=== PATIENT | male | born 1945 | race Caucasian/White ===

== ENCOUNTER 2017-10-08 16:53 | Emergency (ER) | payer OTHER ==
[~2017-10-08] VITALS: Ht 180.3 cm; Wt 75.3 kg
[~2017-10-08 16:53] MED LIST: ASPI81CH2 PO; ATEN50TA8 PO; COEN10CA2 PO; LEVO125T72 PO; LISI20TA3 PO; MELO15TA4 PO; SYMIN160 INH
[2017-10-08 17:12] VITALS: TEMP 37.6; Ht 180.3 cm; Wt 75.3 kg
[2017-10-08] MEDS ORDERED: MAGNESIUM SULFATE 1GM / D5W 1 GM BAG IV STA (18:48)
[2017-10-08] MEDS ORDERED: SODIUM CHLORIDE 0.9% 500ML 500 ML IV STA (18:48)
[2017-10-08] MEDS ORDERED: METHYLPREDNISOLONE 125 MG VIAL IV STA (18:48)
[2017-10-08] MEDS ORDERED: ACETAMINOPHEN 325 MG TAB PO STA (18:48)
--- NOTE | 2017-10-08 18:54 | EMERGENCY ROOM VISIT NOTE ---
History Report prepared by Christin: Nilesh Bah Under the Supervision of: Dr. David Guillaume M.D. First contact with patient: 18:40 Chief Complaint: FLU LIKE SX Stated Complaint: FLU LIKE SX History of Present Illness The patient is a 72 year old male who presents to the Emergency Room with complaints of worsening difficulty breathing that that the patient has been experiencing for the past two months. The patient states that he has been experiencing cough, congestion, and fevers for the past two months. The cough is producing a clear phlegm. He has been on two different strains of prednisone and antibiotics, but has never gotten full relief of his symptoms. The patient came in today because he was having a harder time breathing. He describes his shortness of breath as his chest being "tight." The patient is currently an everyday smoker and has a history of COPD. He does use inhalers at home that help with his shortness of breath. He is on Eliquis for anticoagulation therapy. The patient continued to have some bouts of diarrhea for the past week. Source of History: patient Onset: Two Months Position: other (Respiratory) Quality: other (SOB, chest tightness) Timing: worsening Associated Symptoms: + fevers, + cough, + diarrhea Review of Systems See HPI for pertinent positives and negatives. A total of ten systems were reviewed and were otherwise negative. Past Medical & Surgical Medical Problems: (1) Atrial fibrillation (2) COPD (chronic obstructive pulmonary disease) (3) Heart disease (4) HTN (hypertension) Surgical Problems: (1) History of appendectomy Family History FH: heart disease FHx: cancer Social History Smoking Status: Current Every Day Smoker Drug Use: none Marital Status: Housing Status: lives with significant other Occupation Status: employed Current/Historical Medications Scheduled Apixaban (Eliquis), 5 MG PO BID Ascorbic Acid (Vitamin C), 250 MG PO DAILY Aspirin (Aspirin Ec), 81 MG PO DAILY Atenolol (Tenormin), 50 MG PO DAILY Azithromycin (Zithromax), 250 MG PO DAILY Budesonide/Formoterol Fumarate (Symbicort 160/4.5 Inhaler ), 2 PUFFS INH BID Ferrous Sulfate (Ferrous Sulfate), 325 MG PO DAILY Folic Acid (Folic Acid), 800 MCG PO DAILY Levothyroxine Sodium (Levothyroxine Sodium), 137 MCG PO DAILY Lisinopril (Prinivil), 10 MG PO DAILY Prednisone (Prednisone), 3 TAB PO DAILY Propranolol Hcl (Propranolol Hcl Er), 120 MG PO DAILY Scheduled PRN Albuterol Hfa (Ventolin Hfa), 2 PUFFS INH Q4H PRN for Wheezing Allergies Coded Allergies: Sulfa Antibiotics (Verified Allergy, Unknown, ., 08/12/15) Physical Exam Vital Signs Date Time Temp Pulse Resp B/P (MAP) Pulse Ox O2 Delivery O2 Flow Rate FiO2 10/08/17 21:01 72 18 132/82 92 Room Air 10/08/17 19:42 92 Room Air 10/08/17 19:38 63 10/08/17 19:38 67 18 123/80 92 Room Air 10/08/17 17:12 37.6 64 18 107/69 93 Room Air Physical Exam GENERAL: Awake, alert, fatigued/uncomfortable-appearing, in no distress HENT: Normocephalic, atraumatic. Mucous membranes are dry. EYES: Normal conjunctiva. Sclera non-icteric. NECK: Supple. No nuchal rigidity. FROM. No JVD. RESPIRATORY: Breath sounds are diminished throughout, with scattered wheezes. CARDIAC: Irregularly irregular rate.. Extremities warm and well perfused. Pulses equal. ABDOMEN: Soft, non-distended. No tenderness to palpation. No rebound or guarding. No masses. RECTAL: Deferred. MUSCULOSKELETAL: Chest examination reveals no tenderness. The back is symmetrical on inspection without obvious abnormality. There is no CVA tenderness to palpation. No joint edema. LOWER EXTREMITIES: Calves are equal size bilaterally and non-tender. No edema. No discoloration. NEURO: Normal sensorium. No sensory or motor deficits noted. SKIN: No rash or jaundice noted. Medical Decision & Procedures ER Provider Diagnostic Interpretation: Radiology results as stated below per my review and radiologist interpretation: CHEST ONE VIEW PORTABLE CLINICAL HISTORY: Chest pain. Flulike symptoms. COMPARISON STUDY: Chest radiograph August 12, 2015. FINDINGS: Lung volumes are normal. There is no consolidation or evidence for pulmonary edema. Cardiomediastinal silhouette is unremarkable. No pneumothorax or pleural effusion is identified. IMPRESSION: No acute cardiopulmonary findings. Electronically signed by: Chapincito Byrd M.D. 10/08/2017 8:10 PM Dictated Date/Time: 10/08/2017 8:09 PM Laboratory Results 10/08/17 19:29 Red Blood Count 4.31, Mean Corpuscular Volume 96.1, Mean Corpuscular Hemoglobin 32.9, Mean Corpuscular Hemoglobin Concent 34.3, Mean Platelet Volume 10.6, Neutrophils (%) (Auto) 83.0, Lymphocytes (%) (Auto) 7.8, Monocytes (%) (Auto) 8.4, Eosinophils (%) (Auto) 0.1, Basophils (%) (Auto) 0.3, Neutrophils # (Auto) 5.72, Lymphocytes # (Auto) 0.54, Monocytes # (Auto) 0.58, Eosinophils # (Auto) 0.01, Basophils # (Auto) 0.02 10/08/17 19:29 Test 10/08/17 19:29 White Blood Count 6.90 K/uL (4.8-10.8) Red Blood Count 4.31 M/uL (4.7-6.1) Hemoglobin 14.2 g/dL (14.0-18.0) Hematocrit 41.4 % (42-52) Mean Corpuscular Volume 96.1 fL (80-100) Mean Corpuscular Hemoglobin 32.9 pg (25-34) Mean Corpuscular Hemoglobin Concent 34.3 g/dl (32-36) Platelet Count 203 K/uL (130-400) Mean Platelet Volume 10.6 fL (7.4-10.4) Neutrophils (%) (Auto) 83.0 % Lymphocytes (%) (Auto) 7.8 % Monocytes (%) (Auto) 8.4 % Eosinophils (%) (Auto) 0.1 % Basophils (%) (Auto) 0.3 % Neutrophils # (Auto) 5.72 K/uL (1.4-6.5) Lymphocytes # (Auto) 0.54 K/uL (1.2-3.4) Monocytes # (Auto) 0.58 K/uL (0.11-0.59) Eosinophils # (Auto) 0.01 K/uL (0-0.5) Basophils # (Auto) 0.02 K/uL (0-0.2) RDW Standard Deviation 49.8 fL (36.4-46.3) RDW Coefficient of Variation 14.1 % (11.5-14.5) Immature Granulocyte % (Auto) 0.4 % Immature Granulocyte # (Auto) 0.03 K/uL (0.00-0.02) Venous Blood pH 7.39 (7.36-7.41) Venous Blood Partial Pressure CO2 44 mmHg (38.0-50.0) Venous Blood Partial Pressure O2 48 mmHg Venous Blood HCO3 26 mmol/L Venous Blood Oxygen Saturation 81.4 % Venous Blood Base Excess 1.0 mEq/L Anion Gap 8.0 mmol/L (3-11) Est Creatinine Clear Calc Drug Dose 77.6 ml/min Estimated GFR () 95.4 Estimated GFR (Non- 82.3 BUN/Creatinine Ratio 18.1 (10-20) Calcium Level 8.5 mg/dl (8.5-10.1) Magnesium Level 1.8 mg/dl (1.8-2.4) Total Bilirubin 1.4 mg/dl (0.2-1) Direct Bilirubin 0.3 mg/dl (0-0.2) Aspartate Amino Transf (AST/SGOT) 19 U/L (15-37) Alanine Aminotransferase (ALT/SGPT) 31 U/L (12-78) Alkaline Phosphatase 47 U/L (45-117) Troponin I 0.019 ng/ml (0-0.045) Pro-B-Type Natriuretic Peptide 4195 pg/ml (0-900) Total Protein 6.8 gm/dl (6.4-8.2) Albumin 3.0 gm/dl (3.4-5.0) Lipase 368 U/L (73-393) Influenza Type A Antigen Neg for Influ A (NEG) Influenza Type B Antigen Neg for Influ B (NEG) Laboratory results reviewed by me Medications Administered Medications (Trade) Dose Ordered Sig/Naeem Route Start Time Stop Time Status Last Admin Dose Admin Sodium Chloride 500 ml @ 999 mls/hr Q31M STAT IV 10/08/17 18:48 10/08/17 19:18 DC 10/08/17 19:44 999 MLS/HR Acetaminophen (Tylenol Tab) 650 mg NOW STAT PO 10/08/17 18:48 10/08/17 18:54 DC 10/08/17 19:50 650 MG Albuterol/ Ipratropium (Duoneb) 12 ml ONE ONCE INH 10/08/17 19:00 10/08/17 19:01 DC 10/08/17 20:00 12 ML Methylprednisolone Sodium Succinate (Solu-Medrol IV) 125 mg NOW STAT IV 10/08/17 18:48 10/08/17 18:54 DC 10/08/17 19:50 125 MG Magnesium Sulfate (Magnesium Sulfate) 2 gm NOW STAT IV 10/08/17 18:48 10/08/17 18:54 DC 10/08/17 19:52 2 GM Azithromycin (Zithromax Tab) 500 mg NOW STAT PO 10/08/17 20:48 10/08/17 20:50 DC 10/08/17 21:28 500 MG ECG Rate (beats per minute): 64 Rhythm: sinus rhythm Findings: nonspecific-ST abn, PAC, no acute ischemic change, other (Normal [place] ) Comparison ECG Date: no prior available Change: Patient's electrocardiogram interpreted by me. ED Course 1845: The patient was evaluated in room A11B. A complete history and physical exam was performed. 1847: Ordered Magnesium Sulfate 2 gm IV, Solu-Medrol 125 mg IV, Tylenol 650 mg PO, Sodium Chloride 500 mL @ 999 mL/hr IV. 1899: Ordered Duoneb 12 mL INH. 2047: Ordered Azithromycin 500 mg PO. 2100: I reevaluated the patient. Discussed results and discharge instructions: He verbalized understanding and agreement. The patient is ready for discharge. Medical Decision I reviewed the patient's past medical history, medications, and the nursing notes as described above. Differential diagnosis: Etiologies such as infections, reactive airway disease, pneumonia, pneumothorax , COPD, CHF, cardiac ischemia, pulmonary embolism, musculoskeletal, gastrointestinal, as well as others were entertained. The patient is a 72-year-old gentleman with a past medical history of A. fib on a Eliquis, COPD, active smoker who presents emergency Department with worsening cough and congestion over the past several days the setting have had a recurrent episodes over the past couple of weeks per hpi. On arrival the patient is uncomfortable in no acute distress, afebrile stable vital signs. 92% on RA in the setting of chronic smoking. On exam the patient has diminished breath sounds throughout with scattered wheezes. Appears clinically dry. EKG with non-specific findings, no acute ischemia. Trop wnl in the setting of several days of constant sx. BNP 4K without prior for comparison. Likely related to patient's Afib. Otherwise, chest x-ray negative fluid overload or pneumonia. VBG unremarkable. WBC within normal limits. Influenza negative. Patient feeling improved after steroids and continuous nebs. Thus plan for prednisone and azithromycin and PCP follow-up. Findings and plan for follow-up reviewed with patient. Patient agreeable and d/c'd per discharge instructions. Medication Reconcilliation Current Medication List: was personally reviewed by me Blood Pressure Screening Patient's blood pressure: Normal blood pressure Impression Primary Impression: COPD with exacerbation Scribe Attestation The scribe's documentation has been prepared under my direction and personally reviewed by me in its entirety. I confirm that the note above accurately reflects all work, treatment, procedures, and medical decision making performed by me. Departure Information Dispostion Home / Self-Care Prescriptions Azithromycin (Zithromax) 250 Mg Tab 250 MG PO DAILY, #4 TAB Prov: David Guillaume M.D. 10/08/17 Prednisone (Prednisone) 20 Mg Tab 3 TAB PO DAILY for 4 Days, #12 TAB FOR 4 DAYS Prov: David Guillaume M.D. 10/08/17 Referrals Sonja Condon DO (PCP) Patient Instructions ED COPD Flare, My [facility] Additional Instructions Please follow up with your primary care physician in the next 1-3 days for re- evaluation. You likely have a COPD exacerbation. Otherwise, your exam, EKG, chest xray, and lab results did not show signs of an emergent condition at this time. Acetaminophen for pain and fevers as needed. Prednisone and Azithromycin as directed. Drink plenty of fluids to ensure hydration. Return to the emergency department for worsening symptoms as described in the accompanying instructions.
[2017-10-08] MEDS ORDERED: ALBUT/IPRATROP 3MG/0.5MG NEB 3 ML VIAL INH ONE (19:00)
[2017-10-08] MEDS ORDERED: FOLI800T PO (19:12)
[2017-10-08] MEDS ORDERED: ASCO250T4 PO (19:12)
[2017-10-08] MEDS ORDERED: ASPI81TA28 PO (19:12)
[2017-10-08] MEDS ORDERED: APIX1TAB3 PO (19:12)
[2017-10-08] MEDS ORDERED: PROP120C PO (19:12)
[2017-10-08] MEDS ORDERED: VNTHFA/IN INH (19:12)
[2017-10-08] MEDS ORDERED: LISI10TA PO (19:12)
[2017-10-08] MEDS ORDERED: LEVO137T3 PO (19:12)
[2017-10-08] MEDS ORDERED: FRRS300 PO (19:12)
[2017-10-08 19:42] VITALS: O2SAT 92
[2017-10-08 19:49] LABS: BASO % 0.3 %; BASO ABS # 0.02 K/uL (0-0.2); EOS % 0.1 %; EOS ABS # 0.01 K/uL (0-0.5); HEMATOCRIT 41.4 % (42-52); HEMOGLOBIN 14.2 g/dL (14.0-18.0); IG# 0.03 K/uL (0.00-0.02); LYMPH % 7.8 %; LYMPH ABS # 0.54 K/uL (1.2-3.4); MEAN CELL VOLUME 96.1 fL (80-100); MEAN CORPUSCULAR HEMOGLOBIN 32.9 pg (25-34); MEAN CORPUSCULAR HGB CONC 34.3 g/dl (32-36); MEAN PLATELET VOLUME 10.6 fL (7.4-10.4); MONO % 8.4 %; MONO ABS # 0.58 K/uL (0.11-0.59); NEUT ABS # 5.72 K/uL (1.4-6.5); PLATELET COUNT 203 K/uL (130-400); RED CELL DISTRIBUTION WIDTH CV 14.1 % (11.5-14.5); RED CELL DISTRIBUTION WIDTH SD 49.8 fL (36.4-46.3)
[2017-10-08 20:06] LABS: CALCIUM 8.5 mg/dl (8.5-10.1); CREATININE 0.93 mg/dl (0.60-1.40); POTASSIUM 3.9 mmol/L (3.5-5.1)
--- NOTE | 2017-10-08 20:11 | DIAGNOSTIC IMAGING REPORT ---
CHEST ONE VIEW PORTABLE CLINICAL HISTORY: Chest pain. Flulike symptoms. COMPARISON STUDY: Chest radiograph August 12, 2015. FINDINGS: Lung volumes are normal. There is no consolidation or evidence for pulmonary edema. Cardiomediastinal silhouette is unremarkable. No pneumothorax or pleural effusion is identified. IMPRESSION: No acute cardiopulmonary findings. Electronically signed by: Chapincito Byrd M.D. 10/08/2017 8:10 PM Dictated Date/Time: 10/08/2017 8:09 PM
[2017-10-08 20:12] LABS: TOTAL PROTEIN 6.8 gm/dl (6.4-8.2)
[2017-10-08 20:17] LABS: INFLUENZA B ANTIGEN Neg for Influ B (NEG)
[2017-10-08] MEDS ORDERED: AZITHROMYCIN 250 MG TAB PO STA (20:48)
[2017-10-08] MEDS ORDERED: AZIT250T PO (20:53)
[2017-10-08] MEDS ORDERED: PRED20TA PO (20:53)
[2017-10-08 21:01] VITALS: BP 132/82; PULSE 72; O2SAT 92
== END 2017-10-08 22:31 | disposition home or self-care (01) ==
LOC: C.EDB 16:54 → C.EDA 22:31
DX: J44.1 Chronic obstructive pulmonary disease with (acute) exacerbation (principal); I10 Essential (primary) hypertension; I48.91 Unspecified atrial fibrillation; F17.200 Nicotine dependence, unspecified, uncomplicated; Z79.01 Long term (current) use of anticoagulants; Z79.82 Long term (current) use of aspirin

== ENCOUNTER 2017-10-11 11:03 | Inpatient (IN) | payer OTHER ==
[~2017-10-11] VITALS: Ht 180.3 cm; Wt 75.7 kg
[~2017-10-11 11:03] MED LIST changes: +APIX1TAB3 PO; +ASCO250T4 PO; -ASPI81CH2 PO; +ASPI81TA28 PO; +AZIT250T PO; -COEN10CA2 PO; +FOLI800T PO; +FRRS300 PO; -LEVO125T72 PO; +LEVO137T3 PO; +LISI10TA PO; -LISI20TA3 PO; -MELO15TA4 PO; +PRED20TA PO; +PROP120C PO; +VNTHFA/IN INH
[2017-10-11] MEDS ORDERED: OSELTAMIVIR PHOSPHATE 75 MG CAP PO STA (11:59)
[2017-10-11] MEDS ORDERED: ALBUT/IPRATROP 3MG/0.5MG NEB 3 ML VIAL INH ONE (12:00)
[2017-10-11 12:21] VITALS: PULSE 50; O2SAT 94
[2017-10-11 12:33] LABS: BASO % 0.1 %; BASO ABS # 0.01 K/uL (0-0.2); HEMATOCRIT 43.2 % (42-52); HEMOGLOBIN 14.6 g/dL (14.0-18.0); IG# 0.04 K/uL (0.00-0.02); LYMPH % 4.2 %; LYMPH ABS # 0.58 K/uL (1.2-3.4); MEAN CELL VOLUME 97.3 fL (80-100); MEAN CORPUSCULAR HEMOGLOBIN 32.9 pg (25-34); MEAN CORPUSCULAR HGB CONC 33.8 g/dl (32-36); MEAN PLATELET VOLUME 10.6 fL (7.4-10.4); MONO % 4.4 %; NEUT ABS # 12.42 K/uL (1.4-6.5); PLATELET COUNT 251 K/uL (130-400); RED CELL DISTRIBUTION WIDTH CV 14.1 % (11.5-14.5); RED CELL DISTRIBUTION WIDTH SD 50.4 fL (36.4-46.3); WHITE BLOOD COUNT 13.65 K/uL (4.8-10.8)
--- NOTE | 2017-10-11 12:38 | EMERGENCY ROOM VISIT NOTE ---
History Report prepared by Christin: Shiela Harrington Under the Supervision of: Dr. David Guillaume M.D. First contact with patient: 11:40 Chief Complaint: RESPIRATORY PROBLEMS Stated Complaint: TROUBLE BREATHING Nursing Triage Summary: pt reports was here a few days ago for cough with SOB states "I've been using my albuterol INH and Symbicort, I also have a nebulizer. They have been helping for a short time but afterwards I feel worse." pt reports HX of Afib, does not currently feel in cough with production of sputum pt appears to be using accessory chest muscles History of Present Illness The patient is a 72 year old male who presents to the Emergency Room with complaints of persistent respiratory problems that began a few days ago. The patient was recently seen in the Emergency Department for a severe cough with shortness of breath, noting he is on his fourth day of steroids. During his last visit, the patient tested negative for the flu. The patient states that since his last visit, he has been experiencing severe shortness of breath, which worsens when he lays down. He notes that he his inhaler and nebulizing treatment only resolve his symptoms short term. He denies any f/c, abdominal pain, chest pain, palpitations or dysuria. The patient reports that he has currently stopped smoking since his last ED visit. He notes that he is still taking Eliquis. Source of History: patient Onset: few days ago Position: other (global) Symptom Intensity: severe Quality: other (respiratory problems) Modifying Factors (Relieving): other (inhaler and nebulizer treatment ( short term)) Associated Symptoms: + SOB, No chest pain (and no palpitations), No abdominal pain, No urinary symptoms (dysuria) Review of Systems See HPI for pertinent positives and negatives. A total of ten systems were reviewed and were otherwise negative. Past Medical & Surgical Medical Problems: (1) Atrial fibrillation (2) COPD (chronic obstructive pulmonary disease) (3) Heart disease (4) HTN (hypertension) Surgical Problems: (1) History of appendectomy Family History FH: heart disease FHx: cancer Social History Smoking Status: Former Smoker Drug Use: none Marital Status: Housing Status: lives with significant other Occupation Status: employed Current/Historical Medications Scheduled Apixaban (Eliquis), 5 MG PO BID Ascorbic Acid (Vitamin C), 250 MG PO DAILY Aspirin (Aspirin Ec), 81 MG PO DAILY Atenolol (Tenormin), 50 MG PO DAILY Budesonide/Formoterol Fumarate (Symbicort 160/4.5 Inhaler ), 2 PUFFS INH BID Ferrous Sulfate (Ferrous Sulfate), 325 MG PO DAILY Folic Acid (Folic Acid), 800 MCG PO DAILY Levothyroxine Sodium (Levothyroxine Sodium), 137 MCG PO DAILY Lisinopril (Prinivil), 10 MG PO DAILY Prednisone (Prednisone), 3 TAB PO DAILY Propranolol Hcl (Propranolol Hcl Er), 120 MG PO DAILY Scheduled PRN Albuterol Hfa (Ventolin Hfa), 2 PUFFS INH Q4H PRN for Wheezing Allergies Coded Allergies: Sulfa Antibiotics (Verified Allergy, Unknown, ., 10/11/17) Physical Exam Vital Signs Date Time Temp Pulse Resp B/P (MAP) Pulse Ox O2 Delivery O2 Flow Rate FiO2 10/11/17 13:48 51 16 167/94 93 Room Air 10/11/17 12:34 92 10/11/17 12:30 50 16 142/86 91 Nebulizer 10/11/17 12:21 50 14 94 Room Air 10/11/17 11:22 56 10/11/17 11:07 36.7 57 20 160/89 94 Room Air Physical Exam GENERAL: Awake, alert, fatigued, dyspneic, in no distress. HENT: Dry mucous membranes. Normocephalic, atraumatic. Oropharynx unremarkable. EYES: Normal conjunctiva. Sclera non-icteric. NECK: Supple. No nuchal rigidity. FROM. No JVD. RESPIRATORY: Diminished breath sounds with scattered wheezes. CARDIAC: Irregular irregular heartbeat. Extremities warm and well perfused. Pulses equal. ABDOMEN: Soft, non-distended. No tenderness to palpation. No rebound or guarding. No masses. RECTAL: Deferred. MUSCULOSKELETAL: Chest examination reveals no tenderness. The back is symmetrical on inspection without obvious abnormality. There is no CVA tenderness to palpation. No joint edema. LOWER EXTREMITIES: Calves are equal size bilaterally and non-tender. No edema. No discoloration. NEURO: Normal sensorium. No sensory or motor deficits noted. SKIN: No rash or jaundice noted. Medical Decision & Procedures ER Provider Diagnostic Interpretation: Radiology results as stated below per my review and radiologist interpretation: CHEST ONE VIEW PORTABLE CLINICAL HISTORY: 72 years-old Male presenting with CHEST PAIN. TECHNIQUE: Portable upright AP view of the chest was obtained. COMPARISON: 10/08/2017. FINDINGS: Atherosclerosis of the aortic arch. Cardiac silhouette normal in size. Lungs and pleural spaces clear. Degenerative changes of the right glenohumeral joint. Upper abdomen normal. IMPRESSION: 1. No acute cardiopulmonary disease. Electronically signed by: Johnnie Moreno M.D. 10/11/2017 1:10 PM Dictated Date/Time: 10/11/2017 1:09 PM Laboratory Results 10/11/17 12:15 Red Blood Count 4.44, Mean Corpuscular Volume 97.3, Mean Corpuscular Hemoglobin 32.9, Mean Corpuscular Hemoglobin Concent 33.8, Mean Platelet Volume 10.6, Neutrophils (%) (Auto) 91.0, Lymphocytes (%) (Auto) 4.2, Monocytes (%) (Auto) 4.4, Eosinophils (%) (Auto) 0.0, Basophils (%) (Auto) 0.1, Neutrophils # (Auto) 12.42, Lymphocytes # (Auto) 0.58, Monocytes # (Auto) 0.60, Eosinophils # (Auto) 0.00, Basophils # (Auto) 0.01 10/11/17 12:15 Test 10/11/17 12:15 10/11/17 12:17 White Blood Count 13.65 K/uL (4.8-10.8) Red Blood Count 4.44 M/uL (4.7-6.1) Hemoglobin 14.6 g/dL (14.0-18.0) Hematocrit 43.2 % (42-52) Mean Corpuscular Volume 97.3 fL (80-100) Mean Corpuscular Hemoglobin 32.9 pg (25-34) Mean Corpuscular Hemoglobin Concent 33.8 g/dl (32-36) Platelet Count 251 K/uL (130-400) Mean Platelet Volume 10.6 fL (7.4-10.4) Neutrophils (%) (Auto) 91.0 % Lymphocytes (%) (Auto) 4.2 % Monocytes (%) (Auto) 4.4 % Eosinophils (%) (Auto) 0.0 % Basophils (%) (Auto) 0.1 % Neutrophils # (Auto) 12.42 K/uL (1.4-6.5) Lymphocytes # (Auto) 0.58 K/uL (1.2-3.4) Monocytes # (Auto) 0.60 K/uL (0.11-0.59) Eosinophils # (Auto) 0.00 K/uL (0-0.5) Basophils # (Auto) 0.01 K/uL (0-0.2) RDW Standard Deviation 50.4 fL (36.4-46.3) RDW Coefficient of Variation 14.1 % (11.5-14.5) Immature Granulocyte % (Auto) 0.3 % Immature Granulocyte # (Auto) 0.04 K/uL (0.00-0.02) Anion Gap 6.0 mmol/L (3-11) Est Creatinine Clear Calc Drug Dose 81.0 ml/min Estimated GFR () 99.7 Estimated GFR (Non- 86.0 BUN/Creatinine Ratio 24.5 (10-20) Calcium Level 8.7 mg/dl (8.5-10.1) Total Bilirubin 0.7 mg/dl (0.2-1) Direct Bilirubin 0.2 mg/dl (0-0.2) Aspartate Amino Transf (AST/SGOT) 41 U/L (15-37) Alanine Aminotransferase (ALT/SGPT) 59 U/L (12-78) Alkaline Phosphatase 50 U/L (45-117) Troponin I < 0.015 ng/ml (0-0.045) Pro-B-Type Natriuretic Peptide 1786 pg/ml (0-900) Total Protein 7.2 gm/dl (6.4-8.2) Albumin 3.1 gm/dl (3.4-5.0) Lipase 283 U/L (73-393) Influenza Type A (RT-PCR) POS for Influ A (NEG) Influenza Type B (RT-PCR) Neg for Influ B (NEG) Venous Blood pH 7.42 (7.36-7.41) Venous Blood Partial Pressure CO2 47 mmHg (38.0-50.0) Venous Blood Partial Pressure O2 46 mmHg Venous Blood HCO3 30 mmol/L Venous Blood Oxygen Saturation 81.1 % Venous Blood Base Excess 4.8 mEq/L Laboratory results reviewed by me Medications Administered Medications (Trade) Dose Ordered Sig/Naeem Route Start Time Stop Time Status Last Admin Dose Admin Oseltamivir Phosphate (Tamiflu Cap) 75 mg NOW STAT PO 2/4/18 11:59 10/11/17 12:06 DC 10/11/17 11:59 75 MG Albuterol/ Ipratropium (Duoneb) 12 ml ONE ONCE INH 10/11/17 12:00 10/11/17 12:07 DC 10/11/17 12:20 12 ML ECG Indication: SOB/dyspnea Rate (beats per minute): 57 Rhythm: sinus bradycardia Findings: no acute ischemic change, other (normal axis) Change: no significant change (10/08/2017) ED Course 1151: The patient was evaluated in room C6. A complete history and physical exam was performed. 1159: Ordered Tamiflu Cap 75mg PO. 1200: Ordered Duoneb 12ml INH. 1320: I reevaluated the patient. I discussed today's findings and the treatment plan with him; he verbalized agreement. 1350: I discussed the patient with Sky Adamson - He will evaluate the patient for further treatment. Medical Decision I reviewed the patient's past medical history, medications, and the nursing notes as described above. Differential diagnosis: Etiologies such as infections, influenza, reactive airway disease, pneumonia, pneumothorax, COPD, CHF, cardiac ischemia, pulmonary embolism, musculoskeletal, gastrointestinal, as well as others were entertained. The patient is a 72 y/o gentleman with a pmhx of COPD, active smoker, afib on Eliquis presents to the emergency department with persistent/worsening cough/ congestion since being seen in the ED 3 days ago for similar symptoms treated for COPD flare/bronchitis with prednisone/azithro per HPI. On last visit Influenza screen was negative. On arrival the patient is uncomfortable and mildly dyspneic but in NAD, AFVSS. Patient took his prednisone and Azithro this morning. Given continuous neb and Tamiflu based on persistence of patient's sx and current prevalence in the community. Subsequent PCR +for influenza A. WBC 13 up from prior however on prednisone. BNP 1700 improved from prior. CXR negative for PNA. Given worsening sx in the setting of influenza in this 72 y/o with comorbidities will admit. Patient agreeable with admission. Case d/w Sky Adamson hospitalist, who will admit the patient for further management. Medication Reconcilliation Current Medication List: was personally reviewed by me Blood Pressure Screening Patient's blood pressure: Elevated blood pressure Blood pressure disposition: Elevated BP felt to be situational Consults Time Called: 1350 Consulting Physician: Sky Adamson Returned Call: 1350 I discussed the patient with Sky Adamson - He will evaluate the patient for further treatment. Impression Primary Impression: Influenza Scribe Attestation The scribe's documentation has been prepared under my direction and personally reviewed by me in its entirety. I confirm that the note above accurately reflects all work, treatment, procedures, and medical decision making performed by me. Departure Information Dispostion Being Evaluated By Hospitalist Referrals Sonja Condon DO (PCP) Forms HOME CARE DOCUMENTATION FORM, IMPORTANT VISIT INFORMATION, WORK / SCHOOL INSTRUCTIONS Patient Instructions My [facility] [address]
[2017-10-11 12:52] LABS: ALBUMIN 3.1 gm/dl (3.4-5.0); ALT/SGPT 59 U/L (12-78); AST/SGOT 41 U/L (15-37); BLOOD UREA NITROGEN 22 mg/dl (7-18); CALCIUM 8.7 mg/dl (8.5-10.1); CARBON DIOXIDE 30 mmol/L (21-32); CREATININE 0.89 mg/dl (0.60-1.40); GLUCOSE 96 mg/dl (70-99); LIPASE 283 U/L (73-393); POTASSIUM 4.3 mmol/L (3.5-5.1); SODIUM 138 mmol/L (136-145)
[2017-10-11 12:57] LABS: ALKALINE PHOSPHATASE 50 U/L (45-117); TOTAL PROTEIN 7.2 gm/dl (6.4-8.2)
--- NOTE | 2017-10-11 13:12 | DIAGNOSTIC IMAGING REPORT ---
CHEST ONE VIEW PORTABLE CLINICAL HISTORY: 72 years-old Male presenting with CHEST PAIN. TECHNIQUE: Portable upright AP view of the chest was obtained. COMPARISON: 10/08/2017. FINDINGS: Atherosclerosis of the aortic arch. Cardiac silhouette normal in size. Lungs and pleural spaces clear. Degenerative changes of the right glenohumeral joint. Upper abdomen normal. IMPRESSION: 1. No acute cardiopulmonary disease. Electronically signed by: Johnnie Moreno M.D. 10/11/2017 1:10 PM Dictated Date/Time: 10/11/2017 1:09 PM
[2017-10-11 13:30] LABS: INFLUENZA A PCR POS for Influ A (NEG); INFLUENZA B PCR Neg for Influ B (NEG)
[2017-10-11] MEDS ORDERED: ALBUTEROL HFA 8 GM INHALER INH PRN (15:15)
[2017-10-11] MEDS ORDERED: LISINOPRIL 5 MG TAB PO ONE (15:15)
[2017-10-11] MEDS ORDERED: ACETAMINOPHEN 325 MG TAB PO PRN (15:15)
[2017-10-11] MEDS: SODIUM CHLORIDE 0.9% 1000ML 1,000 ML IV SCH (16:00)
[2017-10-11 16:05] VITALS: BP 153/88; PULSE 51; TEMP 36.7; O2SAT 92; Ht 180.3 cm; Wt 75.7 kg
[2017-10-11] MEDS: ALBUT/IPRATROP 3MG/0.5MG NEB 3 ML VIAL INH SCH ×2 (16:55→19:26)
--- NOTE | 2017-10-11 17:22 | History and Physical ---
History & Physical Date & Time of Service: Oct 11, 2017 at 17:01 Chief Complaint: Influenza Primary Care Physician: Sonja Condon DO History of Present Illness Source: patient, clinic records This is a 72 year old male with a PMH of COPD, intermittent tobacco use, non- obstructive CAD, paroxysmal atrial fibrillation on long-term anticoagulation, hypothyroidism, essential tremor - presents with worsening shortness of breath. States he had some shortness of breath on Thursday, 10/09 and came to the ER. Had the rapid flu which was negative, was wheezing, received neb treatments and IV steroids and felt better so he was discharged with prednisone and azithromycin. He returned today because the shortness of breath/cough/fever persisted. Upon presentation, influenza A PCR was done and was positive. CXR was done with no acute cardiopulmonary disease. Patient was doing well after some breathing treatments. Denies palpitations or chest pain. Past Medical/Surgical History Medical Problems: (1) Atrial fibrillation Status: Chronic (2) COPD (chronic obstructive pulmonary disease) Status: Chronic (3) Heart disease Status: Chronic (4) HTN (hypertension) Status: Chronic Surgical Problems: (1) History of appendectomy Status: Resolved Family History FH: heart disease FHx: cancer Social History Smoking Status: Light Tobacco Smoker Drug Use: none Marital Status: Occupational Status: employed Multi-Drug Resistant Organisms History of MDRO: No Allergies Coded Allergies: Sulfa Antibiotics (Verified Allergy, Unknown, ., 10/11/17) Home Medications Scheduled Apixaban (Eliquis), 5 MG PO BID Ascorbic Acid (Vitamin C), 250 MG PO DAILY Aspirin (Aspirin Ec), 81 MG PO DAILY Atenolol (Tenormin), 50 MG PO DAILY Budesonide/Formoterol Fumarate (Symbicort 160/4.5 Inhaler ), 2 PUFFS INH BID Ferrous Sulfate (Ferrous Sulfate), 325 MG PO DAILY Folic Acid (Folic Acid), 800 MCG PO DAILY Levothyroxine Sodium (Levothyroxine Sodium), 137 MCG PO DAILY Lisinopril (Prinivil), 10 MG PO DAILY Prednisone (Prednisone), 3 TAB PO DAILY Propranolol Hcl (Propranolol Hcl Er), 120 MG PO DAILY Scheduled PRN Albuterol Hfa (Ventolin Hfa), 2 PUFFS INH Q4H PRN for Wheezing Review of Systems Constitutional: + fever, + chills, No sweats, No weight loss, No weakness, No fatigue Eyes: No worsening of vision ENT: No hearing loss Respiratory: + cough, + sputum, + wheezing, + shortness of breath, No dyspnea on exertion, No dyspnea at rest, No hemoptysis Cardiovascular: No chest pain, No edema, No palpitations Abdomen: No pain, No nausea, No vomiting, No diarrhea, No GI bleeding Musculoskeletal: + joint pain (chronic R shoulder pain), No muscle pain Genitourinary - Male: No hematuria, No dysuria, No urinary frequency, No urinary urgency Neurologic: No weakness, No balance problems Psychiatric: No depression symptoms, No anxiety, No insomnia Endocrine: No fatigue Hematologic / Lymphatic: No abnormal bleeding/bruising Integumentary: No rash Allergic / Immunologic: No environmental allergies, No seasonal allergies Physical Exam Vital Signs Date Time Temp Pulse Resp B/P (MAP) Pulse Ox O2 Delivery O2 Flow Rate FiO2 10/11/17 16:05 36.7 51 20 153/88 92 Room Air 10/11/17 16:00 Room Air 10/11/17 15:42 47 16 123/83 88 Room Air 10/11/17 15:23 45 10/11/17 13:48 51 16 167/94 93 Room Air 10/11/17 12:34 92 10/11/17 12:30 50 16 142/86 91 Nebulizer 10/11/17 12:21 50 14 94 Room Air 10/11/17 11:22 56 10/11/17 11:07 36.7 57 20 160/89 94 Room Air General Appearance: WD/WN, no apparent distress Head: normocephalic, atraumatic Eyes: normal inspection ENT: hearing grossly normal Neck: supple Respiratory/Chest: no respiratory distress, no accessory muscle use, + wheezing (end expiratory wheezing throughout) Cardiovascular: regular rate, rhythm, no edema, no murmur Abdomen/GI: normal bowel sounds, non tender, soft Back: no CVA tenderness, no muscle spasm Extremities/Musculoskelatal: normal inspection, no calf tenderness, normal capillary refill, no pedal edema, normal range of motion 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, no motor/sensory deficits, alert, normal mood/affect, oriented x 3 Skin: normal color Lymphatic: no adenopathy Diagnostics Laboratory Results Results Past 24 Hours Test 10/11/17 12:15 10/11/17 12:17 Range/Units White Blood Count 13.65 4.8-10.8 K/uL Red Blood Count 4.44 4.7-6.1 M/uL Hemoglobin 14.6 14.0-18.0 g/dL Hematocrit 43.2 42-52 % Mean Corpuscular Volume 97.3 80-100 fL Mean Corpuscular Hemoglobin 32.9 25-34 pg Mean Corpuscular Hemoglobin Concent 33.8 32-36 g/dl Platelet Count 251 130-400 K/uL Mean Platelet Volume 10.6 7.4-10.4 fL Neutrophils (%) (Auto) 91.0 % Lymphocytes (%) (Auto) 4.2 % Monocytes (%) (Auto) 4.4 % Eosinophils (%) (Auto) 0.0 % Basophils (%) (Auto) 0.1 % Neutrophils # (Auto) 12.42 1.4-6.5 K/uL Lymphocytes # (Auto) 0.58 1.2-3.4 K/uL Monocytes # (Auto) 0.60 0.11-0.59 K/uL Eosinophils # (Auto) 0.00 0-0.5 K/uL Basophils # (Auto) 0.01 0-0.2 K/uL RDW Standard Deviation 50.4 36.4-46.3 fL RDW Coefficient of Variation 14.1 11.5-14.5 % Immature Granulocyte % (Auto) 0.3 % Immature Granulocyte # (Auto) 0.04 0.00-0.02 K/uL Sodium Level 138 136-145 mmol/L Potassium Level 4.3 3.5-5.1 mmol/L Chloride Level 102 98-107 mmol/L Carbon Dioxide Level 30 21-32 mmol/L Anion Gap 6.0 3-11 mmol/L Blood Urea Nitrogen 22 7-18 mg/dl Creatinine 0.89 0.60-1.40 mg/dl Est Creatinine Clear Calc Drug Dose 81.0 ml/min Estimated GFR () 99.7 Estimated GFR (Non- 86.0 BUN/Creatinine Ratio 24.5 10-20 Random Glucose 96 70-99 mg/dl Calcium Level 8.7 8.5-10.1 mg/dl Total Bilirubin 0.7 0.2-1 mg/dl Direct Bilirubin 0.2 0-0.2 mg/dl Aspartate Amino Transf (AST/SGOT) 41 15-37 U/L Alanine Aminotransferase (ALT/SGPT) 59 12-78 U/L Alkaline Phosphatase 50 45-117 U/L Troponin I < 0.015 0-0.045 ng/ml Pro-B-Type Natriuretic Peptide 1786 0-900 pg/ml Total Protein 7.2 6.4-8.2 gm/dl Albumin 3.1 3.4-5.0 gm/dl Lipase 283 73-393 U/L Influenza Type A (RT-PCR) POS for Influ A NEG Influenza Type B (RT-PCR) Neg for Influ B NEG Venous Blood pH 7.42 7.36-7.41 Venous Blood Partial Pressure CO2 47 38.0-50.0 mmHg Venous Blood Partial Pressure O2 46 mmHg Venous Blood HCO3 30 mmol/L Venous Blood Oxygen Saturation 81.1 % Venous Blood Base Excess 4.8 mEq/L Diagnostic Radiology CHEST ONE VIEW PORTABLE CLINICAL HISTORY: 72 years-old Male presenting with CHEST PAIN. TECHNIQUE: Portable upright AP view of the chest was obtained. COMPARISON: 10/08/2017. FINDINGS: Atherosclerosis of the aortic arch. Cardiac silhouette normal in size. Lungs and pleural spaces clear. Degenerative changes of the right glenohumeral joint. Upper abdomen normal. IMPRESSION: 1. No acute cardiopulmonary disease EKG Sinus bradycardia with Premature supraventricular complexes Impression Assessment and Plan This is a 72 year old male with a PMH of COPD, intermittent tobacco use, non- obstructive CAD, paroxysmal atrial fibrillation on long-term anticoagulation, hypothyroidism, essential tremor - presents with worsening shortness of breath. Influenza A patient has been feeling ill the past few days presented on 10/09, rapid flu was negative came back to the ED and found to have +Influenza A PCR testing will add Tamiflu because of his clinical picture for the five day course will give IVFs and Tylenol PRN for fevers Acute COPD Exacerbation patient has end expiratory wheezing diffusely will continue prednisone, increase the dose to 40mg daily continue Azithro, which was prescribed on Thursday, post-ED visit will add duonebs for wheezing/SOB Tobacco Use Disorder added Nicotine patch counseled on tobacco cessation; patient is receptive to the idea as he tried quitting multiple times Paroxysmal A. Fib patient takes Eliquis for anticoagulation, takes Atenolol for rate control Hypothyroidism continue Synthroid Essential Tremor patient takes Propranolol (to note, he takes two b-blockers at baseline) DVT ppx Eliquis FULL CODE Advanced Directives Existing Living Will: No Existing Power of Media Supervisor: Yes VTE Prophylaxis VTE Risk Assessment Done? Y/N: Yes Risk Level: Moderate Given or contraindicated: Other Anticoagulation
[2017-10-11 19:28] VITALS: PULSE 53; O2SAT 92
[2017-10-11] MEDS: BUDESONIDE/FORMOTEROL FUMARATE 160/4.5 60 PUFFS/INHALER INH SCH (19:54)
[2017-10-11] MEDS: OSELTAMIVIR PHOSPHATE 75 MG CAP PO SCH (19:55)
[2017-10-11] MEDS: APIXABAN 2.5 MG TAB PO SCH (19:55)
[2017-10-11 20:00] VITALS: O2SAT 92
[2017-10-11 22:58] VITALS: BP 170/101; PULSE 74; TEMP 39.4; O2SAT 90
[2017-10-12] VITALS (12 sets, daily range): BP systolic 112–131; BP diastolic 79–83; PULSE 55–66; TEMP 36.9–38.1; O2SAT 92–94
[2017-10-12] MEDS: SODIUM CHLORIDE 0.9% 1000ML 1,000 ML IV SCH (01:55)
[2017-10-12] MEDS: LEVOTHYROXINE 137 MCG TAB PO SCH (05:37)
[2017-10-12 06:45] LABS: HEMOGLOBIN 13.7 g/dL (14.0-18.0); MEAN CELL VOLUME 95.8 fL (80-100); MEAN CORPUSCULAR HGB CONC 33.4 g/dl (32-36); MEAN PLATELET VOLUME 10.7 fL (7.4-10.4); PLATELET COUNT 237 K/uL (130-400); RED CELL DISTRIBUTION WIDTH SD 49.1 fL (36.4-46.3); WHITE BLOOD COUNT 11.88 K/uL (4.8-10.8)
[2017-10-12] MEDS: ALBUT/IPRATROP 3MG/0.5MG NEB 3 ML VIAL INH SCH ×4 (06:59→19:53)
[2017-10-12] MEDS: APIXABAN 2.5 MG TAB PO SCH ×2 (07:55→20:17)
[2017-10-12] MEDS: ASCORBIC ACID 500 MG TAB PO SCH (07:55)
[2017-10-12] MEDS: BUDESONIDE/FORMOTEROL FUMARATE 160/4.5 60 PUFFS/INHALER INH SCH ×2 (07:55→20:16)
[2017-10-12] MEDS: AZITHROMYCIN 250 MG TAB PO SCH (07:56)
[2017-10-12] MEDS: PROPRANOLOL HCL 60 MG LA CAP PO SCH (07:56)
[2017-10-12] MEDS: OSELTAMIVIR PHOSPHATE 75 MG CAP PO SCH ×2 (07:57→20:17)
[2017-10-12] MEDS: FoLIC ACID TAB 400 MCG TAB PO SCH (07:58)
[2017-10-12] MEDS: NICOTINE 14 MG/24 HR TDSY TD SCH (07:58)
[2017-10-12] MEDS: FERROUS SULFATE 325 MG TAB PO SCH (07:58)
[2017-10-12] MEDS: LISINOPRIL 10 MG TAB PO SCH (07:59)
[2017-10-12] MEDS: ASPIRIN 81 MG ECTAB PO SCH (07:59)
--- NOTE | 2017-10-12 10:54 | Progress Note ---
Medicine Progress Note Date & Time of Visit: Oct 12, 2017 at 10:36. Subjective Pt was seen and examined Sitting at the edge of the bed with no distress Pt said that his breathing and the cough are better he saturated well on RA He had a fever last night Denies any chest pain, palpitation, dizziness and SOB Objective Last 8 Hrs Date Time Temp Pulse Resp B/P (MAP) Pulse Ox O2 Delivery O2 Flow Rate FiO2 10/12/17 08:00 Room Air 10/12/17 07:05 37.4 66 20 112/79 (90) 93 Room Air 10/12/17 06:59 63 14 93 Room Air 10/12/17 05:41 37.0 Physical Exam: General- No acute distress Head- atraumatic Eyes- PERRL, EOMI ENT- oropharynx clear Neck- supple, no JVD Lungs- rhonchi at base Heart- regular rhythm; no murmur Abdomen- normal bowel sounds, soft, Extremities- no calf tenderness Neuro- alert, oriented x 3; PERRL, EOMI; no facial palsy Skin- warm & dry Laboratory Results: Last 24 Hours Test 10/11/17 12:15 10/11/17 12:17 10/12/17 06:21 White Blood Count 13.65 K/uL 11.88 K/uL Red Blood Count 4.44 M/uL 4.28 M/uL Hemoglobin 14.6 g/dL 13.7 g/dL Hematocrit 43.2 % 41.0 % Mean Corpuscular Volume 97.3 fL 95.8 fL Mean Corpuscular Hemoglobin 32.9 pg 32.0 pg Mean Corpuscular Hemoglobin Concent 33.8 g/dl 33.4 g/dl Platelet Count 251 K/uL 237 K/uL Mean Platelet Volume 10.6 fL 10.7 fL Neutrophils (%) (Auto) 91.0 % Lymphocytes (%) (Auto) 4.2 % Monocytes (%) (Auto) 4.4 % Eosinophils (%) (Auto) 0.0 % Basophils (%) (Auto) 0.1 % Neutrophils # (Auto) 12.42 K/uL Lymphocytes # (Auto) 0.58 K/uL Monocytes # (Auto) 0.60 K/uL Eosinophils # (Auto) 0.00 K/uL Basophils # (Auto) 0.01 K/uL RDW Standard Deviation 50.4 fL 49.1 fL RDW Coefficient of Variation 14.1 % 14.0 % Immature Granulocyte % (Auto) 0.3 % Immature Granulocyte # (Auto) 0.04 K/uL Sodium Level 138 mmol/L Potassium Level 4.3 mmol/L Chloride Level 102 mmol/L Carbon Dioxide Level 30 mmol/L Anion Gap 6.0 mmol/L Blood Urea Nitrogen 22 mg/dl Creatinine 0.89 mg/dl Est Creatinine Clear Calc Drug Dose 81.0 ml/min Estimated GFR () 99.7 Estimated GFR (Non- 86.0 BUN/Creatinine Ratio 24.5 Random Glucose 96 mg/dl Calcium Level 8.7 mg/dl Total Bilirubin 0.7 mg/dl Direct Bilirubin 0.2 mg/dl Aspartate Amino Transf (AST/SGOT) 41 U/L Alanine Aminotransferase (ALT/SGPT) 59 U/L Alkaline Phosphatase 50 U/L Troponin I < 0.015 ng/ml Pro-B-Type Natriuretic Peptide 1786 pg/ml Total Protein 7.2 gm/dl Albumin 3.1 gm/dl Lipase 283 U/L Influenza Type A (RT-PCR) POS for Influ A Influenza Type B (RT-PCR) Neg for Influ B Venous Blood pH 7.42 Venous Blood Partial Pressure CO2 47 mmHg Venous Blood Partial Pressure O2 46 mmHg Venous Blood HCO3 30 mmol/L Venous Blood Oxygen Saturation 81.1 % Venous Blood Base Excess 4.8 mEq/L Hepatitis C Antibody Screen NEG Assessment & Plan Influenza A Positive Influenza A PCR Continue Tamiflu to complete 5 days course Acute COPD Exacerbation Mostly related to the flu CXR showed no acute cardiopulmonary disease. Continue Azithromycin and prednisone and neb treatment Continue Symbicort Fever Possible related to flu Last fever was last night If temp spike again, will get blood cx Continue monitor CBC ( on prednisone) Continue Tylenol for the fever Tobacco Use Disorder Continue nicotine patch Counseling on smoking cessation Paroxysmal A. Fib Rate control Continue Atenolol Continue Eliquis for anticoagulation HTN BP stable Continue Lisinopril and B-blockers Hypothyroidism continue Synthroid Essential Tremor On Propranolol DVT ppx Eliquis FULL CODE Current Inpatient Medications: Current Inpatient Medications Medications (Trade) Dose Ordered Sig/Naeem Route Start Time Stop Time Status Last Admin Dose Admin Acetaminophen (Tylenol Tab) 650 mg Q4H PRN PO 10/11/17 15:15 11/10/17 15:14 10/11/17 22:55 650 MG Albuterol (Ventolin Hfa Inhaler) 2 puffs Q4H PRN INH 10/11/17 15:15 11/10/17 15:14 Aspirin (Ecotrin Tab) 81 mg DAILY PO 10/12/17 09:00 11/11/17 08:59 10/12/17 07:59 81 MG Atenolol (Tenormin Tab) 50 mg DAILY PO 10/12/17 09:00 11/11/17 08:59 10/12/17 07:56 50 MG Budesonide/ Formoterol Fumarate (Symbicort 160/ 4.5 Inh) 2 puffs BID INH 10/11/17 21:00 11/10/17 20:59 10/12/17 07:55 2 PUFFS Ferrous Sulfate (Feosol Tab) 325 mg DAILY PO 10/12/17 09:00 11/11/17 08:59 10/12/17 07:58 325 MG Levothyroxine Sodium (Synthroid Tab) 137 mcg DAILYBB PO 10/12/17 06:30 11/11/17 06:29 10/12/17 05:37 137 MCG Lisinopril (Zestril Tab) 10 mg DAILY PO 10/12/17 09:00 11/11/17 08:59 10/12/17 07:59 10 MG Apixaban (Eliquis Tab) 5 mg BID PO 10/11/17 21:00 11/10/17 20:59 10/12/17 07:55 5 MG Ascorbic Acid (Vitamin C Tab) 250 mg DAILY PO 10/12/17 09:00 11/11/17 08:59 10/12/17 07:55 250 MG Folic Acid (Folvite Tab) 800 mcg DAILY PO 10/12/17 09:00 11/11/17 08:59 10/12/17 07:58 800 MCG Propranolol HCl (Inderal La Cap) 120 mg DAILY PO 10/12/17 09:00 11/11/17 08:59 10/12/17 07:56 120 MG Prednisone (PredniSONE TAB) 40 mg DAILY PO 10/12/17 09:00 11/11/17 08:59 10/12/17 07:58 40 MG Azithromycin (Zithromax Tab) 250 mg QAM PO 10/12/17 09:00 10/18/17 08:59 10/12/17 07:56 250 MG Albuterol/ Ipratropium (Duoneb) 3 ml QIDR INH 10/11/17 16:00 11/10/17 15:59 10/12/17 06:59 3 ML Oseltamivir Phosphate (Tamiflu Cap) 75 mg BID PO 10/11/17 21:00 10/16/17 20:59 10/12/17 07:57 75 MG Nicotine (Nicoderm Cq 14MG Patch) 1 patch QAM TD 10/12/17 09:00 11/11/17 08:59 10/12/17 07:58 1 PATCH Miscellaneous (Remove Nicoderm Patch) 1 ea HS N/A 10/12/17 21:00 11/11/17 20:59
[2017-10-12] MEDS ORDERED: COUGH DROP (SUGAR FREE) LOZ 24 LOZ/1 BOX LOZ ONE (21:46)
[2017-10-12] MEDS ORDERED: COUGH DROP (SUGAR FREE) LOZ 24 LOZ/1 BOX LOZ PRN (22:15)
[2017-10-13 00:22] VITALS: O2SAT 92
[2017-10-13] MEDS: LEVOTHYROXINE 137 MCG TAB PO SCH (05:49)
[2017-10-13 07:09] VITALS: PULSE 58; O2SAT 95
[2017-10-13] MEDS: ALBUT/IPRATROP 3MG/0.5MG NEB 3 ML VIAL INH SCH ×2 (07:09→11:17)
[2017-10-13 07:27] LABS: HEMATOCRIT 40.9 % (42-52); HEMOGLOBIN 13.7 g/dL (14.0-18.0); MEAN CELL VOLUME 96.5 fL (80-100); MEAN CORPUSCULAR HEMOGLOBIN 32.3 pg (25-34); MEAN CORPUSCULAR HGB CONC 33.5 g/dl (32-36); MEAN PLATELET VOLUME 10.5 fL (7.4-10.4); PLATELET COUNT 238 K/uL (130-400); RED CELL DISTRIBUTION WIDTH CV 14.1 % (11.5-14.5); RED CELL DISTRIBUTION WIDTH SD 49.8 fL (36.4-46.3); WHITE BLOOD COUNT 8.85 K/uL (4.8-10.8)
[2017-10-13 07:55] VITALS: BP 163/93; PULSE 53; TEMP 36.5; O2SAT 92
[2017-10-13] MEDS: BUDESONIDE/FORMOTEROL FUMARATE 160/4.5 60 PUFFS/INHALER INH SCH (07:56)
[2017-10-13] MEDS: APIXABAN 2.5 MG TAB PO SCH (07:56)
[2017-10-13] MEDS: OSELTAMIVIR PHOSPHATE 75 MG CAP PO SCH (07:56)
[2017-10-13] MEDS: LISINOPRIL 10 MG TAB PO SCH (07:57)
[2017-10-13] MEDS: ASCORBIC ACID 500 MG TAB PO SCH ×2 (07:57→09:05)
[2017-10-13] MEDS: AZITHROMYCIN 250 MG TAB PO SCH (07:57)
[2017-10-13] MEDS: NICOTINE 14 MG/24 HR TDSY TD SCH (07:58)
[2017-10-13] MEDS: PROPRANOLOL HCL 60 MG LA CAP PO SCH (07:58)
[2017-10-13] MEDS: FoLIC ACID TAB 400 MCG TAB PO SCH (09:05)
[2017-10-13] MEDS: ASPIRIN 81 MG ECTAB PO SCH (09:06)
[2017-10-13] MEDS: FERROUS SULFATE 325 MG TAB PO SCH (09:07)
[2017-10-13 11:17] VITALS: PULSE 55; O2SAT 92
[2017-10-13] MEDS ORDERED: NEBMAC (11:55)
[2017-10-13] MEDS ORDERED: ALBU0.633 NEB (11:56)
[2017-10-13] MEDS ORDERED: TMF75 PO (11:57)
--- NOTE | 2017-10-13 12:02 | Progress Note ---
Internal Med Progress Note Date of Service: Oct 13, 2017. Provider Documentation: SUBJECTIVE: Patient breathing on room air. Reports breathing is better. Denies fever OBJECTIVE: Exam: General- No acute distress Head- atraumatic Eyes- EOMI ENT- oropharynx clear Neck- supple, no JVD Lungs- CTABL, no wheezing Heart- regular rhythm; no murmur Abdomen- normal bowel sounds, soft, Extremities- no calf tenderness Neuro- alert, oriented x 3, ambulatory Skin- warm & dry ASSESSMENT & PLAN: 72 year old male with a PMH of COPD, intermittent tobacco use, non-obstructive CAD, paroxysmal atrial fibrillation on long-term anticoagulation, hypothyroidism , essential tremor - presents with worsening shortness of breath and found to have Influenza A and fever Chest X ray on admission: No acute cardiopulmonary disease Discharge Plan: Patient had Positive Influenza A PCR. Patient was given Tamiflu in the hospital and will be discharged with Tamiflu prescription Patient's may have had COPD by influenza. Was given Azithromycin and Prednisone in the hospital. Patient to be discharged with Azithromycin and Prednisone. Prescription also made for nebulizer machine and nebulizer treatments. Continue home Symbicort. Patient should follow up with primary care doctor on further avoiding tobacco use Other health issues: Paroxysmal A. Fibrillation that is rate controlled: Continue Atenolol, Continue Eliquis for anticoagulation Hypertension: Continue Lisinopril and B-blockers Hypothyroidism: continue Synthroid Essential Tremor: continue Propranolol Follow up appointment 10/16/2017 1:00 PM Sonja Condon DO [facility] Vital Signs: Date Time Temp Pulse Resp B/P (MAP) Pulse Ox O2 Delivery O2 Flow Rate FiO2 10/13/17 11:17 55 16 92 Room Air 10/13/17 08:00 Room Air 10/13/17 07:55 36.5 53 20 163/93 (116) 92 Room Air 10/13/17 07:09 58 16 95 Room Air 10/13/17 00:22 92 Room Air 10/12/17 23:48 36.9 57 20 131/83 (99) 94 Room Air 10/12/17 21:35 92 Room Air 10/12/17 19:53 61 16 93 Room Air 10/12/17 16:00 Room Air 10/12/17 15:37 55 14 94 Room Air 10/12/17 14:58 37.0 59 18 127/82 (97) 94 Room Air Lab Results: Results Past 24 Hours Test 10/13/17 06:56 Range/Units White Blood Count 8.85 4.8-10.8 K/uL Red Blood Count 4.24 4.7-6.1 M/uL Hemoglobin 13.7 14.0-18.0 g/dL Hematocrit 40.9 42-52 % Mean Corpuscular Volume 96.5 80-100 fL Mean Corpuscular Hemoglobin 32.3 25-34 pg Mean Corpuscular Hemoglobin Concent 33.5 32-36 g/dl RDW Standard Deviation 49.8 36.4-46.3 fL RDW Coefficient of Variation 14.1 11.5-14.5 % Platelet Count 238 130-400 K/uL Mean Platelet Volume 10.5 7.4-10.4 fL
[2017-10-13] MEDS ORDERED: AZIT-57 PO (12:12)
[2017-10-13] MEDS ORDERED: PRED10TA PO (12:14)
--- NOTE | 2017-10-13 12:22 | Discharge Instructions ---
Discharge Instructions Date of Service Oct 13, 2017. Admission Reason for Admission: Influenza Discharge Discharge Diagnosis / Problem: Influenza, fever, COPD exacerbation Discharge Goals Goal(s): Improve function, Improve disease control Activity Recommendations Activity Limitations: per Instructions/Follow-up section Shower/Bathe: no limitations . Instructions / Follow-Up Instructions / Follow-Up 72 year old male with a PMH of COPD, intermittent tobacco use, non-obstructive CAD, paroxysmal atrial fibrillation on long-term anticoagulation, hypothyroidism , essential tremor - presents with worsening shortness of breath and found to have Influenza A and fever Chest X ray on admission: No acute cardiopulmonary disease Discharge Plan: Patient had Positive Influenza A PCR. Patient was given Tamiflu in the hospital and will be discharged with Tamiflu prescription Patient's may have had COPD by influenza. Was given Azithromycin and Prednisone in the hospital. Patient to be discharged with Azithromycin and Prednisone. Prescription also made for nebulizer machine and nebulizer treatments. Continue home Symbicort. Patient should follow up with primary care doctor on further avoiding tobacco use Other health issues: Paroxysmal A. Fibrillation that is rate controlled: Continue Atenolol, Continue Eliquis for anticoagulation Hypertension: Continue Lisinopril and B-blockers Hypothyroidism: continue Synthroid Essential Tremor: continue Propranolol Follow up appointment 10/16/2017 1:00 PM Sonja Condon DO [facility] Current Hospital Diet Patient's current hospital diet: Regular Diet Discharge Diet Recommended Diet: Regular Diet Pending Studies Studies pending at discharge: no Laboratory Results 10/13/17 06:56 10/11/17 12:15 Test 10/11/17 12:15 10/11/17 12:17 10/12/17 06:21 10/13/17 06:56 Immature Granulocyte % (Auto) 0.3 % White Blood Count 13.65 K/uL (4.8-10.8) Red Blood Count 4.44 M/uL (4.7-6.1) 4.24 M/uL (4.7-6.1) Hemoglobin 14.6 g/dL (14.0-18.0) Hematocrit 43.2 % (42-52) Mean Corpuscular Volume 97.3 fL (80-100) 96.5 fL (80-100) Mean Corpuscular Hemoglobin 32.9 pg (25-34) 32.3 pg (25-34) Mean Corpuscular Hemoglobin Concent 33.8 g/dl (32-36) 33.5 g/dl (32-36) Platelet Count 251 K/uL (130-400) Mean Platelet Volume 10.6 fL (7.4-10.4) 10.5 fL (7.4-10.4) Neutrophils (%) (Auto) 91.0 % Lymphocytes (%) (Auto) 4.2 % Monocytes (%) (Auto) 4.4 % Eosinophils (%) (Auto) 0.0 % Basophils (%) (Auto) 0.1 % Neutrophils # (Auto) 12.42 K/uL (1.4-6.5) Lymphocytes # (Auto) 0.58 K/uL (1.2-3.4) Monocytes # (Auto) 0.60 K/uL (0.11-0.59) Eosinophils # (Auto) 0.00 K/uL (0-0.5) Basophils # (Auto) 0.01 K/uL (0-0.2) Immature Granulocyte # (Auto) 0.04 K/uL (0.00-0.02) Anion Gap 6.0 mmol/L (3-11) Est Creatinine Clear Calc Drug Dose 81.0 ml/min Estimated GFR () 99.7 Estimated GFR (Non- 86.0 BUN/Creatinine Ratio 24.5 (10-20) Calcium Level 8.7 mg/dl (8.5-10.1) Total Bilirubin 0.7 mg/dl (0.2-1) Direct Bilirubin 0.2 mg/dl (0-0.2) Aspartate Amino Transf (AST/SGOT) 41 U/L (15-37) Alanine Aminotransferase (ALT/SGPT) 59 U/L (12-78) Alkaline Phosphatase 50 U/L (45-117) Troponin I < 0.015 ng/ml (0-0.045) Pro-B-Type Natriuretic Peptide 1786 pg/ml (0-900) Total Protein 7.2 gm/dl (6.4-8.2) Albumin 3.1 gm/dl (3.4-5.0) Lipase 283 U/L (73-393) Influenza Type A (RT-PCR) POS for Influ A (NEG) Influenza Type B (RT-PCR) Neg for Influ B (NEG) Venous Blood pH 7.42 (7.36-7.41) Venous Blood Partial Pressure CO2 47 mmHg (38.0-50.0) Venous Blood Partial Pressure O2 46 mmHg Venous Blood HCO3 30 mmol/L Venous Blood Oxygen Saturation 81.1 % Venous Blood Base Excess 4.8 mEq/L Hepatitis C Antibody Screen NEG (NEG) RDW Standard Deviation 49.8 fL (36.4-46.3) RDW Coefficient of Variation 14.1 % (11.5-14.5) Medical Emergencies . Who to Call and When: Medical Emergencies: If at any time you feel your situation is an emergency, please call 911 immediately. . Non-Emergent Contact Non-Emergency issues call your: Primary Care Provider Call Non-Emergent contact if: you have any medication questions . . "Provider Documentation" section prepared by Tad Wiggins. . VTE Core Measure Inpt VTE Proph given/why not?: Other Anticoagulation (Apixaban)
--- NOTE | 2017-10-13 12:24 | Discharge Summary ---
Discharge Summary Date of Service Oct 13, 2017. Discharge Summary Admission Date: Oct 11, 2017 at 15:06 Discharge Date: Oct 13, 2017 Discharge Disposition: Home Principal Diagnosis: Influenza, fever, COPD exacerbation Medication Reconciliation New Medications: Albuterol Sulfate (Albuterol Sulfate) 0.63 Mg/3 Ml Neb 1 VIAL NEB TID PRN for SOB/Wheezing for 25 Days, #225 ML Nebulizer Machine (Home Use) (Nebulizer Machine (Home Use) ) Mis EA N/A UD, #1 Prednisone Tab (Prednisone) 10 Mg Tab 0 PO DAILY for 4 Days, #6 TAB Take 20 mg daily for 2 days, 10 mg daily for 2 days, then stop prednisone Azithromycin (Azithromycin) 250 Mg Tab 250 MG PO QAM for 3 Days, #3 TAB Oseltamivir Phosphate (Tamiflu) 75 Mg Cap 75 MG PO BID for 3 Days, #6 CAP Continued Medications: Albuterol Hfa (Ventolin Hfa) 200 Puffs/19230 Mcg Aers 2 PUFFS INH Q4H PRN for Wheezing Apixaban (Eliquis) 5 Mg Tab 5 MG PO BID Ascorbic Acid (Vitamin C) 250 Mg Tab 250 MG PO DAILY Aspirin (Aspirin Ec) 81 Mg Tab 81 MG PO DAILY Atenolol (Tenormin) 50 Mg Tab 50 MG PO DAILY Budesonide/Formoterol Fumarate (Symbicort 160/4.5 Inhaler ) Aero 2 PUFFS INH BID Ferrous Sulfate (Ferrous Sulfate) 325 Mg Tab 325 MG PO DAILY DO NOT GET THE GENERIC OR DELAYED RELEASE TABLETS Folic Acid (Folic Acid) 800 Mcg Tab 800 MCG PO DAILY Levothyroxine Sodium (Levothyroxine Sodium) 137 Mcg Tab 137 MCG PO DAILY Lisinopril (Prinivil) 10 Mg Tab 10 MG PO DAILY Propranolol Hcl (Propranolol Hcl Er) 120 Mg Cap 120 MG PO DAILY Admission Information HPI (per Admitting provider): This is a 72 year old male with a PMH of COPD, intermittent tobacco use, non- obstructive CAD, paroxysmal atrial fibrillation on long-term anticoagulation, hypothyroidism, essential tremor - presents with worsening shortness of breath. States he had some shortness of breath on Thursday, 10/09 and came to the ER. Had the rapid flu which was negative, was wheezing, received neb treatments and IV steroids and felt better so he was discharged with prednisone and azithromycin. He returned today because the shortness of breath/cough/fever persisted. Upon presentation, influenza A PCR was done and was positive. CXR was done with no acute cardiopulmonary disease. Patient was doing well after some breathing treatments. Denies palpitations or chest pain. 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 Patient was given Tamiflu in the hospital and will be discharged with Tamiflu prescription Patient's may have had COPD by influenza. Was given Azithromycin and Prednisone in the hospital. Patient to be discharged with Azithromycin and Prednisone. Prescription also made for nebulizer machine and nebulizer treatments. Continue home Symbicort. Patient should follow up with primary care doctor on further avoiding tobacco use Other health issues: Paroxysmal A. Fibrillation that is rate controlled: Continue Atenolol, Continue Eliquis for anticoagulation Hypertension: Continue Lisinopril and B-blockers Hypothyroidism: continue Synthroid Essential Tremor: continue Propranolol Follow up appointment 10/16/2017 1:00 PM Sonja Condon DO [facility] Total time spent on discharge = 60 minutes This includes examination of the patient, discharge planning, medication reconciliation, and communication with other providers. Discharge Instructions see above
[2017-10-13 12:36] VITALS: BP 163/93; PULSE 55; TEMP 36.5; O2SAT 92
== END 2017-10-13 13:13 | disposition home or self-care (01) | DRG 194 ==
LOC: C.EDB 11:04 → C.MS2W 15:06 → ENRESERV 15:23
PROVIDERS: ADMIT Family Medicine; ATTEND Hospitalist
DX: J10.1 Influenza due to other identified influenza virus with other respiratory manifestations (principal); J44.1 Chronic obstructive pulmonary disease with (acute) exacerbation; I48.0 Paroxysmal atrial fibrillation; I10 Essential (primary) hypertension; E03.9 Hypothyroidism, unspecified; I25.10 Atherosclerotic heart disease of native coronary artery without angina pectoris; G25.0 Essential tremor; Z79.52 Long term (current) use of systemic steroids; Z79.82 Long term (current) use of aspirin; Z79.899 Other long term (current) drug therapy; Z88.2 Allergy status to sulfonamides; F17.200 Nicotine dependence, unspecified, uncomplicated

== ENCOUNTER 2017-10-23 14:41 | Inpatient (IN) | payer OTHER ==
[~2017-10-23] VITALS: Ht 180.3 cm; Wt 76.1 kg
[~2017-10-23 14:41] MED LIST changes: +ALBU0.633 NEB; +AZIT-57 PO; -AZIT250T PO; +NEBMAC; -PRED20TA PO; +TMF75 PO
[2017-10-23] MEDS ORDERED: SODIUM CHLORIDE 0.9% 500ML 500 ML IV STA ×3 (15:11→17:11)
[2017-10-23 15:13] LABS: BASO % 0.2 %; BASO ABS # 0.03 K/uL (0-0.2); HEMATOCRIT 46.3 % (42-52); HEMOGLOBIN 15.8 g/dL (14.0-18.0); IG# 0.18 K/uL (0.00-0.02); LYMPH % 5.7 %; MEAN CELL VOLUME 94.7 fL (80-100); MEAN CORPUSCULAR HEMOGLOBIN 32.3 pg (25-34); MEAN CORPUSCULAR HGB CONC 34.1 g/dl (32-36); MEAN PLATELET VOLUME 10.5 fL (7.4-10.4); MONO % 2.2 %; MONO ABS # 0.42 K/uL (0.11-0.59); NEUT ABS # 17.43 K/uL (1.4-6.5); PLATELET COUNT 374 K/uL (130-400); RED CELL DISTRIBUTION WIDTH CV 14.4 % (11.5-14.5); WHITE BLOOD COUNT 19.16 K/uL (4.8-10.8)
--- NOTE | 2017-10-23 15:14 | EMERGENCY ROOM VISIT NOTE ---
History First contact with patient: 14:58 Chief Complaint: TACHYCARDIA Stated Complaint: AFIB Nursing Triage Summary: pt states at PCP when stood up and felt "heart flutter." Pt hx afib, on coumadin, pt given 324 ASA prior to arrival, pt denies chest pain, states feels discomfort but not pain. History of Present Illness The patient is a 72 year old male with known a fib and recent admission for flu and bronchitis who presents to the Emergency Room with complaints of palpitations, consistent with his a fib. Denies chest pain now, but was experiencing mild discomfort from the fluttering earlier today. Has had some dyspnea, but relates this more to the residual affects of the flu and bronchitis he recently had. He otherwise denies fevers/chills, headaches, lightheadedness, abdominal pain, lower extremity swelling or rashes. He is tolerating diet without nausea or vomiting, ambulating without exacerbating symptoms, and voiding and stooling appropriately. Yesterday, patient was cutting wood with [employer] saw yesterday, and realized he had over exerted himself after the job was done. Fatigue at the end was associated with chest pain that lasted 3 hours, without radiation to arm or jaw, no nausea or diaphoresis. No previous cardiac history other than paroxysmal a fib. Family history is significant for brother with pacemaker for dysrhythmia. Father had multiple MIs. Sister has stroke secondary to a fib. Review of Systems See HPI for pertinent positives and negatives. A total of ten systems were reviewed and were otherwise negative. Past Medical/Surgical History Medical Problems: (1) Afib (2) Atrial fibrillation (3) COPD (chronic obstructive pulmonary disease) (4) Heart disease (5) HTN (hypertension) Surgical Problems: (1) History of appendectomy 2. Hyperthyroid s/p complete thyroidectomy Family History FH: heart disease FHx: cancer Social History Smoking Status: Current Every Day Smoker (used to smoke 5 packs a day. no down to 1-2 cigarettes daily) Smokeless Tobacco Use: No Alcohol Use: other (beers after work) Drug Use: none Marital Status: Housing Status: lives with significant other Occupation Status: employed Current/Historical Medications Scheduled Apixaban (Eliquis), 5 MG PO BID Ascorbic Acid (Vitamin C), 250 MG PO DAILY Aspirin (Aspirin Ec), 81 MG PO DAILY Atenolol (Tenormin), 50 MG PO DAILY Budesonide/Formoterol Fumarate (Symbicort 160/4.5 Inhaler ), 2 PUFFS INH BID Ferrous Sulfate (Ferrous Sulfate), 325 MG PO QPM Folic Acid (Folic Acid), 800 MCG PO QPM Levothyroxine Sodium (Levothyroxine Sodium), 137 MCG PO DAILY Lisinopril (Prinivil), 10 MG PO DAILY Prednisone (Prednisone), 10 MG PO TAPER UD Propranolol Hcl (Propranolol Hcl Er), 120 MG PO DAILY Scheduled PRN Albuterol Hfa (Ventolin Hfa), 2 PUFFS INH Q4H PRN for Wheezing Albuterol Sulfate (Albuterol Sulfate), 1 VIAL NEB TID PRN for SOB/Wheezing Physical Exam Vital Signs Date Time Temp Pulse Resp B/P (MAP) Pulse Ox O2 Delivery O2 Flow Rate FiO2 10/23/17 19:34 88 17 95 10/23/17 19:20 121/87 10/23/17 19:19 112 10/23/17 19:19 124 18 121/87 96 Room Air 10/23/17 19:04 75 22 96 10/23/17 18:34 125 22 92 10/23/17 18:25 116 16 100/72 95 Room Air 10/23/17 18:25 100/72 10/23/17 18:13 114 105/81 10/23/17 18:04 88 16 94 10/23/17 17:34 105 21 90 10/23/17 17:04 98 17 94 10/23/17 16:50 113 16 105/81 93 Room Air 10/23/17 16:34 94 23 93 10/23/17 16:29 98/67 10/23/17 16:29 117 98/67 10/23/17 16:21 84 28 95 10/23/17 16:19 103/75 10/23/17 15:54 105 101/76 10/23/17 15:51 97 34 94 10/23/17 15:46 101/76 10/23/17 15:41 100 29 94 10/23/17 15:12 120 10/23/17 15:11 83 18 94 10/23/17 15:00 94 Room Air 10/23/17 14:55 94 Room Air 10/23/17 14:55 36.8 112 16 99/81 94 Room Air 10/23/17 14:51 99/81 Physical Exam GENERAL: alert, well appearing, thin, sitting in bed, no acute distress, non- toxic HEAD: Normocephalic, atraumatic. No sinus tenderness. EYES: PERRL, EOMI, normal sclera and conjunctiva OROPHARYNX: No exudate, no erythema. Lips, buccal mucosa, and tongue normal and mucous membranes are dry NECK: Supple, no nuchal rigidity, no adenopathy, non-tender LUNGS: No reproducible chest wall tenderness. Normal chest wall mechanics, good air entry. Diffuse rhonchi appreciated, no crackles, or wheezes. HEART: Tachycardic, irregularly irregular, S1 and S2 normal, no murmurs appreciated ABDOMEN: Soft, non-tender, normo-active bowel sounds, no masses, no rebound or guarding. BACK: Back is symmetrical on inspection, no deformities, no midline tenderness, no CVA tenderness. SKIN: Warm, pink, dry. No erythema, rashes, or bruising. EXTREMITIES: Grossly normal. Moving all 4 limbs, strength 5/5. No pitting edema. Calves non tender. NEURO: Alert, Ox3. No focal deficits. Normal sensorium, cranial nerves II-XII grossly intact, normal speech. PSYCH: Mood and affect appropriate. Medical Decision & Procedures ER Provider Diagnostic Interpretation: CHEST ONE VIEW PORTABLE HISTORY: Atrial fibrillation. COMPARISON: Chest 10/11/2017. FINDINGS: The heart is normal in size. No pleural effusions. No pneumothorax. Stable 9 mm nodular density within the left midlung zone compared to a 2015 study. Therefore, this is likely benign. No new focal lung consolidations. No evidence for pulmonary edema. IMPRESSION: No significant change compared to the prior study. No acute process. Laboratory Results Test 10/23/17 14:32 Immature Granulocyte % (Auto) 0.9 % White Blood Count 19.16 K/uL (4.8-10.8) Red Blood Count 4.89 M/uL (4.7-6.1) Hemoglobin 15.8 g/dL (14.0-18.0) Hematocrit 46.3 % (42-52) Mean Corpuscular Volume 94.7 fL (80-100) Mean Corpuscular Hemoglobin 32.3 pg (25-34) Mean Corpuscular Hemoglobin Concent 34.1 g/dl (32-36) Platelet Count 374 K/uL (130-400) Mean Platelet Volume 10.5 fL (7.4-10.4) Neutrophils (%) (Auto) 91.0 % Lymphocytes (%) (Auto) 5.7 % Monocytes (%) (Auto) 2.2 % Eosinophils (%) (Auto) 0.0 % Basophils (%) (Auto) 0.2 % Neutrophils # (Auto) 17.43 K/uL (1.4-6.5) Lymphocytes # (Auto) 1.10 K/uL (1.2-3.4) Monocytes # (Auto) 0.42 K/uL (0.11-0.59) Eosinophils # (Auto) 0.00 K/uL (0-0.5) Basophils # (Auto) 0.03 K/uL (0-0.2) Immature Granulocyte # (Auto) 0.18 K/uL (0.00-0.02) Prothrombin Time 10.5 SECONDS (9.0-12.0) Prothromb Time International Ratio 1.0 (0.9-1.1) Magnesium Level 2.1 mg/dl (1.8-2.4) Thyroid Stimulating Hormone (TSH) 1.790 uIu/ml (0.300-4.500) Medications Administered Medications (Trade) Dose Ordered Sig/Naeem Route Start Time Stop Time Status Last Admin Dose Admin Sodium Chloride 500 ml @ 999 mls/hr Q31M STAT IV 10/23/17 15:11 10/23/17 15:41 DC 10/23/17 15:26 999 MLS/HR Metoprolol Tartrate (Lopressor Iv) 5 mg NOW STAT IV 10/23/17 15:49 10/23/17 15:50 DC 10/23/17 15:54 5 MG Sodium Chloride 500 ml @ 999 mls/hr Q31M IV 10/23/17 16:00 10/23/17 16:30 DC 10/23/17 16:28 999 MLS/HR Metoprolol Tartrate (Lopressor Iv) 5 mg NOW STAT IV 10/23/17 16:20 10/23/17 16:22 DC 10/23/17 16:29 5 MG Sodium Chloride 500 ml @ 999 mls/hr Q31M STAT IV 10/23/17 17:11 2/16/18 17:41 DC 10/23/17 18:14 999 MLS/HR Metoprolol Tartrate (Lopressor Iv) 5 mg NOW STAT IV 10/23/17 17:21 10/23/17 17:22 DC 10/23/17 18:13 5 MG ECG Per My Interpretation Indication: chest pain Rate (beats per minute): 118 Rhythm: atrial fibrillation Findings: no acute ischemic change Change: Previous EKG shows NSR ED Course 14:55 Patient was seen and evaluated, including a thorough history and clinical exam 15:00 Imaging and labs were ordered 15:10 IVF NSS bolus ordered 15:50 Patient was re-evaluated, and stated to be feeling better. IV Lopressor ordered 16:00 IVF NSS bolus ordered 16:30 Patient was re-evaluated, and remains asymptomatic. IVF NSS bolus and IV Lopressor ordered 17:10 IVF NSS bolus and IV Lopressor ordered 18:30 [employer] Engraver Hand, Dr. Amaro consulted 19:36 Hospitalist was consulted for discussion Medical Decision Prior records/ancillary studies reviewed. Triage Nursing notes reviewed. Additional history obtained from patient. The patient's history was concerning for chest pain. Differential diagnosis: Etiologies such as cardiac ischemia, aortic dissection, pulmonary embolism, pneumonia, pneumothorax, musculoskeletal, infections, pericarditis, myocarditis , esophageal rupture, gastrointestinal, as well as others were entertained. Physical examination: As above. ER treatment provided: IVF NSS, IV Lopressor 5mg On reassessment the patient felt better. Diagnostic interpretation by me: The electrocardiogram was negative for pathologic change but did show atrial fibrillation The labs revealed leukocytosis 19.16, BMP showed elevated Cr 1.5 and increased BUN:Cr ratio consistent with dehydration, Mg 2.1, troponin negative, TSH WNL Imaging studies: Chest x-ray as above By the evaluation outlined above emergent etiologies such as cardiac ischemia, aortic dissection, pulmonary embolism, pneumonia, pneumothorax, infections, pericarditis, myocarditis, gastrointestinal, as well as others were deemed relatively unlikely. Consultation: A consultation was placed with the proof technician, Dr. Aamro, who suggested cardioversion after failed attempts at rate control with IVF and beta ethan, as patient compliant with anticoagulation and has upcoming orthopedic surgery. Patient however declined this option, preferring initial medical management. A consultation was placed with the hospitalist, Dr. Wright. The case was discussed and diagnostics were reviewed. The patient and his were informed about the findings as listed above and management plans. All questions were answered and they were pleased with the treatment. The patient was evaluated by the hospitalist for further treatment. Blood Pressure Screening Patient's blood pressure: Low blood pressure Impression Primary Impression: Atrial fibrillation with RVR Departure Information Referrals Sonja Condon DO (PCP) Patient Instructions My [facility] Resident Tracking Resident Involvement: Resident Care Provided Care Provided: Adult ED
[2017-10-23 15:32] LABS: CALCIUM 9.3 mg/dl (8.5-10.1); CREATININE 1.5 mg/dl (0.60-1.40); POTASSIUM 4.3 mmol/L (3.5-5.1)
--- NOTE | 2017-10-23 15:46 | DIAGNOSTIC IMAGING REPORT ---
CHEST ONE VIEW PORTABLE HISTORY: Atrial fibrillation. COMPARISON: Chest 10/11/2017. FINDINGS: The heart is normal in size. No pleural effusions. No pneumothorax. Stable 9 mm nodular density within the left midlung zone compared to a 2015 study. Therefore, this is likely benign. No new focal lung consolidations. No evidence for pulmonary edema. IMPRESSION: No significant change compared to the prior study. No acute process. Electronically signed by: Kei Alonzo M.D. 10/23/2017 3:45 PM Dictated Date/Time: 10/23/2017 3:43 PM
[2017-10-23] MEDS ORDERED: METOPROLOL TARTRATE 1 MG/ML VIAL IV STA ×3 (15:49→17:21)
[2017-10-23] MEDS: SODIUM CHLORIDE 0.9% 500ML 500 ML IV SCH ×2 (15:58→16:28)
[2017-10-23] MEDS ORDERED: PRED10TA PO (16:09)
[2017-10-23] MEDS ORDERED: ACETAMINOPHEN 325 MG TAB PO PRN (19:45)
[2017-10-23] MEDS ORDERED: NITROGLYCERIN 0.4 MG SL PER TAB CHARGE SL PRN (19:45)
[2017-10-23] MEDS ORDERED: POLYETHYLENE (MIRALAX) 17 GM PACK PO PRN (19:45)
[2017-10-23] MEDS ORDERED: ALUMINUM/MAGNESIUM/SIMETH (MAALOX MAX) 30 ML UDC PO PRN (19:45)
[2017-10-23] MEDS ORDERED: ONDANSETRON INJ 2 MG/ML 2 ML VIAL IV PRN (19:45)
[2017-10-23] MEDS ORDERED: MAGNESIUM HYDROXIDE SUSP 30 ML UDC PO PRN (19:45)
[2017-10-23] MEDS ORDERED: METOPROLOL TARTRATE 1 MG/ML VIAL IV PRN (21:00)
--- NOTE | 2017-10-23 21:01 | History and Physical ---
History & Physical Date & Time of Service: Oct 23, 2017 at 21:00 Chief Complaint: AFIB Primary Care Physician: Sonja Condon DO History of Present Illness Source: patient 72 year old male with a PMH of COPD, intermittent tobacco use, non-obstructive CAD, paroxysmal atrial fibrillation on long-term anticoagulation, hypothyroidism , essential tremor - presents to ER with Rapid Afib /RVR , SOB , dizzy spell recent admission on 10/11/17 at [facility] for Influenza A and COPD exacerbation discharged on 10/13/17 pt completed his Tamiflu ,still on Prednisone taper his Flu like symptom has resolved, still has occasional wheeze and dry non productive cough has been using INH As needed 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 ,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 at the 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 he felt dizzy , lightheaded, fluttering /palpitation and chest heaviness /SOB -symptom resolved after taking rest had an uneventful night , today morning pt was at the [facility] for his Hospital follow up visit while walking from Parking lot to clinic , pt felt similar symptom of palpitation, chest heaviness , had blurred vision EKG revealed afib RVR , pt was give X3 Chewable Aspirin 81 mg and sent to ER pt was sent to ER on arrival to ER pt remained in rapid Afib HR variable between 110-130 given IV Lopressor 5 mg X3 pt reports of resolution of angina symptom in ER during my time of interview , pt was very comfortable , denies of any orthopnea , any sensation of palpitation , chest heaviness remains in Afib HR 120's pt took his AM meds Eliquis 5 mg in AM /Atenolol 50 mg /Propranolol 120 mg Past Medical/Surgical History Medical Problems: (1) Atrial fibrillation Status: Chronic (2) COPD (chronic obstructive pulmonary disease) Status: Chronic (3) Heart disease Status: Chronic (4) HTN (hypertension) Status: Chronic Surgical Problems: (1) History of appendectomy Status: Resolved Family History FH: heart disease FHx: cancer Social History Smoking Status: Current Every Day Smoker (used to smoke 5 packs a day. no down to 1-2 cigarettes daily) Smokeless Tobacco Use: No Drug Use: none Marital Status: Occupational Status: employed Multi-Drug Resistant Organisms History of MDRO: No Allergies Coded Allergies: Sulfa Antibiotics (Verified Allergy, Unknown, ., 10/11/17) Home Medications Scheduled Apixaban (Eliquis), 5 MG PO BID Ascorbic Acid (Vitamin C), 250 MG PO DAILY Aspirin (Aspirin Ec), 81 MG PO DAILY Atenolol (Tenormin), 50 MG PO DAILY Budesonide/Formoterol Fumarate (Symbicort 160/4.5 Inhaler ), 2 PUFFS INH BID Ferrous Sulfate (Ferrous Sulfate), 325 MG PO QPM Folic Acid (Folic Acid), 800 MCG PO QPM Levothyroxine Sodium (Levothyroxine Sodium), 137 MCG PO DAILY Lisinopril (Prinivil), 10 MG PO DAILY Prednisone (Prednisone), 10 MG PO TAPER UD Propranolol Hcl (Propranolol Hcl Er), 120 MG PO DAILY Scheduled PRN Albuterol Hfa (Ventolin Hfa), 2 PUFFS INH Q4H PRN for Wheezing Albuterol Sulfate (Albuterol Sulfate), 1 VIAL NEB TID PRN for SOB/Wheezing Review of Systems Constitutional: + sweats, + weakness, + fatigue, + problem reported (dizzt spell ) Respiratory: + cough (dry non productive ), + wheezing, + shortness of breath, + dyspnea on exertion Cardiovascular: + chest pain, + palpitations Abdomen: No pain, No nausea, No vomiting, No diarrhea, No constipation, No GI bleeding, No problem reported Musculoskeletal: No joint pain, No muscle pain, No swelling, No calf pain, No problem reported Genitourinary - Male: No hematuria, No dysuria, No urinary frequency, No urinary urgency, No urinary hesitancy, No urinary retention, No urinary incontinence, No penile discharge, No lesions, No impotence, No problem reported Neurologic: + weakness, + numbness/tingling, + vertigo, + problem reported ( blurred vision ) Physical Exam Vital Signs Date Time Temp Pulse Resp B/P (MAP) Pulse Ox O2 Delivery O2 Flow Rate FiO2 10/23/17 19:19 112 10/23/17 19:19 124 18 121/87 96 Room Air 10/23/17 18:25 116 16 100/72 95 Room Air 10/23/17 18:13 114 105/81 10/23/17 16:50 113 16 105/81 93 Room Air 10/23/17 16:29 98/67 10/23/17 16:29 117 98/67 10/23/17 16:21 84 28 95 10/23/17 16:19 103/75 10/23/17 15:54 105 101/76 10/23/17 15:51 97 34 94 10/23/17 15:46 101/76 10/23/17 15:41 100 29 94 10/23/17 15:12 120 10/23/17 15:11 83 18 94 10/23/17 15:00 94 Room Air 10/23/17 14:55 94 Room Air 10/23/17 14:55 36.8 112 16 99/81 94 Room Air 10/23/17 14:51 99/81 General Appearance: no apparent distress Head: normocephalic, atraumatic Eyes: normal inspection, PERRL, EOMI, sclerae normal Neck: thyroid normal, no JVD, no carotid bruits, trachea midline Respiratory/Chest: no respiratory distress, no accessory muscle use, + wheezing Cardiovascular: no edema, no JVD, normal peripheral pulses, + irregularly irregular Abdomen/GI: normal bowel sounds, non tender, soft Extremities/Musculoskelatal: normal inspection, no calf tenderness, normal capillary refill, no pedal edema, normal range of motion Neurologic/Psych: no motor/sensory deficits, alert, normal mood/affect, oriented x 3 Skin: normal color, warm/dry, no rash Lymphatic: no adenopathy Diagnostics Laboratory Results Results Past 24 Hours Test 10/23/17 14:32 10/23/17 20:41 Range/Units White Blood Count 19.16 4.8-10.8 K/uL Red Blood Count 4.89 4.7-6.1 M/uL Hemoglobin 15.8 14.0-18.0 g/dL Hematocrit 46.3 42-52 % Mean Corpuscular Volume 94.7 80-100 fL Mean Corpuscular Hemoglobin 32.3 25-34 pg Mean Corpuscular Hemoglobin Concent 34.1 32-36 g/dl Platelet Count 374 130-400 K/uL Mean Platelet Volume 10.5 7.4-10.4 fL Neutrophils (%) (Auto) 91.0 % Lymphocytes (%) (Auto) 5.7 % Monocytes (%) (Auto) 2.2 % Eosinophils (%) (Auto) 0.0 % Basophils (%) (Auto) 0.2 % Neutrophils # (Auto) 17.43 1.4-6.5 K/uL Lymphocytes # (Auto) 1.10 1.2-3.4 K/uL Monocytes # (Auto) 0.42 0.11-0.59 K/uL Eosinophils # (Auto) 0.00 0-0.5 K/uL Basophils # (Auto) 0.03 0-0.2 K/uL RDW Standard Deviation 50.0 36.4-46.3 fL RDW Coefficient of Variation 14.4 11.5-14.5 % Immature Granulocyte % (Auto) 0.9 % Immature Granulocyte # (Auto) 0.18 0.00-0.02 K/uL Sodium Level 140 136-145 mmol/L Potassium Level 4.3 3.5-5.1 mmol/L Chloride Level 102 98-107 mmol/L Carbon Dioxide Level 31 21-32 mmol/L Anion Gap 6.0 3-11 mmol/L Blood Urea Nitrogen 35 7-18 mg/dl Creatinine 1.50 0.60-1.40 mg/dl Est Creatinine Clear Calc Drug Dose 47.9 ml/min Estimated GFR () 53.5 Estimated GFR (Non- 46.2 BUN/Creatinine Ratio 23.0 10-20 Random Glucose 141 70-99 mg/dl Calcium Level 9.3 8.5-10.1 mg/dl Magnesium Level 2.1 1.8-2.4 mg/dl Troponin I 0.024 0-0.045 ng/ml Thyroid Stimulating Hormone (TSH) 1.790 0.300-4.500 uIu/ml Diagnostic Radiology CHEST XRAY : CHEST ONE VIEW PORTABLE HISTORY: Atrial fibrillation. COMPARISON: Chest 10/11/2017. FINDINGS: The heart is normal in size. No pleural effusions. No pneumothorax. Stable 9 mm nodular density within the left midlung zone compared to a 2015 study. Therefore, this is likely benign. No new focal lung consolidations. No evidence for pulmonary edema. IMPRESSION: No significant change compared to the prior study. No acute process. EKG Vent. rate 118 BPM AR interval * ms QRS duration 82 ms QT/QTc 314/440 ms P-R-T axes * [address] & T wave abnormality, consider inferolateral ischemia Abnormal ECG When compared with ECG of 11-OCT-2017 11:17, Atrial fibrillation has replaced Sinus rhythm Vent. rate has increased BY 61 BPM T wave inversion more evident in Inferior leads T wave inversion now evident in Lateral leads Confirmed by TERRENCE ESPINOZA ([id number]) on 10/23/2017 5:09:31 PM Impression Assessment and Plan AFIB RVR : hx of paroxysmal Afib , was on Atenolol presents with rapid afib with symptom of angina given IV Lopressor in ER , HR remains in Afib > 110 D/w Cardiology Dr Amaro pt will be started on PO Sotalol 40 mg BID ,Ist dose to be given now /Hold Atenolol on Eliquis for stroke prophylaxis will need daily EKG and 72 hr cardiac monitoring /daily EKG to assess Qtc while getting Loading dose of Sotalol Cardiology eval in AM ACUTE KIDNEY INJURY /ATN: Cr 0.8 on 10/11/17 -> 1.5 possible secondary to dehydration -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 continued to take Lisinopril,took AM dose today denies of any GI symptom of N/V or diarrhea mentions has been eating and drinking ok hold ACEI pt given 2 L fluid bolus in ER repeat BMP in AM avoid NSAID's and contrast studies HX OF ESSENTIAL TREMOR : cont prior dose of Propranolol 120 mg daily COPD : recent admission with COPD exacerbation due to Influenza A still has + wheeze,non productive cough no infiltrate noted in Cxray cont INH, PRN Neb tx ordered to complete Oral prednisone taper LEUKOCYTOSIS : possible due to Prednisone no evidence of infection ordered for rapid steroid taper repeat CBC in AM HYPOTHYROIDISM : cont Levothyroxine TSH wnl TOBACCO USE DISORDER : used to smoke 5 packs a day. no down to 1-2 cigarettes daily smoking cessation counselling NON OBSTRUCTIVE CAD: cardiac cath on 09/23 -shows non occlusive CAD /coronaries has diffuse minor irregularities , LVEDP elevated 18 mm hg no evidence of aortic stenosis Angina symptom due to Rapid afib no complain of chest heaviness at present cont Aspirin 81 mg daily ordered for Sotalol for rate control fasting lipid panel in AM FULL CODE DVT PROPHYLAXIS: on Eliquis DISPOSITION ; expected to be discharged home with medically stable Medicine follow up with Dr Von Mcmanus Cardiology follow up with Dr Rossi Level of Care Telemetry Resuscitation Status FULL RESUSCITATION VTE Prophylaxis VTE Risk Assessment Done? Y/N: Yes Risk Level: Moderate Given or contraindicated: Other Anticoagulation (Eliquis) Additional Copies To Sonja Condon,Von Rooj, D.O.
[2017-10-23] MEDS ORDERED: ALBUTEROL SULFATE NEB PRN (21:45)
[2017-10-23] MEDS ORDERED: ALBUTEROL HFA 8 GM INHALER INH PRN (21:45)
[2017-10-23] MEDS ORDERED: LEVALBUTEROL/IPRATROPIUM NEB INH PRN (21:45)
[2017-10-23] MEDS ORDERED: SOTALOL HCL 80 MG TAB PO STA (21:55)
[2017-10-23 22:00] VITALS: BP 126/80; PULSE 108; TEMP 36.4; O2SAT 95; Ht 180.3 cm; Wt 76.1 kg
[2017-10-23] MEDS ORDERED: IPRATROPIUM BROMIDE NEB SOLN 0.02% 2.5 ML VIAL INH PRN (22:00)
[2017-10-23] MEDS ORDERED: LEVALBUTEROL 1.25MG/0.5ML NEB INH PRN (22:00)
[2017-10-23 23:31] VITALS: BP 119/74; PULSE 76; TEMP 36.7; O2SAT 96
[2017-10-23] MEDS: APIXABAN 2.5 MG TAB PO SCH (23:34)
[2017-10-24] VITALS (9 sets, daily range): BP systolic 101–135; BP diastolic 55–96; PULSE 74–123; TEMP 36.6–37; O2SAT 94–98
[2017-10-24] MEDS: LEVOTHYROXINE 137 MCG TAB PO SCH (06:00)
[2017-10-24 06:56] LABS: HEMATOCRIT 39.5 % (42-52); HEMOGLOBIN 13.3 g/dL (14.0-18.0); MEAN CELL VOLUME 95.2 fL (80-100); MEAN CORPUSCULAR HGB CONC 33.7 g/dl (32-36); PLATELET COUNT 297 K/uL (130-400); RED CELL DISTRIBUTION WIDTH CV 14.5 % (11.5-14.5); RED CELL DISTRIBUTION WIDTH SD 49.9 fL (36.4-46.3); WHITE BLOOD COUNT 11.45 K/uL (4.8-10.8)
[2017-10-24 07:29] LABS: CALCIUM 8.1 mg/dl (8.5-10.1); CREATININE 0.91 mg/dl (0.60-1.40); POTASSIUM 3.8 mmol/L (3.5-5.1)
[2017-10-24] MEDS: BUDESONIDE/FORMOTEROL FUMARATE 160/4.5 60 PUFFS/INHALER INH SCH ×2 (07:45→21:22)
[2017-10-24] MEDS: ASCORBIC ACID 500 MG TAB PO SCH (07:46)
[2017-10-24] MEDS: APIXABAN 2.5 MG TAB PO SCH ×2 (07:47→22:20)
[2017-10-24] MEDS: ASPIRIN 81 MG ECTAB PO SCH (07:47)
[2017-10-24] MEDS ORDERED: INFLUENZA VIRUS QUAD VACCINE 0.5 ML SYR IM. ONE (08:00)
[2017-10-24] MEDS ORDERED: INFLUENZA ADMINISTRATION CHARGE ONE (08:00)
[2017-10-24] MEDS ORDERED: PROPRANOLOL HCL 60 MG LA CAP PO SCH (09:00)
[2017-10-24] MEDS ORDERED: SOTALOL HCL 80 MG TAB PO SCH (09:00)
[2017-10-24] MEDS ORDERED: ASPIRIN 81 MG ECTAB PO SCH (09:00)
--- NOTE | 2017-10-24 09:07 | Progress Note ---
Internal Med Progress Note Date of Service: Oct 24, 2017. Provider Documentation: SUBJECTIVE: Seen and examine at bedside States chest pain, dizziness, palpitations resolved Feels lot better Has chronic cough and intermittent wheezes Denies dysuria, abd pain, nausea No other complaints OBJECTIVE: Vital Signs-as noted below Physical Exam: General Appearance:Moderately built and nourished, no apparent distress Head: normocephalic, Atraumatic Eyes: normal inspection, EOMI, PERRL Neck: supple, Trachea midline Respiratory/Chest: Coarse breath sounds, B/L rhonchi Cardiovascular: Irregularly Irregular, No murmur Abdomen/GI:Soft, Non tender, Bowel sounds present Extremities/Musculoskelatal:normal inspection, no edema Neurologic/Psych:AAOX3, grossly no focal neurological deficits Skin: normal color, warm Lab data as noted below. ASSESSMENT & PLAN: Afib RVR: H/O P.Afib, was on Atenolol Received IV Lopressor in ED Continue Sotalol 40 mg BID Continue Eliquis for anticoagulation Daily EKG to monitor for QTC prolongation Appreciate Cardiology Input ECHO pending Troponin X 3: Negative T wave inversion less pronounced Monitor in Tele KARLEE: Likely prerenal Resolved Cr:1.5>>>0.91 Resume lisinopril as able S/P IV fluids Monitor renal function H/O Essential tremor continue Propranolol 120 mg daily COPD: Recent admission with COPD exacerbation due to Influenza A CXR: no acute process On Nebs at home Continue inhalers, Nebs and prednisone taper Leukocytosis likely secondary to prednisone Hypothyroidism: TSH: normal continue Levothyroxine Tobacco use disorder: smoking cessation counselling Non Obstructive CAD: cardiac cath on 09/23 -shows non occlusive CAD /coronaries has diffuse minor irregularities , LVEDP elevated 18 mm hg continue Aspirin, sotolol DVT Px: on Eliquis Code Status: Full Code Disposition: Monitor in Tele expected to be discharged home with medically stable Medicine follow up with Dr Von Mcmanus Cardiology follow up with Dr Rossi Vital Signs: Date Time Temp Pulse Resp B/P (MAP) Pulse Ox O2 Delivery O2 Flow Rate FiO2 10/24/17 08:06 Room Air 10/24/17 07:57 36.6 87 18 135/96 (109) 96 Room Air 10/24/17 04:00 Room Air 10/24/17 03:37 36.8 85 18 126/81 (96) 96 Room Air 10/23/17 23:59 Room Air 10/23/17 23:31 36.7 76 22 119/74 (89) 96 Room Air 10/23/17 22:00 36.4 108 24 126/80 95 Room Air 10/23/17 21:36 36.8 116 27 121/87 94 18 20:34 116 27 10/23/17 20:04 82 18 94 18 19:34 88 17 95 18 19:20 121/87 18 19:19 112 10/23/17 19:19 124 18 121/87 96 Room Air 10/23/17 19:04 75 22 96 10/23/17 18:34 125 22 92 10/23/17 18:25 116 16 100/72 95 Room Air 10/23/17 18:25 100/72 10/23/17 18:13 114 105/81 10/23/17 18:04 88 16 94 10/23/17 17:34 105 21 90 18 17:04 98 17 94 10/23/17 16:50 113 16 105/81 93 Room Air 10/23/17 16:34 94 23 93 10/23/17 16:29 98/67 18 16:29 117 98/67 18 16:21 84 28 95 18 16:19 103/75 10/23/17 15:54 105 101/76 18 15:51 97 34 94 18 15:46 101/76 18 15:41 100 29 94 18 15:12 120 10/23/17 15:11 83 18 94 10/23/17 15:00 94 Room Air 10/23/17 14:55 94 Room Air 10/23/17 14:55 36.8 112 16 99/81 94 Room Air 10/23/17 14:51 99/81 Lab Results: Results Past 24 Hours Test 10/23/17 14:32 18 01:34 10/24/17 06:31 Range/Units White Blood Count 19.16 11.45 4.8-10.8 K/uL Red Blood Count 4.89 4.15 4.7-6.1 M/uL Hemoglobin 15.8 13.3 14.0-18.0 g/dL Hematocrit 46.3 39.5 42-52 % Mean Corpuscular Volume 94.7 95.2 80-100 fL Mean Corpuscular Hemoglobin 32.3 32.0 25-34 pg Mean Corpuscular Hemoglobin Concent 34.1 33.7 32-36 g/dl Platelet Count 374 297 130-400 K/uL Mean Platelet Volume 10.5 10.0 7.4-10.4 fL Neutrophils (%) (Auto) 91.0 % Lymphocytes (%) (Auto) 5.7 % Monocytes (%) (Auto) 2.2 % Eosinophils (%) (Auto) 0.0 % Basophils (%) (Auto) 0.2 % Neutrophils # (Auto) 17.43 1.4-6.5 K/uL Lymphocytes # (Auto) 1.10 1.2-3.4 K/uL Monocytes # (Auto) 0.42 0.11-0.59 K/uL Eosinophils # (Auto) 0.00 0-0.5 K/uL Basophils # (Auto) 0.03 0-0.2 K/uL RDW Standard Deviation 50.0 49.9 36.4-46.3 fL RDW Coefficient of Variation 14.4 14.5 11.5-14.5 % Immature Granulocyte % (Auto) 0.9 % Immature Granulocyte # (Auto) 0.18 0.00-0.02 K/uL Prothrombin Time 10.5 9.0-12.0 SECONDS Prothromb Time International Ratio 1.0 0.9-1.1 Sodium Level 140 142 136-145 mmol/L Potassium Level 4.3 3.8 3.5-5.1 mmol/L Chloride Level 102 109 98-107 mmol/L Carbon Dioxide Level 31 26 21-32 mmol/L Anion Gap 6.0 7.0 3-11 mmol/L Blood Urea Nitrogen 35 25 7-18 mg/dl Creatinine 1.50 0.91 0.60-1.40 mg/dl Est Creatinine Clear Calc Drug Dose 47.9 79.3 ml/min Estimated GFR () 53.5 97.9 Estimated GFR (Non- 46.2 84.5 BUN/Creatinine Ratio 23.0 27.6 10-20 Random Glucose 141 85 70-99 mg/dl Calcium Level 9.3 8.1 8.5-10.1 mg/dl Magnesium Level 2.1 1.8-2.4 mg/dl Troponin I 0.024 0.027 0.030 0-0.045 ng/ml Thyroid Stimulating Hormone (TSH) 1.790 0.300-4.500 uIu/ml Triglycerides Level 93 0-150 mg/dl Cholesterol Level 149 0-200 mg/dl HDL Cholesterol 53 mg/dl LDL Cholesterol, Calculated 77 mg/dl VLDL Cholesterol, Calculated 19 mg/dl Cholesterol/HDL Ratio 2.8
[2017-10-24] MEDS ORDERED: LISINOPRIL 5 MG TAB PO ONE (11:00)
[2017-10-24] MEDS ORDERED: SOTALOL HCL 80 MG TAB PO ONE ×2 (11:00→18:00)
[2017-10-24] MEDS: LEVALBUTEROL 1.25MG/0.5ML NEB INH SCH ×3 (11:23→19:08)
[2017-10-24] MEDS: IPRATROPIUM BROMIDE NEB SOLN 0.02% 2.5 ML VIAL INH SCH ×3 (11:23→19:07)
--- NOTE | 2017-10-24 12:04 | CARDIOLOGY CONSULTATION ---
DATE OF CONSULTATION: 10/24/2017 REFERRING: Dr. Wright. PRIMARY CARE PHYSICIAN: Dr. Sonja Condon. PRIMARY OFFICE ADMINISTRATOR: Dr. Rossi. HISTORY OF PRESENT ILLNESS: The patient is a 72-year-old male whose cardiac standpoint, his past medical history is notable for paroxysmal atrial fibrillation with past extensive cardiac evaluation which includes preserved LV systolic function by echocardiogram, cardiac catheterization without obstructive coronary artery disease in September 2016. The patient had difficulties with intermittent atrial fibrillation in the past, remains chronically anticoagulated on apixaban, presents now. Recent history is notable for ER presentation and evaluation for the flu on 10/11/2016 that is notable for influenza A. He gradually was recovering, but notes earlier this week extended his activity level substantially was using chainsaw, felt markedly weak and fatigued after event and generally recovered. He was seen on the date of admission by primary care physician notes walking into department, he would certainly to return to atrial fibrillation, and he was found to be in atrial fibrillation with rapid ventricular response and was referred to the ER for further evaluation. He denies any chest pains. Notes no syncope or near syncope. Has some mild wheezy cough since influenza, but notes no clinical decline, notes no unexplained fevers or infections other than as described. Notes no melena or hematochezia. He has been taking anticoagulation as described. He uses propranolol in addition to atenolol for chronic essential tremor. In the past antiarrhythmic therapy has been should he have relapse. He has been referred for inpatient management. ALLERGIES: SULFA. MEDICATIONS PRIOR TO HOSPITALIZATION: Apixaban 5 mg twice per day, vitamin C 250 mg per day, aspirin 81 mg per day, atenolol 50 mg p.o. daily, Symbicort 2 puffs b.i.d., ferrous sulfate 325 q.p.m., folic acid 800 mcg q.p.m., levothyroxine 137 mcg every day, lisinopril 10 mg p.o. daily, prednisone 10 mg taper, propranolol 120 mg p.o. daily. PAST MEDICAL HISTORY: As described notable for paroxysmal atrial fibrillation, hypertension, obstructive lung disease, essential tremor. FAMILY HISTORY: Notable for heart disease. PAST SURGICAL HISTORY: Notable for prior vasectomy, ulnar nerve transplantation, patellar bursa excision, carpal tunnel surgery and amputation of toe, traumatic, hemorrhoidectomy. 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 He is a nonsmoker since 2018. He uses no significant alcoholic beverages other than an occasional drink. PHYSICAL EXAMINATION: VITAL SIGNS: Heart rate is 110. Blood pressure is 135/96. HEENT: Normocephalic, atraumatic. Nares without discharge. Throat was clear. NECK: Supple without thyromegaly, lymphadenopathy, JVD. There are no carotid bruits. LUNGS: Clear to auscultation. CARDIOVASCULAR: Irregularly irregular. There is S3 gallop. There is a grade 1/6 early systolic murmur. ABDOMEN: Soft, nontender. There is no palpable hepatosplenomegaly. There is no hepatojugular reflux. EXTREMITIES: Without cyanosis or clubbing. There are intact distal pulses. NEUROLOGIC: The patient alert and answering questions. LABORATORY DATA: On presentation - sodium is 140, potassium is 4.3, chloride is 102, bicarbonate is 31, BUN is 35, and creatinine is 1.5. This morning after hydration, BUN was 25, creatinine 0.9, potassium 3.8; white cell count was 11.45. IMAGING DATA: EKG this morning reveals atrial fibrillation, rate 101. QT corrected 440. IMPRESSION: A 72-year-old male with paroxysmal atrial fibrillation with relapse, possibly precipitated by recent influenza and dehydration. RECOMMENDATIONS: I have discussed with the patient, he was begun on antiarrhythmic therapy with sotalol. We will continue to hold propranolol and atenolol. Increased sotalol to 80 mg twice per day this morning. Serial EKGs to perform daily. Electrolytes will be supplemented and the patient resumed on baseline lisinopril. Plan will be to at least 48 hours on telemetry and for antiarrhythmic therapy. If the patient does not spontaneously convert to sinus rhythm, will consider for synchronized electrical cardioversion.
--- NOTE | 2017-10-24 12:25 | EMERGENCY ROOM VISIT NOTE ---
ED Visit Note First contact with patient: 14:58 Resident Physician Supervision Note: Dr. Walker was resident physician during care of patient. I separately evaluated patient and did history and exam. I discussed the case with the resident and generally agree with the findings and plan. 72 yr old male arrives with complaint of tachycardia noted at PCP visit as he walked in the door. Knows exactly when it started. Associated fluttering in chest and mild weakness. Denies cp, nausea, vomiting, syncope. Mildly hypotensive which improved and stable with IV fluids. Given 3 round IV lopressor without improvement in Afib RVR that brought him in. HR did improve from 140s to 100-120s. Symptoms not consistent wtih PE/Dissection. No evidence of ACS at this time. He is not in CHF at this time and was watched very closely with his fluid resuscitation. With mild BP issues and known onset with therapeutic Eliquis usage, discussed case with Dr Amaro who suggested dc cardioversion. Discussed this with patient though he is a bit anxious about this and his daughter who is RN cautioned him against it. With this in mind will bring in for alternative options and if no improvement may still require cardioversion. Diagnosis: Afib RVR Critical Care Time: I have personally spent greater than 35 minutes of critical care time in the direct management of this patient. This was a life/limb threatening event. This includes time spent evaluating patient, direct bedside care, chart review, placing orders, interpretation of diagnostic studies, discussion with consultants, patient, and family members, as well as other required patient management activities. This 35 minutes is in excess of all separately billable procedures. Documented By: Ty Blake MD
[2017-10-24] MEDS ORDERED: NURSING VERBAL MED ORDER ONE ×2 (17:45→18:15)
[2017-10-24] MEDS: FERROUS SULFATE 325 MG TAB PO SCH (21:23)
[2017-10-24] MEDS: FoLIC ACID TAB 400 MCG TAB PO SCH (21:23)
[2017-10-24] MEDS: SOTALOL HCL 80 MG TAB PO SCH (21:24)
[2017-10-25] VITALS (11 sets, daily range): BP systolic 107–138; BP diastolic 71–91; PULSE 57–113; TEMP 36.6–37; O2SAT 93–99
[2017-10-25 05:48] LABS: HEMATOCRIT 39.1 % (42-52); HEMOGLOBIN 13.1 g/dL (14.0-18.0); MEAN CELL VOLUME 95.1 fL (80-100); MEAN CORPUSCULAR HEMOGLOBIN 31.9 pg (25-34); MEAN CORPUSCULAR HGB CONC 33.5 g/dl (32-36); PLATELET COUNT 283 K/uL (130-400); RED CELL DISTRIBUTION WIDTH CV 14.4 % (11.5-14.5); RED CELL DISTRIBUTION WIDTH SD 49.8 fL (36.4-46.3); WHITE BLOOD COUNT 11.33 K/uL (4.8-10.8)
[2017-10-25 06:20] LABS: CALCIUM 8.6 mg/dl (8.5-10.1); CREATININE 0.91 mg/dl (0.60-1.40); POTASSIUM 3.9 mmol/L (3.5-5.1)
[2017-10-25] MEDS: IPRATROPIUM BROMIDE NEB SOLN 0.02% 2.5 ML VIAL INH SCH ×4 (06:55→19:28)
[2017-10-25] MEDS: LEVALBUTEROL 1.25MG/0.5ML NEB INH SCH ×4 (06:55→19:28)
--- NOTE | 2017-10-25 08:54 | Progress Note ---
Internal Med Progress Note Date of Service: Oct 25, 2017. Provider Documentation: SUBJECTIVE: Seen and examine at bedside No complaints Converted to Sinus Denies chest pain, SOB, dizziness, palpitations Minimal dry cough OBJECTIVE: Vital Signs-as noted below Physical Exam: General Appearance:Moderately built and nourished, no apparent distress Head: normocephalic, Atraumatic Eyes: normal inspection, EOMI, PERRL Neck: supple, Trachea midline Respiratory/Chest: Coarse breath sounds, Scattered rhonchi Cardiovascular: S1, S2, No murmur Abdomen/GI:Soft, Non tender, Bowel sounds present Extremities/Musculoskelatal:normal inspection, no edema Neurologic/Psych:AAOX3, grossly no focal neurological deficits Skin: normal color, warm Lab data as noted below. ASSESSMENT & PLAN: Afib RVR: H/O P.Afib, was on Atenolol, Propranolol Received IV Lopressor in ED Continue Sotalol 80 mg BID Continue Eliquis for anticoagulation Daily EKG to monitor for QTC prolongation Appreciate Cardiology Input Troponin X 3: Negative Atenolol, Propranolol discontinued Monitor in Tele Converted to Sinus KARLEE: Likely prerenal Resolved Cr:1.5>>>0.91 Resumed lisinopril S/P IV fluids Monitor renal function H/O Essential tremor Was on Propranolol 120 mg daily Stable COPD: Recent admission with COPD exacerbation due to Influenza A CXR: no acute process On Nebs at home Continue inhalers, Nebs and prednisone taper Leukocytosis likely secondary to prednisone Hypothyroidism: TSH: normal continue Levothyroxine Tobacco use disorder: smoking cessation counselling Non Obstructive CAD: cardiac cath on 09/23 -shows non occlusive CAD /coronaries has diffuse minor irregularities , LVEDP elevated 18 mm hg continue Aspirin, sotolol, lisinopril DVT Px: on Eliquis Code Status: Full Code Disposition: Monitor in Tele expected to be discharged home with medically stable Medicine follow up with Dr Von Mcmanus Cardiology follow up with Dr Rossi Vital Signs: Date Time Temp Pulse Resp B/P (MAP) Pulse Ox O2 Delivery O2 Flow Rate FiO2 10/25/17 07:48 36.7 57 20 138/91 (107) 99 Room Air 10/25/17 06:55 64 16 94 Room Air 10/25/17 04:00 Room Air 10/25/17 03:33 36.6 60 16 115/73 (87) 96 Room Air 10/25/17 00:06 36.6 113 18 112/74 (87) 96 Room Air 10/24/17 23:59 Room Air 10/24/17 20:00 Room Air 10/24/17 19:13 37.0 113 18 101/67 (78) 98 Nebulizer 7.0 10/24/17 19:07 76 16 94 Room Air 10/24/17 16:05 Room Air 10/24/17 15:25 36.7 90 18 102/55 (71) 95 Room Air 10/24/17 15:05 82 18 96 Room Air 10/24/17 15:01 123 18 133/74 (93) 94 Room Air 10/24/17 14:58 123 133/74 10/24/17 12:02 Room Air 10/24/17 11:58 36.9 80 20 128/87 (101) 95 Room Air 10/24/17 11:23 74 18 96 Room Air Lab Results: Results Past 24 Hours Test 10/25/17 05:34 Range/Units White Blood Count 11.33 4.8-10.8 K/uL Red Blood Count 4.11 4.7-6.1 M/uL Hemoglobin 13.1 14.0-18.0 g/dL Hematocrit 39.1 42-52 % Mean Corpuscular Volume 95.1 80-100 fL Mean Corpuscular Hemoglobin 31.9 25-34 pg Mean Corpuscular Hemoglobin Concent 33.5 32-36 g/dl RDW Standard Deviation 49.8 36.4-46.3 fL RDW Coefficient of Variation 14.4 11.5-14.5 % Platelet Count 283 130-400 K/uL Mean Platelet Volume 10.0 7.4-10.4 fL Sodium Level 140 136-145 mmol/L Potassium Level 3.9 3.5-5.1 mmol/L Chloride Level 104 98-107 mmol/L Carbon Dioxide Level 30 21-32 mmol/L Anion Gap 6.0 3-11 mmol/L Blood Urea Nitrogen 20 7-18 mg/dl Creatinine 0.91 0.60-1.40 mg/dl Est Creatinine Clear Calc Drug Dose 79.3 ml/min Estimated GFR () 97.9 Estimated GFR (Non- 84.5 BUN/Creatinine Ratio 22.1 10-20 Random Glucose 91 70-99 mg/dl Calcium Level 8.6 8.5-10.1 mg/dl Magnesium Level 2.1 1.8-2.4 mg/dl
[2017-10-25] MEDS ORDERED: LISINOPRIL 5 MG TAB PO SCH (09:00)
[2017-10-25] MEDS: APIXABAN 2.5 MG TAB PO SCH ×2 (09:07→20:59)
[2017-10-25] MEDS: LEVOTHYROXINE 137 MCG TAB PO SCH (09:07)
[2017-10-25] MEDS: ASPIRIN 81 MG ECTAB PO SCH (09:07)
[2017-10-25] MEDS: BUDESONIDE/FORMOTEROL FUMARATE 160/4.5 60 PUFFS/INHALER INH SCH ×2 (09:08→20:58)
[2017-10-25] MEDS: SOTALOL HCL 80 MG TAB PO SCH ×2 (10:39→20:58)
[2017-10-25] MEDS: ASCORBIC ACID 500 MG TAB PO SCH (10:39)
[2017-10-25] MEDS: FERROUS SULFATE 325 MG TAB PO SCH (20:58)
[2017-10-25] MEDS: FoLIC ACID TAB 400 MCG TAB PO SCH (20:58)
[2017-10-26 00:05] VITALS: BP 132/85; PULSE 59; TEMP 36.6; O2SAT 97
[2017-10-26 00:10] VITALS: O2SAT 97
[2017-10-26 03:56] VITALS: BP_SYST 142; BP_SYST 150; BP_DIAS 91; BP_DIAS 97; PULSE 58; TEMP 36.5; O2SAT 97
[2017-10-26] MEDS: LEVOTHYROXINE 137 MCG TAB PO SCH (06:04)
[2017-10-26 06:39] LABS: HEMATOCRIT 39.2 % (42-52); HEMOGLOBIN 13.1 g/dL (14.0-18.0); MEAN CELL VOLUME 95.4 fL (80-100); MEAN CORPUSCULAR HEMOGLOBIN 31.9 pg (25-34); MEAN CORPUSCULAR HGB CONC 33.4 g/dl (32-36); MEAN PLATELET VOLUME 9.8 fL (7.4-10.4); PLATELET COUNT 297 K/uL (130-400); RED CELL DISTRIBUTION WIDTH CV 14.6 % (11.5-14.5); RED CELL DISTRIBUTION WIDTH SD 50.7 fL (36.4-46.3); WHITE BLOOD COUNT 9.97 K/uL (4.8-10.8)
[2017-10-26] MEDS: IPRATROPIUM BROMIDE NEB SOLN 0.02% 2.5 ML VIAL INH SCH (06:55)
[2017-10-26] MEDS: LEVALBUTEROL 1.25MG/0.5ML NEB INH SCH (06:55)
[2017-10-26 06:59] VITALS: PULSE 59; O2SAT 94
[2017-10-26 07:20] LABS: CALCIUM 8.7 mg/dl (8.5-10.1); CREATININE 0.93 mg/dl (0.60-1.40); POTASSIUM 3.7 mmol/L (3.5-5.1)
[2017-10-26 07:38] VITALS: BP 142/91; PULSE 54; TEMP 36.6; O2SAT 94
[2017-10-26] MEDS: SOTALOL HCL 80 MG TAB PO SCH (07:54)
[2017-10-26] MEDS: APIXABAN 2.5 MG TAB PO SCH (07:54)
[2017-10-26] MEDS: ASPIRIN 81 MG ECTAB PO SCH (07:54)
[2017-10-26] MEDS: BUDESONIDE/FORMOTEROL FUMARATE 160/4.5 60 PUFFS/INHALER INH SCH (07:54)
[2017-10-26] MEDS: ASCORBIC ACID 500 MG TAB PO SCH (07:55)
--- NOTE | 2017-10-26 08:03 | PROGRESS NOTE ---
DATE: 10/25/2017 The patient seen and examined. Chart, medications, telemetry reviewed. SUBJECTIVE: The patient spontaneously converted to sinus rhythm approximately 1:30 this morning. Has been doing well. Notes no dizziness, lightheadedness, syncope. Notes no chest pain or discomfort. Notes no tachypalpitations. Notes no orthopnea. There have been no positive profound bradyarrhythmias. OBJECTIVE: VITAL SIGNS: Heart rate 61, blood pressure is 138/91, O2 saturation is 93% on room air. HEENT: Normocephalic, atraumatic. Nares without discharge. Throat is clear. NECK: Supple without thyromegaly, lymphadenopathy, JVD. LUNGS: Notable for scattered wheezes, bibasilar. CARDIOVASCULAR: Regular. There is no S3 gallop. ABDOMEN: Soft, nontender. EXTREMITIES: Without cyanosis or clubbing. There is no peripheral edema. DATA: EKG today demonstrates sinus rhythm with T-wave inversion in inferolateral leads. QT corrected 450. IMPRESSION: A 72-year-old male with paroxysmal atrial fibrillation, presented with newly recurrent atrial fibrillation, persistent, begun on antiarrhythmic therapy with sotalol with subsequent conversion to sinus rhythm. PLAN: Continue sotalol 80 mg twice per day, will resume higher dosing of lisinopril at usual outpatient dosing of 10 mg per day. Anticipate discharge after sixth dose of sotalol in a.m.
[2017-10-26] MEDS ORDERED: LISINOPRIL 10 MG TAB PO SCH (09:00)
--- NOTE | 2017-10-26 10:05 | Progress Note ---
Internal Med Progress Note Date of Service: Oct 26, 2017. Provider Documentation: SUBJECTIVE: Seen and examine at bedside No complaints Eager to get discharged Continues to be in Sinus Denies chest pain, SOB, dizziness, palpitations OBJECTIVE: Vital Signs-as noted below Physical Exam: General Appearance:Moderately built and nourished, no apparent distress Head: normocephalic, Atraumatic Eyes: normal inspection, EOMI, PERRL Neck: supple, Trachea midline Respiratory/Chest: Coarse breath sounds, Scattered wheezes Cardiovascular: S1, S2, No murmur Abdomen/GI:Soft, Non tender, Bowel sounds present Extremities/Musculoskelatal:normal inspection, no edema Neurologic/Psych:AAOX3, grossly no focal neurological deficits Skin: normal color, warm Lab data as noted below. ASSESSMENT & PLAN: Afib RVR: H/O P.Afib, was on Atenolol, Propranolol Received IV Lopressor in ED Continue Sotalol 80 mg BID Continue Eliquis for anticoagulation Daily EKG to monitor for QTC prolongation Appreciate Cardiology Input Troponin X 3: Negative Atenolol, Propranolol discontinued Monitor in Tele Converted to Sinus KARLEE: Likely prerenal Resolved Cr:1.5>>>0.91 Resumed lisinopril S/P IV fluids Monitor renal function H/O Essential tremor Was on Propranolol 120 mg daily was discontinued Stable COPD: Recent admission with COPD exacerbation due to Influenza A CXR: no acute process On Nebs at home Continue inhalers, Nebs and prednisone taper Leukocytosis likely secondary to prednisone Hypothyroidism: TSH: normal continue Levothyroxine Tobacco use disorder: smoking cessation counselling Non Obstructive CAD: cardiac cath on 09/23 -shows non occlusive CAD /coronaries has diffuse minor irregularities , LVEDP elevated 18 mm hg continue Aspirin, sotalol, lisinopril DVT Px: on Eliquis Code Status: Full Code Disposition: Plan to discharge him home today Follow up with on Oct 29, 2017 at 11:05AM for routine care Follow up with your Correction Officer Supervisor in 2 weeks Complete the prednisone course as prescribed Seek immediate medical attention if your symptoms reoccur or worsen Vital Signs: Date Time Temp Pulse Resp B/P (MAP) Pulse Ox O2 Delivery O2 Flow Rate FiO2 10/26/17 08:43 Room Air 10/26/17 07:38 36.6 54 16 142/91 (108) 94 Room Air 10/26/17 06:59 59 16 94 Room Air 10/26/17 04:05 Room Air 10/26/17 03:56 36.5 58 16 142/91 (108) 97 Room Air 150/97 (114) 10/26/17 00:10 97 Room Air 10/26/17 00:05 36.6 59 16 132/85 (101) 97 Room Air 10/25/17 20:15 96 Room Air 10/25/17 19:29 66 16 95 Room Air 10/25/17 19:09 36.7 66 18 130/88 (102) 96 Room Air 10/25/17 16:00 Room Air 10/25/17 15:15 37.0 67 16 109/71 (84) 95 Room Air 10/25/17 14:30 69 16 95 Room Air 10/25/17 12:00 Room Air 10/25/17 12:00 36.8 61 20 107/78 (88) 93 Room Air 10/25/17 11:21 61 16 93 Room Air Lab Results: Results Past 24 Hours Test 10/26/17 06:08 Range/Units White Blood Count 9.97 4.8-10.8 K/uL Red Blood Count 4.11 4.7-6.1 M/uL Hemoglobin 13.1 14.0-18.0 g/dL Hematocrit 39.2 42-52 % Mean Corpuscular Volume 95.4 80-100 fL Mean Corpuscular Hemoglobin 31.9 25-34 pg Mean Corpuscular Hemoglobin Concent 33.4 32-36 g/dl RDW Standard Deviation 50.7 36.4-46.3 fL RDW Coefficient of Variation 14.6 11.5-14.5 % Platelet Count 297 130-400 K/uL Mean Platelet Volume 9.8 7.4-10.4 fL Sodium Level 140 136-145 mmol/L Potassium Level 3.7 3.5-5.1 mmol/L Chloride Level 104 98-107 mmol/L Carbon Dioxide Level 31 21-32 mmol/L Anion Gap 5.0 3-11 mmol/L Blood Urea Nitrogen 20 7-18 mg/dl Creatinine 0.93 0.60-1.40 mg/dl Est Creatinine Clear Calc Drug Dose 77.6 ml/min Estimated GFR () 95.4 Estimated GFR (Non- 82.3 BUN/Creatinine Ratio 22.0 10-20 Random Glucose 82 70-99 mg/dl Calcium Level 8.7 8.5-10.1 mg/dl Magnesium Level 2.2 1.8-2.4 mg/dl
[2017-10-26] MEDS ORDERED: BTP80 PO (10:07)
[2017-10-26 10:09] VITALS: BP 142/91; PULSE 54; TEMP 36.6; O2SAT 94
--- NOTE | 2017-10-26 10:09 | Discharge Summary ---
Discharge Summary Date of Service Oct 26, 2017. Discharge Summary Admission Date: Oct 23, 2017 at 19:36 Discharge Date: Oct 26, 2017 Discharge Disposition: Home Principal Diagnosis: Afib RVR Procedures: CXR: No significant change compared to the prior study. No acute process. Consultations: Cardiology Pending Studies/Follow-Up: Follow up with on Oct 29, 2017 at 11:05AM for routine care Follow up with your Balance Assembler in 2 weeks Complete the prednisone course as prescribed Seek immediate medical attention if your symptoms reoccur or worsen Your Atenolol and Propranolol were discontinued Your were started on Sotalol 80mg Twice a day Medication Reconciliation New Medications: Sotalol HCl (Sotalol HCl) 80 Mg Tab 80 MG PO BID for 30 Days, #60 TAB 1 Refill Continued Medications: Albuterol Hfa (Ventolin Hfa) 200 Puffs/67434 Mcg Aers 2 PUFFS INH Q4H PRN for Wheezing Albuterol Sulfate (Albuterol Sulfate) 0.63 Mg/3 Ml Neb 1 VIAL NEB TID PRN for SOB/Wheezing for 25 Days, #225 ML Apixaban (Eliquis) 5 Mg Tab 5 MG PO BID Ascorbic Acid (Vitamin C) 250 Mg Tab 250 MG PO DAILY Aspirin (Aspirin Ec) 81 Mg Tab 81 MG PO DAILY Budesonide/Formoterol Fumarate (Symbicort 160/4.5 Inhaler ) Aero 2 PUFFS INH BID Ferrous Sulfate (Ferrous Sulfate) 325 Mg Tab 325 MG PO QPM DO NOT GET THE GENERIC OR DELAYED RELEASE TABLETS Folic Acid (Folic Acid) 800 Mcg Tab 800 MCG PO QPM Levothyroxine Sodium (Levothyroxine Sodium) 137 Mcg Tab 137 MCG PO DAILY Lisinopril (Prinivil) 10 Mg Tab 10 MG PO DAILY Prednisone (Prednisone) 10 Mg Tab 10 MG PO TAPER UD Discontinued Medications: Atenolol (Tenormin) 50 Mg Tab 50 MG PO DAILY Propranolol Hcl (Propranolol Hcl Er) 120 Mg Cap 120 MG PO DAILY Admission Information HPI (per Admitting provider): 72 year old male with a PMH of COPD, intermittent tobacco use, non-obstructive CAD, paroxysmal atrial fibrillation on long-term anticoagulation, hypothyroidism , essential tremor - presents to ER with Rapid Afib /RVR , SOB , dizzy spell recent admission on 10/11/17 at [facility] for Influenza A and COPD exacerbation discharged on 10/13/17 pt completed his Tamiflu ,still on Prednisone taper his Flu like symptom has resolved, still has occasional wheeze and dry non productive cough has been using INH As needed 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 ,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 [employer] at the end he felt dizzy , lightheaded, fluttering /palpitation and chest heaviness /SOB -symptom resolved after taking rest had an uneventful night , today morning pt was at the [facility] for his Hospital follow up visit while walking from Parking lot to clinic , pt felt similar symptom of palpitation, chest heaviness , had blurred vision EKG revealed afib RVR , pt was give X3 Chewable Aspirin 81 mg and sent to ER pt was sent to ER on arrival to ER pt remained in rapid Afib HR variable between 110-130 given IV Lopressor 5 mg X3 pt reports of resolution of angina symptom in ER during my time of interview , pt was very comfortable , denies of any orthopnea , any sensation of palpitation , chest heaviness remains in Afib HR 120's pt took his AM meds Eliquis 5 mg in AM /Atenolol 50 mg /Propranolol 120 mg Physical Exam (per Admitting): General Appearance: no apparent distress Head: normocephalic, atraumatic Eyes: normal inspection, PERRL, EOMI, sclerae normal Neck: thyroid normal, no JVD, no carotid bruits, trachea midline Respiratory/Chest: no respiratory distress, no accessory muscle use, + wheezing Cardiovascular: no edema, no JVD, normal peripheral pulses, + irregularly irregular Abdomen/GI: normal bowel sounds, non tender, soft Extremities/Musculoskelatal: normal inspection, no calf tenderness, normal capillary refill, no pedal edema, normal range of motion Neurologic/Psych: no motor/sensory deficits, alert, normal mood/affect, oriented x 3 Skin: normal color, warm/dry, no rash Lymphatic: no adenopathy Hospital Course Afib RVR: H/O P.Afib, was on Atenolol, Propranolol Received IV Lopressor in ED Continue Sotalol 80 mg BID Continue Eliquis for anticoagulation Daily EKG to monitor for QTC prolongation Appreciate Cardiology Input Troponin X 3: Negative Atenolol, Propranolol discontinued Monitor in Tele Converted to Sinus KARLEE: Likely prerenal Resolved Cr:1.5>>>0.91 Resumed lisinopril S/P IV fluids Monitor renal function H/O Essential tremor Was on Propranolol 120 mg daily was discontinued Stable COPD: Recent admission with COPD exacerbation due to Influenza A CXR: no acute process On Nebs at home Continue inhalers, Nebs and prednisone taper Leukocytosis likely secondary to prednisone Hypothyroidism: TSH: normal continue Levothyroxine Tobacco use disorder: smoking cessation counselling Non Obstructive CAD: cardiac cath on 09/23 -shows non occlusive CAD /coronaries has diffuse minor irregularities , LVEDP elevated 18 mm hg continue Aspirin, sotalol, lisinopril DVT Px: on Eliquis Code Status: Full Code Disposition: Plan to discharge him home today Follow up with on Oct 29, 2017 at 11:05AM for routine care Follow up with your Balance Assembler in 2 weeks Complete the prednisone course as prescribed Seek immediate medical attention if your symptoms reoccur or worsen Total time spent on discharge = 33 minutes This includes examination of the patient, discharge planning, medication reconciliation, and communication with other providers. Discharge Instructions Discharge Instructions Date of Service Oct 26, 2017. Admission Reason for Admission: AFIB Discharge Discharge Diagnosis / Problem: Afib RVR Discharge Goals Goal(s): Decrease discomfort, Improve function Activity Recommendations Activity Limitations: resume your previous activity Exercise/Sports Limitations: as tolerated . Instructions / Follow-Up Instructions / Follow-Up Follow up with on Oct 29, 2017 at 11:05AM for routine care Follow up with your Balance Assembler in 2 weeks Complete the prednisone course as prescribed Seek immediate medical attention if your symptoms reoccur or worsen Your Atenolol and Propranolol were discontinued Your were started on Sotalol 80mg Twice a day Current Hospital Diet Patient's current hospital diet: AHA Diet (Heart Healthy) Discharge Diet Recommended Diet: AHA Diet (Heart Healthy) Pending Studies Studies pending at discharge: no Laboratory Results Lipid Panel Test 10/24/17 06:31 Range/Units Triglycerides Level 93 0-150 mg/dl Cholesterol Level 149 0-200 mg/dl HDL Cholesterol 53 mg/dl Cholesterol/HDL Ratio 2.8 LDL Cholesterol, Calculated 77 mg/dl Medical Emergencies . Who to Call and When: Medical Emergencies: If at any time you feel your situation is an emergency, please call 911 immediately. . Non-Emergent Contact Non-Emergency issues call your: Primary Care Provider, Balance Assembler Call Non-Emergent contact if: you have a fever, your pain is not controlled, your pain is worsening, your pain is unusual for you, your pain is concerning you, you have any medication questions Seek immediate medical attention if your symptoms reoccur or worsen . . "Provider Documentation" section prepared by Jose Kidd. . VTE Core Measure Inpt VTE Proph given/why not?: Other Anticoagulation (Eliquis) <Electronically signed by Jose Kidd MD> Signed: 10/26/17 1009 Signed: The status of this report is Signed * If report status is Draft, the document has not been finalized by the responsible provider.
--- NOTE | 2017-10-26 10:51 | CARDIOLOGY PROGRESS NOTE ---
DATE: 10/26/2017 The patient seen and examined. Chart, medications, telemetry reviewed. SUBJECTIVE: The patient feels improved this morning. Notes no further arrhythmias. Denies any chest pains or discomfort. Notes no dizziness or lightheadedness. OBJECTIVE: VITAL SIGNS: Heart rate is 54, blood pressure is 142/90. NECK: Thin. There is no jugular venous distention. There are no carotid bruits. LUNGS: Clear. CARDIOVASCULAR: Regular. There is no S3 gallop. ABDOMEN: Soft. EXTREMITIES: Without cyanosis or clubbing. There is no peripheral edema. LABORATORY DATA: White cell count is 9.9, hemoglobin is 13.1. Sodium is 140, potassium is 3.7, chloride is 104, bicarbonate is 31, BUN is 20, creatinine is 0.93. IMPRESSION: A 72-year-old male with paroxysmal atrial fibrillation, admission with acute lapse into atrial fibrillation, possibly exacerbated by recent respiratory infection. He is clinically improved since admission with good tolerance of sotalol. Denies any arrhythmias or acute complaints. Discharged to home today with planned followup with cardiology as an outpatient.
== END 2017-10-26 10:26 | disposition home or self-care (01) | DRG 309 ==
LOC: EDBD 14:41 → C.EDB 14:44 → C.2T 19:36 → ENRESERV 21:16
PROVIDERS: ADMIT Hospitalist; ATTEND Internal Medicine
DX: I48.91 Unspecified atrial fibrillation (principal); N17.9 Acute kidney failure, unspecified; J44.9 Chronic obstructive pulmonary disease, unspecified; I25.10 Atherosclerotic heart disease of native coronary artery without angina pectoris; Z82.49 Family history of ischemic heart disease and other diseases of the circulatory system; F17.211 Nicotine dependence, cigarettes, in remission; Z88.2 Allergy status to sulfonamides; D72.829 Elevated white blood cell count, unspecified; T38.0X5A Adverse effect of glucocorticoids and synthetic analogues, initial encounter

== ENCOUNTER 2017-11-04 22:48 | Emergency (ER) | payer OTHER ==
[~2017-11-04] VITALS: Ht 180.3 cm; Wt 75.0 kg
[~2017-11-04 22:48] MED LIST changes: -ATEN50TA8 PO; -AZIT-57 PO; +BTP80 PO; -NEBMAC; +PRED10TA PO; -PROP120C PO; -TMF75 PO
[2017-11-04 22:55] VITALS: TEMP 36.7; Ht 180.3 cm; Wt 75.0 kg
[2017-11-04 23:38] VITALS: O2SAT 95
[2017-11-04] MEDS: SODIUM CHLORIDE 0.9% 1000ML 1,000 ML IV STA (23:41)
[2017-11-04 23:46] LABS: BASO % 0.5 %; BASO ABS # 0.03 K/uL (0-0.2); EOS % 2.1 %; EOS ABS # 0.13 K/uL (0-0.5); HEMATOCRIT 39.8 % (42-52); HEMOGLOBIN 13.6 g/dL (14.0-18.0); IG# 0.03 K/uL (0.00-0.02); LYMPH % 30.4 %; MEAN CELL VOLUME 94.5 fL (80-100); MEAN CORPUSCULAR HEMOGLOBIN 32.3 pg (25-34); MEAN CORPUSCULAR HGB CONC 34.2 g/dl (32-36); MEAN PLATELET VOLUME 9.8 fL (7.4-10.4); MONO % 9.3 %; MONO ABS # 0.58 K/uL (0.11-0.59); NEUT % 57.2 %; NEUT ABS # 3.59 K/uL (1.4-6.5); PLATELET COUNT 262 K/uL (130-400); RED CELL DISTRIBUTION WIDTH CV 14.3 % (11.5-14.5); RED CELL DISTRIBUTION WIDTH SD 49.3 fL (36.4-46.3); WHITE BLOOD COUNT 6.26 K/uL (4.8-10.8)
[2017-11-04] MEDS: METOPROLOL TARTRATE 1 MG/ML VIAL IV STA (23:47)
[2017-11-04 23:52] VITALS: BP 121/83
[2017-11-05 00:12] LABS: BLOOD UREA NITROGEN 17 mg/dl (7-18); CALCIUM 8.7 mg/dl (8.5-10.1); CARBON DIOXIDE 27 mmol/L (21-32); CREATININE 0.83 mg/dl (0.60-1.40); GLUCOSE 132 mg/dl (70-99); POTASSIUM 3.8 mmol/L (3.5-5.1); SODIUM 140 mmol/L (136-145)
--- NOTE | 2017-11-05 00:29 | EMERGENCY ROOM VISIT NOTE ---
History Report prepared by Christin: Shiela Harrington Under the Supervision of: Dr. Ty Blake M.D. First contact with patient: 23:19 Chief Complaint: IRREGULAR HEARTBEAT Stated Complaint: A FIB History of Present Illness The patient is a 72 year old male who presents to the Emergency Room with complaints of a persistent irregular heart beat that began earlier today. The patient was seen in the Emergency Department about one week ago and was diagnosed with symptomatic atrial fibrillation. He reports that today he noticed his heart rate was faster than usual. He notes that he has been hypertensive and experiencing intermittent headaches. The patient denies any trouble breathing, nausea, vomiting, diarrhea of weakness. He states that he takes Eliquis. Source of History: patient Onset: today Position: other (heart) Quality: other (irregular heartbeat ) Timing: other (persistent) Associated Symptoms: + headache (intermittent ), No nausea, No vomiting, No diarrhea, No weakness, No numbness Note: Associated symptoms include: hypertensive. Patient denies any trouble breathing. Review of Systems See HPI for pertinent positives & negatives. A total of 10 systems reviewed and were otherwise negative. Past Medical & Surgical Medical Problems: (1) Afib (2) Atrial fibrillation (3) COPD (chronic obstructive pulmonary disease) (4) Heart disease (5) HTN (hypertension) Surgical Problems: (1) History of appendectomy Family History FH: heart disease FHx: cancer Social History Smoking Status: Never Smoker Alcohol Use: other Drug Use: none Marital Status: Housing Status: lives with significant other Occupation Status: employed Current/Historical Medications Scheduled Apixaban (Eliquis), 5 MG PO BID Ascorbic Acid (Vitamin C), 250 MG PO DAILY Aspirin (Aspirin Ec), 81 MG PO DAILY Budesonide/Formoterol Fumarate (Symbicort 160/4.5 Inhaler ), 2 PUFFS INH BID Ferrous Sulfate (Ferrous Sulfate), 325 MG PO QPM Folic Acid (Folic Acid), 800 MCG PO QPM Levothyroxine Sodium (Levothyroxine Sodium), 137 MCG PO DAILY Lisinopril (Prinivil), 10 MG PO DAILY Metoprolol Tartrate (Lopressor) (Lopressor), 0.5 TAB PO BID Prednisone (Prednisone), 10 MG PO TAPER UD Sotalol HCl (Sotalol HCl), 80 MG PO BID Scheduled PRN Albuterol Hfa (Ventolin Hfa), 2 PUFFS INH Q4H PRN for Wheezing Albuterol Sulfate (Albuterol Sulfate), 1 VIAL NEB TID PRN for SOB/Wheezing Allergies Coded Allergies: Sulfa Antibiotics (Verified Allergy, Unknown, ., 10/11/17) Physical Exam Vital Signs Date Time Temp Pulse Resp B/P (MAP) Pulse Ox O2 Delivery O2 Flow Rate FiO2 11/05/17 00:57 93 20 94 11/05/17 00:27 102 15 94 11/04/17 23:57 100 17 96 11/04/17 23:52 98 121/83 11/04/17 23:48 122 18 96 11/04/17 23:47 106/87 11/04/17 23:47 122 106/87 11/04/17 23:38 107 11/04/17 23:38 95 Room Air 11/04/17 23:38 95 Room Air 11/04/17 22:55 36.7 119 18 113/84 95 Room Air Physical Exam GENERAL: Patient is well appearing and in no acute distress. HEENT: No acute trauma, normocephalic atraumatic, mucous membranes moist, no nasal congestion, no scleral icterus. NECK: No stridor, no adenopathy, no meningismus, trachea is midline. LUNGS: No dyspnea. Clear to auscultation and equal bilaterally. No wheeze, no rhonchi. HEART: Tachycardic rate, irregular rhythm. No murmurs, rubs, gallops appreciated. ABDOMEN: Soft, nontender, bowel sounds positive, no masses appreciated, no peritonitis. BACK: No midline tenderness, no CVA tenderness EXTREMITIES: Normal motion all extremities, no cyanosis, no edema. NEUROLOGIC: Alert and oriented, no acute motor or sensory deficits, no focal weakness, cranial nerves grossly intact. SKIN: No rash, no jaundice, no diaphoresis. Medical Decision & Procedures Laboratory Results 11/04/17 23:33 Red Blood Count 4.21, Mean Corpuscular Volume 94.5, Mean Corpuscular Hemoglobin 32.3, Mean Corpuscular Hemoglobin Concent 34.2, Mean Platelet Volume 9.8, Neutrophils (%) (Auto) 57.2, Lymphocytes (%) (Auto) 30.4, Monocytes (%) (Auto) 9.3, Eosinophils (%) (Auto) 2.1, Basophils (%) (Auto) 0.5, Neutrophils # (Auto) 3.59, Lymphocytes # (Auto) 1.90, Monocytes # (Auto) 0.58, Eosinophils # (Auto) 0.13, Basophils # (Auto) 0.03 11/04/17 23:33 Test 11/04/17 23:33 White Blood Count 6.26 K/uL (4.8-10.8) Red Blood Count 4.21 M/uL (4.7-6.1) Hemoglobin 13.6 g/dL (14.0-18.0) Hematocrit 39.8 % (42-52) Mean Corpuscular Volume 94.5 fL (80-100) Mean Corpuscular Hemoglobin 32.3 pg (25-34) Mean Corpuscular Hemoglobin Concent 34.2 g/dl (32-36) Platelet Count 262 K/uL (130-400) Mean Platelet Volume 9.8 fL (7.4-10.4) Neutrophils (%) (Auto) 57.2 % Lymphocytes (%) (Auto) 30.4 % Monocytes (%) (Auto) 9.3 % Eosinophils (%) (Auto) 2.1 % Basophils (%) (Auto) 0.5 % Neutrophils # (Auto) 3.59 K/uL (1.4-6.5) Lymphocytes # (Auto) 1.90 K/uL (1.2-3.4) Monocytes # (Auto) 0.58 K/uL (0.11-0.59) Eosinophils # (Auto) 0.13 K/uL (0-0.5) Basophils # (Auto) 0.03 K/uL (0-0.2) RDW Standard Deviation 49.3 fL (36.4-46.3) RDW Coefficient of Variation 14.3 % (11.5-14.5) Immature Granulocyte % (Auto) 0.5 % Immature Granulocyte # (Auto) 0.03 K/uL (0.00-0.02) Anion Gap 7.0 mmol/L (3-11) Est Creatinine Clear Calc Drug Dose 86.6 ml/min Estimated GFR () 102.6 Estimated GFR (Non- 88.5 BUN/Creatinine Ratio 20.9 (10-20) Calcium Level 8.7 mg/dl (8.5-10.1) Magnesium Level 2.0 mg/dl (1.8-2.4) Troponin I < 0.015 ng/ml (0-0.045) Laboratory results as reviewed by me. Medications Administered Medications (Trade) Dose Ordered Sig/Naeem Route Start Time Stop Time Status Last Admin Dose Admin Sodium Chloride 1,000 ml @ 999 mls/hr Q1H1M STAT IV 11/04/17 23:27 11/05/17 00:27 DC 11/04/17 23:41 999 MLS/HR Metoprolol Tartrate (Lopressor Iv) 5 mg NOW STAT IV 11/04/17 23:28 11/04/17 23:29 DC 11/04/17 23:47 5 MG Metoprolol Tartrate (Lopressor Tab) 12.5 mg NOW STAT PO 11/05/17 00:49 11/05/17 00:50 DC 11/05/17 00:49 12.5 MG ECG Per My Interpretation Indication: other (irregular heartbeat ) Rate (beats per minute): 113 Rhythm: atrial fibrillation (with RVR) Findings: no acute ischemic change, other (similar to previous AFIB, QTC of 460 ) ED Course 2320: The patient was evaluated in room C10. A complete history and physical exam was performed. 2359: I reevaluated the patient. His heartbeat is irregular and in the 90's. 0027: Discussed the patient's case with Dr. Bolden, [facility]- cardiology. He suggested 12ml BID Metoprolol and for the patient to follow up with him in the morning. 0034: I reevaluated the patient. His heart rate remains irregular and in the 90' s. We had an extensive discussion of possible treatment options with the patient. The patient would like to go home. He will be prepared for discharge. Medical Decision Differential: NSR, SVT, PACs, PVCs, Cardiac Dysrhythmia, Endocrine Dysfunction, Electrolyte/Metabolic Abnormality, Pulmonary Embolism, Infectious, GI, amonst other pathologies entertained. 72 yr old male with paroxysmal Afib history recently admitted and started on Sotalol. Arrives after noting flipping in to Afib this evening mildly symptomatic. Denies any current symptoms. HR this time easily improved with NSS and Lopressor as opposed to admission a few weeks ago with AFIB RVR persistent then. Still Afib though HR remains ~90s while talkign with him. Labs look good and BP stable. On eliquis thus I feel this is unlikely PE with fact no SOB. No dissection symptoms. Symptoms not consistent with ACS and EKG/ Trop unremarkable for ischemia. Patient feeling well and comfortable with going home. Reviewed with Dr Bolden who suggested low dose 12.5 BID Metoprolol and follow up in clinic. Patient and comfortable with this plan. Stable and feeling well at discharge. Reviewed at length symptoms requiring RTED. Medication Reconcilliation Current Medication List: was personally reviewed by me Blood Pressure Screening Patient's blood pressure: Normal blood pressure Blood pressure disposition: Did not require urgent referral Consults Time Called: 26 Consulting Physician: Dr. Bolden, [facility]- [facility]ology Returned Call: 26 Discussed the patient's case with [facility]- cardiology. He suggested 12ml BID Metoprolol and for the patient to follow up with him in the morning. Impression Primary Impression: Atrial fibrillation with RVR Scribe Attestation The scribe's documentation has been prepared under my direction and personally reviewed by me in its entirety. I confirm that the note above accurately reflects all work, treatment, procedures, and medical decision making performed by me. Departure Information Dispostion Home / Self-Care Prescriptions Metoprolol Tartrate (Lopressor) (Lopressor) 25 Mg Tab 0.5 TAB PO BID for 30 Days, #30 TAB 1 Refill Prov: Ty Blake M.D. 11/05/17 Referrals Tab Rossi D.O. Forms HOME CARE DOCUMENTATION FORM, IMPORTANT VISIT INFORMATION Patient Instructions Atrial Fibrillation, My [facility] Additional Instructions We will start you on a low dose of Metoprolol (12.5mg Twice daily). To do so you will need to take a HALF TABLET of Metoprolol 25mg Tablet twice daily. This way this medication can be increased as needed. Use caution with standing and doing rapid exertion over the next few days while you see how you react to the medication.
[2017-11-05] MEDS: METOPROLOL TARTRATE 25 MG TAB PO STA (00:49)
[2017-11-05] MEDS ORDERED: METO25TA56 PO (00:53)
[2017-11-05 00:57] VITALS: PULSE 93; O2SAT 94
== END 2017-11-05 01:15 | disposition home or self-care (01) ==
LOC: C.EDB 22:49 → C.EDC 11-05 01:15
DX: I48.91 Unspecified atrial fibrillation (principal); J44.9 Chronic obstructive pulmonary disease, unspecified; I51.9 Heart disease, unspecified; I10 Essential (primary) hypertension; Z82.49 Family history of ischemic heart disease and other diseases of the circulatory system; Z79.82 Long term (current) use of aspirin; Z88.8 Allergy status to other drugs, medicaments and biological substances

== ENCOUNTER → 2017-11-10 | Outpatient (CLI) | payer OTHER ==
[~2017-11-10] MED LIST changes: -ALBU0.633 NEB; +METO25TA56 PO
--- NOTE | 2017-11-10 09:41 | DIAGNOSTIC IMAGING REPORT ---
CHEST 2 VIEWS ROUTINE CLINICAL HISTORY: COUGH COMPARISON STUDY: 10/23/2017 FINDINGS: The cardiac and mediastinal contours are normal. There is no evidence of focal pulmonary consolidation. There is no evidence of failure. No pleural effusions are visualized.[ IMPRESSION: No active disease in the chest. Electronically signed by: Ivan Villar M.D. 11/10/2017 9:39 AM Dictated Date/Time: 11/10/2017 9:39 AM
== END | disposition home or self-care (01) ==
LOC: C.RAD1850 09:21
PROVIDERS: ATTEND Physician Assistant
DX: R05 Cough (principal)

== ENCOUNTER 2022-07-17 10:33 | Inpatient (IN) ==
--- NOTE | 2022-06-09 13:15 | PAT Medication Instructions ---
Medication Instructions Date of Service June 09, 2022 Home Medications albuterol sulfate 90 mcg/actuation aerosol inhaler 2 puff inhalation Q4 PRN Wheezing budesonide-formoterol HFA 160 mcg-4.5 mcg/actuation aerosol inhaler (Symbicort) 2 puff inhalation BID levothyroxine 137 mcg tablet 137 mcg PO QAM albuterol sulfate 0.63 mg/3 mL solution for nebulization 0.63 mg inhalation Q8 PRN Cough apixaban 5 mg tablet (Eliquis) 5 mg BID fluticasone propionate 50 mcg/actuation nasal spray,suspension 2 spray intranasal QAM umeclidinium 62.5 mcg/actuation blister powder for inhalation (Incruse Ellipta) 1 inh inhalation HS alirocumab 75 mg/mL subcutaneous pen injector (Praluent Pen) 75 mg subcut USEASDIRECTD cholecalciferol (vitamin D3) 25 mcg (1,000 unit) tablet (Vitamin D3) 1,000 unit PO HS verapamil 120 mg tablet,extended release 120 mg PO QAM ASK your prescriber and surgeon alirocumab 75 mg/mL subcutaneous pen injector (Praluent Pen) 75 mg subcut USEASDIRECTD apixaban 5 mg tablet (Eliquis) 5 mg BID Take morning of surgery With a small sip of water, OTHERWISE NOTHING TO EAT OR DRINK AFTER MIDNIGHT: albuterol sulfate 90 mcg/actuation aerosol inhaler 2 puff inhalation Q4 PRN Wheezing (use if needed; please bring rescue inhaler with you to hospital day of surgery if possible) budesonide-formoterol HFA 160 mcg-4.5 mcg/actuation aerosol inhaler (Symbicort) 2 puff inhalation BID levothyroxine 137 mcg tablet 137 mcg PO QAM albuterol sulfate 0.63 mg/3 mL solution for nebulization 0.63 mg inhalation Q8 PRN Cough (if needed) fluticasone propionate 50 mcg/actuation nasal spray,suspension 2 spray intranasal QAM verapamil 120 mg tablet,extended release 120 mg PO QAM Take evening before surgery albuterol sulfate 90 mcg/actuation aerosol inhaler 2 puff inhalation Q4 PRN Wheezing (if needed) budesonide-formoterol HFA 160 mcg-4.5 mcg/actuation aerosol inhaler (Symbicort) 2 puff inhalation BID albuterol sulfate 0.63 mg/3 mL solution for nebulization 0.63 mg inhalation Q8 PRN Cough (if needed) umeclidinium 62.5 mcg/actuation blister powder for inhalation (Incruse Ellipta) 1 inh inhalation HS cholecalciferol (vitamin D3) 25 mcg (1,000 unit) tablet (Vitamin D3) 1,000 unit PO HS Other Notes If you have any questions please call us at [phone] or [phone] or [phone] or [phone]
--- NOTE | 2022-06-13 09:10 | Anesthesiology Consultation ---
Date of Service June 13, 2022 Assessment & Plan (1) Encounter for pre-operative examination: - PCP clearance needed per Dr. Lockhart. Optimization note completed. - Medtronic pacemaker. Pacer rep needed per discussion with Dr. Lockhart. Zara made aware. - daily alcohol intake 2-4 beers. - pulmonology video visit 05/07/22 S: "...severe COPD, tobacco abuse, h/o asbestos agent orange exposure-recurrent COPD exacerbations...GOLD D COPD (PFTs 01/17/2015: Best FEV1 82% predicted) -- last COPD admission 10/2017, dyslipidemia, osteoarthritis, hypertension, hypothyroidism, cataracts, paroxysmal atrial fibrillation, concentric LVH, and diastolic dysfunction. 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 This is to reassess/further evaluate the endobronchial disease (secretions verses other), seen in the left side, as above. If these persist, or worsen, direct evaluation with bronchoscopy may be considered...Inhaled medications: Continue without change...After completing the telemedicine video visit today, I did have a chance to review his chest CT films from 03/20/2022. As, in my opinion, there are more abnormalities in the left lung bronchi, I called the patient and discussed these with him. This time include bronchoscopy verses follow-up chest CT. The patient prefers follow-up chest CT, which was ordered, as above..." - cardiology office visit 10/09/21 S: "...persistent atrial fibrillation status post permanent pacemaker placement and AV junction ablation...Last month, he had been treated for an acute exacerbation of COPD completing course of doxycycline and inhaled bronchodilator therapy. He notes improvement his respiratory symptoms but does have a nagging productive cough. Cardiac lai he has been doing well. Most recent device check had been on 08/14/2021 with 12.3 years of generator longevity noted, underlying atrial fibrillation noted, with ventricular pacing 99.9% the time...Blood pressure optimally controlled on his current regimen, having been on multiple other regimens in the past...on propranolol given his history of atrial fibrillation and essential tremor...Update echocardiogram in follow-up of aortic valve sclerosis/mild stenosis...Follow up in 1 year..." - Outpatient joint assessment: Patient is currently scheduled for inpatient pathway. If re-evaluated pending system levels during current pandemic/surgeon requests outpatient pathway, patient is not acceptable candidate for outpatient joint program from anesthesia standpoint. Chart Review Chart Review: Pending: Refer to Additional Notes / Consult section and Patient seen in Pre Admission Testing Teaching & Discussion Pre-Anesthesia Teaching/Discussion Notes: Instructed NPO after midnight before surgery, except medications with 15 cc of water. Medication instructions provided according to the PAT guidelines. History Surgery Operation Date: 07/11/22 12:20 Proposed Procedures p Right Reverse Total Shoulder Arthroplasty - Torsten Freitas, DO Height/Weight Height: 5 ft 10 in Weight: 66.6 kg Allergies Allergy/AdvReac Type Severity Reaction Status Date / Time Sulfa (Sulfonamide Allergy Intermediate itchy with Verified 06/06/22 12:50 Antibiotics) hives atorvastatin AdvReac Mild Muscle Pain Verified 06/06/22 12:50 ezetimibe [From Zetia] AdvReac Mild Muscle Pain Verified 06/06/22 12:50 Medications Home Medications Medication Instructions Recorded Confirmed Last Taken albuterol sulfate 90 mcg/actuation 2 puff inhalation Q4 PRN Wheezing 08/29/18 06/06/22 Unknown aerosol inhaler budesonide-formoterol HFA 160 2 puff inhalation BID 08/29/18 06/06/22 09/10/20 mcg-4.5 mcg/actuation aerosol inhaler (Symbicort) levothyroxine 137 mcg tablet 137 mcg PO QAM 08/29/18 06/06/22 09/10/20 albuterol sulfate 0.63 mg/3 mL 0.63 mg inhalation Q8 PRN Cough 11/20/20 06/06/22 Unknown solution for nebulization apixaban 5 mg tablet (Eliquis) 5 mg BID 11/20/20 06/06/22 11/18/20 fluticasone propionate 50 2 spray intranasal QAM 11/20/20 06/06/22 Unknown mcg/actuation nasal spray,suspension umeclidinium 62.5 mcg/actuation 1 inh inhalation HS 11/20/20 06/06/22 Unknown blister powder for inhalation (Incruse Ellipta) alirocumab 75 mg/mL subcutaneous 75 mg subcut USEASDIRECTD 12/04/20 06/06/22 Unknown pen injector (Praluent Pen) cholecalciferol (vitamin D3) 25 1,000 unit PO HS 12/10/20 06/06/22 Unknown mcg (1,000 unit) tablet (Vitamin D3) verapamil 120 mg tablet,extended 120 mg PO QAM 12/12/20 06/06/22 Unknown release Past Medical History Medical History (Updated 06/13/22 @ 15:53 by Keira Anders PA-C) Aortic stenosis Moderate per 11/11/21 ECHO= HANANE =1.0 to 0.95 cm. AV mean gradient 15-16mmHg; AV max velocity 270.5 cm/sec Atrial fibrillation s/p pacemaker, follows with [facility] cardio Back pain CAD (coronary artery disease) 40% lesion 1st diagonal of LAD, 2017 cath COPD (chronic obstructive pulmonary disease) severe COPD, follows with [facility] pulmonology, last rescue inhaler use last week (average of once weekly) Hearing deficit History of cardioversion 2020 HTN (hypertension) controlled, stable per pt Hyperlipidemia Hypothyroidism On anticoagulant therapy eliquis bid Pacemaker Medtronic pacemaker placed 11/20/20- lead revision done 12/04/20- last checked 03/2022 Pulmonary hypertension mild SSS (sick sinus syndrome) Tremor of left hand Tricuspid regurgitation moderate-severe Patient denies h/o stroke, seizures, heart attack, heart failure, DM, blood clots or blood transfusions. Exercise / Class Metabolic Activity II 4-5 Yardwork/Stairs/Walk up hill (denies CP or SOB with 1 FOS) Past Family History Family History Mother No problems noted. 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 Christy Past Anesthesia History No Hx of Anesthesia Complications and No Family Hx of Anesthesia Complications History of PONV No Hx of PONV and No Hx of Motion Sickness Social History Smoking Status: Current some day smoker tobacco type: cigarettes Smoking cigarettes per day: 10 per day- ADVISED Do You Dip or Chew Tobacco: No Hx Alcohol Use: Yes (2-4 BEERS PER DAY) Alcohol type: beer alcohol intake frequency: other Hx Substance Use: No substance use type: does not use Review of Systems Rare palpitations, denies associated dizziness, lightheadedness, chest discomfort or shortness of breath. Patient denies chest pain, shortness of breath, dyspnea on exertion, snoring, witnessed apneas, reflux, fever, or chills. Physical Exam Vital Signs Vitals BP 141/82 P 63 SP02 97% on RA RESP 17 Physical Full cervical extension range of motion without pain TMD 3.5 finger breadths Mallampati Score 3 Dentition: intact, several crowns; denies chipped or loose teeth, implants or bridges Lungs: normal respiratory effort. Clear throughout to auscultation, no adventitious breath sounds Cardiac: regular rate and rhythm, no murmurs noted Carotid arteries: negative bruit bilat Lab Results Anesthesia Preop Results Results Anesthesia Widget: WBC 6.45 K/ul (4.8-10.8) 06/13/22 Hgb 14.9 g/dl (14.0-18.0) 06/13/22 Hct 44.4 % (40.1-51.0) 06/13/22 Plt 246 K/uL (130-400) 06/13/22 Na 140 mmol/L (136-145) 06/13/22 K 4.1 mmol/L (3.5-5.1) 06/13/22 Cl 104 mmol/L (98-107) 06/13/22 CO2 31 mmol/L (21-32) 06/13/22 BUN 22 mg/dl (6-23) 06/13/22 Creat 1.10 mg/dl (0.6-1.4) 06/13/22 Glucose Level 100 mg/dl (70-99(Fasting)) H 06/13/22 PT 11.7 Seconds (9.0-12.0) 06/13/22 PTT 28.7 Seconds (21.0-31.0) 06/13/22 INR 1.1 (0.9-1.1) 06/13/22 Blood Type A Positive 06/13/22 Antibody Screen NEGATIVE 06/13/22 Testing Electrocardiogram Date: 06/13/22 Atrial sensed ventricular paced rhythm with prolonged AV conduction, rate 66 bpm Chest X-Ray Date: 06/13/22 No pneumothorax. Small left pleural effusion and left basilar densities persist. No new focal lung consolidations to suggest a pneumonia. No evidence for pulmonary edema. The heart is normal in size. There is a right-sided dual- chamber pacemaker. Chronic anterior wedging within the mid thoracic spine vertebral body. IMPRESSION: No change in the small left pleural effusion/densities. Echocardiogram Date: 11/11/21 Afib during exam EF 65-69% Moderate cLVH Severely enlarged LA Moderate aortic valve stenosis: HANANE =1.0 to 0.95 cm. AV mean gradient 15- 16mmHg; AV max velocity 270.5 cm/sec Moderate mitral annular calcification Mild mitral regurgitation Moderate to severe tricuspid regurgitation Mild pulmonary hypertension Borderline enlargement aortic root and proximal ascending aorta Cardiac Catheterization Date: 09/12/16 Left main: not diseased LAD: Mildly diseased. 1st diagonal moderate diseased, 40% lesion. Mid LAD mildly diseased. Proximal LAD mildly diseased. Cx: Mildly diseased throughout RCA: Mildly diseased throughout Other Testing Chest CT 06/06/22 1. No acute findings. No lung nodules. 2. No endobronchial fluid or other lesions. 3. Chronic benign bilateral calcified pleural plaque and pleuroparenchymal disease including left rounded atelectasis. Pulmonary emphysema. 4. Atherosclerosis and multivessel coronary artery calcification. 5. Chronic pleural disease including benign calcified pleural plaque and rounded atelectasis at the left lung base seen in association with a very small left pleural effusion. Pacemaker report 06/09/22 Medtronic Mode VVIR Atrial pacing 0% Septal 100% COVID-19 Risk Screen Screening Information COVID-19 Screen Date: 06/16/22 Exposure 21 Days Family/Household +COVID Last 21 Days: No Exposure 10 Days Any COVID Exposure Last 10 Days: No Symptoms Last 10 Days Experienced COVID Sx Last 10 Days: No + COVID 0-90 Days COVID + in Last 0-90 Days: No
[~2022-07-17 10:33] MED LIST changes: +ACETAMINOPHEN 500 MG TAB PO SCH; -APIX1TAB3 PO; -ASCO250T4 PO; -ASPI81TA28 PO; -BTP80 PO; +BUPIVACAINE 0.5 % 5 MG/1 ML PF 10ML VIAL ONE; +FAMOTIDINE 20 MG TAB PO SCH; -FOLI800T PO; -FRRS300 PO; +GABAPENTIN 300 MG CAP PO SCH; -LEVO137T3 PO; -LISI10TA PO; +LR 15ML/HR IV SCH; +LR 60ML/HR IV SCH; -METO25TA56 PO; +ORTHO JOINT ANESTHETIC ONE; +ORTHO JOINT MIX INFIL SCH; -PRED10TA PO; -SYMIN160 INH; +TRANEXAMIC ACID 1,000 MG **IV Intra-op IV SCH; +TRANEXAMIC ACID 1,000 MG **IV Pre-op IV SCH; -VNTHFA/IN INH; +ceFAZolin 2000MG 2,000 MG/15 ML SYR IV SCH; +dexAMETHasone 4 MG TAB PO SCH
--- NOTE | 2022-07-17 10:36 | History & Physical Report ---
Date of Service July 17, 2022 Assessment & Plan (1) Osteoarthritis of right shoulder: We will proceed with a right reverse shoulder arthroplasty. Postoperatively he will be started back on Eliquis for DVT prophylaxis and kept overnight for postoperative medical management. He plans to go to [facility] outpatient physical therapy upon discharge. History of Present Illness Chief Complaint: Osteoarthritis of the right shoulder Primary Care Provider: Sonja Condon DO Aggarwal is a pleasant 76-year-old male who has been dealing with chronic increasing right shoulder pain. Ithas been going on for years. Annettas hadinjections of his shoulder without relief. He has difficult time doing anything away from his body or up overhead. X-rays and clinical examination of been diagnostic for osteoarthritis of the right shoulder. After failing conservative treatment, he has elected proceed with a right reverse shoulder arthroplasty. Allergies Allergy/AdvReac Type Severity Reaction Status Date / Time Sulfa (Sulfonamide Allergy Intermediate itchy with Verified 06/06/22 12:50 Antibiotics) hives atorvastatin AdvReac Mild Muscle Pain Verified 06/06/22 12:50 ezetimibe [From Zetia] AdvReac Mild Muscle Pain Verified 06/06/22 12:50 Home Medications Medication Instructions Recorded Confirmed Type albuterol sulfate 90 mcg/actuation 2 puff inhalation Q4 PRN Wheezing 08/29/18 06/06/22 History aerosol inhaler budesonide-formoterol HFA 160 2 puff inhalation BID 08/29/18 06/06/22 History mcg-4.5 mcg/actuation aerosol inhaler (Symbicort) levothyroxine 137 mcg tablet 137 mcg PO QAM 08/29/18 06/06/22 History albuterol sulfate 0.63 mg/3 mL 0.63 mg inhalation Q8 PRN Cough 11/20/20 06/06/22 History solution for nebulization apixaban 5 mg tablet (Eliquis) 5 mg BID 11/20/20 06/06/22 History fluticasone propionate 50 2 spray intranasal QAM 11/20/20 06/06/22 History mcg/actuation nasal spray,suspension umeclidinium 62.5 mcg/actuation 1 inh inhalation HS 11/20/20 06/06/22 History blister powder for inhalation (Incruse Ellipta) alirocumab 75 mg/mL subcutaneous 75 mg subcut USEASDIRECTD 12/04/20 06/06/22 History pen injector (Praluent Pen) cholecalciferol (vitamin D3) 25 1,000 unit PO HS 12/10/20 06/06/22 History mcg (1,000 unit) tablet (Vitamin D3) verapamil 120 mg tablet,extended 120 mg PO QAM 12/12/20 06/06/22 History release Past Med/Surg History Medical History Aortic stenosis Moderate per 11/11/21 ECHO= HANANE =1.0 to 0.95 cm. AV mean gradient 15-16mmHg; AV max velocity 270.5 cm/sec Atrial fibrillation s/p pacemaker, follows with [facility] cardio Back pain CAD (coronary artery disease) 40% lesion 1st diagonal of LAD, 2017 cath COPD (chronic obstructive pulmonary disease) severe COPD, follows with [facility] pulmonology, last rescue inhaler use last week (average of once weekly) Hearing deficit History of cardioversion 2020 HTN (hypertension) controlled, stable per pt Hyperlipidemia Hypothyroidism On anticoagulant therapy eliquis bid Pacemaker Medtronic pacemaker placed 11/20/20- lead revision done 12/04/20- last checked 03/2022 Pulmonary hypertension mild SSS (sick sinus syndrome) Tremor of left hand Tricuspid regurgitation moderate-severe Surgical History History of appendectomy History of bilateral cataract extraction History of cardiac cath 2017 @ [facility]--no stents History of carpal tunnel surgery of right wrist History of colonoscopy History of thyroidectomy, total per pt d/t "not working" History of toe surgery per pt 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 Christy Family History Mother No problems noted. Father Family history of diabetes mellitus Other No family history of adverse response to anesthesia Social History Smoking Status: Current some day smoker Cigarettes Per Day: 10 per day- ADVISED; Second Hand Exposure: No; Hx Alcohol Use: Yes (2-4 BEERS PER DAY) Alcohol type: beer Hx Substance Use: No Preferred Language: Citizen Of [place] Communication Ability: Effective Imaging Analyst Required: No Beliefs That Will Affect Care: None Current Living Situation: Spouse Feels Safe at Home: Yes Assistive Devices: Glasses, Hearing Aid - Bilateral and Nebulizer Review of Systems All systems reviewed & are unremarkable except as noted in HPI & below. Physical Exam On physical examination the right shoulder, he has decreased range of motion and weakness throughout. He has pain over the glenohumeral joint line.. Constitutional WD/WN, vitals as above Eyes PERRL, conjunctivae normal, anicteric sclerae ENMT external ear and nose normal, oropharynx normal Neck trachea midline, no thyromegaly Respiratory normal respiratory effort, lungs clear to auscultation Cardiovascular RRR, no murmur, no edema Gastrointestinal (Abdomen) normal bowel sounds, soft, nontender, no hepatosplenomegaly Skin no rashes, warm and dry Psychiatric A+Ox3, euthymic affect Results & Data Results & Data Laboratory Results . Diagnostic Findings X-rays of the right shoulder show superior migration of the humeral head on the glenoid. There is some glenohumeral arthritis.. PG Care Time/CCT Total # of Minutes Spent Total Time Spent with Patient: Total time spent is greater than 50% in coordination of care (as documented) at patient's floor/unit and/or counseling patient: Coding Level of Care Code None Diagnoses Osteoarthritis of right shoulder M19.011
[2022-07-17] MEDS ORDERED: MIDAZOLAM HCL 1 MG/ML 2ML VIAL ONE ×2 (10:45)
[2022-07-17] MEDS ORDERED: fentaNYL citrate 100 MCG/2 ML VIAL ONE (10:45)
[2022-07-17] MEDS ORDERED: ROCURONIUM BROMIDE 10 MG/ML 5 ML VIAL IV ONE (13:18)
[2022-07-17] MEDS ORDERED: ONDANSETRON INJ 2 MG/ML 2 ML VIAL ONE (13:18)
[2022-07-17] MEDS ORDERED: LIDOCAINE 2% MPF LOCAL 5 ML VIAL INFIL ONE (13:18)
[2022-07-17] MEDS ORDERED: PROPOFOL IV EMULSION 10 MG/ML 20 ML VIAL IV ONE (13:18)
[2022-07-17] MEDS ORDERED: DEXAMETHASONE SOD INJ 4 MG/ML VIAL ONE (13:18)
[2022-07-17] MEDS ORDERED: GLYCOPYRROLATE 0.2 MG/ML VIAL ONE (13:48)
[2022-07-17] MEDS ORDERED: NEOSTIGMINE METHYLSULFATE 1 MG/ML 10ML VIAL ONE (13:48)
--- NOTE | 2022-07-17 14:25 | Operative Report ---
PG Post Operative Report Pre & Post Diagnosis Operation Date: 07/17/22 13:15 Pre-Op Diagnosis: Degenerative Joint Disease Right Shoulder with tendinopathy of the long head of the biceps tendon Post-Op Diagnosis: Degenerative Joint Disease Right Shoulder with tendinopathy of the long head of the biceps tendon I identified the patient and participated in the time-out.: Yes Procedure Operation Date: 07/17/22 13:15 Actual Procedures p Right Reverse Total Shoulder Arthroplasty(Right) with open biceps tenodesis as a distinct and separate procedure (modifier 59)- Torsten Freitas DO Surgeon Torsten Freitas DO Hydrology Teacher Norman Ren PA-C Estimated Blood Loss 150 Findings Consistent with Post-Op Diagnosis Specimens Right humeral head Description of Procedure A CPT code modifier 59: The long head of the biceps tendon was enlarged and inflamed consistent with tendinopathy. A tenodesis was opted. This was a se parate and distinct portion of the procedure. For these reasons, a CPT code modifier 59 will be added to this case. Implants used: I used a Biomet Comprehensive reverse total shoulder arthroplasty system with a size 17 press fit micro humeral stem, a +6 offset humeral tray and a standard humeral bearing, a 25 mm small augment baseplate with a 6.5 mm central screw and superior and inferior locking screws, and a size 40 mm Jasen eccentric glenosphere. Jasen arrived at [facility] for the above procedure. He was seen in the preoperative holding area and the operative extremity was identified and signed. He was given a preoperative antibiotic, TXA, and an interscalene nerve block. He was taken back to the operating room, laid on table in supine posi tion, and put under general anesthesia. He was then put into the beachchair position. The shoulder was then prepped and draped in sterile fashion. A timeout was done and the patient and the operative extremity was properly identified. A deltopectoral approach was used. Dissection was taken down through the fascia and the deltoid was retracted laterally and the conjoined tendon was retracted m edially. The anterior shoulder was exposed. The biceps groove was opened up and the biceps tendon was examined extensively. The biceps tendon demonstrated enlargement and inflammatory changes consistent with longstanding inflammation in the context of osteoarthritis and cuff arthropathy. The long head of the biceps tendon was then tenodesed to the upper border of the pectoralis major. This was a separate and distinct portion of the procedure. The subscapularis was then directly released off the lesser tuberosity with a peel technique. The inferior capsule was released and the humeral head was dislocated. A canal finding reamer was sent down the center of the humeral canal. Sequential reaming up to a size 17 reamer was done. Off that reamer, a proximal humeral resection guide was placed. The proximal humerus was resected at 135 of inclination and 25 of retroversion. Osteophytes were then removed and the glenoid was exposed. Time was spent doing a complete capsular and labral release. The glenoid guide was then placed in the inferior aspect of the glenoid. A 3.2 mm Steinmann pin was then placed into the glenoid vault at 10 of inclination. The glenoid baseplate was then reamed. The final size 25 mm small augment baseplate was then impacted in the place. A 6.5 mm central screw was then placed followed by superior and inferior locking screws. A 40 mm eccentric glenosphere was then impacted into place. Surrounding soft tissues were then injected with 100 cc an orthopedic pain control cocktail. The proximal humerus was then exposed. Sequential broaching of the humerus up to a size 17 broach was done. Off that broach a +6 offset humeral tray was trialed. The shoulder was then reduced, brought through a full range of motion, and felt to be stable. The shoulder was then dislocated and the broach was removed. The final size 17 micro press-fit humeral stem was then impacted into place. A standard humeral bearing was then snapped onto a +6 offset humeral tray. The humeral tray was then impacted onto the humeral stem. The shoulder was once again reduced, brought through a full range of motion, and felt to be stable. The subscapularis was then tenodesed back to the lesser tuberosity with transosseous FiberWire sutures and side to side sutures with the arm in 45 of external rotation. A dilute betadyne lavage was then done for 3 minutes. The joint was then irrigated with normal saline solution. Hemostasis was obtained. The interval was closed with 2-0 Vicryl suture. The skin was then closed with 2-0 Vicryl and lucian. A Silverlon dressing was placed and the arm was rested in a regular arm sling. He was then extubated and transferred to a hospital bed. He taken to the postanesthesia care unit in stable condition. He tolerated the procedure well. Norman Ren PA-C, was present for the entire procedure. He was critical for patient positioning, prepping, draping, retraction exposure, wound closure and application of sterile dressing. I attest to the content of the Intraoperative Record and any orders documented therein. Any exceptions are noted below.
--- NOTE | 2022-07-17 14:55 | XRay Report ---
RIGHT SHOULDER 2 VIEWS CLINICAL HISTORY: Postoperative examination. FINDINGS: 2 portable views of the right shoulder are obtained. The skeletal structures are osteopenic . A right shoulder arthroplasty is in near anatomic alignment. No acute fracture is seen. Productive degenerative change is noted at the acromioclavicular joint. Skin clips, subcutaneous gas, and soft t issue swelling overlying the shoulder are expected postoperative changes. A cardiac pacemaker is in p lace. The right lung parenchyma is clear as visualized noting bibasilar scarring/atelectasis. Calcifi ed pleural plaque is noted at the right lung base. IMPRESSION: Expected postoperative findings status post right shoulder arthroplasty. No acute fractur e is seen. Electronically signed by: Harsh Le M.D. 07/17/2022 2:54 PM
[2022-07-17] MEDS ORDERED: ONDANSETRON INJ 2 MG/ML 2 ML VIAL IV PRN (15:45)
[2022-07-17] MEDS ORDERED: NALOXONE HCL 0.4 MG/1 ML VIAL/CARP IV PRN (15:45)
[2022-07-17] MEDS ORDERED: ALBUTEROL HFA 8 GM INHALER INH PRN (15:45)
[2022-07-17] MEDS ORDERED: METOCLOPRAMIDE HCL INJ 5 MG/ML 2 ML VIAL IV PRN (15:45)
[2022-07-17] MEDS ORDERED: bisacodyL 10 MG SUPP PR PRN (15:45)
[2022-07-17] MEDS ORDERED: oxyCODONE HCL IR 5 MG TAB (IMMEDIATE RELEASE) PO PRN (15:45)
[2022-07-17] MEDS ORDERED: MAGNESIUM HYDROXIDE SUSP 30 ML UDC PO PRN (15:45)
[2022-07-17] MEDS: SODIUM CHLORIDE 0.9% 1000ML 1,000 ML IV SCH (16:29)
[2022-07-17] MEDS ORDERED: ALBUTEROL 0.083% NEBU SOLN 3 ML VIAL INH PRN (16:37)
[2022-07-17] MEDS: ceFAZolin 2000MG 2,000 MG/15 ML SYR IV SCH (19:34)
[2022-07-17] MEDS: DOCUSATE SODIUM 100 MG CAP PO SCH (20:25)
[2022-07-17] MEDS: APIXABAN 5 MG TABLET PO SCH (20:25)
[2022-07-17] MEDS ORDERED: SENNA 8.6 MG TAB PO SCH (21:00)
[2022-07-17] MEDS ORDERED: UMECLIDINIUM BROMIDE 62.5MCG/BLISTER 7 PUFFS/INHALER INH SCH (21:00)
[2022-07-17] MEDS ORDERED: CHOLECALCIFEROL 1,000 UNITS 25 MCG TAB PO SCH (21:00)
[2022-07-18] MEDS: SODIUM CHLORIDE 0.9% 1000ML 1,000 ML IV SCH (02:23)
[2022-07-18] MEDS: ceFAZolin 2000MG 2,000 MG/15 ML SYR IV SCH (05:41)
[2022-07-18] MEDS ORDERED: LEVOTHYROXINE SODIUM 137 MCG TABLET PO SCH (06:30)
--- NOTE | 2022-07-18 06:54 | Orthopedic Progress Note ---
Date of Service July 18, 2022 Assessment & Plan (1) Status post reverse total replacement of right shoulder: Overall he is doing very well. He is not having much pain in the right shoulder. He will be seen by physical therapy today for ambulation and range of motion exercises. He can be discharged home later today. He will follow-up with orthopedics in 2 weeks. Jean Aggarwal was seen and examined at bedside this morning. Overall is doing very w ell. He is not having too much pain in the right shoulder. He was able to get some sleep last night. Review of Systems All systems reviewed & are unremarkable except as noted in HPI & below. Physical Exam On physical examination the right shoulder, the dressing is clean and dry. He is wearing a sling as instructed. He has motion of his hand and his wrist.. Results & Data Results & Data Laboratory Results . Diagnostic Findings Postoperative x-rays of the right shoulder show the prosthesis to be in anatomic alignment without any evidence of fracture, desiccation, or loosening. PG Care Time/CCT Total # of Minutes Spent Total Time Spent with Patient: Total time spent is greater than 50% in coordination of care (as documented) at patient's floor/unit and/or counseling patient: Coding Level of Care Code 52724 Post Operative Follow-Up Diagnoses Status post reverse total replacement of right shoulder Z96.611
--- NOTE | 2022-07-18 06:55 | Discharge Summary ---
Date of Service July 18, 2022 Admission HPI (Per Admitting) Jasen is a pleasant 76-year-old male who has been dealing with chronic increasing right shoulder pain. Ithas been going on for years. Hehas hadinjections of his shoulder without relief. He has difficult time doing anything away from his body or up overhead. X-rays and clinical examination of been diagnostic for osteoarthritis of the right shoulder. After failing conservative treatment, he has elected proceed with a right reverse shoulder arthroplasty. Admission Exam (Per Admitting) On physical examination the right shoulder, he has decreased range of motion and weakness throughout. He has pain over the glenohumeral joint line.. Principal Diagnosis Same as "Discharge Diagnosis" noted below under Discharge Instructions. Discharge Exam On physical examination the right shoulder, the dressing is clean and dry. He is wearing a sling as instructed. He has motion of his hand and his wrist.. Discharge Data Procedures Performed Operation Date: 07/17/22 13:15 Actual Procedures p Right Reverse Total Shoulder Arthroplasty(Right) - Torsten Freitas DO Ordered Studies 07/17/22 05:00 US - OR guided needle placemen Routine Hospital Course (1) Status post reverse total replacement of right shoulder: On July 17, 2022 Jasen arrived at [facility] and underwent a right reverse shoulder replacement without complication. He had a general anesthetic and a right interscalene nerve block. Postoperatively he was placed in a sling and transferred to the general orthopedic floors. His hospital course was uneventful. On postop day #1, his vital signs were stable and his pain was well controlled. He was able to participate well with physical therapy doing ambulation and range of motion exercises. He was then discharged home. He will follow-up with orthopedics in 2 weeks. PG Care Time/CCT Total # of Minutes Spent Total Time Spent with Patient: Total time spent is greater than 50% in coordination of care (as documented) at patient's floor/unit and/or counseling patient: Discharge Plan Discharge Items Patient Disposition: Home - Home Health Services Reason For Visit: Degenerative Joint Disease Right Shoulder Discharge Diagnosis: Right reverse shoulder replacement Activity: Per Instructions section Non-emergency contact: Surgeon Call non-emergency contact if: your wound has increased redness and your wound pain has increased Follow-up/Referrals: Sonja Condon DO [Primary Care Provider] - Diet: Regular Addtl Attending Provider Instructions: Activity and Therapy Recommendations: * If you are using [facility] then therapy will be provided at your home until they feel you have accomplished all of your goals. * If you are using [facility] then Physical Therapy will be provided until they feel you are ready to start Outpatient Physical Therapy. * If you are not using home therapy then Outpatient Physical Therapy should start about 3-5 days from your day of surgery. Therapy will last about 8-12 weeks * Wear your sling for 3 weeks, unless otherwise instructed. You may remove your sling to shower and to dress, but otherwise, you should be in your sling at all times, including while sleeping * The shoulder replacement is very stable and you can use your hand while in the sling * You were shown a series of exercises in the hospital. Do these exercises daily including the exercises you were shown in physical therapy. Medications: * Narcotic You will likely be sent home from the hospital with a prescription for the narcotic pain medication that worked best throughout your stay. * Other medications may be prescribed for specific circumstances. If you have any questions, please call the office at . * Resume previous home medications unless otherwise instructed Dressing Care: Leave the Silverlon dressing in place for 7 days. After 7 days you may remove the dressing. If the incision is not draining then you may leave the lucian open to air. If there is a little bit of drainage or if the lucian are getting stuck on your clothing then cover the incision with a dry dressing. The lucian will be removed at your 2 week follow-up appointment. Showering: You may shower with the Silverlon dressing in place. Do not let the shower spray hit the dressing directly. Pat the Silverlon dressing dry. If the dressing becomes wet underneath, then simply remove the dressing. Keep the incision dry until you are 7 days out from the day of surgery. After 7 days you may remove the Silverlon dressing and shower with the lucian exposed. Let soapy water run over the lucian and pat them dry. Do not scrub or soak the incision. Things To Watch For: * Drainage from the incision site that occurs more than one week after your surgery. * Increased redness at the incision site. * Fever above 102 degrees Fahrenheit. * Unusual chest pain or shortness of breath. * Call [facility] at with any of the above problems Follow-Up Visit: Follow-up with Dr. Freitas's PA (Torsten Gonzalez) 2-3 weeks after your day of surgery. He will remove your lucian and answer any questions. If you have any additional questions or concerns, Dr Freitas is usually in the office at the same time and will be available An appointment was probably scheduled when you signed-up for surgery in the office. If you have any questions call More detailed instructions as well as Frequently Asked Questions were provided in a folder by our office when you signed-up for surgery. Please review these instructions when you get home. If you have any further questions or concerns, please feel free to call the office at [phone] Pending Studies at Discharge: No Stand-Alone Forms: My [facility] Medications and DC Order Prescriptions: New oxycodone-acetaminophen 5-325 mg tablet 1 tab PO Q6H PRN (Reason: pain) Qty: 30 0RF Continued levothyroxine 137 mcg tablet 137 mcg PO QAM albuterol sulfate 90 mcg/actuation Hfa Aerosol Inhaler 2 puff Inhalation Q4 PRN (Reason: Wheezing) budesonide-formoterol [Symbicort] 160-4.5 mcg/actuation Hfa Aerosol Inhaler 2 puff INHALATION BID albuterol sulfate 0.63 mg/3 mL Solution For Nebulization 0.63 mg INHALATION Q8 PRN (Reason: Cough) fluticasone propionate 50 mcg/actuation Apex,Suspension 2 spray INTRANASAL QAM Eliquis 5 mg Tablet 5 mg BID Incruse Ellipta 62.5 mcg/actuation Blister With Device 1 inh INHALATION HS Praluent Pen 75 mg/mL Pen Injector 75 mg SUBCUT USEASDIRECTD Rx Instructions: every 14 days cholecalciferol (vitamin D3) [Vitamin D3] 25 mcg (1,000 unit) Tablet 1,000 unit PO HS verapamil 120 mg Tablet Extended Release 120 mg PO QAM Discharge Orders: Discharge Order (Routine); Ordered 07/18/22 Ordered By: Torsten Freitas Admission Data Admit Date/Time: 07/17/22 14:31 Attending Provider: Torsten Freitas Admit Provider: Torsten Freitas Primary Care Provider: Sonja Condon
[2022-07-18 07:57] LABS: Hematocrit (blood only) 41.2 % (40.1-51.0); Hemoglobin 14.2 g/dl (14.0-18.0); Mean Corpuscular Hemoglobin 32.6 pg (25.0-34.0); Mean Corpuscular Hgb Conc 34.5 g/dL (32.0-36.0); Mean Corpuscular Volume 94.5 fL (80.0-100.0); Mean Platelet Volume 10.3 fL (9.4-12.4); Platelet Count 266 K/uL (130-400); RDW Coefficient of Variation 14.8 % (11.5-14.5); RDW Standard Deviation 51.5 fL (36.4-46.3); Red Blood Count 4.36 M/uL (4.63-6.08); White Blood Count 15.87 K/ul (4.8-10.8)
[2022-07-18] MEDS: DOCUSATE SODIUM 100 MG CAP PO SCH (08:12)
[2022-07-18] MEDS: APIXABAN 5 MG TABLET PO SCH (08:12)
[2022-07-18 08:22] LABS: Creatinine Clr Calc Pharmacy 52.7 ml/min; Est GFR (Non-African American) 62.1 ml/min
[2022-07-18] MEDS ORDERED: MULTIVITAMIN TAB PO SCH (09:00)
[2022-07-18] MEDS ORDERED: VERAPAMIL HCL 120 MG TABCR PO SCH (09:00)
[2022-07-18] MEDS ORDERED: FLUTICASONE/VILANTEROL 100/25MCG 14 PUFFS/INHALER INH SCH (09:00)
== END 2022-07-18 10:20 | disposition home or self-care (01) | DRG 483 ==
LOC: ASU 10:33 → 3E 14:31 → INTOOBSV 14:31 → OBSVTOIN 14:31

== ENCOUNTER 2023-08-20 08:41 | Inpatient (IN) ==
[2023-08-20] MEDS ORDERED: OPTIRAY 320 125ml IV ONE (08:42)
--- NOTE | 2023-08-20 08:50 | Emergency Department Note ---
Impression & Plan Cerebrovascular accident, HTN (hypertension), Atrial fibrillation, Occlusion of right vertebral artery ED Provider Note NAME: LOIS GONSALVES AGE: 78 SEX: M : 1945 ARRIVES VIA: Ambulance INFORMANT: Patient, ED PROVIDER(S): Michelet Cerrato MD CHIEF COMPLAINT: Right-sided weakness, strokelike symptoms MEDICAL DECISION MAKING: Patient presents as a stroke alert due to concern for strokelike symptoms upon waking this morning. The patient did notice some right-sided deficits which seem to be improving and virtually have resolved at the time presentation. IV was established blood obtained patient did have a CT head and CT angiography of the head and neck completed. Patient's blood work shows a normal white count mild anemia hemoglobin of 13.8 with normal platelet count. Kidney function is unremarkable. LFTs unremarkable troponin is not elevated. Full reassessment the patient is still functioning well. The patient's CT head negative CT angiography of the head and neck does show concern for possible right vertebral artery occlusion and possible dissection. I did rediscuss the patient's case with on-call telestroke neurology Dr. Velasquez who stated this likely would not explain the patient's symptoms as he was having right-sided deficits and believes this is likely incidental finding. No change in management at this time. Subsequently did speak with the on-call hospitalist service and the patient was admitted to the medicine service by Dr. Baptiste. MRI pending at the time of admission. This does show subacute infarct in posterior left frontal lobe cortex. Critical Care: I have personally spent 35 minutes of critical care time in direct management of this patient. This includes bedside care, interpretation of diagnostic studies, and testing, discussion with consultants, patient, and family members, and other require inpatient management activities. This 35 minutes is in excess of all separately billable procedures. Discussion w/ other healthcare providers: Dr. Ceballos telestroke neurology [facility] Selma Swan PA-C and Dr. Baptiste inpatient medicine service Prior /Outside records reviewed: I reviewed an orthopedics visit with Dr. Freitas for being seen post total shoulder replacement in August 2022. Differential diagnosis: Infection, dehydration, metabolic abnormality, hypo/hyperglycemia, electrolyte imbalance, anemia, UTI, pneumonia, thyroid dysfunction among others were considered. Diagnostics, as interpreted by me: ECG: V-paced rhythm, rate of 76, wide QRS, left axis deviation, no ST elevations ST depressions in the lateral leads Cardiac monitoring: An order was placed for continuous cardiac monitoring. The monitor shows a rate of 85 with sinus rhythm. Patient was placed on pulse oximetry Medical decision rules: None Imaging studies: I informally interpreted the patient's CT head which shows encephalomalacia but no obvious ICH with formal report to follow. HPI: Patient presents due to concern for right-sided deficits. The patient reportedly had some right upper extremity and right lower extremity weakness. Patient states that he woke with symptoms this morning last known well was 9 PM last evening. Patient does take Eliquis for known history of A-fib and states that he last took it last night did not take this morning as he was to have a tooth pulled today. Patient denies any chest pains or shortness of breath. The patient does intermittently use tobacco. Patient denies any recent falls or trauma. Patient believes that his symptoms have virtually resolved that may be peaked about 30 minutes prior at which point they began to improve. PAST MEDICAL HISTORY: See Below PAST SURGICAL HISTORY: See Below SOCIAL HISTORY: See Below HOME MEDICATIONS: See Below ALLERGIES: See Below VITALS: See Below PHYSICAL EXAMINATION: GENERAL: NAD, non-toxic. Wearing glasses EYE EXAM: Normal conjunctiva. PERRL, no anisocoria and EOM's grossly intact w/o pain. OROPHARYNX: Moist mucus membranes, grossly normal dentition. NECK: Supple, no nuchal rigidity, no adenopathy, non-tender. No signs of meningismus. FROM of the neck with good chin to chest and neck extension. No stridor. LUNGS: Clear to auscultation. Normal chest wall mechanics. HEART: NSR, no MRG. ABDOMEN: Abdomen soft, non-tender, no masses, no rebound or guarding. BACK: No CVA TTP. SKIN: No rashes and no bruising. UPPER EXTREMITIES: Upper extremities are grossly normal. LOWER EXTREMITIES: Grossly normal, no edema. NEURO EXAM: A&O x3, cranial nerves II-XII grossly intact, normal speech, moves all 4 extremities. Good [id number], no drift and no sensory deficits Past Med/Surg History Medical History CAD (coronary artery disease) 40% lesion 1st diagonal of LAD, 2017 cath Tricuspid regurgitation moderate-severe Pulmonary hypertension mild History of cardioversion 2020 Aortic stenosis Moderate per 11/11/21 ECHO= HANANE =1.0 to 0.95 cm. AV mean gradient 15-16mmHg; AV max velocity 270.5 cm/sec Hypothyroidism Hearing deficit Tremor of left hand Hyperlipidemia On anticoagulant therapy eliquis bid Pacemaker Medtronic pacemaker placed 11/20/20- lead revision done 12/04/20- last checked 03/2022 SSS (sick sinus syndrome) Back pain HTN (hypertension) controlled, stable per pt COPD (chronic obstructive pulmonary disease) severe COPD, follows with [facility] pulmonology, last rescue inhaler use last week (average of once weekly) Atrial fibrillation s/p pacemaker, follows with [facility] cardio Surgical History History of toe surgery per pt 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 Christy Family History Mother No problems noted. Father Family history of diabetes mellitus Other No family history of adverse response to anesthesia Social History Smoking Status: Current some day smoker Tobacco Type: Cigarettes Cigarettes Per Day: 3-4; Second Hand Exposure: No; Do You Dip or Chew Tobacco: No; Tobacco Cessation Education Requested by Patient: No Hx Alcohol Use: Yes Alcohol type: beer Hx Substance Use: No Preferred Language: Chilean Communication Ability: Effective [employer] Required: No Beliefs That Will Affect Care: Anglican Current Living Situation: Spouse Other Information That Helps Us Care for You: No Feels Safe at Home: Yes Safety Concerns: Feels Safe At This Time Assistive Devices: Glasses and Hearing Aid - Bilateral Allergies Allergies Allergy/AdvReac Type Severity Reaction Status Date / Time Sulfa (Sulfonamide Allergy Intermediate itchy with Verified 08/20/23 10:01 Antibiotics) hives atorvastatin AdvReac Mild Muscle Pain Verified 08/20/23 10:01 ezetimibe [From Zetia] AdvReac Mild Muscle Pain Verified 08/20/23 10:01 lisinopril AdvReac Mild Cough Verified 08/20/23 10:24 Home Meds Home Medications Medication Instructions Recorded Confirmed albuterol sulfate 90 mcg/actuation 2 puff inhalation Q4 PRN Wheezing 08/29/18 08/20/23 aerosol inhaler budesonide-formoterol HFA 160 2 puff inhalation BID 08/29/18 08/20/23 mcg-4.5 mcg/actuation aerosol inhaler (Symbicort) levothyroxine 137 mcg tablet 137 mcg PO QAM 08/29/18 08/20/23 albuterol sulfate 0.63 mg/3 mL 0.63 mg inhalation Q8 PRN Cough 11/20/20 08/20/23 solution for nebulization apixaban 5 mg tablet (Eliquis) 5 mg BID 11/20/20 08/20/23 fluticasone propionate 50 2 spray intranasal QAM 11/20/20 08/20/23 mcg/actuation nasal spray,suspension umeclidinium 62.5 mcg/actuation 1 inh inhalation DAILY 11/20/20 08/20/23 blister powder for inhalation (Incruse Ellipta) alirocumab 75 mg/mL subcutaneous 75 mg subcut USEASDIRECTD 12/04/20 08/20/23 pen injector (Praluent Pen) cholecalciferol (vitamin D3) 25 1,000 unit PO HS 12/10/20 08/20/23 mcg (1,000 unit) tablet (Vitamin D3) furosemide 20 mg tablet 20 mg PO DAILY 08/20/23 08/20/23 losartan 25 mg tablet 25 mg PO DAILY 08/20/23 08/20/23 propranolol 80 mg capsule,24 80 mg PO DAILY 08/20/23 08/20/23 hr,extended release Previous Rx's Medication Instructions Recorded amoxicillin 500 mg tablet 2,000 mg (4 x 500 mg) PO ONCE #4 08/11/22 tabs Results & Data (ED) Vital Signs Vital Signs - 24 hr 08/20/23 11:00 08/20/23 11:00 08/20/23 11:01 Pulse Rate 70 70 Pulse Rate [Apical] 70 Pulse Rate from SpO2 Sensor 70 69 Respiratory Rate 18 18 24 Blood Pressure 141/94 H Blood Pressure [Right Arm] 141/94 H Blood Pressure Mean 109 Blood Pressure Mean [Right Arm] 109 Pulse Oximetry 97 95 94 Oxygen Delivery Method Room Air Home Medications Current Medication List: was personally reviewed by me Laboratory Data Attestation: I reviewed the patient's lab results. 08/21/23 06:22 08/21/23 06:22 Lab Results 08/20/23 Range/Units 09:02 WBC 5.73 (4.8-10.8) K/ul RBC 4.38 L (4.70-6.10) M/uL Hgb 13.8 L (14.0-18.0) g/dl Hct 42.1 (42.0-52.0) % MCV 96.1 (80.0-100.0) fL MCH 31.5 (25.0-34.0) pg MCHC 32.8 (32.0-36.0) g/dL RDW Std Deviation 49.4 H (36.4-46.3) fL RDW Coeff of Ivonne 14.1 (11.5-14.5) % Plt Count 260 (130-400) K/uL MPV 9.8 (9.4-12.4) fL Immature Gran % (Auto) 0.5 % Neut % (Auto) 71.0 % Lymph % (Auto) 16.1 % Hawkins % (Auto) 8.9 % Eos % (Auto) 2.8 % Baso % (Auto) 0.7 % Neut # (Auto) 4.07 (1.40-6.50) K/uL Lymph # (Auto) 0.92 L (1.20-3.40) K/uL Hawkins # (Auto) 0.51 (0.11-0.59) K/uL Eos # (Auto) 0.16 (0.00-0.50) K/uL Baso # (Auto) 0.04 (0.00-0.20) K/uL Immature Gran # (Auto) 0.03 (0.01-0.20) K/uL PT 11.9 (9.0-12.0) Seconds INR 1.1 (0.9-1.1) APTT 27 (21-31) Seconds PTT Ratio 1.0 Sodium 140 (136-145) mmol/L Potassium 4.4 (3.5-5.1) mmol/L Chloride 107 (98-107) mmol/L Carbon Dioxide 31 (21-32) mmol/L Anion Gap 2 L (3-11) BUN 19 (6-23) mg/dl Creatinine 0.85 (0.6-1.4) mg/dl Est Cr Clr Drug Dosing 72.2 ml/min Est GFR ( Amer) 97.4 ml/min Est GFR (Non-Af Amer) 84.0 ml/min BUN/Creatinine Ratio 22.4 H (10-20) Glucose 89 (70-99(Fasting)) mg/dl Calcium 8.8 (8.6-10.3) mg/dl Magnesium 1.8 (1.7-2.4) mg/dl Total Bilirubin 0.6 (0.2-1.0) mg/dl AST 17 (13-39) U/L ALT 11 (7-52) U/L Alkaline Phosphatase 52 (34-104) U/L Troponin I High Sens 10.5 (0-20) pg/ml Total Protein 5.9 L (6.0-8.3) gm/dl Albumin 3.2 L (3.4-5.0) gm/dl Globulin 2.7 (2.5-4.0) gm/dl Albumin/Globulin Ratio 1.2 (0.9-2) Blood Type A Positive Antibody Screen NEGATIVE Administered Medications Apixaban (Apixaban 5 Mg Tablet) 5 mg PO BID [facility] Stop: 09/19/23 20:59 Last Admin: 08/20/23 20:33 Dose: 5 mg Documented By: HUSSAIN Fluticasone Propionate (Fluticasone Propionate Na Spr 16 Gm Btl) 2 sprays LUCITA QAM [facility] Stop: 09/20/23 08:59 Last Admin: 08/21/23 08:44 Dose: 2 sprays Documented By: ANN MARIE Fluticasone/Vilanterol (Fluticasone/Vilanterol 200/25mcg 14 Puffs/Inhaler) 1 puffs INH DAILY [facility] Stop: 09/20/23 08:59 Last Admin: 08/21/23 08:44 Dose: 1 puffs Documented By: ANN MARIE Furosemide (Furosemide 20 Mg Tab) 20 mg PO DAILY [facility] Stop: 09/20/23 08:59 Last Admin: 08/21/23 08:44 Dose: 20 mg Documented By: ANN MARIE Levothyroxine Sodium (Levothyroxine Sodium 137 Mcg Tablet) 137 mcg PO DAILYBB [facility] Stop: 09/20/23 06:29 Last Admin: 08/21/23 06:31 Dose: 137 mcg Documented By: HUSSAIN Umeclidinium Franklin (Umeclidinium Franklin 62.5mcg/Blister 7 Puffs/Inhaler) 1 puffs INH DAILY [facility] Stop: 09/20/23 08:59 Last Admin: 08/21/23 08:45 Dose: 1 puffs Documented By: ANN MARIE Vitamin D (Cholecalciferol 1,000 Units 25 Mcg Tab) 1,000 units PO HS [facility] Stop: 09/19/23 20:59 Last Admin: 08/20/23 20:33 Dose: 1,000 units Documented By: HUSSAIN Discontinued Medications Gadobutrol (Gadobutrol 65ml Vial) 7 ml IV ONCE ONE Stop: 08/20/23 14:28 Last Admin: 08/20/23 14:28 Dose: 7 ml Documented By: VIJAY Ioversol (Optiray 320 125ml) 115 ml IV ONCE ONE Stop: 08/20/23 08:43 Last Admin: 08/20/23 08:43 Dose: 115 ml Documented By: CAROLINA Imaging Data Radiologist's Impression: Brain MRI 08/20/23 00:00 MRI OF THE BRAIN COMBO CLINICAL HISTORY: Stroke. COMPARISON STUDY: CT of the brain dated 08/20/2023. TECHNIQUE: MRI of the brain was performed utilizing various T1 and T2-weighted sequences in the axial, sagittal, and coronal planes. Contrast-enhanced sequences were acquired following the administration of 7 cc of Gadavist. FINDINGS: Brain parenchyma: There is an approximately 2.5 cm focus of restricted diffusion identified in the posterior left frontal lobe cortex consistent with acute to subacute infarct. An additional punctate focus of restricted diffusion is seen in the left posterior parietal white matter. This is also consistent with acute to subacute ischemia. No additional foci of restricted diffusion are identified. There is no hemorrhage or midline shift. There are chronic infarcts seen within the right frontal, right parietal, and left parietal lobes. No enhancing mass lesion is identified on the postcontrast images. There is age related involutional change noted moderate to advanced subcortical and periventricular microangiopathic disease. No extra-axial fluid collection is seen. The cerebellar tonsils are normal in configuration. Ventricles, sulci, and cisterns: Prominent significant involutional change. Pituitary and sella: Unremarkable. Intracranial vasculature: The right vertebral artery flow void appears attenuated. The remaining flow voids at the skull base are patent. Orbits: The bony orbits are grossly intact. Orbital contents are normal in appearance noting bilateral ocular lens implants. Sinuses and mastoids: Clear. Calvarium: Unremarkable. Cervical cord: Partially visualized cervical spinal cord is normal in morphology and signal intensity. IMPRESSION: 1. There is an approximately 2.5 cm acute to subacute infarct in the posterior left frontal lobe cortex. 2. There is an additional subcentimeter focus of restricted diffusion seen within the left posterior parietal white matter. This there is also consistent with acute to subacute ischemia. The distribution favors an embolic phenomenon. 3. Additional chronic infarcts as above. 4. There is no hemorrhage or midline shift. ACT 112: Negative or not required by law. Electronically signed by: Harsh Le M.D. 08/20/2023 2:[address] 08/20/23 08:33 CT angio head w con, CT head/brain wo con CLINICAL HISTORY: 78 years-old Male with neuro deficit, acute stroke suspected. Acute stroke like symptoms COMPARISON STUDY: CTA neck of same day, head CT 09/10/2020 TECHNIQUE: Unenhanced axial CT scan of the brain is performed. Subsequently, following the IV administration of 115 cc of Optiray, CT angiogram of the brain was performed from the skull base to the vertex. Images are reviewed in the axial, sagittal, and coronal planes. 3-D MIPS images are created and assessed. IV contrast was administered without complication. All measurements were obtained according to NASCET criteria. A dose lowering technique was utilized adhering to the principles of ALARA. FINDINGS: CT BRAIN: There is no acute intracranial hemorrhage, midline shift, hydrocephalus, intracranial mass, or abnormal extra-axial collections. Involutional changes with chronic microvascular ischemic disease. There is a 4.47 m focus of decreased attenuation within the right parietal lobe on image 18 series 2 which is new from prior suggestive of a subacute to chronic infarct. Additional area of probable encephalomalacia within the right frontal and left parietal lobes. No abnormal intra-axial or extra-axial enhancement. Mastoid air cells and middle ear cavities are clear. Prior bilateral lens repair. No calvarial fracture. Paranasal sinuses are clear. CT ANGIOGRAM OF THE BRAIN: The imaged bilateral internal carotid arteries are patent. The bilateral anterior and middle cerebral arteries are also patent. Occlusion of the distal right vertebral artery. Otherwise, there is no aneurysm, high-grade stenosis, or proximal branch occlusion identified. Dural sinuses appear patent. IMPRESSION: 1. Partially imaged occlusion of the distal right vertebral artery. Please refer to the CTA neck study of same day for additional details. 2. 4.4 cm subacute to chronic appearing right parietal lobe infarct is new from the 2020 exam. 3. Additional ill-defined areas of decreased attenuation within the left parietal and right frontal lobes are new from prior and likely represent chronic infarcts. 4. Otherwise unremarkable CTA of the head. ACT 112: Negative or not required by law. The above report was generated using voice recognition software. It may contain grammatical, syntax or spelling errors. Electronically signed by: Rhys Laguerre M.D. 08/20/2023 9:14 AM Head CTA 08/20/23 08:33 CT angio head w con, CT head/brain wo con CLINICAL HISTORY: 78 years-old Male with neuro deficit, acute stroke suspected. Acute stroke like symptoms COMPARISON STUDY: CTA neck of same day, head CT 09/10/2020 TECHNIQUE: Unenhanced axial CT scan of the brain is performed. Subsequently, following the IV administration of 115 cc of Optiray, CT angiogram of the brain was performed from the skull base to the vertex. Images are reviewed in the axial, sagittal, and coronal planes. 3-D MIPS images are created and assessed. IV contrast was administered without complication. All measurements were obtained according to NASCET criteria. A dose lowering technique was utilized adhering to the principles of ALARA. FINDINGS: CT BRAIN: There is no acute intracranial hemorrhage, midline shift, hydrocephalus, intracranial mass, or abnormal extra-axial collections. Involutional changes with chronic microvascular ischemic disease. There is a 4.47 m focus of decreased attenuation within the right parietal lobe on image 18 series 2 which is new from prior suggestive of a subacute to chronic infarct. Additional area of probable encephalomalacia within the right frontal and left parietal lobes. No abnormal intra-axial or extra-axial enhancement. Mastoid air cells and middle ear cavities are clear. Prior bilateral lens repair. No calvarial fracture. Paranasal sinuses are clear. CT ANGIOGRAM OF THE BRAIN: The imaged bilateral internal carotid arteries are patent. The bilateral anterior and middle cerebral arteries are also patent. Occlusion of the distal right vertebral artery. Otherwise, there is no aneurysm, high-grade stenosis, or proximal branch occlusion identified. Dural sinuses appear patent. IMPRESSION: 1. Partially imaged occlusion of the distal right vertebral artery. Please refer to the CTA neck study of same day for additional details. 2. 4.4 cm subacute to chronic appearing right parietal lobe infarct is new from the 2020 exam. 3. Additional ill-defined areas of decreased attenuation within the left parietal and right frontal lobes are new from prior and likely represent chronic infarcts. 4. Otherwise unremarkable CTA of the head. ACT 112: Negative or not required by law. The above report was generated using voice recognition software. It may contain grammatical, syntax or spelling errors. Electronically signed by: Rhys Laguerre M.D. 08/20/2023 9:14 AM Neck CTA 08/20/23 08:33 NECK CTA HISTORY: neuro deficit, acute stroke suspected TECHNIQUE: Multiaxial CT images of the neck were performed following the intravenous administration of contrast to evaluate the major cervical vessels. 3D/MIP images were also obtained. Sagittal and coronal reformats were reviewed. All measurements were calculated based on NASCET criteria. A dose lowering technique was utilized adhering to the principles of ALARA. COMPARISON STUDY: None. FINDINGS: The aortic arch and proximal great vessels are widely patent. Moderate calcified plaque within the bilateral carotid bifurcations. There is also moderate focal atherosclerotic plaque within the mid left common carotid artery. This results in up to 40% focal narrowing. No significant stenosis or occlusion within the left internal carotid artery. There is between 60 and 70% stenosis within the proximal right internal carotid artery due to the calcified plaque. The mid to distal right internal carotid artery is widely patent. The right common carotid artery is widely patent. The left vertebral artery is widely patent. There is decreased perfusion within the mid to distal right vertebral artery with focal occlusion of the distal right vertebral artery at the C1 level best seen on image 334. The diminished perfusion within the distal right vertebral artery at the C1-C2 level could be due to an underlying dissection. Right-sided pacemaker wires are noted. IMPRESSION: 1. There is decreased perfusion within the mid to distal right vertebral artery with focal occlusion of the distal right vertebral artery at the C1 level as described above. The diminished perfusion within the distal right vertebral artery at the C1-C2 level could be due to an underlying dissection. 2. Approximately 60-70% stenosis within the proximal right internal carotid artery due to the calcified plaque. ACT 112: Negative or not required by law. Electronically signed by: Kei Alonzo M.D. 08/20/2023 9:10 AM Discharge Plan Visit Data Chief Complaint: Stroke Alert Stated Complaint: STROKE ALERT ED Provider: Michelet Cerrato Discharge Problem: Cerebrovascular accident, HTN (hypertension), Atrial fibrillation, Occlusion of right vertebral artery Patient Disposition: Admitted As Inpatient Discharge Instructions Interventions: ED Discharge Assessment Last Done: 08/20/23 17:00 Discharge Problem: Cerebrovascular accident Qualifiers: CVA mechanism: unspecified Qualified Code(s): I63.9 - Cerebral infarction, unspecified HTN (hypertension) Qualifiers: Hypertension type: unspecified Qualified Code(s): I10 - Essential (primary) hypertension Atrial fibrillation Qualifiers: Atrial fibrillation type: unspecified Qualified Code(s): I48.91 - Unspecified atrial fibrillation
--- NOTE | 2023-08-20 09:13 | CT Scan Report ---
NECK CTA HISTORY: neuro deficit, acute stroke suspected TECHNIQUE: Multiaxial CT images of the neck were performed following the intravenous administration o f contrast to evaluate the major cervical vessels. 3D/MIP images were also obtained. Sagittal and cor onal reformats were reviewed. All measurements were calculated based on NASCET criteria. A dose low ering technique was utilized adhering to the principles of ALARA. COMPARISON STUDY: None. FINDINGS: The aortic arch and proximal great vessels are widely patent. Moderate calcified plaque wi thin the bilateral carotid bifurcations. There is also moderate focal atherosclerotic plaque within t he mid left common carotid artery. This results in up to 40% focal narrowing. No significant stenosis or occlusion within the left internal carotid artery. There is between 60 and 70% stenosis within th e proximal right internal carotid artery due to the calcified plaque. The mid to distal right interna l carotid artery is widely patent. The right common carotid artery is widely patent. The left vertebr al artery is widely patent. There is decreased perfusion within the mid to distal right vertebral art rh[place] with focal occlusion of the distal right vertebral artery at the C1 level best seen on image 334. The diminished perfusion within the distal right vertebral artery at the C1-C2 level could be due to an underlying dissection. Right-sided pacemaker wires are noted. IMPRESSION: 1. There is decreased perfusion within the mid to distal right vertebral artery with focal occlusion of the distal right vertebral artery at the C1 level as described above. The diminished perfusion wit hin the distal right vertebral artery at the C1-C2 level could be due to an underlying dissection. 2. Approximately 60-70% stenosis within the proximal right internal carotid artery due to the calcifi ed plaque. ACT 112: Negative or not required by law. Electronically signed by: Kei Alonzo M.D. 08/20/2023 9:10 AM
--- NOTE | 2023-08-20 09:16 | CT Scan Report ---
CT angio head w con, CT head/brain wo con CLINICAL HISTORY: 78 years-old Male with neuro deficit, acute stroke suspected. Acute stroke like symptoms COMPARISON STUDY: CTA neck of same day, head CT 09/10/2020 TECHNIQUE: Unenhanced axial CT scan of the brain is performed. Subsequently, following the IV adminis tration of 115 cc of Optiray, CT angiogram of the brain was performed from the skull base to the vert ex. Images are reviewed in the axial, sagittal, and coronal planes. 3-D MIPS images are created and a ssessed. IV contrast was administered without complication. All measurements were obtained according to NASCET criteria. A dose lowering technique was utilized adhering to the principles of ALARA. FINDINGS: CT BRAIN: There is no acute intracranial hemorrhage, midline shift, hydrocephalus, intracranial mass, or abnorm al extra-axial collections. Involutional changes with chronic microvascular ischemic disease. There i s a 4.47 m focus of decreased attenuation within the right parietal lobe on image 18 series 2 which i s new from prior suggestive of a subacute to chronic infarct. Additional area of probable encephaloma lacia within the right frontal and left parietal lobes. No abnormal intra-axial or extra-axial enhanc ement. Mastoid air cells and middle ear cavities are clear. Prior bilateral lens repair. No calvaria l fracture. Paranasal sinuses are clear. CT ANGIOGRAM OF THE BRAIN: The imaged bilateral internal carotid arteries are patent. The bilateral anterior and middle cerebral arteries are also patent. Occlusion of the distal right vertebral artery. Otherwise, there is no ane urysm, high-grade stenosis, or proximal branch occlusion identified. Dural sinuses appear patent. IMPRESSION: 1. Partially imaged occlusion of the distal right vertebral artery. Please refer to the CTA neck stud y of same day for additional details. 2. 4.4 cm subacute to chronic appearing right parietal lobe infarct is new from the 2020 exam. 3. Additional ill-defined areas of decreased attenuation within the left parietal and right frontal l obes are new from prior and likely represent chronic infarcts. 4. Otherwise unremarkable CTA of the head. ACT 112: Negative or not required by law. The above report was generated using voice recognition software. It may contain grammatical, syntax o r spelling errors. Electronically signed by: Rhys Laguerre M.D. 08/20/2023 9:14 AM
[2023-08-20 09:18] LABS: Basophils # (auto) 0.04 K/uL (0.00-0.20); Basophils % (auto) 0.7 %; Eosinophils # (auto) 0.16 K/uL (0.00-0.50); Eosinophils % (auto) 2.8 %; Hematocrit (blood only) 42.1 % (42.0-52.0); Hemoglobin 13.8 g/dl (14.0-18.0); Immature Granulocytes # (auto) 0.03 K/uL (0.01-0.20); Immature Granulocytes % (auto) 0.5 %; Lymphocytes # (auto) 0.92 K/uL (1.20-3.40); Lymphocytes % (auto) 16.1 %; Mean Corpuscular Hemoglobin 31.5 pg (25.0-34.0); Mean Corpuscular Hgb Conc 32.8 g/dL (32.0-36.0); Mean Corpuscular Volume 96.1 fL (80.0-100.0); Mean Platelet Volume 9.8 fL (9.4-12.4); Monocytes # (auto) 0.51 K/uL (0.11-0.59); Monocytes % (auto) 8.9 %; Neutrophils # (auto) 4.07 K/uL (1.40-6.50); Platelet Count 260 K/uL (130-400); RDW Coefficient of Variation 14.1 % (11.5-14.5); RDW Standard Deviation 49.4 fL (36.4-46.3); Red Blood Count 4.38 M/uL (4.70-6.10); White Blood Count 5.73 K/ul (4.8-10.8)
[2023-08-20 09:29] LABS: INR 1.1 (0.9-1.1); Partial Thromboplastin Time 27 Seconds (21-31); Prothrombin Time 11.9 Seconds (9.0-12.0)
[2023-08-20 09:39] LABS: Albumin Globulin Ratio 1.2 (0.9-2); Albumin Level 3.2 gm/dl (3.4-5.0); BUN Creatinine Ratio 22.4 (10-20); Bilirubin,Total 0.6 mg/dl (0.2-1.0); Calcium 8.8 mg/dl (8.6-10.3); Creatinine Clr Calc Pharmacy 72.2 ml/min; Est GFR (African American) 97.4 ml/min; Globulin 2.7 gm/dl (2.5-4.0); Magnesium 1.8 mg/dl (1.7-2.4); Potassium 4.4 mmol/L (3.5-5.1); Total Protein 5.9 gm/dl (6.0-8.3)
[2023-08-20 09:46] LABS: Troponin I High Sensitivity 10.5 pg/ml (0-20)
--- NOTE | 2023-08-20 11:14 | History & Physical Report ---
Date of Service August 20, 2023 Assessment & Plan (1) TIA (transient ischemic attack): (2) Atrial fibrillation: (3) S/P cardiac pacemaker procedure: (4) HTN (hypertension): (5) COPD (chronic obstructive pulmonary disease): Plan This is a 78-year-old male who has significant past medical history of permanent atrial fibrillation anticoagulated on Eliquis, TBS status post PPM in 2020, nonobstructive CAD, HTN, HLD statin intolerant, diastolic CHF, moderate aortic valve stenosis, hypothyroidism and tobacco abuse who presents to ER secondary to difficulty speaking and walking x 30 minutes. --Head CT/CTA IMPRESSION: 1. Partially imaged occlusion of the distal right vertebral artery. Please refer to the CTA neck study of same day for additional details.2. 4.4 cm subacute to chronic appearing right parietal lobe infarct is new from the 2020 exam. 3. Additional ill-defined areas of decreased attenuation within the left parietal and right frontal lobes are new from prior and likely represent chronic infarcts.4. Otherwise unremarkable CTA of the head. --neck CTA IMPRESSION: 1. There is decreased perfusion within the mid to distal right vertebral artery with focal occlusion of the distal right vertebral artery at the C1 level as described above. The diminished perfusion within the distal right vertebral artery at the C1-C2 level could be due to an underlying dissection.2. Approximately 60-70% stenosis within the proximal right internal carotid artery due to the calcified plaque. TIA Dysarthria admit to PCU sx have since resolved initial head/neck CT/CTA reviewed consult neurology obtain MRI of brain - pacer placed in 2020, compatible will hold propranolol, lasix and losartan for initial permissive HTN - obtain echo: Last done in 2022 which revealed preserved EF, moderate aortic va lve stenosis PT/OT/ST Continue Eliquis, patient on Praluent and is not a statin candidate Will defer to neurology for further antiplatelet cbc,bmp, a1c, lipid panel, tsh ordered in a.m. Carotid artery stenosis Questionable distal right vertebral artery dissection Consult vascular Per telestroke continue Eliquis Atrial fibrillation TBS status post PPM continue eliquis follows Dr. Rossi Chronic HFpEF Moderate daily weights, I and O heart healthy diet resume lasix in am. HLD continue praluent statin intolerant Tobacco abuse still smokes a few cigarettes a day encourage cessation DNR/DNI - discussed with patient, and daughter at bedside, living will present PCP: [facility] Dispo: PCU DVT ppx: Starr Pt was seen and examined in collaboration with Dr. Baptiste, please see addendum History of Present Illness Chief Complaint: difficulty speaking/walking x 30 minutes Primary Care Provider: Sonja Condon, DO This is a 78-year-old male who has significant past medical history of permanent atrial fibrillation anticoagulated on Eliquis, TBS status post PPM in 2020, nonobstructive CAD, HTN, HLD statin intolerant, diastolic CHF, moderate aortic valve stenosis, hypothyroidism and tobacco abuse who presents to ER secondary to difficulty speaking and walking x 30 minutes. Patient's and daughter at bedside who also helped elicit history. He woke up this morning and was going out to his garage when he just did not, "feel quite right." He then ended up coming in the house and sitting down in approximately 7:30 AM was talking to his . She noted that his speech was very garbled and she was not able to understand him. He also states he is having a much more difficult time walking than normal. Daughter at bedside states at baseline his gait is not good. They have never experienced anything like this before. at bedside states approximately 2 years ago he was having difficulty walking where he was walking into the wall when he was trying to walk the other direction, but they never had this evaluated. It resolved on its own. Symptoms lasted approximately 30 minutes. EMS was summoned and prior to leaving the house his symptoms was already starting to improve. denied any facial droop. Patient denied any further numbness or tingling or unilateral arm or leg weakness. He has otherwise been in her normal state of health and denies any recent illness. He denies any fever, chills, sweats, lightheadedness, dizziness, headache, change in vision, chest pain, shortness of breath, cough, nausea, vomit, abdominal pain, changes in bowel or urinary habits. He admits to being compliant to Eliquis, but daughter at bedside is uncertain as he manages his own medications although they do help him with them. He did not take any medications this morning and his last dose of Eliquis was last evening. In ED he was made a stro ke alert. Initial CTA of head revealed a 4.4 cm subacute to chronic appearing right parietal lobe infarct which is new from 2020 examination as well as areas of ill-defined decreased attenuation in the left parietal and right frontal lobes likely representing chronic infarcts. Also noted is a partially occluded distal right vertebral artery, concern for possible distal right vertebral artery dissection and 60% to 70% stenosis of right internal carotid artery. Telestroke recommended inpatient admission and he did not meet criteria for TN K due to improvement of symptoms as well as he is on Eliquis. He still smokes occasionally and has for 50 years. Allergies Allergy/AdvReac Type Severity Reaction Status Date / Time Sulfa (Sulfonamide Allergy Intermediate itchy with Verified 08/20/23 10:01 Antibiotics) hives atorvastatin AdvReac Mild Muscle Pain Verified 08/20/23 10:01 ezetimibe [From Zetia] AdvReac Mild Muscle Pain Verified 08/20/23 10:01 lisinopril AdvReac Mild Cough Verified 08/20/23 10:24 Home Medications Medication Instructions Recorded Confirmed Type albuterol sulfate 90 mcg/actuation 2 puff inhalation Q4 PRN Wheezing 08/29/18 08/20/23 History aerosol inhaler budesonide-formoterol HFA 160 2 puff inhalation BID 08/29/18 08/20/23 History mcg-4.5 mcg/actuation aerosol inhaler (Symbicort) levothyroxine 137 mcg tablet 137 mcg PO QAM 08/29/18 08/20/23 History albuterol sulfate 0.63 mg/3 mL 0.63 mg inhalation Q8 PRN Cough 11/20/20 08/20/23 History solution for nebulization apixaban 5 mg tablet (Eliquis) 5 mg BID 11/20/20 08/20/23 History fluticasone propionate 50 2 spray intranasal QAM 11/20/20 08/20/23 History mcg/actuation nasal spray,suspension umeclidinium 62.5 mcg/actuation 1 inh inhalation DAILY 11/20/20 08/20/23 History blister powder for inhalation (Incruse Ellipta) alirocumab 75 mg/mL subcutaneous 75 mg subcut USEASDIRECTD 12/04/20 08/20/23 History pen injector (Praluent Pen) cholecalciferol (vitamin D3) 25 1,000 unit PO HS 12/10/20 08/20/23 History mcg (1,000 unit) tablet (Vitamin D3) amoxicillin 500 mg tablet 2,000 mg (4 x 500 mg) PO ONCE #4 08/11/22 08/20/23 Rx tabs furosemide 20 mg tablet 20 mg PO DAILY 08/20/23 08/20/23 History losartan 25 mg tablet 25 mg PO DAILY 08/20/23 08/20/23 History propranolol 80 mg capsule,24 80 mg PO DAILY 08/20/23 08/20/23 History hr,extended release Past Med/Surg History Medical History CAD (coronary artery disease) 40% lesion 1st diagonal of LAD, 2017 cath Tricuspid regurgitation moderate-severe Pulmonary hypertension mild History of cardioversion 2020 Aortic stenosis Moderate per 11/11/21 ECHO= HANANE =1.0 to 0.95 cm. AV mean gradient 15-16mmHg; AV max velocity 270.5 cm/sec Hypothyroidism Hearing deficit Tremor of left hand Hyperlipidemia On anticoagulant therapy eliquis bid Pacemaker Medtronic pacemaker placed 11/20/20- lead revision done 12/04/20- last checked 03/2022 SSS (sick sinus syndrome) Back pain HTN (hypertension) controlled, stable per pt COPD (chronic obstructive pulmonary disease) severe COPD, follows with [facility] pulmonology, last rescue inhaler use last week (average of once weekly) Atrial fibrillation s/p pacemaker, follows with [facility] cardio Surgical History History of toe surgery per pt amputated 4 toes d/t a director post accident 40yr ago History of carpal tunnel surgery of right wrist Hx of vasectomy History of colonoscopy History of appendectomy History of wisdom tooth extraction History of thyroidectomy, total per pt d/t "not working" History of bilateral cataract extraction History of cardiac cath 2017 @ [facility]--no stents S/P cardiac pacemaker procedure x2--first placed 11/20/20 @ [facility] per pt "did not work" 2nd placed 12/04/20 @ [facility] meditronic by Dr. Christy Family History Mother No problems noted. Father Family history of diabetes mellitus Other No family history of adverse response to anesthesia Social History (Updated 08/20/23 @ 11:16 by Selma Swan PA-C) Smoking Status: Current some day smoker Tobacco Type: Cigarettes Cigarettes Per Day: 3-4; Second Hand Exposure: No; Do You Dip or Chew Tobacco: No; Tobacco Cessation Education Requested by Patient: No Hx Alcohol Use: Yes Alcohol type: beer Hx Substance Use: No Preferred Language: Spanish Communication Ability: Effective Architecture Internship Required: No Beliefs That Will Affect Care: None Current Living Situation: Spouse Other Information That Helps Us Care for You: No Feels Safe at Home: Yes Safety Concerns: Feels Safe At This Time Assistive Devices: Glasses and Hearing Aid - Bilateral Review of Systems Review of Systems: All systems reviewed & are unremarkable except as noted in HPI & below Physical Exam Physical Exam: Constitutional: WD/WN, vitals as above, NAD, sitting up in bed, pleasant, conversing easily Head: Normocephalic, Atraumatic Eyes: conjunctivae normal, anicteric sclerae ENMT: external ear and nose normal, oropharynx normal , hearing assist device in place Neck: trachea midline, normal visual inspection Respiratory: Normal insp/exp effort, no accessory muscle use CV: NSR on monitor Musculoskeletal: no cyanosis or clubbing, extremities motor strength 5/5 Skin: no rashes, warm and dry normal turgor Neurologic: no face palsy, no dysarthria CN's II-XI intact bilaterally and moves all extremities Psychiatric: A+Ox3, euthymic affect : deferred Results & Data Results & Data Vital Signs (Past 12 Hours) Vital Signs Temp Pulse Pulse Resp BP BP Pulse Ox 08/20/23 11:00 70 18 141/94 H 97 08/20/23 09:30 71 20 160/97 H 98 08/20/23 09:26 70 12 163/99 H 99 08/20/23 09:17 70 08/20/23 09:00 71 16 157/98 H 98 08/20/23 08:36 36.6 C 73 15 165/115 H 98 O2 Del Method 08/20/23 11:00 Room Air 08/20/23 09:30 Room Air 08/20/23 09:26 Room Air 08/20/23 09:17 08/20/23 09:00 Room Air 08/20/23 08:36 Room Air Laboratory Results I have independently reviewed and interpreted patient's admitting labs including CBC, CMP, PTT, PT/INR, mag and troponin. Also independently reviewed and interpreted with initial head CT. Diagnostic Findings Head CT 08/20/23 08:33 CT angio head w con, CT head/brain wo con CLINICAL HISTORY: 78 years-old Male with neuro deficit, acute stroke suspected. Acute stroke like symptoms COMPARISON STUDY: CTA neck of same day, head CT 09/10/2020 TECHNIQUE: Unenhanced axial CT scan of the brain is performed. Subsequently, following the IV administration of 115 cc of Optiray, CT angiogram of the brain was performed from the skull base to the vertex. Images are reviewed in the axial, sagittal, and coronal planes. 3-D MIPS images are created and assessed. IV contrast was administered without complication. All measurements were obtained according to NASCET criteria. A dose lowering technique was utilized adhering to the principles of ALARA. FINDINGS: CT BRAIN: There is no acute intracranial hemorrhage, midline shift, hydrocephalus, intracranial mass, or abnormal extra-axial collections. Involutional changes with chronic microvascular ischemic disease. There is a 4.47 m focus of decreased attenuation within the right parietal lobe on image 18 series 2 which is new from prior suggestive of a subacute to chronic infarct. Additional area of probable encephalomalacia within the right frontal and left parietal lobes. No abnormal intra-axial or extra-axial enhancement. Mastoid air cells and middle ear cavities are clear. Prior bilateral lens repair. No calvarial fracture. Paranasal sinuses are clear. CT ANGIOGRAM OF THE BRAIN: The imaged bilateral internal carotid arteries are patent. The bilateral anterior and middle cerebral arteries are also patent. Occlusion of the distal right vertebral artery. Otherwise, there is no aneurysm, high-grade stenosis, or proximal branch occlusion identified. Dural sinuses appear patent. IMPRESSION: 1. Partially imaged occlusion of the distal right vertebral artery. Please refer to the CTA neck study of same day for additional details. 2. 4.4 cm subacute to chronic appearing right parietal lobe infarct is new from the 2020 exam. 3. Additional ill-defined areas of decreased attenuation within the left parietal and right frontal lobes are new from prior and likely represent chronic infarcts. 4. Otherwise unremarkable CTA of the head. ACT 112: Negative or not required by law. The above report was generated using voice recognition software. It may contain grammatical, syntax or spelling errors. Electronically signed by: Rhys Laguerre M.D. 08/20/2023 9:14 AM Head CTA 08/20/23 08:33 CT angio head w con, CT head/brain wo con CLINICAL HISTORY: 78 years-old Male with neuro deficit, acute stroke suspected. Acute stroke like symptoms COMPARISON STUDY: CTA neck of same day, head CT 09/10/2020 TECHNIQUE: Unenhanced axial CT scan of the brain is performed. Subsequently, following the IV administration of 115 cc of Optiray, CT angiogram of the brain was performed from the skull base to the vertex. Images are reviewed in the axial, sagittal, and coronal planes. 3-D MIPS images are created and assessed. IV contrast was administered without complication. All measurements were obtained according to NASCET criteria. A dose lowering technique was utilized adhering to the principles of ALARA. FINDINGS: CT BRAIN: There is no acute intracranial hemorrhage, midline shift, hydrocephalus, intracranial mass, or abnormal extra-axial collections. Involutional changes with chronic microvascular ischemic disease. There is a 4.47 m focus of decreased attenuation within the right parietal lobe on image 18 series 2 which is new from prior suggestive of a subacute to chronic infarct. Additional area of probable encephalomalacia within the right frontal and left parietal lobes. No abnormal intra-axial or extra-axial enhancement. Mastoid air cells and middle ear cavities are clear. Prior bilateral lens repair. No calvarial fracture. Paranasal sinuses are clear. CT ANGIOGRAM OF THE BRAIN: The imaged bilateral internal carotid arteries are patent. The bilateral anterior and middle cerebral arteries are also patent. Occlusion of the distal right vertebral artery. Otherwise, there is no aneurysm, high-grade stenosis, or proximal branch occlusion identified. Dural sinuses appear patent. IMPRESSION: 1. Partially imaged occlusion of the distal right vertebral artery. Please refer to the CTA neck study of same day for additional details. 2. 4.4 cm subacute to chronic appearing right parietal lobe infarct is new from the 2020 exam. 3. Additional ill-defined areas of decreased attenuation within the left parietal and right frontal lobes are new from prior and likely represent chronic infarcts. 4. Otherwise unremarkable CTA of the head. ACT 112: Negative or not required by law. The above report was generated using voice recognition software. It may contain grammatical, syntax or spelling errors. Electronically signed by: Rhys Laguerre M.D. 08/20/2023 9:14 AM Neck CTA 08/20/23 08:33 NECK CTA HISTORY: neuro deficit, acute stroke suspected TECHNIQUE: Multiaxial CT images of the neck were performed following the intravenous administration of contrast to evaluate the major cervical vessels. 3D/MIP images were also obtained. Sagittal and coronal reformats were reviewed. All measurements were calculated based on NASCET criteria. A dose lowering technique was utilized adhering to the principles of ALARA. COMPARISON STUDY: None. FINDINGS: The aortic arch and proximal great vessels are widely patent. Moderate calcified plaque within the bilateral carotid bifurcations. There is also moderate focal atherosclerotic plaque within the mid left common carotid artery. This results in up to 40% focal narrowing. No significant stenosis or occlusion within the left internal carotid artery. There is between 60 and 70% stenosis within the proximal right internal carotid artery due to the calcified plaque. The mid to distal right internal carotid artery is widely patent. The right common carotid artery is widely patent. The left vertebral artery is widely patent. There is decreased perfusion within the mid to distal right vertebral artery with focal occlusion of the distal right vertebral artery at t he C1 level best seen on image 334. The diminished perfusion within the distal right vertebral artery at the C1-C2 level could be due to an underlying dissection. Right-sided pacemaker wires are noted. IMPRESSION: 1. There is decreased perfusion within the mid to distal right vertebral artery with focal occlusion of the distal right vertebral artery at the C1 level as described above. The diminished perfusion within the distal right vertebral artery at the C1-C2 level could be due to an underlying dissection. 2. Approximately 60-70% stenosis within the proximal right internal carotid art rhiannon due to the calcified plaque. ACT 112: Negative or not required by law. Electronically signed by: Kei Alonzo M.D. 08/20/2023 9:10 AM Medications Administered Medication List Discontinued Medications Ioversol (Optiray 320 125ml) 115 ml IV ONCE ONE Stop: 08/20/23 08:43 Last Admin: 08/20/23 08:43 Dose: 115 ml Documented By: CAROLINA ECG Additional Comments: 76 bpm, v paced, QRS complex heightened, qtc 495ms independently interpreted by me COVID-19 Results Results COVID-19 Adm Lab Results: RBC 4.38 M/uL (4.70-6.10) L 08/20/23 WBC 5.73 K/ul (4.8-10.8) 08/20/23 Hgb 13.8 g/dl (14.0-18.0) L 08/20/23 Hct 42.1 % (42.0-52.0) 08/20/23 Plt Count 260 K/uL (130-400) 08/20/23 Neutrophils (%) (Auto) 71.0 % 08/20/23 Lymphocytes (%) (Auto) 16.1 % 08/20/23 Eosinophils # (Auto) 0.16 K/uL (0.00-0.50) 08/20/23 Immature Granulocyte % (Auto) 0.5 % 08/20/23 Neutrophils # (Auto) 4.07 K/uL (1.40-6.50) 08/20/23 Lymphocytes # (Auto) 0.92 K/uL (1.20-3.40) L 08/20/23 Eosinophils # (Auto) 0.16 K/uL (0.00-0.50) 08/20/23 Basophils # (Auto) 0.04 K/uL (0.00-0.20) 08/20/23 Immature Granulocyte # (Auto) 0.03 K/uL (0.01-0.20) 3 Na 140 mmol/L (136-145) 08/20/23 K 4.4 mmol/L (3.5-5.1) 08/20/23 Cl 107 mmol/L (98-107) 08/20/23 CO2 31 mmol/L (21-32) 08/20/23 Anion Gap 2 (3-11) L 08/20/23 BUN 19 mg/dl (6-23) 08/20/23 Creatinine 0.85 mg/dl (0.6-1.4) 08/20/23 BUN/Creatinine Ratio 22.4 (10-20) H 08/20/23 Glucose Level 89 mg/dl (70-99(Fasting)) 08/20/23 Ca 8.8 mg/dl (8.6-10.3) 08/20/23 Total Bilirubin 0.6 mg/dl (0.2-1.0) 08/20/23 AST/SGOT 17 U/L (13-39) 08/20/23 ALT/SGPT 11 U/L (7-52) 08/20/23 Alkaline Phosphatase 52 U/L (34-104) 08/20/23 Total Protein 5.9 gm/dl (6.0-8.3) L 08/20/23 Albumin 3.2 gm/dl (3.4-5.0) L 08/20/23 Globulin 2.7 gm/dl (2.5-4.0) 08/20/23 Albumin/Globulin Ratio 1.2 (0.9-2) 08/20/23 PTT 27 Seconds (21-31) 08/20/23 INR 1.1 (0.9-1.1) 08/20/23 Code Status & VTE Plan Code Status DNR/DNI Supervising Physician Co-Signing Physician Notes Attending addendum: Patient was seen and examined in emergency room in presence of the family members 78-year-old history of COPD prior stroke and also A-fib on Eliquis apparently was brought into ER with slurred speech associated with difficulty in walking for about 30 minutes Denies any other symptoms and has had telemetry neuro evaluation During my visit the symptoms have resolved On examination Lying in bed without any apparent distress Hemodynamically stable Chest-clear to auscultate bilaterally Heart-S1, [id number] with 2/6 ESM over aortic area Abdomen-benign Extremities-negative for any edema WAFER SUBSTRATE TESTER-alert, awake and oriented x 3. No focal sensory or motor deficit appreciated His labs, EKG and imaging studies reviewed Imaging studies did show old infarct but nothing acute and no bleed Questionable dissection of right vertebral artery-vascular surgery has been consulted Noted to have TIA-without any new stroke Other significant medical conditions remained stable Agree with assessment plan as outlined above by MALDONADO [address] Dr
[2023-08-20] MEDS ORDERED: ALBUTEROL HFA 8 GM INHALER INH PRN (12:26)
[2023-08-20] MEDS ORDERED: ACETAMINOPHEN 325 MG TAB PO PRN (12:26)
[2023-08-20] MEDS ORDERED: MAGNESIUM HYDROXIDE SUSP 30 ML UDC PO PRN (12:26)
[2023-08-20] MEDS ORDERED: ALUMINUM/MAGNESIUM SUSP 30 ML UDC PO PRN (12:26)
[2023-08-20] MEDS ORDERED: POLYETHYLENE (MIRALAX) 17 GM PACK PO PRN (12:26)
[2023-08-20] MEDS ORDERED: PHARMACIST DISCHARGE MED REC CONSULT PRN (12:26)
[2023-08-20] MEDS ORDERED: ONDANSETRON INJ 2 MG/ML 2 ML VIAL IV PRN (12:26)
[2023-08-20] MEDS ORDERED: GADOBUTROL 65ML VIAL IV ONE (14:27)
--- NOTE | 2023-08-20 14:57 | Magnetic Resonance Report ---
MRI OF THE BRAIN COMBO CLINICAL HISTORY: Stroke. COMPARISON STUDY: CT of the brain dated 08/20/2023. TECHNIQUE: MRI of the brain was performed utilizing various T1 and T2-weighted sequences in the axial , sagittal, and coronal planes. Contrast-enhanced sequences were acquired following the administratio n of 7 cc of Gadavist. FINDINGS: Brain parenchyma: There is an approximately 2.5 cm focus of restricted diffusion identified in the po sterior left frontal lobe cortex consistent with acute to subacute infarct. An additional punctate fo cus of restricted diffusion is seen in the left posterior parietal white matter. This is also consist ent with acute to subacute ischemia. No additional foci of restricted diffusion are identified. There is no hemorrhage or midline shift. There are chronic infarcts seen within the right frontal, right p arietal, and left parietal lobes. No enhancing mass lesion is identified on the postcontrast images. There is age related involutional change noted moderate to advanced subcortical and periventricular m icroangiopathic disease. No extra-axial fluid collection is seen. The cerebellar tonsils are normal i n configuration. Ventricles, sulci, and cisterns: Prominent significant involutional change. Pituitary and sella: Unremarkable. Intracranial vasculature: The right vertebral artery flow void appears attenuated. The remaining flow voids at the skull base are patent. Orbits: The bony orbits are grossly intact. Orbital contents are normal in appearance noting bilatera l ocular lens implants. Sinuses and mastoids: Clear. Calvarium: Unremarkable. Cervical cord: Partially visualized cervical spinal cord is normal in morphology and signal intensity . IMPRESSION: 1. There is an approximately 2.5 cm acute to subacute infarct in the posterior left frontal lobe marisa ex. 2. There is an additional subcentimeter focus of restricted diffusion seen within the left posterior parietal white matter. This there is also consistent with acute to subacute ischemia. The distributio n favors an embolic phenomenon. 3. Additional chronic infarcts as above. 4. There is no hemorrhage or midline shift. ACT 112: Negative or not required by law. Electronically signed by: Harsh Le M.D. 08/20/2023 2:56 PM
--- NOTE | 2023-08-20 17:27 | Neurology Consultation ---
Date of Consultation August 20, 2023 Assessment & Plan (1) Stroke: Plan 78 y/o male with history of atrial fibrillation on eliquis, HTN, COPD, CAD, and sick sinus syndrome that presented after a transient episode of dysarthria and gait impairment. MRI with acute left parietal and frontal lobe infarcts. Stroke occurred in the setting of missed doses of eliquis, held for a dental extraction. Additionally, CTA demonstrates left carotid atherosclerosis with mild stenosis Imaging also revealed 60-70% stenosis of right proximal ica. Suspect that the right vertebral artery occlusion is chronic. Given small to medium sized infarct, would continue holding eliquis for now, and this was discussed with the patient. 1. TTE 2. LDL/A1C 3. Neurochecks q 4 4. Aspirin 81 mg for now 5. On praluent, statin and zetia intolerance 6. ST/PT/OT 7. Vascular sx/NSG referral for right ICA stenosis Telehealth Consultation Telehealth Information Telehealth Information: I performed this visit using a real-time telehealth connection between my location and the patients location ([facility]). After connecting through interactive tele-video, patient was identified by name and date of and/or wristband check.Patient (or authorized healthcare assisted sales representative) was informed that this was a telemedicine visit and it was being conducted confidentially over secure lines. My office door was closed and no one else was present in the room with me.Patient (or authorized healthcare assisted sales representative) provided consent to proceed with the visit, expressed an understanding of privacy and security of the telemedicine visit, and gave permission to have a hospital assisted sales representative in the room in order to assist with the visit and to conduct portions of the visit, as needed. I informed the patient (or authorized healthcare assisted sales representative) that I reviewed their record and presented the opportunity for them to ask any questions regarding the visit today. The patient agreed to participate. History of Present Illness Reason for Consultation: stroke work-up Requesting Physician: Selma Camara Attending Physician: Asher Baptiste MD History of Present Illness 78 y/o male with history of atrial fibrillation, HTN, COPD, sick sinus syndrome, and CAD that presented with stroke like symptoms. He states that he was in his normal state of health when he went to bed at 9-930 pm last night. When he woke up this morning at 730 am, he notcied that he could not walk well, that his gait seemed to be off balance. He tried to take his dog for a walk but he was having difficulty with gait. He then went back inside to talk to his and noticed that his speech was slurred. He denies any word finding difficulty. He also denies weakness, numbness/tingling, vision changes,room spinning sensation, or dizziness. He thinks his symptoms lasted about 30-45 minutes before resolving completely. He denies any recent trauma or similar prior episodes. He states that he did take Eliquis on yesterday or today because he was scheduled to have teeth extraction. Allergies Allergy/AdvReac Type Severity Reaction Status Date / Time Sulfa (Sulfonamide Allergy Intermediate itchy with Verified 08/20/23 10:01 Antibiotics) hives atorvastatin AdvReac Mild Muscle Pain Verified 08/20/23 10:01 ezetimibe [From Zetia] AdvReac Mild Muscle Pain Verified 08/20/23 10:01 lisinopril AdvReac Mild Cough Verified 08/20/23 10:24 Home Medications Medication Instructions Recorded Confirmed Type albuterol sulfate 90 mcg/actuation 2 puff inhalation Q4 PRN Wheezing 08/29/18 08/20/23 History aerosol inhaler budesonide-formoterol HFA 160 2 puff inhalation BID 08/29/18 08/20/23 History mcg-4.5 mcg/actuation aerosol inhaler (Symbicort) levothyroxine 137 mcg tablet 137 mcg PO QAM 08/29/18 08/20/23 History albuterol sulfate 0.63 mg/3 mL 0.63 mg inhalation Q8 PRN Cough 11/20/20 08/20/23 History solution for nebulization apixaban 5 mg tablet (Eliquis) 5 mg BID 11/20/20 08/20/23 History fluticasone propionate 50 2 spray intranasal QAM 11/20/20 08/20/23 History mcg/actuation nasal spray,suspension umeclidinium 62.5 mcg/actuation 1 inh inhalation DAILY 11/20/20 08/20/23 History blister powder for inhalation (Incruse Ellipta) alirocumab 75 mg/mL subcutaneous 75 mg subcut USEASDIRECTD 12/04/20 08/20/23 History pen injector (Praluent Pen) cholecalciferol (vitamin D3) 25 1,000 unit PO HS 12/10/20 08/20/23 History mcg (1,000 unit) tablet (Vitamin D3) amoxicillin 500 mg tablet 2,000 mg (4 x 500 mg) PO ONCE #4 08/11/22 08/20/23 Rx tabs furosemide 20 mg tablet 20 mg PO DAILY 08/20/23 08/20/23 History losartan 25 mg tablet 25 mg PO DAILY 08/20/23 08/20/23 History propranolol 80 mg capsule,24 80 mg PO DAILY 08/20/23 08/20/23 History hr,extended release Patient History Medical History CAD (coronary artery disease) 40% lesion 1st diagonal of LAD, 2017 cath Tricuspid regurgitation moderate-severe Pulmonary hypertension mild History of cardioversion 2020 Aortic stenosis Moderate per 11/11/21 ECHO= HANANE =1.0 to 0.95 cm. AV mean gradient 15-16mmHg; AV max velocity 270.5 cm/sec Hypothyroidism Hearing deficit Tremor of left hand Hyperlipidemia On anticoagulant therapy eliquis bid Pacemaker Medtronic pacemaker placed 11/20/20- lead revision done 12/04/20- last checked 03/2022 SSS (sick sinus syndrome) Back pain HTN (hypertension) controlled, stable per pt COPD (chronic obstructive pulmonary disease) severe COPD, follows with [facility] pulmonology, last rescue inhaler use last week (average of once weekly) Atrial fibrillation s/p pacemaker, follows with [facility] cardio Surgical History History of toe surgery per pt amputated 4 toes d/t a director ehs accident 40yr ago History of carpal tunnel surgery of right wrist Hx of vasectomy History of colonoscopy History of appendectomy History of wisdom tooth extraction History of thyroidectomy, total per pt d/t "not working" History of bilateral cataract extraction History of cardiac cath 2017 @ [facility]--no stents S/P cardiac pacemaker procedure x2--first placed 11/20/20 @ [facility] per pt "did not work" 2nd placed 12/04/20 @ [facility] meditronic by Dr. Christy Family History Mother No problems noted. Father Family history of diabetes mellitus Other No family history of adverse response to anesthesia Social History (Updated 08/20/23 @ 11:16 by Selma Swan PA-C) Smoking Status: Current some day smoker Tobacco Type: Cigarettes Cigarettes Per Day: 3-4; Second Hand Exposure: No; Do You Dip or Chew Tobacco: No; Tobacco Cessation Education Requested by Patient: No Hx Alcohol Use: Yes Alcohol type: beer Hx Substance Use: No Preferred Language: Welsh Communication Ability: Effective Completion Supervisor Required: No Beliefs That Will Affect Care: Gnosticism Current Living Situation: Spouse Other Information That Helps Us Care for You: No Feels Safe at Home: Yes Safety Concerns: Feels Safe At This Time Assistive Devices: Glasses and Hearing Aid - Bilateral Review of Systems Negative except as listed in HPI Physical Exam AAO X 3 No aphasia or dysarthria VFF grossly intact EOMI, nystagmus Facial sensations intact No facial asymmetry Tongue protrudes midline Motor: Moves all four extremities antigravity, no drift. No involuntary movement s. Sensation: Intact to light throughout Cerebellar: FTN and HTS intact NIHS 0 Results & Data Vital Signs (Past 12 Hours) Vital Signs Temp Pulse Pulse Resp BP BP Pulse Ox 08/20/23 12:38 36.6 C 70 24 141/94 H 94 08/20/23 12:26 36.4 C L 78 18 142/91 H 95 08/20/23 12:26 08/20/23 11:01 70 24 141/94 H 94 08/20/23 11:00 70 18 95 08/20/23 11:00 70 18 141/94 H 97 08/20/23 09:30 71 20 160/97 H 98 08/20/23 09:26 70 12 163/99 H 99 08/20/23 09:17 70 08/20/23 09:00 71 16 157/98 H 98 08/20/23 08:36 36.6 C 73 15 165/115 H 98 Pulse Ox O2 Del Method O2 Del Method 08/20/23 12:38 08/20/23 12:26 Room Air 08/20/23 12:26 95 Room Air 08/20/23 11:01 08/20/23 11:00 08/20/23 11:00 Room Air 08/20/23 09:30 Room Air 08/20/23 09:26 Room Air 08/20/23 09:17 08/20/23 09:00 Room Air 08/20/23 08:36 Room Air Laboratory Results WBC 5.73, HGB 13.8, HCT 42.1, Plts 260, PT 11.0, INR 1.1, NA 140, Na 140, K 4.4, Chloride 107, Creatinine 0.85 Diagnostic Findings CTH/CTA:1. Partially imaged occlusion of the distal right vertebral artery. 4.4 cm subacute to chronic appearing right parietal lobe infarct is new from the 2020 exam. Additional ill-defined areas of decreased attenuation within the left parietal and right frontal lobes are new from prior and likely represent chronic infarcts.Otherwise unremarkable CTA of the head. 1. There is decreased perfusion within the mid to distal right vertebral artery with focal occlusion of the distal right vertebral artery at the C1 level as described above. The diminished perfusion within the distal right vertebral artery at the C1-C2 level could be due to an underlying dissection. Approximately 60-70% stenosis within the proximal right internal carotid artery due to the calcified plaque. MRI brain:1. There is an approximately 2.5 cm acute to subacute infarct in the posterior left frontal lobe cortex. 2. There is an additional subcentimeter focus of restricted diffusion seen within the left posterior parietal white matter. This there is also consistent with acute to subacute ischemia. The distribution favors an embolic phenomenon. 3. Additional chronic infarcts as above.4. There is no hemorrhage or midline shift.
--- NOTE | 2023-08-20 18:45 | Communication Note ---
Date of Service: August 20, 2023 Please hold the Eliquis dose for tonight as advised by the neurologist. Dr Tana Baptiste
--- OUTSIDE RECORDS SUMMARY | 2023-08-20 20:08 | External Medical Summary | Summary of Care ---
Author Name Unknown Organization [facility] Address [address] [place] [address] Phone [phone] Care Team Providers Care Particle Board Supervisor Name Role Phone Shashichristiano Sonja Aguirre DO Primary Care Provider Encounter Details Date Type Department Care Team Description 04/29/2023 Specialty Pharmacy [facility], [address] [address] Medication, [facility] Specialty Refill, [address] [address] Allergies Active Allergy Reactions Severity Noted Date Comments Atorvastatin 10/21/2016 Lisinopril Cough 08/12/2022 Sulfa Antibiotics Hives 02/26/2011 Ezetimibe 10/21/2016 documented as of this encounter (statuses as of 04/29/2023) Medications Medication Sig Dispensed Refills Start Date End Date Status Respiratory Therapy Supplies (NEBULIZER) DEMAR Use as directed. PER [facility] DC INSTRUCTIONS DATED 10/13/2017 0 8 Active albuterol HFA (VENTOLIN HFA) 108 (90 BASE) MCG/ACT inhalerIndications:COPD, mild (HCC) Inhale 2 Puffs by mouth every 4 hours as needed for Cough, Shortness of Breath or Wheezing. 3 Inhaler 4 9 Active Albuterol Sulfate (ACCUNEB) 0.63 MG/3ML nebulizer solution Inhale 1 Vial via nebulizer 3 times a day as needed for Wheezing or Shortness of Breath. 75 mL 1 9 Active fluticasone (FLONASE) 50 MCG/ACT nasal spray Administer 2 Sprays into each nostril daily. 16 g 0 0 Active Vitamin D-3 125 MCG (5000 UT) Oral Tablet Take 1 Tablet by mouth in the morning. 0 Active Ipratropium-Albuterol 0.5-2.5 (3) MG/3ML Inhalation Solution (Duoneb)Indications:COPD , group B, by GOLD 2017 classification ([facility]),COPD exacerbation ([facility]),Cough,LRTI (lower respiratory tract infection) Inhale via nebulizer 3 mL every 6 hours as needed for Cough, Shortness of Breath or Wheezing. 120 mL 3 2 Active Furosemide 20 MG Oral Tablet (Lasix)Indications:Parox ysmal atrial fibrillation ([facility]) TAKE 1 TABLET BY MOUTH EVERY DAY 90 Tablet 3 2 Active Symbicort 160-4.5 MCG/ACT Inhalation Aerosol (budesonide-formoterol)I ndications:COPD, mild ([facility]) INHALE 2 PUFFS BY MOUTH TWICE A DAY 30.6 g 3 2 Active Apixaban 5 MG Oral Tablet (Eliquis)Indications:Par oxysmal atrial fibrillation ([facility]) Take 1 Tablet by mouth in the morning and 1 Tablet before bedtime. 180 Tablet 0 3 Active Alirocumab 75 MG/ML Subcutaneous Solution Auto-injectorIndications :Coronary artery disease involving seminole coronary artery of seminole heart without angina pectoris,Pure hypercholesterolemia INJECT 75 MG (1 PEN) UNDER THE SKIN EVERY 14 DAYS 2 mL 11 2 08/21/20 23 Active Fexofenadine HCl 180 MG Oral Tablet (Laura)Indications:Tera al sinus congestion Take 1 Tablet by mouth daily as needed for Allergies (runny nose). 30 Tablet 11 3 Active Additional Information Patient not taking.Reported on 03/18/2023 Incruse Ellipta 62.5 MCG/ACT Inhalation Aerosol Powder Breath Activated (umeclidinium [place]) INHALE 1 PUFF BY MOUTH DAILY (USE IN PLACE OF SPIRIVA) 30 Each 5 3 Active Propranolol HCl ER 80 MG Oral Capsule Extended Release 24 Hour (Inderal LA) TAKE 1 CAPSULE BY MOUTH EVERY DAY IN THE MORNING 90 Capsule 1 3 Active Levothyroxine Sodium 125 MCG Oral Tablet (Levoxyl) Take 1 Tablet by mouth in the morning. (at least 30 min prior to breakfast or other meds). 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 Hypertension goal BP (blood pressure) < 140/80 11/12/2017 Coronary artery disease invo lving seminole coronary artery of seminole heart without angina pectoris 09/30/2016 Hyperlipidemia 09/30/2016 Essential tremor 09/30/2016 Aortic valve sclerosis 08/27/2016 Actinic keratosis 02/14/2015 Other seborrheic keratosis 02/14/2015 Hypothyroidism Overview: thyroidectomy Generalized osteoarthritis Other cataract Overview: bilaterally [facility] Chronic diastolic heart failure LVH (left ventricular hypertrophy) Overview: Concentric documented as of this encounter (statuses as of 04/29/2023) Resolved Problems Problem Noted Date Resolved Date Atrial fibrillation 04/15/2021 07/16/2021 Pure hypercholesterolemia 09/08/20192021 Acquired absence of other right toe(s) 0 07/16/2021 COPD, group B, by GOLD 2017 classification 02/1410/23/2021 Overview: Per COPD GOLD Classification Hydropneumothorax 12/17/2018 05/13/2019 Overview: Left Atrial fibrillation with RVR 10/29/2017 Abnormal electrocardiogram (ECG) (EKG) 6 09/17/2019 Chest pain 08/27/2016 09/30/2016 Sebaceous hyperplasia of face 02/14/2015 Atrial fibrillation 01/24/2015 07/02/2022 Chest discomfort 12/25/2014 01/26/2015 Tobacco use 12/25/2014 11/02/2018 COPD, mild 01/09/2014 02/16/2019 Overview: Per COPD GOLD Classification Dyslipidemia, goal LDL below 130 09/30/2016 Closed fracture of patella 10/26 Overview: right Palpitations 01/26/2015 documented as of this encounter (statuses as of 04/29/2023) Immunizations Name Administration Dates Next Due COVID-19 mRNA, LNP-s, No Pre serve, 2-Dose Series (Pfizer) 07/22/2021 Covid-19 Mrna, Lnp-s, No Pre serve, Booster (Moderna) 12/24/2020,11/26/2020 Pneumococcal Conjugate Vacc, 13 Valent (Prevnar) 09/26/2016 Pneumococcal Polysaccharide PPV23 (Pneumovax) 08/27/2018,08/22/2014,02/26/2011 Seasonal Influenza Virus Vac cine, Unspecified Formulation 05/28/2021 Seasonal Influenza, PF, 6 mo ns & Above, IM , (Flulaval) 08/27/2018 Seasonal Influenza, Quadriva lent Hd (Fluzone Hd) 07/02/2022,05/28/2021 Seasonal Influenza, Quadriva lent Hd, 65+ Yrs 06/21/2020 Seasonal Influenza, Trivalen t, Adjuvanted, 65+ yrs 07/25/2019 TDAP (age 10 and older)(Boostrix) 02/05/2022 TDAP (age 11 and older)(Adacel) 02/26/2011 Varicella Zoster Vaccine (Adult) 12/06/2013,08/07 Zoster Vaccine Recombinant (Shingrix) 10/17/2020 ,06/05/2020 documented as of this encounter Social History Tobacco Use Types Packs/Day Years Used Date Smoking Tobacco: Former Cigarettes 2 53 Q uit: 10/08/2017 Smokeless Tobacco: Never Alcohol Use Standard Drinks/Week Comments Yes 0 (1 standard drink = 0.6 oz pur e alcohol) occ Food Insecurity Answer Date Recorded Within the past 12 months, y ou worried that your food would run out before you got money to buy more. Never true 06/21/2022 Within the past 12 months, t he food you bought just didn't last and you didn't have money to get more. Never true 06/21/2022 Sex Assigned at Date Recorded Male 06/21/2022 12:38 PM EDT Job Start Date Occupation Industry Not on file Not on file Not on file documented as of this encounter Progress Notes * Jocelynn Sim CPhT - 04/29/2023 8:27 AM EDT Prescribed medication: Medication: Praluent Shipment date: 05/06 Delivery method: Specialty Mail Location Medication Delivered too? Prescription Address: [address] [place] [id number] Jocelynn Sim CPhT [facility] 04/29/2023,8:27 AM documented in this encounter Plan of Treatment Upcoming Encounters Date Type Specialty Care Team Description 06/03/2023 Office Visit Cardiology Tab Rossi DO [address] [place] [id number] 04/04/2024 Cardiac Studies [facility] [address] [place] [phone] Scheduled Procedures Name Priority Associated Diagnoses Date/Ti me COLONOSCOPY FLEXIBLE PROXIMA L DIAGNOSTIC Recall Screening for colon cancer Health Maintenance Due Date Last Done Comments Albumin/Creatinine Ratio 10/07/2014 10/07/2011 Depression Screening, Annual for Pts 12 and Over 10/25/2020 10/25/2019 COVID-19 Vaccine (2 - Pfizer series) 09/16/2021 07/22/2021, 12/24/2020, 11/26/2020 *ADVANCE DIRECTIVE NOT ON FILE 10/26/2021 Influenza Vaccine (FLU shot) (#1) 2023 07/02/2022, 05/28/2021, 05/28/2021, Additional history exists GFR 01/21/2024 01/20/2023, 10/0 03/2022, 01/21/2022, Additional history exists TSH 03/04/2024 03/04/2023, 01/05, 03/06/2022, Additional history exists O2 ASSESSMENT COMPLETED IN PAST YEAR FOR COPD 03/23/2024 03/23/2023 DTaP,Tdap,and Td Vaccines (3 - Td or Tdap) 02/06/2032 02/05/2022, 02/26/2011 Pneumococcal Vaccine: 65+ Years Completed 08/27/2018, 09/26/2016, 08/22/2014, Additional history exists Alpha-1 Antitrypsin Completed 05/13/2019 Zoster Vaccines Completed 10/17/2020, 05/09, 12/06/2013, Additional history exists LUNG CANCER SCREENING - USE SMARTSET [id number] Completed 06/06/2022, 03/20/2022, 03/18/2021, Additional history exists GARDASIL-HPV IMMUNIZATION SERIES Aged Out No longer eligible based on patient's age to complete this topic Hepatitis B Aged Out No longer eligi ble based on patient's age to complete this topic MENINGOCOCCAL (MENACTRA/MENVEO) Aged Out No longer eligible based on patient's age to complete this topic documented as of this encounter Medical Devices Implanted Type Area Cash Management Clerk Device Identifier Shelf Expiration Date Model / Serial / Lot Prox [employer] Implant Syst - [id number] Implanted:Qty: 1 on 03/20/2021 by Harinder Hargrove, at OR [facility] Left: Shoulder [employer] 03/06/2025 [id number] / / [id number] documented as of this encounter Advance Directives Latest Code Status on File Code Status Date Activated Date Inactivated Comments Full Code 04/15/2021 10:38 AM 04/15/2021 6:50 PM This o rder reflects the patients wishes and were consensually agreed upon. Question Answer Comments Discussion of Advance Directives occurred with: Patient Does the patient have a Living Will? No Does the patient have Health Care Power of Glass Cut Off Supervisor? No Code Status History Code Status Date Activated Date Inactivated Comments Full Code 02/11/2021 1:07 PM 02/11/2021 7:36 PM This or josue reflects the patients wishes and were consensually agreed upon. Question Answer Comments Discussion of Advance Directives occurred with: Not Discussed Does the patient have a Living Will? Yes, not currently available Does the patient have Health Care Power of Glass Cut Off Supervisor? Yes, not currently available Care Teams Particle Board Supervisor Relationship Specialty Start Date End Date Sonja Condon DO [address] [place] [address] PCP - General Family Medicine 02/26/11 documented as of this encounter
--- OUTSIDE RECORDS SUMMARY | 2023-08-20 20:08 | External Medical Summary | Summary of Care ---
Author Name Unknown Organization [facility] Address [address] [place] [address] Phone [phone] Care Team Providers Care Customer Service Rep Name Role Phone Sonja Condon Carla Primary Care Provider Reason for Referral * Precert (Within 10 days (routine)) - Authorized Specialty Diagnoses / Procedures Referred By Stephon t Referred To Contact Cardiac Studies Diagnoses Tachy-tomas syndrome (HCC) Cardiac pacemaker in situ Persistent atrial fibrillation (HCC) S/P AV (atrioventricular) katya ablation Coronary artery disease involving soboba coronary artery of soboba heart without angina pectoris Chronic heart failure with preserved ejection fraction (HCC) HTN, goal below 140/90 Dyslipidemia, goal LDL below 70 Nonrheumatic aortic valve stenosis Procedures ECHO, COMPLETE (2D), TRANS-THORACIC Virginia Valdez CRNP [address] [facility] [address] Referral ID Status Reason Start Date Expiration Date V isits Requested Visits Authorized [id number] Authorized Precert 01/22/2024 999 999 Reason for Visit * Reason Comments Follow Up Encounter Details Date Type Department Care Team (Late Contact Info) Description 07/24/2023 8:00 AM EST Office Visit Cardiology, [facility] [address] [place] [id number] Virginia Valdez CRNP [address] [place] [address] Tachy-tomas syndrome (HCC)*; Cardiac pacemaker in situ; Persistent atrial fibrillation (HCC); S/P AV (atrioventricular) katya ablation; Coronary artery disease involving soboba coronary artery of soboba heart without angina pectoris; Dyslipidemia, goal LDL below 70; Chronic heart failure with preserved ejection fraction (HCC); HTN, goal below 140/90; Nonrheumatic aortic valve stenosis; Pain in both lower legs Allergies Active Allergy Reactions Criticality Noted Date Comments Atorvastatin 10/21/2016 Lisinopril Cough 08/12/2022 Sulfa Antibiotics Hives 02/26/2011 Ezetimibe 10/21/2016 documented as of this encounter (statuses as of 07/24/2023) Medications Medication Sig Dispensed Refills Start Date End Date Status Respiratory Therapy Supplies (NEBULIZER) DEMAR Use as directed. PER [facility] DC INSTRUCTIONS DATED 10/13/2017 0 10/13/19 18 Active albuterol HFA (VENTOLIN HFA) 108 (90 BASE) MCG/ACT inhalerIndications:COPD , mild (HCC) Inhale 2 Puffs by mouth every 4 hours as needed for Cough, Shortness of Breath or Wheezing. 3 Inhaler 4 01/18/20 19 Active Albuterol Sulfate (ACCUNEB) 0.63 MG/3ML nebulizer solution Inhale 1 Vial via nebulizer 3 times a day as needed for Wheezing or Shortness of Breath. 75 mL 1 02/05/20 19 Active fluticasone (FLONASE) 50 MCG/ACT nasal spray Administer 2 Sprays into each nostril daily. 16 g 0 03/28/20 20 Active Vitamin D-3 125 MCG (5000 UT) Oral Tablet Take 1 Tablet by mouth in the morning. 0 Active Symbicort 160-4.5 MCG/ACT Inhalation Aerosol (budesonide-formoterol) Indications:COPD, mild (HCC) INHALE 2 PUFFS BY MOUTH TWICE A DAY 30.6 g 3 07/17/20 22 Active Apixaban 5 MG Oral Tablet (Eliquis)Indications:Pa roxysmal atrial fibrillation (HCC) Take 1 Tablet by mouth in the morning and 1 Tablet before bedtime. 180 Tablet 0 10/17/19 23 Active Fexofenadine HCl 180 MG Oral Tablet (Laura)Indications:Na douglas sinus congestion Take 1 Tablet by mouth daily as needed for Allergies (runny nose). 30 Tablet 11 11/18/19 23 Active Incruse Ellipta 62.5 MCG/ACT Inhalation Aerosol Powder Breath Activated (umeclidinium [place]) INHALE 1 PUFF BY MOUTH DAILY (USE IN PLACE OF SPIRIVA) 30 Each 5 11/26/19 23 Active Propranolol HCl ER 80 MG Oral Capsule Extended Release 24 Hour (Inderal LA) TAKE 1 CAPSULE BY MOUTH EVERY DAY IN THE MORNING 90 Capsule 1 01/01/20 23 Active Levothyroxine Sodium 125 MCG Oral Tablet (Levoxyl) Take 1 Tablet by mouth in the morning. (at least 30 min prior to breakfast or other meds). 30 Tablet 11 03/12/20 23 Active Furosemide 20 MG Oral Tablet (Lasix)Indications:Paro xysmal atrial fibrillation (HCC) TAKE 1 TABLET BY MOUTH EVERY DAY 90 Tablet 3 05/13/20 23 Active Losartan Potassium 25 MG Oral Tablet (Cozaar)Indications:Par oxysmal atrial fibrillation (HCC) Take 1 Tablet by mouth in the morning. 90 Tablet 3 06/16/20 23 Active Alirocumab 75 MG/ML Subcutaneous Solution Auto-injectorIndication s:Coronary artery disease involving soboba coronary artery of soboba heart without angina pectoris,Pure hypercholesterolemia Inject 75 mg (1 pen) under the skin every 14 days. 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),COPD exacerbation (HCC),Cough,LRTI (lower respiratory tract infection) Inhale via nebulizer 3 mL every 6 hours as needed for Cough, Shortness of Breath or Wheezing. 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 Hypertension goal BP (blood pressure) < 140/80 0 11/12/2017 Coronary artery disease invo lving soboba coronary artery of soboba heart without angina pectoris 09/30/2016 Hyperlipidemia 09/30/2016 Essential tremor 09/30/2016 Aortic valve sclerosis 08/27/2016 Actinic keratosis 02/14/2015 Other seborrheic keratosis 02/14/2015 Hypothyroidism Overview: thyroidectomy Generalized osteoarthritis Other cataract Overview: bilaterally Dr. Romero, [facility] Chronic diastolic heart failure LVH (left ventricular hypertrophy) Overview: Concentric documented as of this encounter (statuses as of 07/24/2023) Resolved Problems Problem Noted Date Diagnosed Date Resolved Date Atrial fibrillation 04/15/2021 07/16/20 21 Pure hypercholesterolemia 09/08/2019 Acquired absence of other right toe(s) 09/08/2019 07/16/2021 COPD, group B, by GOLD 2017 classification 02/14/2019 10/23/2021 Overview: Per COPD GOLD Classification Hydropneumothorax 12/17/2018 05/13/2019 Overview: Left Atrial fibrillation with RVR 10/29/2017 03/26/2018 Abnormal electrocardiogram (ECG) (EKG) 08/27/2016 09/17/2019 Chest pain 08/27/2016 09/30/2016 Sebaceous hyperplasia of face 02/14/2015 09/17/2019 Atrial fibrillation 01/24/2015 07/02/20 22 Chest discomfort 12/25/2014 01/26/2015 Tobacco use 12/25/2014 11/02/2018 COPD, mild 01/09/2014 02/16/2019 Overview: Per COPD GOLD Classification Dyslipidemia, goal LDL below 130 09/30/2016 Closed fracture of patella 0 10/26/2016 Overview: right Palpitations 01/26/2015 documented as of this encounter (statuses as of 07/24/2023) Immunizations Name Administration Dates Next Due COVID-19 mRNA, LNP-s, No Pre serve, 2-Dose Series (Pfizer) 07/22/2021 COVID-19, mRNA, LNP-s, PF, B ooster, 100mcg/0.5mg (Moderna) 12/24/2020,11/26/2020 Pneumococcal Conjugate Vacc, 13 Valent (Prevnar) 09/26/2016 Pneumococcal Polysaccharide PPV23 (Pneumovax) 08/27/2018,08/22/2014,02/26/2011 SEASONAL INFLUENZA, PF, 6 M & Above, IM , (FLULAVAL or FLUZONE) 08/27/2018 Seasonal Influenza Virus Vac cine, Unspecified Formulation 05/28/2021 Seasonal Influenza, Quadriva lent Hd (Fluzone Hd) [...] = 0.6 oz pur e alcohol) occ PHQ-2 Answer Date Recorded PHQ-2 Score 0 10/25/2019 Hunger Vital Sign Answer Date Recorded Within the past 12 months, y ou worried that your food would run out before you got the money to buy more. Never true 06/21/20 22 Within the past 12 months, t he food you bought just didn't last and you didn't have money to get more. Never true 06/21/2022 Sex and Gender Information Value Date Recorded Sex Assigned at Male 06/21/2022 12:38 PM EDT Gender Identity Male 06/21/2022 12:38 PM EDT Sexual Orientation Not on file Job Start Date Occupation Industry Not on file Not on file Not on file documented as of this encounter Last Filed Vital Signs Vital Sign Reading Time Taken Comments Blood Pressure 136/72 07/24/2023 8:19 AM EST Pulse 80 07/24/2023 8:19 AM EST Temperature - - Respiratory Rate 14 07/24/2023 8:19 AM EST Oxygen Saturation - - Inhaled Oxygen Concentration - - Weight 65.8 kg (145 lb) 07/24/2023 8:19 AM EST Height - - Body Mass Index 20.81 03/23/2023 7:33 AM EDT documented in this encounter Progress Notes * Virginia Valdez CRNP - 07/24/2023 8:00 AM EST Cardiology Outpatient Visit 07/24/2023 Primary Dray Driver: Dr. Rossi Past medical history: Paroxysmal atrial fibrillation, about on sotalol 10/2017 (due to recurrent AF during acuteInfluenza and COPD exacerbation) and BB and Eliquis [id number] (age, HTN, CAD); did not tolerate amiodarone due to tremors; s/p DCCV 12/2020 with recurrent AF shortly there after; s/p AVN ablation 01/2021- unfortunately only lasted for 10 days; s/p redo AVN ablation 04/2021 HTN Chronic diastolic HF, NYHA Class II TBS s/p right sided PPM 11/2020 with RV lead revision on 12/04/2020 to a left bundle lead due to it probably being in a bale out CS branch LVH Hypothyroidism Cath 09/2016 no significant CAD (Chronically abnormal EKG) HLD Moderate aortic stenosis HPI Very pleasant 78-year-old male presenting to the cardiology office today in routine follow-up. Was last evaluated by Dr. Rossi paroxysmally 9 months ago. Being evaluated for the 1st time by the undersigned today. Patient carries a history of aortic stenosis. Most recent echocardiogram dated 11/11/2022 showed apreserved LV systolic function of 53%. Moderate aortic stenosis noted with mild aortic regurgitation. Stable. He also carries a history of tachy-tomas syndrome and persistent atrial fibrillation. He underwent pacemaker placement 11/20/2020. Most recent device interrogation dated 06/22/2023 showed an LB pacing burden of 99.9%. AFib burden of 100%. Unchanged from prior interrogations. Battery life of approximately 9.25 years. Appropriate thresholds noted. He is anticoagulated on Eliquis. Today the patient presents feeling generally well. Denies any exertional chest pain or unusual shortness of breath. No palpitations, lightheadedness or dizziness. No orthopnea or PND. No lower extremity edema but does note leg discomfort with walking. States that his legs always feel cold and will o ccasionally have tingling in the toes. No fever, chills, cough, hematochezia, melena, or hemoptysis. Patient is compliant with all medications, and offers no side effects. Current Outpatient Medications Medication Sig Dispense Refill Respiratory Therapy Supplies (NEBULIZER) DEMAR Use as directed. PER [facility] DC INSTRUCTIONS DATED 10/13/2017 albuterol HFA (VENTOLIN HFA) 108 (90 BASE) MCG/ACT inhaler Inhale 2 Puffs by mouth every 4 hours asneeded for Cough, Shortness of Breath or Wheezing. 3 Inhaler 4 Albuterol Sulfate (ACCUNEB) 0.63 MG/3ML nebulizer solution Inhale 1 Vial via nebulizer 3 times a day as needed for Wheezing or Shortness of Breath. 75 mL 1 fluticasone (FLONASE) 50 MCG/ACT nasal spray Administer 2 Sprays into each nostril daily. 16 g 0 Vitamin D-3 125 MCG (5000 UT) Oral Tablet Take 1 Tablet by mouth in the morning. Symbicort 160-4.5 MCG/ACT Inhalation Aerosol (budesonide-formoterol) INHALE 2 PUFFS BY MOUTH TWICE A DAY 30.6 g 3 Apixaban 5 MG Oral Tablet (Eliquis) Take 1 Tablet by mouth in the morning and 1 Tablet before bedtime. 180 Tablet 0 Fexofenadine HCl 180 MG Oral Tablet (Laura) Take 1 Tablet by mouth daily as needed for Allergies (runny nose). 30 Tablet 11 Incruse Ellipta 62.5 MCG/ACT Inhalation Aerosol Powder Breath Activated (umeclidinium [place]) INHALE 1 PUFF BY MOUTH DAILY (USE IN PLACE OF SPIRIVA) 30 Each 5 Propranolol HCl ER 80 MG Oral Capsule Extended Release 24 Hour (Inderal [place]) TAKE 1 CAPSULE BY MOUTHEVERY DAY IN THE MORNING 90 Capsule 1 Furosemide 20 MG Oral Tablet (Lasix) TAKE 1 TABLET BY MOUTH EVERY DAY 90 Tablet 3 Losartan Potassium 25 MG Oral Tablet (Cozaar) Take 1 Tablet by mouth in the morning. 90 Tablet 3 Alirocumab 75 MG/ML Subcutaneous Solution Auto-injector Inject 75 mg (1 pen) under the skin every 14 days. 6 mL 3 Levothyroxine Sodium 125 MCG Oral Tablet (Levoxyl) Take 1 Tablet by mouth in the morning. (at least30 min prior to breakfast or other meds). 30 Tablet 11 No current facility-administered medications for this visit. Past Medical History: Diagnosis Date Asbestos exposure 12/17/2018 Closed fracture of patella right COPD (chronic obstructive pulmonary disease) (HCC) Diastolic dysfunction Dyslipidemia, goal LDL below 130 Essential tremor 09/30/2016 Generalized osteoarthritis HTN (hypertension) Hydropneumothorax 12/17/2018 Hypothyroidism , Graves LVH (left ventricular hypertrophy) Concentric Other cataract bilaterally [facility] 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 ARTHMOSES BrambilaW/ROTATOR CUFF Left 03/20/2021 ARTHROSCOPY SHOULDER ROTATOR CUFF performed by Harinder Hargrove DO at OR [facility] CARPAL TUNNEL SURGERY Right 03/18/2017 NEUROPLASTY MEDIAN NERVE AT CARPAL TUNNEL performed by Yaya Garcia Jr., MD at OR [facility] COLONOSCOPY 09/07/2002 normal COLONOSCOPY, DIAGNOSTIC (RECTUM) 05/30/2015 benign polyps, repeat 10 yrs/[facility] COLONOSCOPY, DIAGNOSTIC (RECTUM) 03/23/2023 COLONOSCOPY FLEXIBLE PROXIMAL DIAGNOSTIC performed by Virginia Winkler DO at ENDOSCOPY [facility] ELECTROPHYS MAP, 3D, ADD-ON Bilateral 02/11/2021 CATHETER 3-D MAPPING performed by Claire Christy DO at OR [facility] ELECTROPHYS MAP, 3D, ADD-ON Bilateral 04/15/2021 CATHETER 3-D MAPPING performed by Claire Christy DO at OR [facility] HEMORRHOID REMOVAL, THROMBOSED INFORMATION 01/2021 CASTRO & Cardioversion. MULTI-LEAD DEFIBRILLATOR + REPROGRAM 11/23/2020 PARTIAL AMPUTATION OF TOE Right 10/04/2018 AMPUTATION TOE INTERPHALANGEAL JOINT performed by Ami Graves DPM at OR [facility] PARTIAL REMOVAL OF TOE Right 10/04/2018 PARTIAL EXCISION PHALANX OF TOE performed by Ami Graves DPM at OR [facility] NH INSJ 1 TRANSVNS ELTRD PERM PACEMAKER/IMPLTBL DFB Revision pacemaker due to mispositioned lead 12/04/2020 RAD & ULNA SHFT FX W/M left near elbow, right midshaft, right distal REMOVAL OF KNEECAP BURSA Left 03/18/2017 EXCISION PREPATELLAR BURSA performed by Yaya Garcia Jr., MD at OR [facility] REMOVAL OF RUPTURED APPENDIX 12 yo REMOVAL OF THYROID GLAND hyper, hypo REVISION OF ULNAR NERVE AT ELBOW Right 03/18/2017 NEUROPLASTY AND OR TRANSPOSITION ULNAR NERVE ELBOW performed by Yaya Garcia Jr., MD at OR [facility] STRESS TEST 2008, 2010 VASECTOMY Social History Tobacco Use Smoking status: Former Packs/day: 2.00 Years: 53.00 Additional pack years: 0.00 Total pack years: 106.00 Types: Cigarettes Quit date: 10/08/2017 Years since quittin.7 Smokeless tobacco: Never Vaping Use Vaping Use: Never used Substance Use Topics Alcohol use: Yes Comment: occ Drug use: No Review of patient's allergies indicates: Allergen Reactions Atorvastatin Lisinopril Cough Sulfa Antibiotics Hives Zetia [Ezetimibe] Review of Systems: See HPI for pertinent positives. All others negative, other than those noted in HPI. Physical Exam BP 144/96 | Pulse 80 | Resp 14 | Wt 65.8 kg (145 lb) | BMI 20.81 kg/m | BSA 1.8 m General: No acute distress. A+Ox3. HEENT: Normocephalic. Atraumatic. Conjunctiva and sclera clear. NECK: No carotid bruits. No JVD. Carotid upstrokes are brisk. Heart: RRR. S1 and S2 noted without murmur, rubs, gallops. PMI non displaced. Lungs: Clear to auscultation. No wheezes, rhonchi, rales. Abdomen: Normal bowel sounds. Soft. Nontender. No masses or organomegaly. No abdominal bruits. Extremities: No edema. No clubbing or cyanosis. Pulses: radial=2/4, posterior tibial=2/4, dorsalis pedis = 2/4. NEURO: No focal deficits. PSYCH: Normal. Lab data/imaging study review: Echocardiogram 11/11/2022 Interpretation Summary The primary indication after review was deemed appropriate and the examination was performed. Normal LV chamber size with mild concentric LVH. Normal LV systolic function without regional wall motion abnormalities. Calculated LV ejection Fraction = 53% (three dimensional volumes). The aortic valve has three leaflets. The aortic valve is moderately calcified. Moderate aortic valve stenosis is present. Mild aortic valve regurgitation is present. There is moderate mitral annular calcification. Mitral stenosis is absent. Mild mitral regurgitation is present. Moderate tricuspid regurgitation. Severe left atrial enlargement. The aortic root is normal sized. The proximal ascending thoracic aorta is mildly enlarged. The estimated pulmonary artery systolic pressure is 37mm Hg Summary of ttecho performed 11/11/21: There was atrial fibrillation during the examination. The left ventricular cavity size is normal. The LV wall thickness is moderately increased (concentric). The qualitative LV ejection fraction is 65-69% (normal). The left ventricular diastolic function is abnormal by 2-D findings. The left atrium is severely enlarged (>48 ml/m^2,). The aortic valve is moderately calcified. Moderate aortic valve stenosis is present. There is moderate mitral annular calcification. Mild mitral regurgitation is present. Moderate to severe tricuspid insufficiency is present Mild pulmonary hypertension is present. The aortic root and proximal ascending aorta are borderline enlarged. Impression/Plan: 1. Tachy-tomas syndrome (HCC) 2. Cardiac pacemaker in situ 3. Persistent atrial fibrillation (HCC) 4. S/P AV (atrioventricular) katya ablation -Dx about on sotalol 10/2017 (due to recurrent AF during acute Influenza and COPD exacerbation) -[id number] (age, HTN, CAD) -Did not tolerate amiodarone due to tremors; s/p DCCV 12/2020 with recurrent AF shortly there after;s/p AVN ablation 01/2021-unfortunately only lasted for 10 days; s/p redo AVN ablation 04/2021 -Most recent pacemaker interrogation stable. Patient asymptomatic with atrial fibrillation. 1. Continue propanolol and Eliquis as ordered. 5. Coronary artery disease involving soboba coronary artery of soboba heart without angina pectoris 6. Dyslipidemia, goal LDL below 70 -Cath 09/2016 no significant CAD (Chronically abnormal EKG) 1. Previously declined statin therapy 7. Chronic heart failure with preserved ejection fraction (HCC) Euvolemic on exam. Weight is stable. 1. Continue Lasix 20 mg every day. 8. HTN, goal below 140/90 Normally well controlled. No medication changes needed at this time. 1. Continue losartan 25 mg daily 9. Nonrheumatic aortic valve stenosis Moderate aortic valve stenosis, stable per most recent echo. 1. Repeat resting echocardiogram in November to reassess aortic valve gradients. 10. Pain in both lower legs Concerns for claudication with ambulation. 1. Exercise ABIs ordered to rule out significant PAD. The patient agrees to the above plan and will call with additional questions or concerns. ER with all emergencies advised. Follow-up: Return in about 1 year (around 07/24/2024). | Check-out note: ABIs. Echo in 6 months. 1 year CHEIKH Flores spent a total of 40 minutes on the date of service in preparation, delivery, and documentation ofthe care provided to Jasen Mccarty excluding any time spent in the performance of separately billed services. CHERRIE Hernandez, Department of Cardiology This chart was completed in part utilizing [employer] Speech Voice Recognition Software. Grammatical errors, random word insertions, prounoun errors, and incomplete sentences are an occasional consequence of this system due to software limitations, ambient noise, and hardware issues. Any formal questions or concerns about the content, text, or information contained within the body of this dictation should be directly addressed to the provider for clarification. documented in this encounter Nursing Notes * Radha Aceves LPN - 07/24/2023 8:20 AM EST Examination Room: 4 Name: Jasen Mccarty Date of : 1945 Reason for Visit: Follow up Problems/Concerns: denies Interim Hosp(s): denies Chest Pain/SOB: denies MyChart Discussed: ALREADY ACTIVE Patient was instructed to not get up on the exam table until directed and assisted by their provider; patient is to remain seated in the chair/ wheelchair/ exam table for fall prevention and safety reasons. Patient is aware to have assistance to step down off exam table with personnel. documented in this encounter Plan of Treatment Upcoming Encounters Date Type Department Care Team (Late st Contact Info) Description 09/09/2023 7:30 AM EST Imaging Vascular Lab, [facility] II 2nd Floor, [address] [place] [address] 01/22/2024 1:30 PM EDT Cardiac Studies Cardiac Studies, [address] [place] [address] 04/04/2024 10:00 AM EDT Cardiac Studies Cardiology, [address] [place] [address] [facility] [address] [place] [address] Scheduled Orders Name Type Priority Associated Diagnoses Orde r Schedule ECHO, COMPLETE (2D), TRANS-THORACIC Echocardiology Routine Tachy-tomas syndrome (HCC) Cardiac pacemaker in situ Persistent atrial fibrillation (HCC) S/P AV (atrioventricular) katya ablation Coronary artery disease involving soboba coronary artery of soboba heart without angina pectoris Chronic heart failure with preserved ejection fraction (HCC) HTN, goal below 140/90 Dyslipidemia, goal LDL below 70 Nonrheumatic aortic valve stenosis Expected: 01/22/2024, Expires: 01/21/2025 VASC ANKLE BRACHIAL INDICES WITHOUT PPG (PAD) Medical Imaging Routine Tachy-tomas syndrome (HCC) Cardiac pacemaker in situ Persistent atrial fibrillation (HCC) S/P AV (atrioventricular) katya ablation Coronary artery disease involving soboba coronary artery of soboba heart without angina pectoris Chronic heart failure with preserved ejection fraction (HCC) HTN, goal below 140/90 Dyslipidemia, goal LDL below 70 Nonrheumatic aortic valve stenosis Expected: 07/24/2023, Expires: 08/23/2024 Scheduled Procedures Name Priority Associated Diagnoses Date/Ti me COLONOSCOPY FLEXIBLE PROXIMA L DIAGNOSTIC Recall Screening for colon cancer Health Maintenance Due Date Last Done Comments Hepatitis B (1 of 3 - Risk 3-dose series) 2006 Albumin/Creatinine Ratio 10/07/2014 10/07/2011 Depression Screening 10/25/2020 10/25/2019 *ADVANCE DIRECTIVE NOT ON FILE 10/26/2021 COVID-19 Vaccine ( season) 2023 07/22/2021, 12/24/2020, 11/26/2020 Influenza Vaccine (FLU shot) (#1) 2023 07/02/2022, 05/28/2021, 05/28/2021, Additional history exists GFR 01/21/2024 01/20/2023, 03/2022, 01/21/2022, Additional history exists TSH 03/04/2024 [...] exists LUNG CANCER SCREENING - USE SMARTSET [id number] Completed 06/10/2023, 06/06/2022, 03/20/2022, Additional history exists GARDASIL-HPV IMMUNIZATION SERIES Aged Out No longer eligible based on patient's age to complete this topic MENINGOCOCCAL (MENACTRA/MENVEO) Aged Out No longer eligible based on patient's age to complete this topic documented as of this encounter Medical Devices Implanted Type Area Experimental Aircraft Mechanic Device Identifier Shelf Expiration Date Model / Serial / Lot Prox [employer] Implant Syst - [id number] Implanted:Qty: 1 on 03/20/2021 by Harinder Hargrove DO at OR [facility] Left: Shoulder [employer] 03/06/2025 [id number] / / [id number] documented as of this encounter Visit Diagnoses Diagnosis Tachy-tomas syndrome (HCC)- Primary Sinoatrial node dysfunction Cardiac pacemaker in situ Persistent atrial fibrillation (HCC) Atrial fibrillation S/P AV (atrioventricular) katya ablation Other postprocedural status Coronary artery disease involving soboba coronary artery of soboba heart without angina pectoris Dyslipidemia, goal LDL below 70 Other and unspecified hyperlipidemia Chronic heart failure with preserved ejection fraction (HCC) HTN, goal below 140/90 Unspecified essential hypertension Nonrheumatic aortic valve stenosis Aortic valve disorders Pain in both lower legs documented in this encounter Advance Directives Latest Code Status on File Code Status Date Activated Date Inactivated Comments Full Code 04/15/2021 10:38 AM 04/15/2021 6:50 PM This o rder reflects the patients wishes and were consensually agreed upon. Question Answer Comments Discussion of Advance Directives occurred with: Patient Does the patient have a Living Will? No Does the patient have Health Care Power of Christmas Tree Farm Worker? No Code Status History Code Status Date Activated Date Inactivated Comments Full Code 02/11/2021 1:07 PM 02/11/2021 7:36 PM This or josue reflects the patients wishes and were consensually agreed upon. Question Answer Comments Discussion of Advance Directives occurred with: Not Discussed Does the patient have a Living Will? Yes, not currently available Does the patient have Health Care Power of Christmas Tree Farm Worker? Yes, not currently available Care Teams Customer Service Rep Relationship Specialty Start Date End Date Sonja Condon DO [address] [place] [address] PCP - General Family Medicine 02/26/11 documented as of this encounter"
--- OUTSIDE RECORDS SUMMARY | 2023-08-20 20:08 | External Medical Summary | Summary of Care ---
Author Name Unknown Organization [facility] Address [address] [place] [address] Phone [phone] Care Team Providers Care Baling Machine Operator Name Role Phone Cherelle Condonkala Del RealCarla Primary Care Provider Reason for Visit * Reason Onset Date Comments Test Results 06/11/2023 Encounter Details Date Type Department Care Team (Late st Contact Info) Description 06/11/2023 Telephone Thoracic Surg [facility] [address] [place] [address] Anita Wang, JO Test Results Allergies Active Allergy Reactions Criticality Noted Date Comments Atorvastatin 10/21/2016 Lisinopril Cough 08/12/2022 Sulfa Antibiotics Hives 02/26/2011 Ezetimibe 10/21/2016 documented as of this encounter (statuses as of 07/01/2023) Medications Medication Sig Dispensed Refills Start Date End Date Status Respiratory Therapy Supplies (NEBULIZER) DEMAR Use as directed. PER [facility] DC INSTRUCTIONS DATED 10/13/2017 0 8 Active [...] , group B, by GOLD 2017 classification ([facility]),COPD exacerbation (HCC),Cough,LRTI (lower respiratory tract infection) Inhale via nebulizer 3 mL every 6 hours as needed for Cough, Shortness of Breath or Wheezing. 120 mL 3 2 Active Symbicort 160-4.5 MCG/ACT Inhalation Aerosol (budesonide-formoterol)I ndications:COPD, mild ([facility]) INHALE 2 PUFFS BY MOUTH TWICE A DAY 30.6 g 3 2 Active Apixaban 5 MG Oral Tablet (Eliquis)Indications:Par oxysmal atrial fibrillation (HCC) Take 1 Tablet by mouth in the morning and 1 Tablet before bedtime. 180 Tablet 0 3 Active Alirocumab 75 MG/ML Subcutaneous Solution Auto-injectorIndications :Coronary artery disease involving [place] shosh[place] coronary artery of yomb[place] shoshone heart without angina pectoris,Pure hypercholesterolemia INJECT 75 [...] MCG/ACT Inhalation Aerosol Powder Breath Activated (umeclidinium [place]) INHALE 1 PUFF BY MOUTH DAILY (USE [...] other meds). 30 Tablet 11 3 Active Furosemide 20 MG Oral Tablet (Lasix)Indications:Parox ysmal atrial fibrillation (HCC) TAKE 1 TABLET BY MOUTH EVERY DAY 90 Tablet 3 3 Active documented as of this encounter (statuses as of 07/01/2023) Active Problems Problem Noted Date Diagnosed Date COPD, group C, by GOLD 2017 classification 10/21 Overview: Per COPD GOLD Classification Persistent atrial fibrillation 09/17/2021 S/P AV (atrioventricular) katya ablation 021 Acquired absence of other right toe(s) 0 Pleural effusion 12/17/2018 Asbestos exposure 12/17/2018 Tachy-tomas syndrome 09/24/2018 Pleural plaque due to asbestos exposure 02/23/20 18 Personal history of nicotine dependence 02/23/20 18 Tobacco abuse, 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 Hypertension goal BP (blood pressure) < 140/80 0 11/12/2017 Coronary artery disease invo lving y[place]a shosh[place] coronary artery of y[place] shoshone heart without angina pectoris 09/30/2016 Hyperlipidemia 09/30/2016 Essential tremor 09/30/2016 Aortic valve sclerosis 08/27/2016 Actinic keratosis 02/14/2015 Other seborrheic keratosis 02/14/2015 Hypothyroidism Overview: thyroidectomy Generalized osteoarthritis Other cataract Overview: bilaterally Dr. Romero, [facility] Chronic diastolic heart failure LVH (left ventricular hypertrophy) Overview: Concentric documented as of this encounter (statuses as of 07/01/2023) Resolved Problems Problem Noted Date Diagnosed Date [...] face 02/14/2015 09/17/2019 Atrial fibrillation 01/24/2015 07/02/20 Chest discomfort 12/25/2014 01/26/2015 Tobacco use 12/25/2014 11/02/2018 COPD, mild 01/09/2014 02/16/2019 Overview: Per COPD GOLD Classification Dyslipidemia, goal LDL below 130 09/30/2016 Closed fracture of patella 0 10/26/2016 Overview: right Palpitations 01/26/2015 documented as of this encounter (statuses as of 07/01/2023) Immunizations Name Administration Dates Next Due COVID-19 mRNA, LNP-s, No Pre serve, 2-Dose Series ([employer]) 07/22/2021 COVID-19, mRNA, LNP-s, PF, B ooster, [...] = 0.6 oz pur e alcohol) occ Hunger Vital Sign Answer Date Recorded Within [...] on file documented as of this encounter Miscellaneous Notes * Telephone Encounter - Sonja Condon DO - 06/11/2023 4:46 PM EDT I was notified via tiger text of abnormal CT lung results. I called patient to discuss the incidental findings on his CT chest lung cancer screen done yesterday. He says he is overall feeling well, at his baseline, breathing okay, using flutter device and inhalers, does have some intermittent right chest discomfort in the upper area of his right chest thatcomes and goes and wonders if this could be related. I went back to review the pulmonary note from April 28 when he had his last telemedicine visit and saw Dr. 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 Will reach out to Pulmonary to inform of new finding, and have patient schedule a follow-up with Pulmonary. At this time patient is feeling well. He is not short of breath. Discussed that if he is feeling very short of breath especially all of a sudden, having severe chest pain, or other concerns for emergency should go immediately to the emergency department, but do not expect him to haveany problems. Patient expressed understanding and was agreeable to the plan Sonja Condon DO * Telephone Encounter - Anita Wang RN - 06/11/2023 4:18 PM EDT Lung Cancer Screening Program ([facility]) Results Call Summary 06/11/2023 Sonja Condon DO - Your patient had an abnormal incidental finding on Low Dose CT Scan (LDCT). Please review the LDCT scan EPIC Chart Review: Imaging and follow through with evaluation of the incidental finding as clinically indicated. Management of the significant incidental finding is deferred to the primary care provider. Anita Wang RN Lung Cancer Screening Kitchen And Bath Designer [phone] ([phone]) documented in this encounter Plan of Treatment Upcoming Encounters Date Type Department Care Team (Late st Contact Info) Description 07/24/2023 8:00 AM EST Office Visit Cardiology, [facility] [address] [facility] [place] [address] Virginia Valdez CRNP [address] [place] [address] 04/04/2024 10:00 AM EDT Cardiac Studies Cardiology, [facility] [address] [facility] [place] [address] [facility] [address] [place] [address] Scheduled Procedures Name Priority Associated Diagnoses Date/Ti [...] exists LUNG CANCER SCREENING - USE SMARTSET 54639 Completed 06/10/2023, 06/06/2022, 03/20/2022, Additional history exists GARDASIL-HPV IMMUNIZATION SERIES Aged Out No longer eligible based on patient's age to complete this topic MENINGOCOCCAL (MENACTRA/MENVEO) Aged Out No longer eligible based on patient's age to complete this topic documented as of this encounter Medical Devices Implanted Type Area Lead Oracle Developer Device Identifier Shelf Expiration Date Model / Serial / Lot Prox Tenodesis Implant Syst - [id number] Implanted:Qty: 1 on 03/20/2021 by Harinder Hargrove DO at OR [facility] Left: Shoulder [employer] 03/06/2025 AR-2290 / / [id number] documented as of this encounter Advance Directives [...] the patient have Health Care Power of Clerical Clerk? No Code Status History Code Status Date Activated Date Inactivated Comments Full Code 02/11/2021 1:07 PM 02/11/2021 7:36 PM This or josue reflects the patients wishes and were consensually agreed upon. Question Answer Comments Discussion of Advance Directives occurred with: Not Discussed Does the patient have a Living Will? Yes, not currently available Does the patient have Health Care Power of Clerical Clerk? Yes, not currently available Care Teams Baling Machine Operator Relationship Specialty Start Date End Date Sonja Condon DO [address] [place] [address] PCP - General Family Medicine 02/26/11 documented as of this encounter
--- OUTSIDE RECORDS SUMMARY | 2023-08-20 20:08 | External Medical Summary | Summary of Care ---
Author Name Unknown Organization [facility] Address [address] [place] [address] Phone [phone] Care Team Providers Care Watch Hairspring Assembler Name Role Phone Shashichristiano Casillas Carla HUMPHREY Primary Care Provider Encounter Details Date Type Department Care Team ([facility] st Contact Info) Description 06/29/2023 [facility] [address] [address] Medication, [facility], [address] [address] Allergies Active Allergy Reactions Criticality Noted Date Comments Atorvastatin 10/21/2016 Lisinopril Cough 08/12/2022 Sulfa Antibiotics Hives 02/26/2011 Ezetimibe 10/21/2016 documented as of this encounter (statuses as of 06/29/2023) Medications Medication Sig Dispensed Refills Start Date End Date Status Respiratory Therapy Supplies (NEBULIZER) DEMAR Use as directed. PER [facility] DC INSTRUCTIONS DATED 10/13/2017 0 8 [...] , group B, by GOLD 2017 classification (HCC),COPD exacerbation (HCC),Cough,LRTI (lower respiratory tract infection) Inhale via nebulizer 3 mL every 6 hours as needed for Cough, Shortness of Breath or Wheezing. 120 mL 3 2 Active Symbicort 160-4.5 MCG/ACT Inhalation Aerosol (budesonide-formoterol)I ndications:COPD, mild ([facility]) INHALE 2 PUFFS BY MOUTH TWICE A DAY 30.6 g 3 2 Active Apixaban 5 MG Oral Tablet (Eliquis)Indications:Par oxysmal atrial fibrillation (HCC) Take 1 Tablet by mouth in the morning and 1 Tablet before bedtime. 180 Tablet 0 3 Active Alirocumab 75 MG/ML Subcutaneous Solution Auto-injectorIndications :Coronary artery disease involving [place] coronary artery of [place] heart without angina pectoris,Pure hypercholesterolemia INJECT 75 [...] MCG/ACT Inhalation Aerosol Powder Breath Activated (umeclidinium [place]) INHALE 1 PUFF BY MOUTH DAILY (USE [...] EVERY DAY 90 Tablet 3 3 Active Losartan Potassium 25 MG Oral Tablet (Cozaar)Indications:Paro xysmal atrial fibrillation (HCC) Take 1 Tablet by mouth in the morning. 90 Tablet 3 3 Active documented as of this encounter (statuses as of 06/29/2023) Active Problems Problem Noted Date Diagnosed Date [...] 0 11/12/2017 Coronary artery disease invo lving [place] coronary artery of [place] heart without angina pectoris 09/30/2016 Hyperlipidemia 09/30/2016 Essential tremor 09/30/2016 Aortic valve sclerosis 08/27/2016 Actinic keratosis 02/14/2015 Other seborrheic keratosis 02/14/2015 Hypothyroidism Overview: thyroidectomy Generalized osteoarthritis Other cataract Overview: bilaterally [facility] Chronic diastolic heart failure LVH (left ventricular hypertrophy) Overview: Concentric documented as of this encounter (statuses as of 06/29/2023) Resolved Problems Problem Noted Date Diagnosed Date [...] as of this encounter (statuses as of 06/29/2023) Immunizations Name Administration Dates Next Due COVID-19 mRNA, LNP-s, No Pre serve, 2-Dose Series ([employer]) 07/22/2021 COVID-19, mRNA, LNP-s, PF, B ooster, [...] as of this encounter Progress Notes * SHIKHA Schmitt - 06/29/2023 11:05 AM EDT Prescribed medication: Medication: Praluent Shipment date: 06/30 Delivery method: Specialty Mail Location Medication Delivered too? Prescription Address: [address] [place] [id number] [facility] 06/29/2023,11:05 AM documented in this encounter Plan of Treatment Upcoming Encounters Date Type Department Care Team (Late st Contact Info) Description 07/24/2023 8:00 AM EST Office Visit Cardiology, [facility] [address] [place] [address] Virginia Valdez CRNP [address] [place] [address] 04/04/2024 10:00 AM EDT Cardiac Studies Cardiology, [facility] [address] [place] [address] [place] [address] [place] [address] Scheduled Procedures Name Priority Associated Diagnoses Date/Ti [...] exists LUNG CANCER SCREENING - USE SMARTSET [id number] Completed 06/10/2023, 06/06/2022, 03/20/2022, Additional history exists GARDASIL-HPV IMMUNIZATION SERIES Aged Out No longer eligible based on patient's age to complete this topic MENINGOCOCCAL (MENACTRA/MENVEO) Aged Out No longer eligible based on patient's age to complete this topic documented as of this encounter Medical Devices Implanted Type Area Card Doffer Device Identifier Shelf Expiration Date Model / Serial / Lot Prox Tenodesis Implant Syst - [id number] Implanted:Qty: 1 on 03/20/2021 by Harinder Hargrove DO at OR [facility] Left: Shoulder [employer] 03/06/2025 AR-2290 / / [id number] documented as of this encounter Advance Directives [...] the patient have Health Care Power of Pecan Mallow Dipper? No Code Status History Code Status Date Activated Date Inactivated Comments Full Code 02/11/2021 1:07 PM 02/11/2021 7:36 PM This or josue reflects the patients wishes and were consensually agreed upon. Question Answer Comments Discussion of Advance Directives occurred with: Not Discussed Does the patient have a Living Will? Yes, not currently available Does the patient have Health Care Power of Pecan Mallow Dipper? Yes, not currently available Care Teams Watch Hairspring Assembler Relationship Specialty Start Date End Date Sonja Condon DO [address] [place] [address] PCP - General Family Medicine 02/26/11 documented as of this encounter
--- OUTSIDE RECORDS SUMMARY | 2023-08-20 20:08 | External Medical Summary | Summary of Care ---
Author Name Unknown Organization [facility] Address [address] [place] [address] Phone [phone] Care Team Providers Care Postbed Stitcher Name Role Phone ShashiSonja alvarado Carla Primary Care Provider Encounter Details Date Type Department Care Team Description 06/15/2023 Result Scan Unspecified Department Tab Rossi DO [address] [place], [place] [id number] <No scans attached> Allergies Active Allergy Reactions Severity Noted Date Comments Atorvastatin 10/21/2016 Lisinopril Cough 08/12/2022 Sulfa Antibiotics Hives 02/26/2011 Ezetimibe 10/21/2016 documented as of this encounter (statuses as of 06/15/2023) Medications Medication Sig Dispensed Refills Start Date End Date Status Respiratory Therapy Supplies (NEBULIZER) DEMAR Use as directed. PER [facility] DC INSTRUCTIONS DATED 10/13/2017 0 8 [...] 160-4.5 MCG/ACT Inhalation Aerosol (budesonide-formoterol)I ndications:COPD, mild (HCC) INHALE 2 PUFFS BY MOUTH TWICE A DAY 30.6 g 3 2 Active Apixaban 5 MG Oral Tablet (Eliquis)Indications:Par oxysmal atrial fibrillation (HCC) Take 1 Tablet by mouth in the morning and 1 Tablet before bedtime. 180 Tablet 0 3 Active Alirocumab 75 MG/ML Subcutaneous Solution Auto-injectorIndications :Coronary artery disease involving kot[place] coronary artery of kot[place] heart without angina pectoris,Pure hypercholesterolemia INJECT 75 [...] MCG/ACT Inhalation Aerosol Powder Breath Activated (umeclidinium [place]) INHALE 1 PUFF BY MOUTH DAILY (USE [...] as of this encounter (statuses as of 06/15/2023) Active Problems Problem Noted Date COPD, group [...] 140/80 11/12/2017 Coronary artery disease invo lving kot[place] coronary artery of kotlik heart without angina pectoris 09/30/2016 Hyperlipidemia 09/30/2016 Essential tremor 09/30/2016 Aortic valve sclerosis 08/27/2016 Actinic keratosis 02/14/2015 Other seborrheic keratosis 02/14/2015 Hypothyroidism Overview: thyroidectomy Generalized osteoarthritis Other cataract Overview: bilaterally [facility] Chronic diastolic heart failure LVH (left ventricular hypertrophy) Overview: Concentric documented as of this encounter (statuses as of 06/15/2023) Resolved Problems Problem Noted Date Resolved Date [...] as of this encounter (statuses as of 06/15/2023) Immunizations Name Administration Dates Next Due COVID-19 mRNA, LNP-s, No Pre serve, 2-Dose Series ([employer]) 07/22/2021 COVID-19, mRNA, LNP-s, PF, B ooster, [...] on file documented as of this encounter Plan of Treatment Upcoming Encounters Date Type Specialty Care Team Description 07/24/2023 Office Visit Cardiology Virginia Valdez CRNP [address] [place] [address] 04/04/2024 Cardiac Studies Cardiology [place] [address] [place] [address] Scheduled Procedures Name Priority Associated Diagnoses Date/Ti me COLONOSCOPY FLEXIBLE PROXIMA L DIAGNOSTIC Recall Screening for colon cancer Health Maintenance Due Date Last Done Comments Albumin/Creatinine Ratio 10/07/2014 10/07/2011 Depression Screening 10/25/2020 10/25/2019 *ADVANCE DIRECTIVE NOT ON FILE 10/26/2021 COVID-19 Vaccine ( season) 2023 07/22/2021, 12/24/2020, 11/26/2020 Influenza Vaccine (FLU shot) (#1) 2023 07/02/2022, 05/28/2021, 05/28/2021, Additional history exists GFR 01/21/2024 01/20/2023, 100 03/2022, 01/21/2022, Additional history exists TSH 03/04/2024 [...] exists LUNG CANCER SCREENING - USE SMARTSET 53483 Completed 06/10/2023, 06/06/2022, 03/20/2022, Additional history exists [...] this encounter Medical Devices Implanted Type Area Mechanical Adjuster Device Identifier Shelf Expiration Date Model / Serial / Lot Prox Tenodesis Implant Syst - [id number] Implanted:Qty: 1 on 03/20/2021 by Harinder Hargrove, at OR [facility] Left: Shoulder [employer] 03/06/2025 AR-2290 / / [id number] documented as of this encounter Procedures Procedure Name Priority Date/Time Associated Diagnosis Comments CARDIOLOGY SCANNED RESULT 06/15/2023 documented in this encounter Results * CARDIOLOGY SCANNED RESULT (06/15/2023) 06/15/2023 Tab Rossi DO OTHER documented in this encounter Advance Directives Latest [...] the patient have Health Care Power of Validation Scientist? No Code Status History Code Status Date Activated Date Inactivated Comments Full Code 02/11/2021 1:07 PM 02/11/2021 7:36 PM This or josue reflects the patients wishes and were consensually agreed upon. Question Answer Comments Discussion of Advance Directives occurred with: Not Discussed Does the patient have a Living Will? Yes, not currently available Does the patient have Health Care Power of Validation Scientist? Yes, not currently available Care Teams Postbed Stitcher Relationship Specialty Start Date End Date Sonja Condon, [address] [place] [address] PCP - General Family Medicine 02/26/11 documented as of this encounter
--- OUTSIDE RECORDS SUMMARY | 2023-08-20 20:08 | External Medical Summary | Summary of Care ---
Author Name Unknown Organization [facility] Address [address] [place] [address] Phone [phone] Care Team Providers Care Vision Care Associate Name Role Phone ShashiSonja alvarado Carla HUMPHREY Primary Care Provider Reason for Visit * Reason Comments eRx-Medication Refill Encounter Details Date Type Department Care Team Description 05/10/2023 Refill Cardiology, [facility] [address] [place] [address] Tab Rossi DO [address] [place] [address] Paroxysmal atrial fibrillation (HCC) Allergies Active Allergy Reactions Severity Noted Date Comments Atorvastatin 10/21/2016 Lisinopril Cough 08/12/2022 Sulfa Antibiotics Hives 02/26/2011 Ezetimibe 10/21/2016 documented as of this encounter (statuses as of 05/13/2023) Medications Medication Sig Dispensed Refills Start Date End Date Status Respiratory Therapy Supplies (NEBULIZER) DEMAR Use as directed. 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 120 mL 3 03/06/20 22 Active Symbicort 160-4.5 MCG/ACT Inhalation Aerosol (budesonide-formoterol) Indications:COPD, mild (HCC) INHALE 2 PUFFS BY MOUTH TWICE A DAY 30.6 g 3 07/17/20 22 Active Apixaban 5 MG Oral Tablet (Eliquis)Indications:Pa roxysmal atrial fibrillation (HCC) Take 1 Tablet by mouth in the morning and 1 Tablet before bedtime. 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 30 Tablet 11 11/18/19 23 Active Additional Information Patient not taking.Reported on 03/18/2023 Incruse Ellipta 62.5 MCG/ACT Inhalation Aerosol Powder Breath Activated (umeclidinium [place]) INHALE 1 PUFF BY MOUTH DAILY (USE [...] DAY 90 Tablet 3 05/13/20 23 Active Furosemide 20 MG Oral Tablet (Lasix)Indications:Paro xysmal atrial fibrillation (HCC) TAKE 1 TABLET BY MOUTH EVERY DAY 90 Tablet 3 04/16/20 22 2022 Discontinued documented as of this encounter (statuses as of 05/13/2023) Active Problems Problem Noted Date COPD, group [...] 140/80 11/12/2017 Coronary artery disease invo lving upper [place] coronary artery of upper [place] heart without angina pectoris 09/30/2016 Hyperlipidemia 09/30/2016 Essential tremor 09/30/2016 Aortic valve sclerosis 08/27/2016 Actinic keratosis 02/14/2015 Other seborrheic keratosis 02/14/2015 Hypothyroidism Overview: thyroidectomy Generalized osteoarthritis Other cataract Overview: bilaterally Dr. Romero, [facility] Chronic diastolic heart failure LVH (left ventricular hypertrophy) Overview: Concentric documented as of this encounter (statuses as of 05/13/2023) Resolved Problems Problem Noted Date Resolved Date [...] as of this encounter (statuses as of 05/13/2023) Immunizations Name Administration Dates Next Due COVID-19 [...] encounter Miscellaneous Notes * Telephone Encounter - Atilio Jones PA-C - 05/13/2023 6:03 PM EDTSigned Prescriptions: Disp Refills Furosemide 20 MG Oral Tablet (Lasix) 90 Tab*3 Sig: TAKE 1 TABLET BY MOUTH EVERY DAY Authorizing Provider: ATILIO JONES * Telephone Encounter - Lolly Harris CMA - 05/13/2023 12:04 PM EDTPending Prescriptions: Disp Refills Furosemide 20 MG Oral Tablet [Pharmacy Med*90 Tab*3 Sig: TAKE 1 TABLET BY MOUTH EVERY DAY * Telephone Encounter - Lolly Harris CMA - 05/13/2023 12:04 PM EDT Did you pend patient's preferred pharmacy and medication before forwarding?yes Pharmacy: [id number] [address] [facility] Pending Prescriptions: Disp Refills Furosemide 20 MG Oral Tablet (Lasix) [Pha*90 Tab*3 Sig: TAKE 1 TABLET BY MOUTH EVERY DAY Last Visit: 10/31/2022 (in office), Visit date not found (telemedicine) Next Visit: 06/03/2023 If no future appointments scheduled, and last appointment is greater than a year ago, please schedule patient for a follow-up appointment Last date the medication was ordered: Is this request for a controlled substance?No Urine Drug Screen: Results for orders placed or performed in visit on 08/18/16 TOX SCREEN, URINE, W/ CONFIRMATION Result Value Amphetamine NEGATIVE Barbiturates NEGATIVE Benzodiazepines NEGATIVE Cannabinoids NEGATIVE Cocaine Metabolite NEGATIVE Morphine / Codeine NEGATIVE METHADONE METABOLITE NEGATIVE OXYCODONE NEGATIVE TOX COMMENT THE ABOVE SCREENING RESULTS ARE PRESUMPTIVE AND CAN ONLY BE USED FOR MEDICAL PURPOSES. POSITIVE RESULTS REFLEX TO CONFIRMATORY TESTING. Cutoff Concentration Patient Phone Numbers Labs: Lab Results Component Value Date/Time CREAT 1.0 01/20/2023 12:00 AM CREAT 1.0 04/02/2020 03:06 PM POTASSIUM 5.4 (A) 01/20/2023 12:00 AM POTASSIUM 4.3 04/02/2020 03:06 PM TSH 0.60 03/04/2023 11:51 AM TSH 0.14 (A) 01/20/2023 12:00 AM TSH 0.73 09/08/2019 10:06 AM LDLCALC 38 01/20/2023 12:00 AM LDLCALC 126 09/08/2019 10:06 AM LDLDIRECT NOT APPLICABLE 09/08/2019 10:06 AM ALT 12 11/03/2022 10:10 AM ALT 16 09/22/2017 09:49 AM HGBA1C 5.6 01/20/2023 12:00 AM HGBA1C 5.5 09/08/2019 10:06 AM documented in this encounter Plan of Treatment Upcoming Encounters Date Type Specialty Care Team Description 06/03/2023 Office Visit Cardiology Tab Rossi, [address] [place] [address] 04/04/2024 Cardiac Studies Cardiology [facility] [address] [place] [address] Scheduled Procedures Name Priority Associated Diagnoses Date/Ti [...] 01/21/2022, Additional history exists TSH 03/04/2024 03/04/2023, 0502/2023, 03/06/2022, Additional history exists O2 ASSESSMENT COMPLETED IN PAST YEAR FOR COPD 03/23/2024 03/23/2023 DTaP,Tdap,and Td Vaccines (3 - Td or Tdap) 02/06/2032 02/05/2022, 02/26/2011 Pneumococcal Vaccine: 65+ Years Completed 08/27/2018, 09/26/2016, 08/22/2014, Additional history exists Alpha-1 Antitrypsin Completed 05/13/2019 Zoster Vaccines Completed 10/17/2020, 05/09, 12/06/2013, Additional history exists LUNG CANCER SCREENING - USE SMARTSET [id number] Completed 06/06/2022, 03/20/2022, 03/18/2021, Additional history exists [...] this encounter Medical Devices Implanted Type Area Insurance Agency Manager Device Identifier Shelf Expiration Date Model / Serial / Lot Prox [employer]odesis Implant Syst - [id number] Implanted:Qty: 1 on 03/20/2021 by Harinder Hargrove DO at OR [facility] Left: Shoulder [employer] 03/06/2025 AR-2290 / / [id number] documented as of this encounter Visit Diagnoses Diagnosis Paroxysmal atrial fibrillation (HCC) Atrial fibrillation documented in this encounter Advance Directives Latest [...] the patient have Health Care Power of Pier Master? No Code Status History Code Status Date Activated Date Inactivated Comments Full Code 02/11/2021 1:07 PM 02/11/2021 7:36 PM This or josue reflects the patients wishes and were consensually agreed upon. Question Answer Comments Discussion of Advance Directives occurred with: Not Discussed Does the patient have a Living Will? Yes, not currently available Does the patient have Health Care Power of Pier Master? Yes, not currently available Care Teams Vision Care Associate Relationship Specialty Start Date End Date Sonja Condon DO [address] [place] [address] PCP - General Family Medicine 02/26/11 documented as of this encounter
--- OUTSIDE RECORDS SUMMARY | 2023-08-20 20:08 | External Medical Summary | Summary of Care ---
Author Name Unknown Organization [facility] Address [address] [place] [address] Phone [phone] Care Team Providers Care Medical Lab Director Name Role Phone Sonja Condon Carla Primary Care Provider Reason for Visit * Reason Comments Dosage Adjustment Via Phone (anticoag Cl inic) Hyperlipidemia Encounter Details Date Type Department Care Team (Late st Contact Info) Description 07/20/2023 1:10 PM EST Telemedicine Cardiology [facility] [address] [place], [place] [id number] [place] [address], Pharmacist Cardiology [facility] [address] [place] [address] Pure hypercholesterolemia *; 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 PER [facility] DC INSTRUCTIONS DATED 10/13/2017 0 10/13/19 18 [...] 22 Active Symbicort 160-4.5 MCG/ACT Inhalation Aerosol (budesonide-formoterol)I ndications:COPD, mild ([facility]) INHALE 2 PUFFS BY MOUTH TWICE A DAY 30.6 g 3 07/17/20 22 Active Apixaban 5 MG Oral Tablet (Eliquis)Indications:Par [...] MCG/ACT Inhalation Aerosol Powder Breath Activated (umeclidinium [place]) INHALE 1 PUFF BY MOUTH DAILY (USE [...] 23 Active Furosemide 20 MG Oral Tablet (Lasix)Indications:Parox ysmal atrial fibrillation (HCC) TAKE 1 TABLET BY MOUTH EVERY DAY 90 Tablet 3 05/13/20 23 Active Losartan Potassium 25 MG Oral Tablet (Cozaar)Indications:Paro xysmal atrial fibrillation (HCC) Take 1 Tablet by mouth in the morning. 90 Tablet 3 06/16/20 23 Active Alirocumab 75 MG/ML Subcutaneous Solution Auto-injectorIndications :Coronary artery disease involving ruby coronary artery of ruby heart without angina pectoris,Pure hypercholesterolemia Inject 75 mg under the skin every 14 days. 6 mL 3 07/20/20 23 Active Alirocumab 75 MG/ML Subcutaneous Solution Auto-injectorIndications :Coronary artery disease involving ruby coronary artery of ruby heart without angina pectoris,Pure hypercholesterolemia INJECT 75 MG (1 PEN) UNDER THE SKIN EVERY 14 DAYS 2 mL 11 08/21/20 22 023 Discontin ued(Refil l) documented as of this encounter (statuses as of 07/20/2023) Active Problems Problem Noted Date Diagnosed Date [...] 0 11/12/2017 Coronary artery disease invo lving ruby coronary artery of ruby heart without angina pectoris 09/30/2016 Hyperlipidemia 09/30/2016 Essential tremor 09/30/2016 Aortic valve sclerosis 08/27/2016 Actinic keratosis 02/14/2015 Other seborrheic keratosis 02/14/2015 Hypothyroidism Overview: thyroidectomy Generalized osteoarthritis Other cataract Overview: bilaterally Dr. Romero, [facility]. Chronic diastolic heart failure LVH (left ventricular hypertrophy) Overview: Concentric documented as of this encounter (statuses as of 07/20/2023) Resolved Problems Problem Noted Date Diagnosed Date Resolved Date Atrial fibrillation 04/15/2021 07/16/20 Pure hypercholesterolemia 09/08/2019 Acquired absence of other [...] as of this encounter (statuses as of 07/20/2023) Immunizations Name Administration Dates Next Due COVID-19 mRNA, LNP-s, No Pre serve, 2-Dose Series ([employer]) 07/22/2021 COVID-19, mRNA, LNP-s, PF, B ooster, [...] as of this encounter Progress Notes * Joshua Burk, PHARM Student - 07/20/2023 1:14 PM EST PCSK-9 Inhibitor Follow Up After connecting to the patient via telephone, the patient was identified by name and date of . Patient was then informed that this was a telephone call only visit. The patient agreed to participate Visit Disposition: Status check/routine follow up Duration: 4 minutes Primary System Software Programmer/Ordering Provider: Dr. Rossi HPI: Jasen Mccarty is a 78 year old year old male. History: Patient reports tolerating Praluent at current dose with no noted side effects. 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 angina pectoris I25.10 Hyperlipidemia E78.5 Essential tremor G25.0 Hypertension goal BP (blood pressure) < 140/80 I10 Tobacco abuse, 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 Chronic diastolic heart failure (HCC) I50.32 LVH (left ventricular hypertrophy) I51.7 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 Personal history of nicotine dependence Z87.891 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 Pleural effusion J90 Asbestos exposure Z77.090 Acquired absence of other right toe(s) ([facility]) Z89.421 S/P AV (atrioventricular) katya ablation Z98.890 Persistent atrial fibrillation ([facility]) I48.19 COPD, group C, by GOLD 2017 classification ([facility]) J44.9 Review of patient's allergies indicates: Allergen Reactions Atorvastatin Lisinopril Cough Sulfa Antibiotics Hives Zetia [Ezetimibe] LABS: Lab Results Component Value Date/Time LDL (CALCULATED)-OUTSIDE LAB 38 01/20/2023 12:00 AM LDL (CALCULATED)-OUTSIDE LAB 105 (A) 05/29/2020 12:00 AM LDL (CALCULATED)-OUTSIDE LAB 115 (A) 11/30/2018 12:00 AM LDL (DIRECT MEASURE)-OUTSIDE LAB 136.5 (A) 10/23/2013 12:00 AM LDL CHOLESTEROL (CALCULATED) - [facility] 38 11/03/2022 10:10 AM LDL CHOLESTEROL (CALCULATED) - [facility] 34 03/07/2021 04:03 PM LDL CHOLESTEROL (CALCULATED) - [facility] 55 11/16/2020 09:18 AM LDL CHOLESTEROL (CALCULATED) - [facility] 126 09/08/2019 10:06 AM LDL CHOLESTEROL (CALCULATED) - [facility] 118 08/23/2018 08:26 AM LDL CHOLESTEROL (CALCULATED) - [facility] 120 03/03/2017 08:04 AM LDL CHOLESTEROL (DIRECT MEASURE) - [facility] NOT APPLICABLE 09/08/2019 10:06 AM LDL CHOLESTEROL (DIRECT MEASURE) - [facility] NOT APPLICABLE 03/03/2017 08:04 AM ASSESSMENT There are no diagnoses linked to this encounter. Patient is on the following medication(s): Praluent 75 mg every 14 days PLAN OF ACTION Medication Regimen: CONTINUE Labs Needed: no Follow-Up Appointment(s): Pharmacist: Diandra Bain Physician: Dr. Flo Burk, PHARM Student [facility] Clinical Pharmacist Cardiology Department 07/20/2023,1:14 PM Electronically signed by Diandra Bain [facility], located [facility] at 07/20/2023 4:01 PM EST documented in this encounter Plan of Treatment Upcoming Encounters Date Type Department Care Team (Late st Contact Info) Description 07/24/2023 8:00 AM EST Office Visit Cardiology, [facility] [address] [place] [address] Virginia Valdez CRNP [address] [place] [address] 04/04/2024 10:00 AM EDT Cardiac Studies Cardiology, [facility] [address] [place] [address] [facility] [address] [place] [address] Scheduled Procedures Name Priority Associated Diagnoses Date/Ti [...] exists LUNG CANCER SCREENING - USE SMARTSET [id number] Completed 06/10/2023, 06/06/2022, 03/20/2022, Additional history exists GARDASIL-HPV IMMUNIZATION SERIES Aged Out No longer eligible based on patient's age to complete this topic MENINGOCOCCAL (MENACTRA/MENVEO) Aged Out No longer eligible based on patient's age to complete this topic documented as of this encounter Medical Devices Implanted Type Area Manager Sas Device Identifier Shelf Expiration Date Model / Serial / Lot Prox [employer] Implant Syst - [id number] Implanted:Qty: 1 on 03/20/2021 by Harinder Hargrove, at OR [facility] Left: Shoulder [employer] 03/06/2025 AR-2290 / / [id number] documented as of this encounter Visit Diagnoses Diagnosis Pure hypercholesterolemia- Primary Coronary artery disease involving ruby coronary artery 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 No Code Status History Code Status Date Activated Date Inactivated Comments Full Code 02/11/2021 1:07 PM 02/11/2021 7:36 PM This or josue reflects the patients wishes and were consensually agreed upon. Question Answer Comments Discussion of Advance Directives occurred with: Not Discussed Does the patient have a Living Will? Yes, not currently available Does the patient have Health Care Power of Upper Tier? Yes, not currently available Care Teams Medical Lab Director Relationship Specialty Start Date End Date Sonja Condon DO [address] [place] [address] PCP - General Family Medicine 02/26/11 documented as of this encounter
--- OUTSIDE RECORDS SUMMARY | 2023-08-20 20:08 | External Medical Summary | Summary of Care ---
Author Name Unknown Organization [facility] Address [address] [place] [address] Phone [phone] Care Team Providers Care Nuclear Weapons Custodian Name Role Phone Shashichristiano Sonja Aguirre DO Primary Care Provider Encounter Details Date Type Department Care Team Description 06/04/2023 [facility] [address] [address] Medication, [facility] Specialty Refill, [address] [address] Allergies Active Allergy Reactions Severity Noted Date Comments Atorvastatin 10/21/2016 Lisinopril Cough 08/12/2022 Sulfa Antibiotics Hives 02/26/2011 Ezetimibe 10/21/2016 documented as of this encounter (statuses as of 06/04/2023) Medications Medication Sig Dispensed Refills Start Date End Date Status Respiratory Therapy Supplies (NEBULIZER) DEMAR Use as directed. PER [facility] DC INSTRUCTIONS DATED 10/13/2017 0 8 Active [...] Subcutaneous Solution Auto-injectorIndications :Coronary artery disease involving [place] coronary artery of [place] heart without angina pectoris,Pure hypercholesterolemia INJECT 75 [...] MCG/ACT Inhalation Aerosol Powder Breath Activated (umeclidinium [place]) INHALE 1 PUFF BY MOUTH DAILY (USE [...] as of this encounter (statuses as of 06/04/2023) Active Problems Problem Noted Date COPD, group [...] 140/80 11/12/2017 Coronary artery disease invo lving [place] coronary artery of [place] heart without angina pectoris 09/30/2016 Hyperlipidemia 09/30/2016 Essential tremor 09/30/2016 Aortic valve sclerosis 08/27/2016 Actinic keratosis 02/14/2015 Other seborrheic keratosis 02/14/2015 Hypothyroidism Overview: thyroidectomy Generalized osteoarthritis Other cataract Overview: bilaterally [facility]. Chronic diastolic heart failure LVH (left ventricular hypertrophy) Overview: Concentric documented as of this encounter (statuses as of 06/04/2023) Resolved Problems Problem Noted Date Resolved Date [...] as of this encounter (statuses as of 06/04/2023) Immunizations Name Administration Dates Next Due COVID-19 mRNA, LNP-s, No Pre serve, 2-Dose Series ([employer]) 07/22/2021 COVID-19, mRNA, LNP-s, PF, B ooster, [...] as of this encounter Progress Notes * Arely Costa CPhT - 06/04/2023 10:57 AM EDT Prescribed medication: Medication: Praluent Shipment date: 06/05 Delivery method: Specialty Mail Location Medication Delivered too? Prescription Address: [address] [place] [phone] Arely Costa CPhT [facility] 06/04/2023,10:57 AM documented in this encounter Plan of Treatment Upcoming Encounters Date Type Specialty Care Team Description 06/10/2023 Imaging Radiology 07/24/2023 Office Visit Cardiology Virginia Valdez CRNP [address] [place] [address] 04/04/2024 Cardiac Studies Cardiology Tarun Martinez [facility] [address] [place] [address] Scheduled Procedures Name Priority Associated Diagnoses Date/Ti me COLONOSCOPY FLEXIBLE PROXIMA L DIAGNOSTIC Recall Screening for colon cancer Health Maintenance Due Date Last Done Comments Albumin/Creatinine Ratio 10/07/2014 10/07/2011 Depression Screening 10/25/2020 10/25/2019 COVID-19 Vaccine (2 - Pfizer [...] exists LUNG CANCER SCREENING - USE SMARTSET [id number] Completed 06/06/2022, 03/20/2022, 03/18/2021, Additional history exists [...] this encounter Medical Devices Implanted Type Area Music Writer Device Identifier Shelf Expiration Date Model / Serial / Lot Prox [employer] Implant Syst - [id number] Implanted:Qty: 1 on 03/20/2021 by Harinder Hargrove, DO at OR [facility] Left: Shoulder [employer] 03/06/2025 AR-2290 / / [id number] documented as of this encounter Advance Directives [...] the patient have Health Care Power of Smelting Engineer? No Code Status History Code Status Date Activated Date Inactivated Comments Full Code 02/11/2021 1:07 PM 02/11/2021 7:36 PM This or josue reflects the patients wishes and were consensually agreed upon. Question Answer Comments Discussion of Advance Directives occurred with: Not Discussed Does the patient have a Living Will? Yes, not currently available Does the patient have Health Care Power of Smelting Engineer? Yes, not currently available Care Teams Nuclear Weapons Custodian Relationship Specialty Start Date End Date Sonja Condon DO [address] [place] [address] PCP - General Family Medicine 02/26/11 documented as of this encounter
--- OUTSIDE RECORDS SUMMARY | 2023-08-20 20:08 | External Medical Summary | Summary of Care ---
Author Name Unknown Organization [facility] Address [address] [place] [address] Phone [phone] Care Team Providers Care Laborer Beam House Name Role Phone Isabella Condon DO Primary Care Provider Reason for Visit * Reason Comments eRx-Medication Refill Encounter Details Date Type Department Care Team (Late st Contact Info) Description 08/17/2023 Refill Family Practice [facility] [address] [facility] [place] [address] Isabella Condon DO [address] [facility] [place], [place] [id number] COPD, mild (HCC) Allergies Active Allergy Reactions Criticality Noted Date Comments Atorvastatin 10/21/2016 Lisinopril Cough 08/12/2022 Sulfa Antibiotics Hives 02/26/2011 Ezetimibe 10/21/2016 documented as of this encounter (statuses as of 08/18/2023) Medications Medication Sig Dispensed Refills Start Date End Date Status Respiratory Therapy Supplies (NEBULIZER) DEMAR Use as directed. PER [facility] DC INSTRUCTIONS DATED 10/13/2017 0 10/13/19 18 [...] by mouth in the morning. 0 Active Apixaban 5 MG Oral Tablet (Eliquis)Indications:Pa [...] MCG/ACT Inhalation Aerosol Powder Breath Activated (umeclidinium [place]) INHALE 1 PUFF BY MOUTH DAILY (USE IN PLACE OF SPIRIVA) 30 Each 5 11/26/19 23 Active Levothyroxine Sodium 125 MCG Oral [...] Subcutaneous Solution Auto-injectorIndication s:Coronary artery disease involving [place] coronary artery of [place] heart without angina pectoris,Pure hypercholesterolemia Inject 75 mg (1 pen) under the skin every 14 days. 6 mL 3 07/20/20 23 Active Symbicort 160-4.5 MCG/ACT Inhalation Aerosol (Budesonide-Formoterol) Indications:COPD, mild (HCC) TAKE 2 PUFFS BY MOUTH TWICE A DAY 30.6 g 1 08/18/20 23 Active Propranolol HCl ER 80 MG Oral Capsule Extended Release 24 Hour (Inderal [place]) TAKE 1 CAPSULE BY MOUTH EVERY DAY IN THE MORNING 90 Capsule 1 08/18/20 23 Active Symbicort 160-4.5 MCG/ACT Inhalation Aerosol (budesonide-formoterol) Indications:COPD, mild (HCC) INHALE 2 PUFFS BY MOUTH TWICE A DAY 30.6 g 3 07/17/20 22 2022 Discontinued Propranolol HCl ER 80 MG Oral Capsule Extended Release 24 Hour (Inderal LA) TAKE 1 CAPSULE BY MOUTH EVERY DAY IN THE MORNING 90 Capsule 1 01/01/20 23 2022 Discontinued documented as of this encounter (statuses as of 08/18/2023) Active Problems Problem Noted Date Diagnosed Date [...] 0 11/12/2017 Coronary artery disease invo lving [place] coronary artery of [place] heart without angina pectoris 09/30/2016 Hyperlipidemia 09/30/2016 Essential tremor 09/30/2016 Aortic valve sclerosis 08/27/2016 Actinic keratosis 02/14/2015 Other seborrheic keratosis 02/14/2015 Hypothyroidism Overview: thyroidectomy Generalized osteoarthritis Other cataract Overview: bilaterally [facility] Chronic diastolic heart failure LVH (left ventricular hypertrophy) Overview: Concentric documented as of this encounter (statuses as of 08/18/2023) Resolved Problems Problem Noted Date Diagnosed Date [...] as of this encounter (statuses as of 08/18/2023) Immunizations Name Administration Dates Next Due COVID-19 mRNA, LNP-s, No Pre serve, 2-Dose Series ([employer]) 07/22/2021 COVID-19, mRNA, LNP-s, PF, B ooster, 100mcg/0.5mg (Moderna) 12/24/2020,11/26/2020 Pneumococcal Conjugate Vacc, 13 Valent (Prevnar) 09/26/2016 Pneumococcal Polysaccharide PPV23 (Pneumovax) 08/27/2018,08/22/2014,02/26/2011 Seasonal Influenza Virus Vac cine, Unspecified Formulation 05/28/2021 Seasonal Influenza, PF, 6 M & above, IM , (FluLaval or Fluzone) 08/27/2018 Seasonal Influenza, Quadriva lent Hd (Fluzone [...] encounter Miscellaneous Notes * Telephone Encounter - Rachelle Mcneal, [facility] - 08/18/2023 12:58 PM EST Signed Prescriptions: Disp Refills Symbicort 160-4.5 MCG/ACT Inhalation Aeros*30.6 g 1 Sig: TAKE 2 PUFFS BY MOUTH TWICE A DAYAuthorizing Provider: ISABELLA CONDON User: RACHELLE MCNEAL Propranolol HCl ER 80 MG Oral Capsule Exte*90 Cap*1 Sig: TAKE 1 CAPSULE BY MOUTH EVERY DAY IN THE MORNINGAuthorizing Provider: ISABELLA CONDON User: RACHELLE MCNEAL documented in this encounter Plan of Treatment Upcoming Encounters Date Type Department Care Team (Late st Contact Info) Description 09/09/2023 7:30 AM EST Imaging Vascular Lab, [facility] 2nd Floor, [address] [place] [address] 01/22/2024 1:30 PM EDT Cardiac Studies Cardiac Studies, [address] [place] [address] 04/04/2024 10:00 AM EDT Cardiac Studies Cardiology, [address] [place] [address] [place] [address] [place] [address] Scheduled Procedures Name Priority Associated Diagnoses Date/Ti [...] exists LUNG CANCER SCREENING - USE SMARTSET 67377 Completed 06/10/2023, 06/06/2022, 03/20/2022, Additional history exists GARDASIL-HPV IMMUNIZATION SERIES Aged Out No longer eligible based on patient's age to complete this topic MENINGOCOCCAL (MENACTRA/MENVEO) Aged Out No longer eligible based on patient's age to complete this topic documented as of this encounter Medical Devices Implanted Type Area Commercial Lines Assistant Device Identifier Shelf Expiration Date Model / Serial / Lot Prox [employer] Implant Syst - [id number] Implanted:Qty: 1 on 03/20/2021 by Harinder Hargrove DO at OR [facility] Left: Shoulder [employer] 03/06/2025 AR-2290 / / [id number] documented as of this encounter Visit Diagnoses Diagnosis COPD, mild (HCC) Chronic airway obstruction, not elsewhere classified documented in this encounter Advance Directives Latest [...] the patient have Health Care Power of Medical Parasitologist? No Code Status History Code Status Date Activated Date Inactivated Comments Full Code 02/11/2021 1:07 PM 02/11/2021 7:36 PM This or josue reflects the patients wishes and were consensually agreed upon. Question Answer Comments Discussion of Advance Directives occurred with: Not Discussed Does the patient have a Living Will? Yes, not currently available Does the patient have Health Care Power of Medical Parasitologist? Yes, not currently available Care Teams Laborer Beam House Relationship Specialty Start Date End Date Isabella Condon DO [address] [place] [address] PCP - General Family Medicine 02/26/11 documented as of this encounter
--- OUTSIDE RECORDS SUMMARY | 2023-08-20 20:08 | External Medical Summary | Summary of Care ---
Author Name Unknown Organization [facility] Address [address] [place] [address] Phone [phone] Care Team Providers Care Armature Bander Name Role Phone Sonja Condon Carla HUMPHREY Primary Care Provider Reason for Visit * Reason Comments eRx-Medication Refill Encounter Details Date Type Department Care Team Description 06/13/2023 [address]iology, [facility] [address] [facility] [place] [address] Jose J Skelton DO [address] [facility] [place] [address] Paroxysmal atrial fibrillation (HCC)* Allergies Active Allergy Reactions Severity Noted Date Comments Atorvastatin 10/21/2016 Lisinopril Cough 08/12/2022 Sulfa Antibiotics Hives 02/26/2011 Ezetimibe 10/21/2016 documented as of this encounter (statuses as of 06/16/2023) Medications Medication Sig Dispensed Refills Start Date End Date Status Respiratory Therapy Supplies (NEBULIZER) DEMAR Use as directed. PER [facility] DC INSTRUCTIONS DATED 10/13/2017 0 8 Active [...] Subcutaneous Solution Auto-injectorIndications :Coronary artery disease involving [place] coronary artery of [place] heart without angina pectoris,Pure hypercholesterolemia INJECT 75 [...] MCG/ACT Inhalation Aerosol Powder Breath Activated (umeclidinium [place]) INHALE 1 PUFF BY MOUTH DAILY (USE [...] as of this encounter (statuses as of 06/16/2023) Active Problems Problem Noted Date COPD, group [...] 140/80 11/12/2017 Coronary artery disease invo lving [place] coronary artery of [place] heart without angina pectoris 09/30/2016 Hyperlipidemia 09/30/2016 Essential tremor 09/30/2016 Aortic valve sclerosis 08/27/2016 Actinic keratosis 02/14/2015 Other seborrheic keratosis 02/14/2015 Hypothyroidism Overview: thyroidectomy Generalized osteoarthritis Other cataract Overview: bilaterally Dr. Romero, [facility] Chronic diastolic heart failure LVH (left ventricular hypertrophy) Overview: Concentric documented as of this encounter (statuses as of 06/16/2023) Resolved Problems Problem Noted Date Resolved Date [...] as of this encounter (statuses as of 06/16/2023) Immunizations Name Administration Dates Next Due COVID-19 mRNA, LNP-s, No Pre serve, 2-Dose Series ([employer]) 07/22/2021 COVID-19, mRNA, LNP-s, PF, B ooster, [...] encounter Miscellaneous Notes * Telephone Encounter - Jose J Skelton DO - 06/16/2023 7:40 PM EDTSigned Prescriptions: Disp Refills Losartan Potassium 25 MG Oral Tablet (Coza*90 Tab*3 Sig: Take 1 Tablet by mouth in the morning. Authorizing Provider: JOSE J SKELTON Refused Prescriptions: Disp Refills Losartan Potassium 25 MG Oral Tablet (Coza*90 Tab*3 Sig: TAKE 1 TABLET BY MOUTH EVERY DAY IN THE MORNING Refused By: DALTON TINOCO for Refusal: Course of treatment complete * Telephone Encounter - Jose J Skelton DO - 06/15/2023 3:58 PM EDT Cardio nursing: can someone review this refill again? I am not sure if pt is taking losartan 25 mg daily, however note reflect that in August, he was transitioned off of lisinopril and on to the losartan. Jose J Skelton DO * Telephone Encounter - Dalton Tinoco RN - 06/15/2023 8:46 AM EDTRefused Prescriptions: Disp Refills Losartan Potassium 25 MG Oral Tablet (Coza*90 Tab*3 Sig: TAKE 1TABLET BY MOUTH EVERY DAY IN THE MORNINGRefused By: DALTON TINOCO for Refusal: Course of treatment complete documented in this encounter Plan of Treatment Upcoming Encounters Date Type Specialty Care Team Description 07/24/2023 Office Visit Cardiology Virginia Valdez CRNP [address] [place] [address] 04/04/2024 Cardiac Studies Cardiology [facility], Pacer [facility] [address] [place] [address] Scheduled Procedures Name Priority Associated Diagnoses Date/Ti [...] exists LUNG CANCER SCREENING - USE SMARTSET 99378 Completed 06/10/2023, 06/06/2022, 03/20/2022, Additional history exists [...] this encounter Medical Devices Implanted Type Area International Guest Coordinator Device Identifier Shelf Expiration Date Model / Serial / Lot Prox [employer] Implant Syst - [id number] Implanted:Qty: 1 on 03/20/2021 by Harinder Hargrove, at OR [facility] Left: Shoulder [employer] 03/06/2025 AR-2290 / / [id number] documented as of this encounter Visit Diagnoses Diagnosis Paroxysmal atrial fibrillation (HCC)- Primary Atrial fibrillation documented in this encounter Advance [...] the patient have Health Care Power of Restaurant Inspector? No Code Status History Code Status Date Activated Date Inactivated Comments Full Code 02/11/2021 1:07 PM 02/11/2021 7:36 PM This or josue reflects the patients wishes and were consensually agreed upon. Question Answer Comments Discussion of Advance Directives occurred with: Not Discussed Does the patient have a Living Will? Yes, not currently available Does the patient have Health Care Power of Restaurant Inspector? Yes, not currently available Care Teams Armature Bander Relationship Specialty Start Date End Date Sonja Condon DO [address] [place] [address] PCP - General Family Medicine 02/26/11 documented as of this encounter
--- OUTSIDE RECORDS SUMMARY | 2023-08-20 20:09 | External Medical Summary | Summary of Care ---
Author Name Unknown Organization [facility] Address [address] [place] [address] Phone [phone] Care Team Providers Care Bulwark Carpenter Name Role Phone Shashichristiano Sonja Aguirre DO Primary Care Provider Encounter Details Date Type Department Care Team Description 03/02/2023 Specialty Pharmacy [facility], [address] [address] Medication, [facility] Specialty Refill, [address] [address] Allergies Active Allergy Reactions Severity Noted Date Comments Atorvastatin 10/21/2016 Lisinopril Cough 08/12/2022 Sulfa Antibiotics Hives 02/26/2011 Ezetimibe 10/21/2016 documented as of this encounter (statuses as of 03/02/2023) Medications Medication Sig Dispensed Refills Start Date End Date Status Respiratory Therapy Supplies (NEBULIZER) DEMAR Use as directed. PER [facility] DC INSTRUCTIONS DATED 10/13/2017 0 [...] , group B, by GOLD 2017 classification ([facility]),COPD exacerbation ([facility]),Cough,LRTI (lower respiratory tract infection) Inhale via nebulizer 3 mL every 6 hours as needed for Cough, Shortness of Breath or Wheezing. 120 mL 3 2 Active Furosemide 20 MG Oral Tablet (Lasix)Indications:Parox ysmal atrial fibrillation ([facility]) TAKE 1 TABLET BY MOUTH EVERY DAY 90 Tablet 3 2 Active Symbicort 160-4.5 MCG/ACT Inhalation Aerosol (budesonide-formoterol)I ndications:COPD, mild ([facility]) INHALE 2 PUFFS BY MOUTH TWICE A DAY 30.6 g 3 2 Active Apixaban 5 MG Oral Tablet (Eliquis)Indications:Par oxysmal atrial fibrillation ([facility]) Take 1 Tablet by mouth in the morning and 1 Tablet before bedtime. 180 Tablet 0 3 Active Alirocumab 75 MG/ML Subcutaneous Solution Auto-injectorIndications :Coronary artery disease involving [place] coronary artery of [place] heart without angina pectoris,Pure hypercholesterolemia INJECT 75 MG (1 PEN) UNDER THE SKIN EVERY 14 DAYS 2 mL 11 2 08/21/20 23 Active Fexofenadine HCl 180 MG Oral Tablet (Laura)Indications:Tera al sinus congestion Take 1 Tablet by mouth daily as needed for Allergies (runny nose). 30 Tablet 11 3 Active Incruse Ellipta 62.5 MCG/ACT Inhalation Aerosol Powder Breath Activated (umeclidinium [place]) INHALE 1 PUFF BY MOUTH DAILY (USE IN PLACE OF SPIRIVA) 30 Each 5 3 Active Propranolol HCl ER 80 MG Oral Capsule Extended Release 24 Hour (Inderal [place]) TAKE 1 CAPSULE BY MOUTH EVERY DAY IN THE MORNING 90 Capsule 1 3 Active Levothyroxine Sodium 125 MCG Oral Capsule (Tirosint) Take 1 Capsule by mouth daily first thing in the morning. (at least 30 min prior to breakfast or other meds) 90 Capsule 1 3 Active documented as of this encounter (statuses as of 03/02/2023) Active Problems Problem Noted Date COPD, group [...] 140/80 11/12/2017 Coronary artery disease invo lving [place] coronary artery of [place] heart without angina pectoris 09/30/2016 Hyperlipidemia 09/30/2016 Essential tremor 09/30/2016 Aortic valve sclerosis 08/27/2016 Actinic keratosis 02/14/2015 Other seborrheic keratosis 02/14/2015 Hypothyroidism Overview: thyroidectomy Generalized osteoarthritis Other cataract Overview: bilaterally Dr. Romero, [facility]. Chronic diastolic heart failure LVH (left ventricular hypertrophy) Overview: Concentric documented as of this encounter (statuses as of 03/02/2023) Resolved Problems Problem Noted Date Resolved Date [...] as of this encounter (statuses as of 03/02/2023) Immunizations Name Administration Dates Next Due COVID-19 mRNA, LNP-s, No Pre serve, 2-Dose Series (Pfizer) 07/22/2021 Covid-19 Mrna, Lnp-s, No Pre serve, Booster (Moderna) 12/24/2020,11/26/2020 Pneumococcal Conjugate Vacc, 13 Valent (Prevnar) 09/26/2016 Pneumococcal Polysaccharide PPV23 (Pneumovax) 08/27/2018,08/22/2014,02/26/2011 Seasonal Influenza Virus Vac cine, Unspecified Formulation 05/28/2021 Seasonal Influenza, Quadriva lent Hd (Fluzone Hd) 07/02/2022,05/28/2021 Seasonal Influenza, Quadriva lent Hd, 65+ Yrs 06/21/2020 Seasonal Influenza, Quadriva lent, No Preserve, 6 Mons & Above, IM 08/27/2018 Seasonal Influenza, Trivalen t, Adjuvanted, 65+ yrs [...] Progress Notes * Jocelynn Sim CPhT - 03/02/2023 2:46 PM EDT Prescribed medication: Medication: Praluent Shipment date: 03/04 Delivery method: Specialty Mail Location Medication Delivered too? Prescription Address: [address] [place] [address] Jocelynn Sim CPhT [facility] 03/02/2023,2:46 PM documented in this encounter Plan of Treatment Upcoming Encounters Date Type Specialty Care Team Description 03/23/2023 Hospital Encounter Endoscopy Virginia Winkler DO [address] [place] [address] 03/23/2023 Surgery Endoscopy Virginia Winkler DO [address] [place] [address] COLONOSCOPY FLEXIBLE PROXIMAL DIAGNOSTIC 04/02/2023 Cardiac Studies Cardiology Tarun Martinez [facility] [address] [place] [address] 06/03/2023 Office Visit Cardiology Tab Rossi DO [address] [place] [address] Scheduled Procedures Name Priority Associated Diagnoses Date/Ti me COLONOSCOPY FLEXIBLE PROXIMAL DIAGNOSTIC Rectal bleeding 03/23/2023 8:00 AM EDT COLONOSCOPY FLEXIBLE PROXIMAL DIAGNOSTIC Recall Screening for colon cancer Health Maintenance Due Date Last Done Comments Albumin/Creatinine Ratio 10/07/2014 10/07/2011 Depression Screening, Annual for Pts 12 and Over 10/25/2020 10/25/2019 COVID-19 Vaccine (2 - Pfizer series) 09/16/2021 07/22/2021, 12/24/2020, 11/26/2020 *ADVANCE DIRECTIVE NOT ON FILE 10/26/2021 GFR 01/21/2024 01/20/2023, 03/2022, 01/21/2022, Additional history exists TSH 01/21/2024 01/20/2023, 02/07, 01/21/2022, Additional history exists O2 ASSESSMENT COMPLETED IN PAST YEAR FOR COPD 02/27/2024 02/26/2023 DTaP,Tdap,and Td Vaccines (3 - Td or Tdap) 02/06/2032 02/05/2022, 02/26/2011 Pneumococcal Vaccine: 65+ Years Completed 08/27/2018, 09/26/2016, 08/22/2014, Additional history exists Alpha-1 Antitrypsin Completed 05/13/2019 Zoster Vaccines Completed 10/17/2020, 05/09, 12/06/2013, Additional history exists LUNG CANCER SCREENING - USE SMARTSET 60098 Completed 06/06/2022, 03/20/2022, 03/18/2021, Additional history exists Influenza Vaccine (FLU shot) Completed , 05/28/2021, 05/28/2021, Additional history exists GARDASIL-HPV IMMUNIZATION SERIES Aged Out No longer eligible based on patient's age to complete this topic Hepatitis B Aged Out No longer eligi ble based on patient's age to complete this topic MENINGOCOCCAL (MENACTRA/MENVEO) Aged Out No longer eligible based on patient's age to complete this topic documented as of this encounter Medical Devices Implanted Type Area Biologist Aide Device Identifier Shelf Expiration Date Model / Serial / Lot Prox [employer] Implant Syst - [id number] Implanted:Qty: 1 on 03/20/2021 by Harinder Hargrove DO at OR [facility] Left: Shoulder [employer] 03/06/2025 AR-2290 / / [id number] documented as of this encounter Advance Directives [...] the patient have Health Care Power of Communication Engineer? No Code Status History Code Status Date Activated Date Inactivated Comments Full Code 02/11/2021 1:07 PM 02/11/2021 7:36 PM This or josue reflects the patients wishes and were consensually agreed upon. Question Answer Comments Discussion of Advance Directives occurred with: Not Discussed Does the patient have a Living Will? Yes, not currently available Does the patient have Health Care Power of Communication Engineer? Yes, not currently available Care Teams Bulwark Carpenter Relationship Specialty Start Date End Date Sonja Condon DO [address] [place] [address] PCP - General Family Medicine 02/26/11 documented as of this encounter
--- OUTSIDE RECORDS SUMMARY | 2023-08-20 20:09 | External Medical Summary | Summary of Care ---
Author Name Unknown Organization [facility] Address [address] [place] [address] Phone [phone] Care Team Providers Care Cell Changer Name Role Phone Sonja Condon DO Primary Care Provider Encounter Details Date Type Department Care Team Description 03/12/2023 Telephone Family Practice [facility] [address] [facility] [place] [address] Sonja Condon DO 200 [place] [address] Allergies Active Allergy Reactions Severity Noted Date Comments Atorvastatin 10/21/2016 Lisinopril Cough 08/12/2022 Sulfa Antibiotics Hives 02/26/2011 Ezetimibe 10/21/2016 documented as of this encounter (statuses as of 03/13/2023) Medications Medication Sig Dispensed Refills Start Date End Date Status Respiratory Therapy Supplies (NEBULIZER) DEMAR Use as directed. PER [facility] DC INSTRUCTIONS DATED 10/13/2017 0 10/13/19 [...] Wheezing. 120 mL 3 03/06/20 22 Active Furosemide 20 MG Oral Tablet (Lasix)Indications:Parox ysmal atrial fibrillation ([facility]) TAKE 1 TABLET BY MOUTH EVERY DAY 90 Tablet 3 04/16/20 22 Active Symbicort 160-4.5 MCG/ACT Inhalation Aerosol (budesonide-formoterol)I ndications:COPD, mild ([facility]) INHALE 2 PUFFS BY MOUTH TWICE A DAY 30.6 g 3 07/17/20 22 Active Apixaban 5 MG Oral Tablet (Eliquis)Indications:Par oxysmal atrial fibrillation ([facility]) Take 1 Tablet by mouth in the morning and 1 Tablet before bedtime. 180 Tablet 0 10/17/19 23 Active Alirocumab 75 MG/ML Subcutaneous Solution Auto-injectorIndications :Coronary artery disease involving [place] coronary artery of [place] heart without angina pectoris,Pure hypercholesterolemia INJECT 75 MG (1 PEN) UNDER THE SKIN EVERY 14 DAYS 2 mL 08/21/20 22 023 Active Fexofenadine HCl 180 MG Oral Tablet (Laura)Indications:Tera al sinus congestion Take 1 Tablet by mouth daily as needed for Allergies (runny nose). 30 Tablet 11 11/18/19 23 Active Incruse Ellipta 62.5 MCG/ACT Inhalation Aerosol Powder Breath Activated (umeclidinium [place]) INHALE 1 PUFF BY MOUTH DAILY (USE [...] meds). 30 Tablet 11 03/12/20 23 Active Levothyroxine Sodium 125 MCG Oral Capsule (Tirosint) Take 1 Capsule by mouth daily first thing in the morning. (at least 30 min prior to breakfast or other meds) 90 Capsule 1 02/28/20 23 023 Discontin ued(Medic ation/Dos e Changed) documented as of this encounter (statuses as of 03/13/2023) Active Problems Problem Noted Date COPD, group [...] 140/80 11/12/2017 Coronary artery disease invo lving [place] coronary artery of [place] heart without angina pectoris 09/30/2016 Hyperlipidemia 09/30/2016 Essential tremor 09/30/2016 Aortic valve sclerosis 08/27/2016 Actinic keratosis 02/14/2015 Other seborrheic keratosis 02/14/2015 Hypothyroidism Overview: thyroidectomy Generalized osteoarthritis Other cataract Overview: bilaterally [facility] Chronic diastolic heart failure LVH (left ventricular hypertrophy) Overview: Concentric documented as of this encounter (statuses as of 03/13/2023) Resolved Problems Problem Noted Date Resolved Date [...] as of this encounter (statuses as of 03/13/2023) Immunizations Name Administration Dates Next Due COVID-19 mRNA, LNP-s, No Pre serve, 2-Dose Series ([employer]) 07/22/2021 Covid-19 Mrna, Lnp-s, No Pre serve, [...] Telephone Encounter - Sonja Condon DO - 03/12/2023 4:48 PM EDT I ordered tablet, [facility] pharmacy (tablets generally covered, capsules not generally covered) youprobably already know this and hit the wrong one like I have done a dozen times :) Thanks for all you do I appreciate it! * Telephone Encounter - Kj Hernandes music ministries director - 03/12/2023 12:54 PM EDT Patient called in and stated that his insurance will not cover the Levothyroxine Sodium 125 MCG Oral Capsule (Tirosint) patient stated his insurance will cover the tablets. If agreeable please send new script for the tablets to [id number] [place] [address] [place] [address] Thank you, Kj Hernandes Dermatology Specialist [facility] 03/12/2023, 12:55 PM documented in this encounter Plan of Treatment Upcoming Encounters Date Type Specialty Care Team Description 03/23/2023 Hospital Encounter Endoscopy Virginia Winkler, [address] [place] [address] 03/23/2023 Surgery Endoscopy Virginia Winkler DO [address] [place] [address] COLONOSCOPY FLEXIBLE PROXIMAL DIAGNOSTIC 04/02/2023 [facility]iac Studies [facility] [address] [place] [address] 06/03/2023 Office Visit Cardiology Tab Rossi, [address] [place] [address] Scheduled Procedures Name Priority Associated Diagnoses Date/Ti [...] 01/21/2024 01/20/2023, 03/2022, 01/21/2022, Additional history exists O2 ASSESSMENT COMPLETED IN PAST YEAR FOR COPD 02/27/2024 02/26/2023 TSH 03/04/2024 03/04/2023, 01/05, 03/06/2022, Additional history exists DTaP,Tdap,and Td Vaccines (3 - Td or Tdap) 02/06/2032 02/05/2022, 02/26/2011 Pneumococcal Vaccine: 65+ Years Completed 08/27/2018, 09/26/2016, 08/22/2014, Additional history exists Alpha-1 Antitrypsin Completed 05/13/2019 Zoster Vaccines Completed 10/17/2020, 05/09, 12/06/2013, Additional history exists LUNG CANCER SCREENING - USE SMARTSET [id number] Completed 06/06/2022, 03/20/2022, 03/18/2021, Additional history exists [...] this encounter Medical Devices Implanted Type Area Meat Specialist Device Identifier Shelf Expiration Date Model / Serial / Lot Prox Tenodesis Implant Syst - [id number] Implanted:Qty: 1 on 03/20/2021 by Harinder Hargrove DO at OR [facility] Left: Shoulder [employer] 03/06/2025 AR-2290 / / [id number] documented as of this encounter Advance Directives [...] the patient have Health Care Power of Environmental Scientists? No Code Status History Code Status Date Activated Date Inactivated Comments Full Code 02/11/2021 1:07 PM 02/11/2021 7:36 PM This or josue reflects the patients wishes and were consensually agreed upon. Question Answer Comments Discussion of Advance Directives occurred with: Not Discussed Does the patient have a Living Will? Yes, not currently available Does the patient have Health Care Power of Environmental Scientists? Yes, not currently available Care Teams Cell Changer Relationship Specialty Start Date End Date Sonja Condon DO [address] [place] [address] PCP - General Family Medicine 02/26/11 documented as of this encounter
--- OUTSIDE RECORDS SUMMARY | 2023-08-20 20:09 | External Medical Summary | Summary of Care ---
Author Name Unknown Organization [facility] Address [address] [place] [address] Phone [phone] Care Team Providers Care Otolaryngology Surgeon Name Role Phone Shashichristiano Sonja Aguirre DO Primary Care Provider Encounter Details Date Type Department Care Team Description 03/31/2023 [facility]ty [facility], [address] [address] Medication, [facility] Specialty Refill, [address] [address] Allergies Active Allergy Reactions Severity Noted Date Comments Atorvastatin 10/21/2016 Lisinopril Cough 08/12/2022 Sulfa Antibiotics Hives 02/26/2011 Ezetimibe 10/21/2016 documented as of this encounter (statuses as of 03/31/2023) Medications Medication Sig Dispensed Refills Start Date End Date Status Respiratory Therapy Supplies (NEBULIZER) DEMAR Use as directed. PER [facility] DC INSTRUCTIONS DATED 10/13/2017 0 8 Active [...] , group B, by GOLD 2017 classification ([facility]),COPD exacerbation ([facility]),Cough,LRTI (lower respiratory tract infection) Inhale via nebulizer 3 mL every 6 hours as needed for Cough, Shortness of Breath or Wheezing. 120 mL 3 2 Active Furosemide 20 MG Oral Tablet (Lasix)Indications:Parox ysmal atrial fibrillation ([facility]) TAKE 1 TABLET BY MOUTH EVERY DAY 90 Tablet 3 2 Active Symbicort 160-4.5 MCG/ACT Inhalation Aerosol (budesonide-formoterol)I ndications:COPD, mild ([facility]) INHALE 2 PUFFS BY MOUTH TWICE A DAY 30.6 g 3 2 Active Apixaban 5 MG Oral Tablet (Eliquis)Indications:Par oxysmal atrial fibrillation ([facility]) Take 1 Tablet by mouth in the morning and 1 Tablet before bedtime. 180 Tablet 0 3 Active Alirocumab 75 MG/ML Subcutaneous Solution Auto-injectorIndications :Coronary artery disease involving [place] coronary artery of [place] heart without angina pectoris,Pure hypercholesterolemia INJECT 75 [...] MCG/ACT Inhalation Aerosol Powder Breath Activated (umeclidinium [place]) INHALE 1 PUFF BY MOUTH DAILY (USE [...] as of this encounter (statuses as of 03/31/2023) Active Problems Problem Noted Date COPD, group [...] 140/80 11/12/2017 Coronary artery disease invo lving [place] coronary artery of [place] heart without angina pectoris 09/30/2016 Hyperlipidemia 09/30/2016 Essential tremor 09/30/2016 Aortic valve sclerosis 08/27/2016 Actinic keratosis 02/14/2015 Other seborrheic keratosis 02/14/2015 Hypothyroidism Overview: thyroidectomy Generalized osteoarthritis Other cataract Overview: bilaterally [facility] Chronic diastolic heart failure LVH (left ventricular hypertrophy) Overview: Concentric documented as of this encounter (statuses as of 03/31/2023) Resolved Problems Problem Noted Date Resolved Date [...] as of this encounter (statuses as of 03/31/2023) Immunizations Name Administration Dates Next Due COVID-19 [...] and older)(Adacel) 02/26/2011 Varicella Zoster Vaccine (Adult) 12/06/2013,12/1 02/2013 Zoster Vaccine Recombinant (Shingrix) 10/17/2020 ,06/05/2020 documented [...] Progress Notes * Jocelynn Sim CPhT - 03/31/2023 10:12 AM EDT Prescribed medication: Medication: Praluent Shipment date: 04/07 Delivery method: Specialty Mail Location Medication Delivered too? Prescription Address: [address] [place] [address] Jocelynn Sim CPhT [facility] 03/31/2023,10:12 AM documented in this encounter Plan of Treatment Upcoming Encounters Date Type Specialty Care Team Description 04/02/2023 Cardiac Studies Cardiology [facility] [address] [place] [address] 06/03/2023 Office Visit Cardiology Tab Rossi DO [address] [place] [address] Scheduled Procedures Name Priority Associated Diagnoses Date/Ti [...] exists LUNG CANCER SCREENING - USE SMARTSET [id number] Completed 06/06/2022, 03/20/2022, 03/18/2021, Additional history exists [...] this encounter Medical Devices Implanted Type Area Business Support Professional Device Identifier Shelf Expiration Date Model / Serial / Lot Prox Tenodesis Implant Syst - [id number] Implanted:Qty: 1 on 03/20/2021 by Harinder Hargrove, at OR [facility] Left: Shoulder [employer] 03/06/2025 AR-2290 / / [id number] documented as of this encounter Advance Directives [...] the patient have Health Care Power of Middle School Humanities Teacher? No Code Status History Code Status Date Activated Date Inactivated Comments Full Code 02/11/2021 1:07 PM 02/11/2021 7:36 PM This or josue reflects the patients wishes and were consensually agreed upon. Question Answer Comments Discussion of Advance Directives occurred with: Not Discussed Does the patient have a Living Will? Yes, not currently available Does the patient have Health Care Power of Middle School Humanities Teacher? Yes, not currently available Care Teams Otolaryngology Surgeon Relationship Specialty Start Date End Date Sonja Condon DO [address] [place] [address] PCP - General Family Medicine 02/26/11 documented as of this encounter
--- OUTSIDE RECORDS SUMMARY | 2023-08-20 20:09 | External Medical Summary | Summary of Care ---
Author Name Unknown Organization [facility] Address [address] [place] [address] Phone [phone] Care Team Providers Care Viscose Cellar Worker Name Role Phone Shashichristiano Sonja Aguirre DO Primary Care Provider Reason for Visit * Reason Comments Pacemaker Clinic Encounter Details Date Type Department Care Team Description 04/02/2023 Cardiac Studies Cardiology, [facility] [address] [place] [address] [place], Pacer Clinic [facility] [address] [place] [address] Tachy-tomas syndrome (HCC)*; Persistent atrial fibrillation (HCC); Cardiac pacemaker in situ Allergies Active Allergy Reactions Severity Noted Date Comments Atorvastatin 10/21/2016 Lisinopril Cough 08/12/2022 Sulfa Antibiotics Hives 02/26/2011 Ezetimibe 10/21/2016 documented as of this encounter (statuses as of 04/02/2023) Medications Medication Sig Dispensed Refills Start Date End Date Status Respiratory Therapy Supplies (NEBULIZER) DEMAR Use as directed. PER [facility] DC INSTRUCTIONS DATED 10/13/2017 0 8 Active [...] Subcutaneous Solution Auto-injectorIndications :Coronary artery disease involving [place] coronary artery of [place] heart without angina pectoris,Pure hypercholesterolemia INJECT 75 [...] MCG/ACT Inhalation Aerosol Powder Breath Activated (umeclidinium [place]) INHALE 1 PUFF BY MOUTH DAILY (USE [...] as of this encounter (statuses as of 04/02/2023) Active Problems Problem Noted Date COPD, group [...] 140/80 11/12/2017 Coronary artery disease invo lving [place] coronary artery of [place] heart without angina pectoris 09/30/2016 Hyperlipidemia 09/30/2016 Essential tremor 09/30/2016 Aortic valve sclerosis 08/27/2016 Actinic keratosis 02/14/2015 Other seborrheic keratosis 02/14/2015 Hypothyroidism Overview: thyroidectomy Generalized osteoarthritis Other cataract Overview: bilaterally [facility] Chronic diastolic heart failure LVH (left ventricular hypertrophy) Overview: Concentric documented as of this encounter (statuses as of 04/02/2023) Resolved Problems Problem Noted Date Resolved Date [...] as of this encounter (statuses as of 04/02/2023) Immunizations Name Administration Dates Next Due COVID-19 mRNA, LNP-s, No Pre serve, 2-Dose Series ([email or web address]) 07/22/2021 Covid-19 Mrna, Lnp-s, No Pre serve, [...] as of this encounter Progress Notes * MCKENZIE Cho - 04/02/2023 9:21 AM EDT In office device check performed. Providers see scanned report in scans tab. Return in 1 year for an DC visit. Auto remotes in [facility] every 91 days. (Next remote 06/12/23) Tech: Yaya Palomares III Acid Remover: Dr. Rossi documented in this encounter Plan of Treatment Upcoming Encounters Date Type Specialty Care Team Description 06/03/2023 Office Visit Cardiology Tab Rossi DO [address] [place] [address] 04/04/2024 Cardiac Studies Cardiology [place], Pacer Clinic [facility] [address] [place] [address] Scheduled Orders Name Type Priority Associated Diagnoses Orde r Schedule DUAL-LEAD PACEMAKER + REPROGRAM Procedures Routine Tachy-tomas syndrome (HCC) Persistent atrial fibrillation (HCC) Cardiac pacemaker in situ Ordered: 04/02/2023 Scheduled Procedures Name Priority Associated Diagnoses Date/Ti [...] exists LUNG CANCER SCREENING - USE SMARTSET [id number] Completed 06/06/2022, 03/20/2022, 03/18/2021, Additional history exists [...] this encounter Medical Devices Implanted Type Area Camera Repairer Device Identifier Shelf Expiration Date Model / Serial / Lot Prox Tenodesis Implant Syst - [id number] Implanted:Qty: 1 on 03/20/2021 by Harinder Hargrove, at OR [facility] Left: Shoulder [employer] 03/06/2025 AR-2290 / / [id number] documented as of this encounter Visit Diagnoses Diagnosis Tachy-tomas syndrome (HCC)- Primary Sinoatrial node dysfunction Persistent atrial fibrillation (HCC) Atrial fibrillation Cardiac pacemaker in situ documented in this encounter Advance Directives Latest [...] the patient have Health Care Power of Face Boss? No Code Status History Code Status Date Activated Date Inactivated Comments Full Code 02/11/2021 1:07 PM 02/11/2021 7:36 PM This or josue reflects the patients wishes and were consensually agreed upon. Question Answer Comments Discussion of Advance Directives occurred with: Not Discussed Does the patient have a Living Will? Yes, not currently available Does the patient have Health Care Power of Face Boss? Yes, not currently available Care Teams Viscose Cellar Worker Relationship Specialty Start Date End Date Sonja Condon DO [address] [facility] [place] [address] PCP - General Family Medicine 02/26/11 documented as of this encounter
--- OUTSIDE RECORDS SUMMARY | 2023-08-20 20:09 | External Medical Summary | Summary of Care ---
Author Name Unknown Organization [facility] Address [address] [place] [address] Phone [phone] Care Team Providers Care Media Librarian Name Role Phone Shashichristiano Sonja Aguirre DO Primary Care Provider Reason for Visit * Reason Comments Pacemaker Clinic Encounter Details Date Type Department Care Team Description 04/02/2023 Cardiac Studies Cardiology, [facility] [address] [place] [address] [place], Pacer Clinic [facility] [address] [place] [address] Tachy-tomas syndrome (HCC)*; Persistent atrial fibrillation (HCC); Cardiac pacemaker in situ Allergies Active Allergy Reactions Severity Noted Date Comments Atorvastatin 10/21/2016 Lisinopril Cough 08/12/2022 Sulfa Antibiotics Hives 02/26/2011 Ezetimibe 10/21/2016 documented as of this encounter (statuses as of 04/02/2023) Medications Medication Sig Dispensed Refills Start Date End Date Status Respiratory Therapy Supplies (NEBULIZER) DEMAR Use as directed. PER [facility] DC INSTRUCTIONS DATED 10/13/2017 0 [...] Subcutaneous Solution Auto-injectorIndications :Coronary artery disease involving [place] coronary artery of [place] heart without angina pectoris,Pure hypercholesterolemia INJECT 75 [...] MCG/ACT Inhalation Aerosol Powder Breath Activated (umeclidinium [place]) INHALE 1 PUFF BY MOUTH DAILY (USE [...] 140/80 11/12/2017 Coronary artery disease invo lving [place] coronary artery of [place] heart without angina pectoris 09/30/2016 Hyperlipidemia 09/30/2016 Essential tremor 09/30/2016 Aortic valve sclerosis 08/27/2016 Actinic keratosis 02/14/2015 Other seborrheic keratosis 02/14/2015 Hypothyroidism Overview: thyroidectomy Generalized osteoarthritis Other cataract Overview: bilaterally [facility] Chronic diastolic heart failure LVH [...] mRNA, LNP-s, No Pre serve, 2-Dose Series ([employer]) 07/22/2021 Covid-19 Mrna, Lnp-s, No Pre serve, [...] for an DC visit. [place] [facility] [place]. (Next remote 06/12/23) Tech: Yaya Palomares III Sergeant Of Officers: Dr. Rossi documented in this encounter Plan of Treatment Upcoming Encounters Date Type Specialty Care Team Description 06/03/2023 Office Visit Cardiology Tab Rossi, DO [address] [place] [address] Scheduled Orders Name Type Priority Associated Diagnoses [...] exists LUNG CANCER SCREENING - USE SMARTSET [id number] Completed 06/06/2022, 03/20/2022, 03/18/2021, Additional history exists [...] this encounter Medical Devices Implanted Type Area Xerox Machine Assembler Device Identifier Shelf Expiration Date Model / Serial / Lot Prox Tenodesis Implant Syst - [id number] Implanted:Qty: 1 on 03/20/2021 by Harinder Hargrove, at OR [facility] Left: Shoulder [employer] 03/06/2025 AR-2290 / / [id number] documented as of this encounter Visit Diagnoses [...] the patient have Health Care Power of Invoicing Machine Operator? No Code Status History Code Status Date Activated Date Inactivated Comments Full Code 02/11/2021 1:07 PM 02/11/2021 7:36 PM This or josue reflects the patients wishes and were consensually agreed upon. Question Answer Comments Discussion of Advance Directives occurred with: Not Discussed Does the patient have a Living Will? Yes, not currently available Does the patient have Health Care Power of Invoicing Machine Operator? Yes, not currently available Care Teams Media Librarian Relationship Specialty Start Date End Date Sonja Condon DO [address] [place] [address] PCP - General Family Medicine 02/26/11 documented as of this encounter
--- OUTSIDE RECORDS SUMMARY | 2023-08-20 20:09 | External Medical Summary | Summary of Care ---
Author Name Unknown Organization [facility] Address [address] [place] [address] Phone [phone] Care Team Providers Care Painter Assistant Name Role Phone ShashiSonja alvarado Carla Primary Care Provider Encounter Details Date Type Department Care Team Description 03/28/2023 Result Scan Unspecified Department Tab Rossi DO [address] [place], [place] [id number] <No scans attached> Allergies Active Allergy Reactions Severity Noted Date Comments Atorvastatin 10/21/2016 Lisinopril Cough 08/12/2022 Sulfa Antibiotics Hives 02/26/2011 Ezetimibe 10/21/2016 documented as of this encounter (statuses as of 03/28/2023) Medications Medication Sig Dispensed Refills Start Date End Date Status Respiratory Therapy Supplies (NEBULIZER) DEMAR Use as directed. PER [facility] DC INSTRUCTIONS DATED 10/13/2017 0 [...] Subcutaneous Solution Auto-injectorIndications :Coronary artery disease involving [place] coronary artery of [place] heart without angina pectoris,Pure hypercholesterolemia INJECT 75 [...] MCG/ACT Inhalation Aerosol Powder Breath Activated (umeclidinium [place]) INHALE 1 PUFF BY MOUTH DAILY (USE [...] as of this encounter (statuses as of 03/28/2023) Active Problems Problem Noted Date COPD, group [...] 140/80 11/12/2017 Coronary artery disease invo lving [place] coronary artery of [place] heart without angina pectoris 09/30/2016 Hyperlipidemia 09/30/2016 Essential tremor 09/30/2016 Aortic valve sclerosis 08/27/2016 Actinic keratosis 02/14/2015 Other seborrheic keratosis 02/14/2015 Hypothyroidism Overview: thyroidectomy Generalized osteoarthritis Other cataract Overview: bilaterally [facility] Chronic diastolic heart failure LVH (left ventricular hypertrophy) Overview: Concentric documented as of this encounter (statuses as of 03/28/2023) Resolved Problems Problem Noted Date Resolved Date [...] as of this encounter (statuses as of 03/28/2023) Immunizations Name Administration Dates Next Due COVID-19 [...] Description 04/02/2023 Cardiac Studies Cardiology [facility] [address] [place] [address] 06/03/2023 Office Visit Cardiology Tab Rossi DO [address] [place] [address] Scheduled Procedures Name Priority Associated Diagnoses Date/Ti [...] exists LUNG CANCER SCREENING - USE SMARTSET [id number] Completed 06/06/2022, 03/20/2022, 03/18/2021, Additional history exists [...] this encounter Medical Devices Implanted Type Area Repairer Cylinder Heads Device Identifier Shelf Expiration Date Model / Serial / Lot Prox [employer]is Implant Syst - [id number] Implanted:Qty: 1 on 03/20/2021 by Harinder Hargrove, at OR [facility] Left: Shoulder [employer] 03/06/2025 AR-2290 / / [id number] documented as of this encounter Procedures Procedure Name Priority Date/Time Associated Diagnosis Comments CARDIOLOGY SCANNED RESULT 03/28/2023 documented in this encounter Results * CARDIOLOGY SCANNED RESULT (03/28/2023) 03/28/2023 Tab Rossi DO OTHER documented in this [...] the patient have Health Care Power of Microcomputer Support Specialist? No Code Status History Code Status Date Activated Date Inactivated Comments Full Code 02/11/2021 1:07 PM 02/11/2021 7:36 PM This or josue reflects the patients wishes and were consensually agreed upon. Question Answer Comments Discussion of Advance Directives occurred with: Not Discussed Does the patient have a Living Will? Yes, not currently available Does the patient have Health Care Power of Microcomputer Support Specialist? Yes, not currently available Care Teams Painter Assistant Relationship Specialty Start Date End Date Sonja Condon DO [address] [place] [address] PCP - General Family Medicine 02/26/11 documented as of this encounter
--- OUTSIDE RECORDS SUMMARY | 2023-08-20 20:09 | External Medical Summary | Summary of Care ---
Author Name Unknown Organization [facility] Address [address] [place] [address] Phone [phone] Care Team Providers Care Lead Scientist Name Role Phone Shashichristiano Sonja Aguirre DO Primary Care Provider Reason for Visit * Reason Comments Pacemaker Clinic Encounter Details Date Type Department Care Team Description 04/02/2023 Cardiac Studies Cardiology, [facility] [address] [place] [address] [place], Pacer Clinic [facility] [address] [place] [address] Tachy-tomas syndrome (HCC)*; Persistent atrial fibrillation (HCC); Cardiac pacemaker in situ Allergies Active Allergy Reactions Severity Noted Date Comments Atorvastatin 10/21/2016 Lisinopril Cough 08/12/2022 Sulfa Antibiotics Hives 02/26/2011 Ezetimibe 10/21/2016 documented as of this encounter (statuses as of 04/02/2023) Medications Medication Sig Dispensed Refills Start Date End Date Status Respiratory Therapy Supplies (NEBULIZER) DEMAR Use as directed. PER [facility] DC INSTRUCTIONS DATED 10/13/2017 0 8 [...] Subcutaneous Solution Auto-injectorIndications :Coronary artery disease involving [place] coronary artery of [place] heart without angina pectoris,Pure hypercholesterolemia INJECT 75 [...] MCG/ACT Inhalation Aerosol Powder Breath Activated (umeclidinium [place]) INHALE 1 PUFF BY MOUTH DAILY (USE [...] 140/80 11/12/2017 Coronary artery disease invo lving [place] coronary artery of [place] heart without angina pectoris 09/30/2016 Hyperlipidemia 09/30/2016 Essential tremor 09/30/2016 Aortic valve sclerosis 08/27/2016 Actinic keratosis 02/14/2015 Other seborrheic keratosis 02/14/2015 Hypothyroidism Overview: thyroidectomy Generalized osteoarthritis Other cataract Overview: bilaterally Dr. [facility]ero [facility] Chronic diastolic heart failure LVH [...] mRNA, LNP-s, No Pre serve, 2-Dose Series ([email or web address]) 07/22/2021 Covid-19 Mrna, Lnp-s, No Pre serve, [...] for an DC visit. Auto remotes in [place] [facility] [place] every 91 days. (Next remote 06/12/23) Tech: Yaya Palomares III Custom Harvester: Dr. Rossi documented in this encounter Plan of Treatment Upcoming Encounters Date Type Specialty Care Team Description 06/03/2023 Office Visit Cardiology Tab Rossi, DO [address] [place] [id number] Scheduled Orders Name Type Priority Associated Diagnoses [...] exists LUNG CANCER SCREENING - USE SMARTSET [id number] Completed 06/06/2022, 03/20/2022, 03/18/2021, Additional history exists [...] this encounter Medical Devices Implanted Type Area Occupational Health Nurse Supervisor Device Identifier Shelf Expiration Date Model / Serial / Lot Prox [employer] Implant Syst - [id number] Implanted:Qty: 1 on 03/20/2021 by Harinder Hargrove, at OR [facility] Left: Shoulder [employer] 03/06/2025 [id number] / / [id number] documented as of this encounter Visit Diagnoses [...] the patient have Health Care Power of Corporate Tutor? No Code Status History Code Status Date Activated Date Inactivated Comments Full Code 02/11/2021 1:07 PM 02/11/2021 7:36 PM This or josue reflects the patients wishes and were consensually agreed upon. Question Answer Comments Discussion of Advance Directives occurred with: Not Discussed Does the patient have a Living Will? Yes, not currently available Does the patient have Health Care Power of Corporate Tutor? Yes, not currently available Care Teams Lead Scientist Relationship Specialty Start Date End Date Sonja Condon DO [address] [place] [address] PCP - General Family Medicine 02/26/11 documented as of this encounter
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
--- OUTSIDE RECORDS SUMMARY | 2023-08-20 20:09 | External Medical Summary | Summary of Care ---
Author Name Unknown Organization [facility] Address [address] [place] [address] Phone [phone] Care Team Providers Care Inletter Name Role Phone ShashiSonja alvarado Carla Primary Care Provider Encounter Details Date Type Department Care Team Description 04/02/2023 Result Scan Unspecified Department Tab Rossi DO [address] [place], [place] [id number] <No scans attached> Allergies Active Allergy Reactions Severity Noted Date Comments Atorvastatin 10/21/2016 Lisinopril Cough 08/12/2022 Sulfa Antibiotics Hives 02/26/2011 Ezetimibe 10/21/2016 documented as of this encounter (statuses as of 04/02/2023) Medications Medication Sig Dispensed Refills Start Date End Date Status Respiratory Therapy Supplies (NEBULIZER) DEMAR Use as directed. PER [facility] DC INSTRUCTIONS DATED 10/13/2017 0 8 Active [...] Subcutaneous Solution Auto-injectorIndications :Coronary artery disease involving [place] coronary artery of [place] heart without angina pectoris,Pure hypercholesterolemia INJECT 75 [...] MCG/ACT Inhalation Aerosol Powder Breath Activated (umeclidinium [place]) INHALE 1 PUFF BY MOUTH DAILY (USE [...] 140/80 11/12/2017 Coronary artery disease invo lving [place] coronary artery of [place] heart without angina pectoris 09/30/2016 Hyperlipidemia 09/30/2016 [...] Rossi DO [address] [place] [address] 04/04/2024 Cardiac Studies Cardiology [facility] [address] [place] [address] Scheduled Procedures Name Priority Associated Diagnoses Date/Ti [...] exists LUNG CANCER SCREENING - USE SMARTSET [id number] Completed 06/06/2022, 03/20/2022, 03/18/2021, Additional history exists [...] this encounter Medical Devices Implanted Type Area Log Yard Derrick Operator Device Identifier Shelf Expiration Date Model / Serial / Lot Prox Tenodesis Implant Syst - [id number] Implanted:Qty: 1 on 03/20/2021 by Harinder Hargrove, at OR [facility] Left: Shoulder [employer] 03/06/2025 AR-2290 / / [id number] documented as of this encounter Procedures Procedure Name Priority Date/Time Associated Diagnosis Comments CARDIOLOGY SCANNED RESULT 04/02/2023 documented in this encounter Results * CARDIOLOGY SCANNED RESULT (04/02/2023) 04/02/2023 Tab Rossi DO OTHER documented in this [...] the patient have Health Care Power of Group Work Program Aide? No Code Status History Code Status Date Activated Date Inactivated Comments Full Code 02/11/2021 1:07 PM 02/11/2021 7:36 PM This or josue reflects the patients wishes and were consensually agreed upon. Question Answer Comments Discussion of Advance Directives occurred with: Not Discussed Does the patient have a Living Will? Yes, not currently available Does the patient have Health Care Power of Group Work Program Aide? Yes, not currently available Care Teams Inletter Relationship Specialty Start Date End Date Sonja Condon DO [address] [place] [address] PCP - General Family Medicine 02/26/11 documented as of this encounter
--- OUTSIDE RECORDS SUMMARY | 2023-08-20 20:09 | External Medical Summary | Summary of Care ---
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 120 mL 3 03/06/20 22 Active Furosemide 20 MG Oral Tablet (Lasix)Indications:Paro [...] Subcutaneous Solution Auto-injectorIndication s:Coronary artery disease involving [place] coronary artery of [place] heart without angina pectoris,Pure hypercholesterolemia INJECT 75 MG (1 PEN) UNDER THE SKIN EVERY 14 DAYS 2 mL 11 08/21/20 22 2022 Active Fexofenadine HCl 180 MG Oral Tablet (Laura)Indications:Na douglas sinus congestion Take 1 Tablet by mouth daily as needed for Allergies (runny nose). 30 Tablet 11 11/18/19 23 Active Incruse Ellipta 62.5 MCG/ACT Inhalation Aerosol Powder Breath Activated (umeclidinium [place]) INHALE 1 PUFF BY MOUTH DAILY (USE [...] other meds) 90 Capsule 1 02/28/20 23 Active Levothyroxine Sodium 137 MCG Oral TabletIndications:Hypot hyroidism due to Bernardo's thyroiditis Take by mouth 1 Tablet in the morning. (at least 30 min prior to breakfast or other meds). 90 Tablet 2 03/06/20 22 2022 Discontinued documented as of [...] 140/80 11/12/2017 Coronary artery disease invo lving [place] coronary artery of [place] heart without angina pectoris 09/30/2016 Hyperlipidemia 09/30/2016 [...] encounter Miscellaneous Notes * Telephone Encounter - Ady Bailey [facility] - 03/02/2023 12:09 PM EDT I spoke with patient and advised of decrease in dosage to Levothyroxine 125mcg and he should have lab repeated in 6-8 weeks. Patient verbalized understanding. Patient states he has a standing lab appointment and he will just walk in. Thank You, Ady Bailey [facility] Clinical Pharmacist Central[facility] Services ([facility]) (formerly Telepharmacy) [phone] 03/02/2023, 12:11 PM * Telephone Encounter - Isabella Condon DO - 02/27/2023 11:16 AM EDT Signed Prescriptions: Disp Refills Levothyroxine Sodium 125 MCG Oral Capsule *90 Cap*1 Sig: Take 1 Capsule by mouth daily first thing in the morning. (at least 30 min prior to breakfast or other meds) Authorizing Provider: ISABELLA CONDON Refused Prescriptions: Disp Refills Levothyroxine Sodium 137 MCG Oral Tablet 90 Tab*2 Sig: TAKE BY MOUTH 1 TABLET IN THE MORNING. (AT LEAST 30 MIN PRIOR TO BREAKFAST OR OTHER MEDS). Refused By: ADY BAILEY Reason for Refusal: Dose needs clarification * Telephone Encounter - Ady Bailey [facility] - 02/27/2023 10:55 AM EDTPending Prescriptions: Disp Refills Levothyroxine Sodium 125 MCG Oral Capsule *90 Cap*1 Sig: Take 1 Capsule by mouth daily first thing in the morning. (at least 30 min prior to breakfast or other meds) Refused Prescriptions: Disp Refills Levothyroxine Sodium 137 MCG Oral Tablet 90 Tab*2 Sig: TAKE BY MOUTH 1 TABLET IN THE MORNING. (AT LEAST 30 MIN PRIOR TO BREAKFAST OR OTHER MEDS). Refused By: ADY BAILEY Reason for Refusal: Dose needs clarification * Telephone Encounter - Ady Bailey [facility] - 02/27/2023 10:42 AM EDT Forwarding to provider for review TSH Date Value Ref Range Status 01/20/2023 0.14 (A) 0.450 - 5.330 UIU/ML FREET4 Date Value Ref Range Status 01/21/2022 2.8 (H) 0.9 - 1.7 ng/dL Final 02/26 [facility] note states that lab was looked at, but dose was never adjusted. Per 01/29/23 patient message: [facility]. He is concerned about my weight loss and thinks that I might need my thyroid medication adjusted. It seems as tho [facility] provider would like PCP to take care of dose adjustment I would recommend decreasing dose to 125mcg daily and have labs repeated in 6 weeks. Lab already re-ordered at [facility] Please approve pended order if agreeable and route back to me so I can advise patient. Thank You, Ady Bailey [facility] Clinical Pharmacist Centralized Clinical Pharmacy Services ([facility]PS) (formerly Telepharmacy) [phone] 02/27/2023, 10:54 AM documented in this encounter Plan of Treatment Upcoming Encounters Date Type Specialty Care Team Description 03/23/2023 Hospital Encounter Endoscopy Virginia Winkler DO [address] [place] [address] 03/23/2023 Surgery Endoscopy Virginia Winkler DO [address] [place] [address] COLONOSCOPY FLEXIBLE PROXIMAL DIAGNOSTIC 04/02/2023 Cardiac Studies Cardiology [facility] [address] [place] [address] 06/03/2023 Office Visit Cardiology Tab Rossi DO [address] [place] [address] Scheduled Procedures Name Priority Associated Diagnoses Date/Ti [...] 01/20/2023, 10/0 03/2022, 01/21/2022, Additional history exists O2 ASSESSMENT [...] exists LUNG CANCER SCREENING - USE SMARTSET [id number] Completed 06/06/2022, 03/20/2022, 03/18/2021, Additional history exists [...] this encounter Medical Devices Implanted Type Area Cafe Helper Device Identifier Shelf Expiration Date Model / Serial / Lot Prox Tenodesis Implant Syst - [id number] Implanted:Qty: 1 on 03/20/2021 by Harinder Hargrove, at OR [facility] Left: Shoulder [employer] 03/06/2025 AR-2290 / / [id number] documented as of this encounter Visit Diagnoses Diagnosis 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 No Code Status History Code Status Date Activated Date Inactivated Comments Full Code 02/11/2021 1:07 PM 02/11/2021 7:36 PM This or josue reflects the patients wishes and were consensually agreed upon. Question Answer Comments Discussion of Advance Directives occurred with: Not Discussed Does the patient have a Living Will? Yes, not currently available Does the patient have Health Care Power of Skate Hop? Yes, not currently available Care Teams Program Clinician Relationship Specialty Start Date End Date Isabella Condon DO [address] [place] [address] PCP - General Family Medicine 02/26/11 documented as of this encounter
--- OUTSIDE RECORDS SUMMARY | 2023-08-20 20:09 | External Medical Summary | Summary of Care ---
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 PER [facility] DC INSTRUCTIONS DATED 10/13/2017 0 [...] B, by GOLD 2017 classification ([facility]),COPD exacerbation ([facility]),Cough,LRTI (lower respiratory tract infection) Inhale via nebulizer 3 mL every 6 hours as needed for Cough, Shortness of Breath or Wheezing. 120 mL 3 2 Active Furosemide 20 MG Oral Tablet (Lasix)Indications:Parox ysmal atrial fibrillation ([facility]) TAKE 1 TABLET BY MOUTH EVERY DAY 90 Tablet 3 2 Active Symbicort 160-4.5 MCG/ACT Inhalation Aerosol (budesonide-formoterol)I ndications:COPD, mild ([facility]) INHALE 2 PUFFS BY MOUTH TWICE A DAY 30.6 g 3 2 Active Apixaban 5 MG Oral Tablet (Eliquis)Indications:Par oxysmal atrial fibrillation ([facility]) Take 1 Tablet by mouth in the morning and 1 Tablet before bedtime. 180 Tablet 0 3 Active Alirocumab 75 MG/ML Subcutaneous Solution Auto-injectorIndications :Coronary artery disease involving [place] coronary artery of [place] heart without angina pectoris,Pure hypercholesterolemia INJECT 75 MG (1 PEN) UNDER THE SKIN EVERY 14 DAYS 2 mL 11 2 08/21/20 23 Active Fexofenadine HCl 180 MG Oral Tablet (Laura)Indications:Tera al sinus congestion Take 1 Tablet by mouth daily as needed for Allergies (runny nose). 30 Tablet 11 3 Active Incruse Ellipta 62.5 MCG/ACT Inhalation Aerosol Powder Breath Activated (umeclidinium [place]) INHALE 1 PUFF BY MOUTH DAILY (USE [...] as of this encounter (statuses as of 03/04/2023) Active Problems Problem Noted Date COPD, group [...] 140/80 11/12/2017 Coronary artery disease invo lving [place] coronary artery of [place] heart without angina pectoris 09/30/2016 Hyperlipidemia 09/30/2016 Essential tremor 09/30/2016 Aortic valve sclerosis 08/27/2016 Actinic keratosis 02/14/2015 Other seborrheic keratosis 02/14/2015 Hypothyroidism Overview: thyroidectomy Generalized osteoarthritis Other cataract Overview: bilaterally Dr. Romero, [facility] Chronic diastolic heart failure LVH (left ventricular hypertrophy) Overview: Concentric documented as of this encounter (statuses as of 03/04/2023) Resolved Problems Problem Noted Date Resolved Date [...] as of this encounter (statuses as of 03/04/2023) Immunizations Name Administration Dates Next Due COVID-19 [...] Winkler DO [address] [place] [address] 03/23/2023 Surgery Endoscopy Virginia Winkler DO [address] [place] [address] COLONOSCOPY FLEXIBLE PROXIMAL DIAGNOSTIC 04/02/2023 Cardiac Studies Cardiology Tar[facility] [address] [place] [address] 06/03/2023 Office Visit Cardiology Tab Rossi DO [address] [place] [address] Pending Results Name Type Priority Associated Diagnoses Date /Time TSH WITH FREE T4 IF INDICATED Lab Routine 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 03/04/2023 11:51 AM EDT Scheduled Procedures Name Priority Associated Diagnoses Date/Ti [...] NOT ON FILE 10/26/2021 GFR 01/21/2024 01/20/2023, 10/0 03/2022, 01/21/2022, Additional history exists TSH 01/21/2024 01/20/2023, 063 , 01/21/2022, Additional history exists O2 ASSESSMENT COMPLETED IN PAST YEAR FOR COPD 02/27/2024 02/26/2023 DTaP,Tdap,and Td Vaccines (3 - Td or Tdap) 02/06/2032 02/05/2022, 02/26/2011 Pneumococcal Vaccine: 65+ Years Completed 08/27/2018, 09/26/2016, 08/22/2014, Additional history exists Alpha-1 Antitrypsin Completed 05/13/2019 Zoster Vaccines Completed 10/17/2020, 05/09, 12/06/2013, Additional history exists LUNG CANCER SCREENING - USE SMARTSET [id number] Completed 06/06/2022, 03/20/2022, 03/18/2021, Additional history exists [...] encounter Medical Devices Implanted Type Area Lead Caster Helper Device Identifier Shelf Expiration Date Model / Serial / Lot Prox Tenodesis Implant Syst - [id number] Implanted:Qty: 1 on 03/20/2021 by Harinder Hargrove, at OR [facility] Left: Shoulder [employer] 03/06/2025 AR-2290 / / [id number] documented as of this encounter Visit Diagnoses [...] the patient have Health Care Power of Pasting Inspector? No Code Status History Code Status Date Activated Date Inactivated Comments Full Code 02/11/2021 1:07 PM 02/11/2021 7:36 PM This or josue reflects the patients wishes and were consensually agreed upon. Question Answer Comments Discussion of Advance Directives occurred with: Not Discussed Does the patient have a Living Will? Yes, not currently available Does the patient have Health Care Power of Pasting Inspector? Yes, not currently available Care Teams Cook Helper Dessert Relationship Specialty Start Date End Date Sonja Condon DO [address] [place] [address] PCP - General Family Medicine 02/26/11 documented as of this encounter
--- OUTSIDE RECORDS SUMMARY | 2023-08-20 20:09 | External Medical Summary | Summary of Care ---
Author Name Unknown Organization [facility] Address [address] [place] [address] Phone [phone] Care Team Providers Care Vault Custodian Name Role Phone Sonja Condon DO Primary Care Provider Reason for Visit * Reason Onset Date Comments Appointment 02/26/2023 Encounter Details Date Type Department Care Team Description 02/26/2023 Telephone Family Practice [facility] [place] [address] [place] [address] Sonja Condon DO [address] [facility] [place] [address] Appointment Allergies Active Allergy Reactions Severity Noted Date Comments Atorvastatin 10/21/2016 Lisinopril Cough 08/12/2022 Sulfa Antibiotics Hives 02/26/2011 Ezetimibe 10/21/2016 documented as of this encounter (statuses as of 03/05/2023) Medications Medication Sig Dispensed Refills Start Date End Date Status Respiratory Therapy Supplies (NEBULIZER) DEMAR Use as directed. 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 30 Tablet 11 11/18/19 23 Active Incruse Ellipta 62.5 MCG/ACT Inhalation Aerosol Powder Breath Activated (umeclidinium [place]) INHALE 1 PUFF BY MOUTH DAILY (USE IN PLACE OF SPIRIVA) 30 Each 5 11/26/19 23 Active Propranolol HCl ER 80 MG Oral Capsule Extended Release 24 Hour (Inderal [place]) TAKE 1 CAPSULE BY MOUTH EVERY DAY IN THE MORNING 90 Capsule 1 01/01/20 23 Active Levothyroxine Sodium 137 MCG Oral TabletIndications:Hypot hyroidism due to Bernardo's thyroiditis Take by mouth 1 Tablet in the morning. (at least 30 min prior to breakfast or other meds). 90 Tablet 2 03/06/20 22 2022 Discontinued documented as of this encounter (statuses as of 03/05/2023) Active Problems Problem Noted Date COPD, group [...] 140/80 11/12/2017 Coronary artery disease invo lving [place] coronary artery of [place] heart without angina pectoris 09/30/2016 Hyperlipidemia 09/30/2016 Essential tremor 09/30/2016 Aortic valve sclerosis 08/27/2016 Actinic keratosis 02/14/2015 Other seborrheic keratosis 02/14/2015 Hypothyroidism Overview: thyroidectomy Generalized osteoarthritis Other cataract Overview: bilaterally Dr. Romero, [facility] Chronic diastolic heart failure LVH (left ventricular hypertrophy) Overview: Concentric documented as of this encounter (statuses as of 03/05/2023) Resolved Problems Problem Noted Date Resolved Date [...] as of this encounter (statuses as of 03/05/2023) Immunizations Name Administration Dates Next Due COVID-19 [...] encounter Miscellaneous Notes * Telephone Encounter - Radha Aceves LPN - 03/05/2023 3:54 PM EDT Sent [facility] [employer] message * Telephone Encounter - Tab Rossi DO - 02/27/2023 5:17 PM EDT Patient with permanent atrial fibrillation. Take last dose of Eliquis in the am 2 days prior to procedure. No Eliquis the evening 2 days prior to procedure. No Eliquis on the day before procedure. No Eliquis the day of the procedure. Resume the day after the procedure as long as there are no bleeding complications. Tab Rossi DO * Telephone Encounter - DEVON Otto - 02/27/2023 9:34 AM EDT Spoke to pt, colonoscopy scheduled on 03/23 leeann/ pedro luis Instructions mailed Please reach out to patient with instructions for eliquis prior to procedure Thank you * Telephone Encounter - DEVON Cha - 02/26/2023 7:38 PM EDT Questions : pacemaker, blood thinners- mirtha Perfers: No Best # [phone] documented in this encounter Plan of Treatment Upcoming Encounters Date Type Specialty Care Team Description 03/23/2023 Hospital Encounter Endoscopy Virginia Winkler DO [address] [place] [address] 03/23/2023 Surgery Endoscopy Virginia Winkler DO [address] [place] [address] COLONOSCOPY FLEXIBLE PROXIMAL DIAGNOSTIC 04/02/2023 Cardiac Studies Cardiology Tarun Martinez [facility] [address] [place] [address] 06/03/2023 Office Visit Cardiology Tab Rossi DO [address] [place] [address] Scheduled Procedures Name Priority Associated Diagnoses Date/Ti [...] exists LUNG CANCER SCREENING - USE SMARTSET [id number] Completed 06/06/2022, 03/20/2022, 03/18/2021, Additional history exists [...] this encounter Medical Devices Implanted Type Area Lehr Stripper Device Identifier Shelf Expiration Date Model / Serial / Lot Prox [employer]is Implant Syst - [id number] Implanted:Qty: 1 on 03/20/2021 by Harinder Hargrove, at OR [facility] Left: Shoulder [employer] 03/06/2025 AR-2290 / / [id number] documented as of this encounter Advance Directives [...] the patient have Health Care Power of Fluid Pump Operator? No Code Status History Code Status Date Activated Date Inactivated Comments Full Code 02/11/2021 1:07 PM 02/11/2021 7:36 PM This or josue reflects the patients wishes and were consensually agreed upon. Question Answer Comments Discussion of Advance Directives occurred with: Not Discussed Does the patient have a Living Will? Yes, not currently available Does the patient have Health Care Power of Fluid Pump Operator? Yes, not currently available Care Teams Vault Custodian Relationship Specialty Start Date End Date Sonja Condon, DO [address] [facility] [place] [address] PCP - General Family Medicine 02/26/11 documented as of this encounter
--- OUTSIDE RECORDS SUMMARY | 2023-08-20 20:09 | External Medical Summary ---
Author Name Unknown Address Unknown Organization K01:[facility] - [address] [facility] [address] Laboratory Report Ordering Provider Test Date Status 03/04/2023 11:51:10 Final Observation Date Value Abnormality Reference (Units ) Status TSH 03/04/2023 11:51:10 0.60 0.27-4.20 (uIU/mL) Final Performing Location [facility] - [address] [facility] [address]
--- OUTSIDE RECORDS SUMMARY | 2023-08-20 20:09 | External Medical Summary | Summary of Care ---
Author Name Unknown Organization [facility] Address [address] [place] [address] Phone [phone] Care Team Providers Care Wireless Sales Associate Name Role Phone Isabella Condon DO Primary Care Provider Reason for Visit * Reason Comments eRx-Medication Refill Encounter Details Date Type Department Care Team Description 02/26/[address] 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 30 Tablet 11 11/18/19 23 Active Incruse Ellipta 62.5 MCG/ACT Inhalation Aerosol Powder Breath Activated (umeclidinium [place]) INHALE 1 PUFF BY MOUTH DAILY (USE [...] 140/80 11/12/2017 Coronary artery disease invo lving [place] coronary artery of [place] heart without angina pectoris 09/30/2016 Hyperlipidemia 09/30/2016 [...] Notes * Telephone Encounter - Ady Bailey [facility] - 03/02/2023 12:09 PM EDT I spoke with patient and advised of decrease in dosage to Levothyroxine 125mcg and he should have lab repeated in 6-8 weeks. Patient verbalized understanding. Patient states he has a standing lab appointment and he will just walk in. Thank You, Ady Bailey [facility] Clinical Pharmacist Centralized Clinical Pharmacy Services (CCPS) (formerly Telepharmacy) [phone] 03/02/2023, 12:11 PM * Telephone Encounter - [...] clarification * Telephone Encounter - Ady Bailey [facility] - 02/27/2023 10:55 AM EDTPending [...] clarification * Telephone Encounter - Ady Bailey [facility] - 02/27/2023 10:42 AM EDT [...] can advise patient. Thank You, Ady Bailey [facility] Clinical Pharmacist Centralized Clinical Pharmacy Services ([facility]PS) (formerly Telepharmacy) [phone] 02/27/2023, 10:54 AM documented in this encounter Plan of Treatment Upcoming Encounters Date Type Specialty Care Team Description 03/23/2023 Hospital Encounter Endoscopy Virginia Winkler DO [address] [place] [address] 03/23/2023 Surgery Endoscopy Virginia Winkler DO [address] [place] [address] COLONOSCOPY FLEXIBLE PROXIMAL DIAGNOSTIC 04/02/2023 Cardiac Studies Cardiology Tarun Martinez [facility] [address] [place] [address] 06/03/2023 Office Visit Cardiology Tab Rossi DO [address] [place] [address] Scheduled Procedures Name Priority Associated Diagnoses Date/Ti [...] 01/21/2022, Additional history exists TSH 01/21/2024 01/20/2023, 06, 01/21/2022, Additional history exists O2 ASSESSMENT COMPLETED IN PAST YEAR FOR COPD 02/27/2024 02/26/2023 DTaP,Tdap,and Td Vaccines (3 - Td or Tdap) 02/06/2032 02/05/2022, 02/26/2011 Pneumococcal Vaccine: 65+ Years Completed 08/27/2018, 09/26/2016, 08/22/2014, Additional history exists Alpha-1 Antitrypsin Completed 05/13/2019 Zoster Vaccines Completed 10/17/2020, 05/09, 12/06/2013, Additional history exists LUNG CANCER SCREENING - USE SMARTSET [id number] Completed 06/06/2022, 03/20/2022, 03/18/2021, Additional history exists [...] this encounter Medical Devices Implanted Type Area Cigar Bander Device Identifier Shelf Expiration Date Model / Serial / Lot Prox Tenodesis Implant Syst - [id number] Implanted:Qty: 1 on 03/20/2021 by Harinder Hargrove, at OR [facility] Left: Shoulder [employer] 03/06/2025 AR-[id number] / / [id number] documented as of this encounter Visit Diagnoses [...] the patient have Health Care Power of Accounting/Finance Tutor? No Code Status History Code Status Date Activated Date Inactivated Comments Full Code 02/11/2021 1:07 PM 02/11/2021 7:36 PM This or josue reflects the patients wishes and were consensually agreed upon. Question Answer Comments Discussion of Advance Directives occurred with: Not Discussed Does the patient have a Living Will? Yes, not currently available Does the patient have Health Care Power of Accounting/Finance Tutor? Yes, not currently available Care Teams Wireless Sales Associate Relationship Specialty Start Date End Date Isabella Condon DO [address] [place] [address] PCP - General Family Medicine 02/26/11 documented as of this encounter
--- OUTSIDE RECORDS SUMMARY | 2023-08-20 20:10 | External Medical Summary | Summary of Care ---
Author Name Unknown Organization [facility] Address [address] [place] [address] Phone [phone] Care Team Providers Care Contracts Administrator Name Role Phone Sonja Condon DO Primary Care Provider Reason for Visit * Reason Onset Date Comments Appointment 02/26/2023 Encounter Details Date Type Department Care Team Description 02/26/2023 Telephone Family Practice [facility] [place] [address] [place] [address] Sonja Condon DO [address] [facility] [place] [address] Appointment Allergies Active Allergy Reactions Severity Noted Date Comments Atorvastatin 10/21/2016 Lisinopril Cough 08/12/2022 Sulfa Antibiotics Hives 02/26/2011 Ezetimibe 10/21/2016 documented as of this encounter (statuses as of 02/27/2023) Medications Medication Sig Dispensed Refills Start Date End Date Status Respiratory Therapy Supplies (NEBULIZER) DEMAR Use as directed. 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 30 Tablet 11 11/18/19 23 Active Incruse Ellipta 62.5 MCG/ACT Inhalation Aerosol Powder Breath Activated (umeclidinium [place]) INHALE 1 PUFF BY MOUTH DAILY (USE [...] as of this encounter (statuses as of 02/27/2023) Active Problems Problem Noted Date COPD, group [...] 140/80 11/12/2017 Coronary artery disease invo lving [place] coronary artery of [place] heart without angina pectoris 09/30/2016 Hyperlipidemia 09/30/2016 Essential tremor 09/30/2016 Aortic valve sclerosis 08/27/2016 Actinic keratosis 02/14/2015 Other seborrheic keratosis 02/14/2015 Hypothyroidism Overview: thyroidectomy Generalized osteoarthritis Other cataract Overview: bilaterally Dr. Romero, [facility] Chronic diastolic heart failure LVH (left ventricular hypertrophy) Overview: Concentric documented as of this encounter (statuses as of 02/27/2023) Resolved Problems Problem Noted Date Resolved Date [...] as of this encounter (statuses as of 02/27/2023) Immunizations Name Administration Dates Next Due COVID-19 [...] encounter Miscellaneous Notes * Telephone Encounter - DEVON Otto - 02/27/2023 9:34 AM EDT Spoke to pt, colonoscopy scheduled on 03/23 leeann/ pedro luis Instructions mailed Please reach out to patient with instructions for flaquita prior to procedure Thank you * Telephone Encounter - DEVON Cha - 02/26/2023 7:38 PM EDT Questions : pacemaker, blood thinners- mirtha Perfers: No Best # [phone] documented in this encounter Plan of Treatment Upcoming Encounters Date Type Specialty Care Team Description 03/23/2023 Hospital Encounter Endoscopy Virginia Winkler DO [address] [place] [address] 03/23/2023 Surgery Endoscopy Virginia Winkler DO [address] [place] [address] COLONOSCOPY FLEXIBLE PROXIMAL DIAGNOSTIC 04/02/2023 Cardiac Studies Cardiology Tarun Martinez [facility] [address] [place] [address] 06/03/2023 Office Visit Cardiology Tab Rossi DO [address] [place] [address] Scheduled Procedures Name Priority Associated Diagnoses Date/Ti [...] exists LUNG CANCER SCREENING - USE SMARTSET [id number] Completed 06/06/2022, 03/20/2022, 03/18/2021, Additional history exists [...] this encounter Medical Devices Implanted Type Area Materials Inspector Device Identifier Shelf Expiration Date Model / Serial / Lot Prox Tenodesis Implant Syst - [id number] Implanted:Qty: 1 on 03/20/2021 by Harinder Hargrove DO at OR [facility] Left: Shoulder [employer] 03/06/2025 AR-2290 / / [id number] documented as of this encounter Advance Directives [...] the patient have Health Care Power of Health Diagnostics Teacher? No Code Status History Code Status Date Activated Date Inactivated Comments Full Code 02/11/2021 1:07 PM 02/11/2021 7:36 PM This or josue reflects the patients wishes and were consensually agreed upon. Question Answer Comments Discussion of Advance Directives occurred with: Not Discussed Does the patient have a Living Will? Yes, not currently available Does the patient have Health Care Power of Health Diagnostics Teacher? Yes, not currently available Care Teams Contracts Administrator Relationship Specialty Start Date End Date Sonja Condon DO [address] [place] [address] PCP - General Family Medicine 02/26/11 documented as of this encounter
--- OUTSIDE RECORDS SUMMARY | 2023-08-20 20:10 | External Medical Summary | Summary of Care ---
Author Name Unknown Organization [facility] Address [address] [place] [address] Phone [phone] Care Team Providers Care Hay Chopper Name Role Phone Taurus Sonja Aguirre DO Primary Care Provider Reason for Referral * Ancillary Services (Within 30 days (routine)) - Authorized Specialty Diagnoses / Procedures Referred By Stephon abraham Referred To Contact Gastroenterology Diagnoses Rectal bleeding Yolis Richmond PA-C [address] [place] [address] Referral ID Status Reason Start Date Expiration Date Visits Requested Visits Authorized [id number] Authorized Ancillary Services Required 02/26/2023 999 999 Question Answer Referral Priority Within 30 days (routine) Comments ALERT: Do not order for pediatric patients (18 years or younger). Cancel off screen and order PEDS GASTROENTEROLOGY CONSULT (Type: 1 visit only-Evaluate and Treat) The following Pt. Instructions are available: - Gastro Colonoscopy Prep Instructions [[id number]] - Gastro Colonoscopy Prep Instructions ([place]i Version) [[id number]] Go to the Pt. Instructions section within the Visit Navigator to access. Colonoscopy ASGE Guidelines: Average risk screening (begin at age 50, 10 year intervals) and Altered bowel habit, chronic diarrhea ADDITIONAL INFORMATION 1. Is the patient on Coumadin? No 2. Is the patient on Pradaxa? No Reason for Visit * Reason Comments Follow Up Encounter Details Date Type Department Care Team Description 02/26/2023 Office Visit Family 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 PER [facility] DC INSTRUCTIONS DATED 10/13/2017 0 10/13/19 [...] , group B, by GOLD 2017 classification ([facility]),COPD exacerbation (HCC),Cough,LRTI (lower respiratory tract infection) Inhale via nebulizer 3 mL every 6 hours as needed for Cough, Shortness of Breath or Wheezing. 120 mL 3 03/06/20 22 Active Levothyroxine Sodium 137 MCG Oral TabletIndications:Hypoth yroidism due to Bernardo's thyroiditis Take by mouth 1 Tablet in the morning. (at least 30 min prior to breakfast or other meds). 90 Tablet 2 03/06/20 22 Active Furosemide 20 MG Oral [...] Subcutaneous Solution Auto-injectorIndications :Coronary artery disease involving [place] coronary artery of [place] heart without angina pectoris,Pure hypercholesterolemia INJECT 75 MG (1 PEN) UNDER THE SKIN EVERY 14 DAYS 2 mL 11 08/21/20 22 023 Active Fexofenadine HCl 180 MG Oral Tablet (Laura)Indications:Tera al sinus congestion Take 1 Tablet by mouth daily as needed for Allergies (runny nose). 30 Tablet 11 11/18/19 23 Active Incruse Ellipta 62.5 MCG/ACT Inhalation Aerosol Powder Breath Activated (umeclidinium [place]) INHALE 1 PUFF BY MOUTH DAILY (USE IN PLACE OF SPIRIVA) 30 Each 5 11/26/19 23 Active Propranolol HCl ER 80 MG Oral Capsule Extended Release 24 Hour (Inderal [place]) TAKE 1 CAPSULE BY MOUTH EVERY DAY IN THE MORNING 90 Capsule 1 01/01/20 23 Active Losartan Potassium 25 MG Oral Tablet (Cozaar) Take 1 Tablet (25 mg) by mouth in the morning. 90 Tablet 3 08/14/20 22 023 Discontin ued(Medic ation List Clean Up) Doxycycline Hyclate 100 MG Oral CapsuleIndications:Chron ic bronchitis with COPD (chronic obstructive pulmonary disease) (HCC),Nasal sinus congestion Take 1 Capsule by mouth in the morning and 1 Capsule before bedtime. 20 Capsule 0 11/21/19 23 023 Discontin ued(Medic ation List Clean Up) documented as of this encounter (statuses as of 02/26/2023) Active Problems Problem Noted Date COPD, group [...] 140/80 11/12/2017 Coronary artery disease invo lving [place] coronary artery of [place] heart without angina pectoris 09/30/2016 Hyperlipidemia 09/30/2016 Essential tremor 09/30/2016 Aortic valve sclerosis 08/27/2016 Actinic keratosis 02/14/2015 Other seborrheic keratosis 02/14/2015 Hypothyroidism Overview: thyroidectomy Generalized osteoarthritis Other cataract Overview: bilaterally Dr. Romero, [facility] Chronic diastolic heart failure LVH (left ventricular hypertrophy) Overview: Concentric documented as of this encounter (statuses as of 02/26/2023) Resolved Problems Problem Noted Date Resolved Date [...] as of this encounter (statuses as of 02/26/2023) Immunizations Name Administration Dates Next Due COVID-19 [...] Sign Reading Time Taken Comments Blood Pressure 120/80 02/26/2023 6:56 PM EDT Pulse 73 02/26/2023 6:56 PM EDT Temperature 36.8 C (98.2 F) 02/26/2023 6:56 PM ED T Respiratory Rate 16 02/26/2023 6:56 PM EDT Oxygen Saturation 95% 02/26/2023 6:56 PM EDT Inhaled Oxygen Concentration - - Weight 67.6 kg (149 lb 0.6 oz) 02/26/2023 6:56 P M EDT Height - - Body Mass Index 21.39 07/02/2022 8:13 AM EDT documented in this encounter Progress Notes * Yolis Richmond PA-C - 02/26/2023 7:04 PM EDT Images from the original note were not included. History of Present Illness Jasen Mccarty is a 77 year old male that presents for Follow Up Patient is a 77 year old male who presents for a follow up. Physical at the [facility] showed abnormal thyroid level. He notes fatigue, dry skin, States he is feeling fine. Denies issues with palpitations. Had a thyroidectomy due to hyperactive thyroid. Appetite good Sleep good Urination/ bowel movements normal Denies chest pain, sob, palpitations, edema, headache, or dizzy. Physical Exam Vitals: 02/26/23 1856 Temp: 36.8 C (98.2 F) Pulse: 73 Resp: 16 SpO2: 95% BP: 120/80 BP Readings from Last 3 Encounters: 02/26/23 120/80 11/17/22 102/62 11/11/22 138/88 Wt Readings from Last 3 Encounters: 02/26/23 67.6 kg (149 lb 0.6 oz) 11/17/22 68.3 kg (150 lb 8 oz) 10/31/22 66.5 kg (146 lb 8 oz) General: alert, healthy, no distress, well nourished, well developed, comfortable and cooperative Head: Normocephalic, No masses, lesions, tenderness or abnormalities Eye Exam: PERRLA, extraocular movements intact, conjunctiva are pink and non- injected, sclera clear Neck: supple, no adenopathy, no bruits, thyroid normal size, non-tender, without nodularity Heart: regular rate & rhythm, no murmur and no gallops Lungs: chest symmetric with normal AP diameter, no chest deformities noted, normal respiratory rateand rhythm, no chest wall tenderness, diaphragmatic excursion normal, lungs clear to auscultation Extremities: less than 2 second capillary refill, no joint deformities, effusion, or inflammation, no edema, no skin discoloration, no clubbing, no cyanosis I have reviewed the following results: TSH Assessment and Plan Hypertension goal BP (blood pressure) < 140/80 (Primary) 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 Wrap-Up Time: I spent a total of 30-39 minutes (exact time 38 mins) on the date of service in preparation, delivery, and documentation of the care provided to Jasen Mccarty excluding any time spent in the performance of separately billed services. documented in this encounter Nursing Notes * Nicole Wilkins LPN - 02/26/2023 6:53 PM EDT Jasen Mccarty presents for follow up with thyroid concerns. Medications & HM reviewed. States he has been losing a lot of weight. 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 Expected: 02/26/2023 (Approximate), Expires: 02/26/2024 Scheduled Procedures Name Priority Associated Diagnoses Date/Ti me COLONOSCOPY FLEXIBLE PROXIMA L DIAGNOSTIC Recall Screening for colon cancer Scheduled Referrals Name Type Priority Associated Diagnoses Orde r Schedule COLONOSCOPY, GI REFERRAL OP Referral Within 30 days (routine) Rectal bleeding Ordered: 02/26/2023 Health Maintenance Due Date Last Done Comments Albumin/Creatinine Ratio 10/07/2014 10/07/2011 Depression Screening, Annual for Pts 12 and Over 10/25/2020 10/25/2019 COVID-19 Vaccine (2 - Pfizer series) 09/16/2021 07/22/2021, 12/24/2020, 11/26/2020 *ADVANCE DIRECTIVE NOT ON FILE 10/26/2021 GFR 01/21/2024 01/20/2023, 10/0 03/2022, 01/21/2022, Additional history exists TSH 01/21/2024 01/20/2023, 06/3 , 01/21/2022, Additional history exists O2 ASSESSMENT COMPLETED IN PAST YEAR FOR COPD 02/27/2024 02/26/2023 DTaP,Tdap,and Td Vaccines (3 - Td or Tdap) 02/06/2032 02/05/2022, 02/26/2011 Pneumococcal Vaccine: 65+ Years Completed 08/27/2018, 09/26/2016, 08/22/2014, Additional history exists Alpha-1 Antitrypsin Completed 05/13/2019 Zoster Vaccines Completed 10/17/2020, 05/09, 12/06/2013, Additional history exists LUNG CANCER SCREENING - USE SMARTSET [id number] Completed 06/06/2022, 03/20/2022, 03/18/2021, Additional history exists [...] this encounter Medical Devices Implanted Type Area Screwhead Polisher Device Identifier Shelf Expiration Date Model / Serial / Lot Prox Tenodesis Implant Syst - [id number] Implanted:Qty: 1 on 03/20/2021 by Harinder Hargrove DO at OR [facility] Left: Shoulder [employer] 03/06/2025 AR-2290 / / [id number] documented as of this encounter Visit Diagnoses Diagnosis Hypertension goal BP (blood pressure) < 140/80- Primary Unspecified essential hypertension 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 No Code Status History Code Status Date Activated Date Inactivated Comments Full Code 02/11/2021 1:07 PM 02/11/2021 7:36 PM This or josue reflects the patients wishes and were consensually agreed upon. Question Answer Comments Discussion of Advance Directives occurred with: Not Discussed Does the patient have a Living Will? Yes, not currently available Does the patient have Health Care Power of Register In Chancery? Yes, not currently available Care Teams Hay Chopper Relationship Specialty Start Date End Date Sonja Condon DO [address] [place] [address] PCP - General Family Medicine 02/26/11 documented as of this encounter
--- OUTSIDE RECORDS SUMMARY | 2023-08-20 20:10 | External Medical Summary | Summary of Care ---
Author Name Unknown Organization [facility] Address [address] [place] [address] Phone [phone] Care Team Providers Care Supervisor Sheet Manufacturing Name Role Phone Sonja Condon DO Primary Care Provider Reason for Visit * Reason Onset Date Comments Appointment 02/26/2023 Encounter Details Date Type Department Care Team Description 02/26/2023 Telephone Family Practice [facility] [place] 200 [facility] [address] Sonja Condon DO 200 [facility] [place] [address] Appointment Allergies Active Allergy Reactions Severity Noted Date Comments Atorvastatin 10/21/2016 Lisinopril Cough 08/12/2022 Sulfa Antibiotics Hives 02/26/2011 Ezetimibe 10/21/2016 documented as of this encounter (statuses as of 02/27/2023) Medications Medication Sig Dispensed Refills Start Date End Date Status Respiratory Therapy Supplies (NEBULIZER) DEMAR Use as directed. 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 30 Tablet 11 11/18/19 23 Active Incruse Ellipta 62.5 MCG/ACT Inhalation Aerosol Powder Breath Activated (umeclidinium [place]) INHALE 1 PUFF BY MOUTH DAILY (USE [...] 140/80 11/12/2017 Coronary artery disease invo lving [place] coronary artery of [place] heart without angina pectoris 09/30/2016 Hyperlipidemia 09/30/2016 Essential tremor 09/30/2016 Aortic valve sclerosis 08/27/2016 Actinic keratosis 02/14/2015 Other seborrheic keratosis 02/14/2015 Hypothyroidism Overview: thyroidectomy Generalized osteoarthritis Other cataract Overview: bilaterally Dr. Romero, [facility] Chronic diastolic heart failure LVH [...] encounter Miscellaneous Notes * Telephone Encounter - Tab Rossi DO [...] blood thinners- mirtha Perfers: No Best # [phone] documented in this encounter Plan of Treatment Upcoming Encounters Date Type Specialty Care Team Description 03/23/2023 Hospital Encounter Endoscopy Virginia Winkler DO [address] [place] [address] 03/23/2023 Surgery Endoscopy Virginia Winkler DO [address] [place] [address] COLONOSCOPY FLEXIBLE PROXIMAL DIAGNOSTIC 04/02/2023 [facility]iac [facility] [address] [place] [address] 06/03/2023 Office Visit Cardiology Tab Rossi DO [address] [place] [address] Scheduled Procedures Name Priority Associated Diagnoses Date/Ti [...] exists LUNG CANCER SCREENING - USE SMARTSET [id number] Completed 06/06/2022, 03/20/2022, 03/18/2021, Additional history exists [...] this encounter Medical Devices Implanted Type Area Supervisor Of Officials Device Identifier Shelf Expiration Date Model / Serial / Lot Prox Tenodesis Implant Syst - [id number] Implanted:Qty: 1 on 03/20/2021 by Harinder Hargrove DO at OR [facility] Left: Shoulder [employer] 03/06/2025 AR-2290 / / [id number] documented as of this encounter Advance Directives [...] the patient have Health Care Power of Punching Machine Operator? No Code Status History Code Status Date Activated Date Inactivated Comments Full Code 02/11/2021 1:07 PM 02/11/2021 7:36 PM This or josue reflects the patients wishes and were consensually agreed upon. Question Answer Comments Discussion of Advance Directives occurred with: Not Discussed Does the patient have a Living Will? Yes, not currently available Does the patient have Health Care Power of Punching Machine Operator? Yes, not currently available Care Teams Supervisor Sheet Manufacturing Relationship Specialty Start Date End Date Sonja Condon DO [address] [facility] [place] [address] PCP - General Family Medicine 02/26/11 documented as of this encounter
--- OUTSIDE RECORDS SUMMARY | 2023-08-20 20:10 | External Medical Summary | Summary of Care ---
Author Name Unknown Organization [facility] Address [address] [place] [address] Phone [phone] Care Team Providers Care Form Building Supervisor Name Role Phone Sonja Condon DO Primary Care Provider Reason for Visit * Reason Onset Date Comments FYI 02/18/2023 Pt dropped off a lab overview Encounter Details Date Type Department Care Team Description 02/18/2023 Telephone Family Practice [facility] [place] [address] [place] [address] Sonja Condon DO [address] [place] [address] FYI (Pt dropped off a lab overview) Allergies Active Allergy Reactions Severity Noted Date Comments Atorvastatin 10/21/2016 Lisinopril Cough 08/12/2022 Sulfa Antibiotics Hives 02/26/2011 Ezetimibe 10/21/2016 documented as of this encounter (statuses as of 02/21/2023) Medications Medication Sig Dispensed Refills Start Date End Date Status Respiratory Therapy Supplies (NEBULIZER) DEMAR Use as directed. PER [facility] DC INSTRUCTIONS DATED 10/13/2017 0 8 [...] or Wheezing. 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 (at least 30 min prior to breakfast or other meds). 90 Tablet 2 2 Active Furosemide 20 MG Oral Tablet (Lasix)Indications:Parox ysmal atrial fibrillation (HCC) TAKE 1 TABLET BY MOUTH EVERY DAY 90 Tablet 3 2 Active Symbicort 160-4.5 MCG/ACT Inhalation Aerosol (budesonide-formoterol)I ndications:COPD, mild (HCC) INHALE 2 PUFFS BY MOUTH TWICE A DAY 30.6 g 3 2 Active Losartan Potassium 25 MG Oral Tablet (Cozaar) Take 1 Tablet (25 mg) by mouth in the morning. 90 Tablet 3 2 Active Apixaban 5 MG Oral Tablet (Eliquis)Indications:Par oxysmal atrial fibrillation (HCC) Take 1 Tablet by mouth in the morning and 1 Tablet before bedtime. 180 Tablet 0 3 Active Alirocumab 75 MG/ML Subcutaneous Solution Auto-injectorIndications :Coronary artery disease involving [place] coronary artery of [place] heart without angina pectoris,Pure hypercholesterolemia INJECT 75 MG (1 PEN) UNDER THE SKIN EVERY 14 DAYS 2 mL 11 2 08/21/20 23 Active Fexofenadine HCl 180 MG Oral Tablet (Laura)Indications:Tera al sinus congestion Take 1 Tablet by mouth daily as needed for Allergies (runny nose). 30 Tablet 11 3 Active Doxycycline Hyclate 100 MG Oral CapsuleIndications:Chron ic bronchitis with COPD (chronic obstructive pulmonary disease) (HCC),Nasal sinus congestion Take 1 Capsule by mouth in the morning and 1 Capsule before bedtime. 20 Capsule 0 3 Active Incruse Ellipta 62.5 MCG/ACT Inhalation Aerosol Powder Breath Activated (umeclidinium [place]) INHALE 1 PUFF BY MOUTH DAILY (USE IN PLACE OF SPIRIVA) 30 Each 5 3 Active Propranolol HCl ER 80 MG Oral Capsule Extended Release 24 Hour (Inderal LA) TAKE 1 CAPSULE BY MOUTH EVERY DAY IN THE MORNING 90 Capsule 1 3 Active documented as of this encounter (statuses as of 02/21/2023) Active Problems Problem Noted Date COPD, group [...] 140/80 11/12/2017 Coronary artery disease invo lving [place] coronary artery of [place] heart without angina pectoris 09/30/2016 Hyperlipidemia 09/30/2016 Essential tremor 09/30/2016 Aortic valve sclerosis 08/27/2016 Actinic keratosis 02/14/2015 Other seborrheic keratosis 02/14/2015 Hypothyroidism Overview: thyroidectomy Generalized osteoarthritis Other cataract Overview: bilaterally Dr. Romero, [facility] Chronic diastolic heart failure LVH (left ventricular hypertrophy) Overview: Concentric documented as of this encounter (statuses as of 02/21/2023) Resolved Problems Problem Noted Date Resolved Date [...] as of this encounter (statuses as of 02/21/2023) Immunizations Name Administration Dates Next Due COVID-19 [...] encounter Miscellaneous Notes * Telephone Encounter - Ananya Platt LPN - 02/21/2023 12:07 PM EDT Provider to address: review scanned lab results Reason for Call: FYI (Pt dropped off a lab overview) Contact: Clinic Walk-In Contact Type: Test Results Outcome: reviewed chart, labs have been scanned. Message forwarded to PCP to review results. Total Time including non face to face (minutes): 5 * Telephone Encounter - Rosa Isela Healy - 02/18/2023 12:38 PM EDT Pt dropped off a lab overview Fimsed and placed in FP mailbox in mailroom documented in this encounter Plan of Treatment Upcoming Encounters Date Type Specialty Care Team Description 02/26/2023 Office Visit Family Medicine Yolis [place], [place] [address] [place] [facility] [place] [address] 04/02/2023 [facility] [address] [place] [address] 06/03/2023 Office Visit Cardiology Tab Rossi DO [address] [place] [address] Scheduled Procedures Name Priority Associated Diagnoses Date/Ti me COLONOSCOPY FLEXIBLE PROXIMA L DIAGNOSTIC Recall Screening for colon cancer Health Maintenance Due Date Last Done Comments Albumin/Creatinine Ratio 10/07/2014 10/07/2011 Depression Screening, Annual for Pts 12 and Over 10/25/2020 10/25/2019 COVID-19 Vaccine (2 - Pfizer series) 09/16/2021 07/22/2021, 12/24/2020, 11/26/2020 *ADVANCE DIRECTIVE NOT ON FILE 10/26/2021 O2 ASSESSMENT COMPLETED IN PAST YEAR FOR COPD 11/18/2023 11/17/2022 GFR 01/21/2024 01/20/2023, 10/0 03/2022, 01/21/2022, Additional history exists TSH 01/21/2024 01/20/2023, 06/3 , 01/21/2022, Additional history exists DTaP,Tdap,and Td Vaccines (3 - Td or Tdap) 02/06/2032 02/05/2022, 02/26/2011 Pneumococcal Vaccine: 65+ Years Completed 08/27/2018, 09/26/2016, 08/22/2014, Additional history exists Alpha-1 Antitrypsin Completed 05/13/2019 Zoster Vaccines Completed 10/17/2020, 05/09, 12/06/2013, Additional history exists LUNG CANCER SCREENING - USE SMARTSET [id number] Completed 06/06/2022, 03/20/2022, 03/18/2021, Additional history exists [...] encounter Medical Devices Implanted Type Area Manager Star Device Identifier Shelf Expiration Date Model / Serial / Lot Prox Tenodesis Implant Syst - [id number] Implanted:Qty: 1 on 03/20/2021 by Harinder Hargrove DO at OR [facility] Left: Shoulder [employer] 03/06/2025 AR-2290 / / [id number] documented as of this encounter Advance Directives [...] the patient have Health Care Power of Grid Inspector? No Code Status History Code Status Date Activated Date Inactivated Comments Full Code 02/11/2021 1:07 PM 02/11/2021 7:36 PM This or josue reflects the patients wishes and were consensually agreed upon. Question Answer Comments Discussion of Advance Directives occurred with: Not Discussed Does the patient have a Living Will? Yes, not currently available Does the patient have Health Care Power of Grid Inspector? Yes, not currently available Care Teams Form Building Supervisor Relationship Specialty Start Date End Date Sonja Condon DO [address] [place] [address] PCP - General Family Medicine 02/26/11 documented as of this encounter
--- OUTSIDE RECORDS SUMMARY | 2023-08-20 20:10 | External Medical Summary | Summary of Care ---
Author Name Unknown Organization [facility] Address [address] [place] [address] Phone [phone] Care Team Providers Care Oil Well Gun Perforator Operator Name Role Phone Sonja Condon DO Primary Care Provider Reason for Visit * Reason Onset Date Comments Appointment 02/26/2023 Encounter Details Date Type Department Care Team Description 02/26/2023 Telephone Family Practice [facility] [place] 200 [facility] [place] [address] Sonja Condon DO [address] [facility] [place] [address] Appointment Allergies Active Allergy Reactions Severity Noted Date Comments Atorvastatin 10/21/2016 Lisinopril Cough 08/12/2022 Sulfa Antibiotics Hives 02/26/2011 Ezetimibe 10/21/2016 documented as of this encounter (statuses as of 02/27/2023) Medications Medication Sig Dispensed Refills Start Date End Date Status Respiratory Therapy Supplies (NEBULIZER) DEMAR Use as directed. PER [facility] DC INSTRUCTIONS DATED 10/13/2017 0 8 Active [...] Subcutaneous Solution Auto-injectorIndications :Coronary artery disease involving [place] coronary artery of [place] heart without angina pectoris,Pure hypercholesterolemia INJECT 75 MG (1 PEN) UNDER THE SKIN EVERY 14 DAYS 2 mL 11 2 08/21/20 23 Active Fexofenadine HCl 180 MG Oral Tablet (Laura)Indications:Tera al sinus congestion Take 1 Tablet by mouth daily as needed for Allergies (runny nose). 30 Tablet 11 3 Active Incruse Ellipta 62.5 MCG/ACT Inhalation Aerosol Powder Breath Activated (umeclidinium [place]) INHALE 1 PUFF BY MOUTH DAILY (USE [...] Coronary artery disease invo lving [place] coronary artery of [place] heart without angina pectoris 09/30/2016 Hyperlipidemia 09/30/2016 Essential tremor 09/30/2016 Aortic valve sclerosis 08/27/2016 Actinic keratosis 02/14/2015 Other seborrheic keratosis 02/14/2015 Hypothyroidism Overview: thyroidectomy Generalized osteoarthritis Other cataract Overview: bilaterally [facility] Chronic diastolic heart failure LVH [...] Spoke to pt, colonoscopy scheduled on 03/23 w/ pedro luis Instructions mailed Please reach out to patient with instructions for elibozena prior to procedure Thank you * Telephone Encounter - DEVON Cha - 02/26/2023 7:38 PM EDT Questions : pacemaker, blood thinners- mirtha Perfers: No Best # [phone] documented in this encounter Plan of Treatment Upcoming Encounters Date Type Specialty Care Team Description 03/23/2023 Hospital Encounter Endoscopy Virginia Winkler DO [address] [place] [address] 03/23/2023 Surgery Endoscopy Virginia Winkler DO [address] [place] [address] COLONOSCOPY FLEXIBLE PROXIMAL DIAGNOSTIC 04/02/2023 Cardiac Studies [facility] [address] [place] [address] 06/03/2023 Office Visit Cardiology Tab Rossi DO [address] [place] [address] Scheduled Procedures Name Priority Associated Diagnoses Date/Ti [...] NOT ON FILE 10/26/2021 GFR 01/21/2024 01/20/2023, 100 03/2022, 01/21/2022, Additional history exists TSH 01/21/2024 [...] exists LUNG CANCER SCREENING - USE SMARTSET [id number] Completed 06/06/2022, 03/20/2022, 03/18/2021, Additional history exists [...] this encounter Medical Devices Implanted Type Area Medical Billing Specialist Device Identifier Shelf Expiration Date Model / Serial / Lot Prox Tenodesis Implant Syst - [id number] Implanted:Qty: 1 on 03/20/2021 by Harinder Hargrove DO at OR [facility] Left: Shoulder [employer] 03/06/2025 AR-2290 / / [id number] documented as of this encounter Advance Directives [...] the patient have Health Care Power of Functional Manager? No Code Status History Code Status Date Activated Date Inactivated Comments Full Code 02/11/2021 1:07 PM 02/11/2021 7:36 PM This or josue reflects the patients wishes and were consensually agreed upon. Question Answer Comments Discussion of Advance Directives occurred with: Not Discussed Does the patient have a Living Will? Yes, not currently available Does the patient have Health Care Power of Functional Manager? Yes, not currently available Care Teams Oil Well Gun Perforator Operator Relationship Specialty Start Date End Date Sonja Condon DO [address] [place] [address] PCP - General Family Medicine 02/26/11 documented as of this encounter
--- OUTSIDE RECORDS SUMMARY | 2023-08-20 20:10 | External Medical Summary | Summary of Care ---
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 Allergies Active [...] Active Ipratropium-Albuterol 0.5-2.5 (3) MG/3ML Inhalation Solution (Duoneb)Indications:FAMILY ASSISTANT D, group B, by GOLD 2017 classification [...] Subcutaneous Solution Auto-injectorIndication s:Coronary artery disease involving [place] coronary artery of [place] heart without angina pectoris,Pure hypercholesterolemia INJECT 75 MG (1 PEN) UNDER THE SKIN EVERY 14 DAYS 2 mL 11 08/21/20 22 2022 Active Fexofenadine HCl 180 MG Oral Tablet (Laura)Indications:Na douglas sinus congestion Take 1 Tablet by mouth daily as needed for Allergies (runny nose). 30 Tablet 11 11/18/19 23 Active Incruse Ellipta 62.5 MCG/ACT Inhalation Aerosol Powder Breath Activated (umeclidinium [place]) INHALE 1 PUFF BY MOUTH DAILY (USE IN PLACE OF SPIRIVA) 30 Each 5 11/26/19 23 Active Propranolol HCl ER 80 MG Oral Capsule Extended Release 24 Hour (Inderal [place]) TAKE 1 CAPSULE BY MOUTH EVERY DAY IN THE MORNING 90 Capsule 1 01/01/20 Active Levothyroxine Sodium 125 MCG Oral Capsule [...] 140/80 11/12/2017 Coronary artery disease invo lving [place] coronary artery of [place] heart without angina pectoris 09/30/2016 Hyperlipidemia [...] encounter Miscellaneous Notes * Telephone Encounter - Isabella Condon DO [...] clarification * Telephone Encounter - Ady Bailey RP - 02/27/2023 10:55 AM EDTPending Prescriptions: Disp [...] Telephone Encounter - Ady Bailey [facility] - 02/27/2023 10:42 AM EDT [...] patient. Thank You, Ady Bailey [facility] Clinical Pharmacist [facility] Clinical [facility]acy Services ([facility]) (formerly Telepharmacy) [phone] 02/27/2023, 10:54 AM documented in this encounter Plan of Treatment Upcoming Encounters Date Type Specialty Care Team Description 03/23/2023 Hospital Encounter Endoscopy Virginia Winkler, [address] [place] [address] 03/23/2023 Surgery Endoscopy Virginia Winkler DO [address] [place] [address] COLONOSCOPY FLEXIBLE PROXIMAL DIAGNOSTIC 04/02/2023 Cardiac Studies [facility] [address] [place] [address] 06/03/2023 Office Visit Cardiology Tab Rossi, [address] [place] [address] Scheduled Procedures Name Priority Associated Diagnoses Date/Ti [...] exists LUNG CANCER SCREENING - USE SMARTSET [id number] Completed 06/06/2022, 03/20/2022, 03/18/2021, Additional history exists [...] this encounter Medical Devices Implanted Type Area Technician Support Engineer Device Identifier Shelf Expiration Date Model / Serial / Lot Prox Tenodesis Implant Syst - [id number] Implanted:Qty: 1 on 03/20/2021 by Harinder Hargrove DO at OR [facility] Left: Shoulder [employer] 03/06/2025 AR-2290 / / [id number] documented as of this encounter Visit Diagnoses [...] the patient have Health Care Power of Hide Cooking Operator? No Code Status History Code Status Date Activated Date Inactivated Comments Full Code 02/11/2021 1:07 PM 02/11/2021 7:36 PM This or josue reflects the patients wishes and were consensually agreed upon. Question Answer Comments Discussion of Advance Directives occurred with: Not Discussed Does the patient have a Living Will? Yes, not currently available Does the patient have Health Care Power of Hide Cooking Operator? Yes, not currently available Care Teams Glue Specialty Supervisor Relationship Specialty Start Date End Date Isabella Condon DO [address] [place] [address] PCP - General Family Medicine 02/26/11 documented as of this encounter
--- OUTSIDE RECORDS SUMMARY | 2023-08-20 20:10 | External Medical Summary | Summary of Care ---
Author Name Unknown Organization [facility] Address [address] [place] [address] Phone [phone] Care Team Providers Care Laborer Pole Crew Name Role Phone Sonja Condon DO Primary Care Provider Reason for Visit * Reason Onset Date Comments Appointment 02/26/2023 Encounter Details Date Type Department Care Team Description 02/26/2023 Telephone Family Practice [facility] [address] [place] [address] Sonja Condon DO 200 [facility] [place] [address] Appointment Allergies Active Allergy Reactions Severity Noted Date Comments Atorvastatin 10/21/2016 Lisinopril Cough 08/12/2022 Sulfa Antibiotics Hives 02/26/2011 Ezetimibe 10/21/2016 documented as of this encounter (statuses as of 02/27/2023) Medications Medication Sig Dispensed Refills Start Date End Date Status Respiratory Therapy Supplies (NEBULIZER) DEMAR Use as directed. PER [facility] DC INSTRUCTIONS DATED 10/13/2017 0 8 [...] Subcutaneous Solution Auto-injectorIndications :Coronary artery disease involving [place] coronary artery of [place] heart without angina pectoris,Pure hypercholesterolemia INJECT 75 MG (1 PEN) UNDER THE SKIN EVERY 14 DAYS 2 mL 11 2 08/21/20 23 Active Fexofenadine HCl 180 MG Oral Tablet (Laura)Indications:Tera al sinus congestion Take 1 Tablet by mouth daily as needed for Allergies (runny nose). 30 Tablet 11 3 Active Incruse Ellipta 62.5 MCG/ACT Inhalation Aerosol Powder Breath Activated (umeclidinium [place]) INHALE 1 PUFF BY MOUTH DAILY (USE [...] 140/80 11/12/2017 Coronary artery disease invo lving [place] coronary artery of [place] heart without angina pectoris 09/30/2016 Hyperlipidemia 09/30/2016 [...] Miscellaneous Notes * Telephone Encounter - DEVON Cha - 02/26/2023 7:38 PM EDT Questions : pacemaker, blood thinners- mirtha Perfers: No Best # [phone] documented in this encounter Plan of Treatment Upcoming Encounters Date Type Specialty Care Team Description 04/02/2023 Cardiac Studies [facility] [address] [place] [address] 06/03/2023 Office Visit Cardiology Tab Rossi DO [address] [place] [address] Scheduled Procedures Name Priority Associated Diagnoses Date/Ti me COLONOSCOPY FLEXIBLE PROXIMA L DIAGNOSTIC Recall Screening for colon cancer Health Maintenance Due Date Last Done Comments Albumin/Creatinine Ratio 10/07/2014 10/07/2011 Depression Screening, Annual for Pts 12 and Over 10/25/2020 10/25/2019 COVID-19 Vaccine (2 - Pfizer series) 09/16/2021 07/22/2021, 12/24/2020, 11/26/2020 *ADVANCE DIRECTIVE NOT ON FILE 10/26/2021 GFR 01/21/2024 01/20/2023, 0 03/2022, 01/21/2022, Additional history exists TSH 01/21/2024 [...] exists LUNG CANCER SCREENING - USE SMARTSET [id number] Completed 06/06/2022, 03/20/2022, 03/18/2021, Additional history exists [...] this encounter Medical Devices Implanted Type Area Rn Plastic Surgery Device Identifier Shelf Expiration Date Model / Serial / Lot Prox [employer]odesis Implant Syst - [id number] Implanted:Qty: 1 on 03/20/2021 by Harinder Hargrove, DO at OR [facility] Left: Shoulder [employer] 03/06/2025 AR-2290 / / [id number] documented as of this encounter Advance Directives [...] the patient have Health Care Power of Attendant [place]? No Code Status History Code Status Date Activated Date Inactivated Comments Full Code 02/11/2021 1:07 PM 02/11/2021 7:36 PM This or josue reflects the patients wishes and were consensually agreed upon. Question Answer Comments Discussion of Advance Directives occurred with: Not Discussed Does the patient have a Living Will? Yes, not currently available Does the patient have Health Care Power of Attendant [place]? Yes, not currently available Care Teams Laborer Pole Crew Relationship Specialty Start Date End Date Sonja Condon DO [address] [place] [address] PCP - General Family Medicine 02/26/11 documented as of this encounter
[2023-08-20] MEDS: CHOLECALCIFEROL 1,000 UNITS 25 MCG TAB PO SCH (20:33)
[2023-08-20] MEDS: APIXABAN 5 MG TABLET PO SCH (20:33)
[2023-08-21] MEDS: LEVOTHYROXINE SODIUM 137 MCG TABLET PO SCH (06:31)
[2023-08-21 06:40] LABS: Basophils # (auto) 0.06 K/uL (0.00-0.20); Basophils % (auto) 0.9 %; Eosinophils # (auto) 0.19 K/uL (0.00-0.50); Eosinophils % (auto) 2.8 %; Hematocrit (blood only) 39.3 % (42.0-52.0); Hemoglobin 13.7 g/dl (14.0-18.0); Immature Granulocytes # (auto) 0.02 K/uL (0.01-0.20); Immature Granulocytes % (auto) 0.3 %; Lymphocytes # (auto) 1.25 K/uL (1.20-3.40); Lymphocytes % (auto) 18.5 %; Mean Corpuscular Hemoglobin 31.9 pg (25.0-34.0); Mean Corpuscular Hgb Conc 34.9 g/dL (32.0-36.0); Mean Corpuscular Volume 91.4 fL (80.0-100.0); Mean Platelet Volume 9.7 fL (9.4-12.4); Monocytes % (auto) 8.9 %; Neutrophils # (auto) 4.62 K/uL (1.40-6.50); Neutrophils % (auto) 68.6 %; Platelet Count 265 K/uL (130-400); RDW Coefficient of Variation 14.1 % (11.5-14.5); RDW Standard Deviation 47.6 fL (36.4-46.3); White Blood Count 6.74 K/ul (4.8-10.8)
[2023-08-21 07:08] LABS: Estimated Average Glucose 117 mg/dl; Hemoglobin A1C 5.7 % (4.5-5.6)
[2023-08-21 07:16] LABS: BUN Creatinine Ratio 21.4 (10-20); Calcium 8.9 mg/dl (8.6-10.3); Creatinine Clr Calc Pharmacy 61.9 ml/min; Est GFR (African American) 85.8 ml/min; Est GFR (Non-African American) 74.1 ml/min
[2023-08-21 07:30] LABS: Thyroid Stimulating Hormone 2.199 uIu/ml (0.300-4.500)
[2023-08-21] MEDS: FLUTICASONE/VILANTEROL 200/25MCG 14 PUFFS/INHALER INH SCH (08:44)
[2023-08-21] MEDS: FLUTICASONE PROPIONATE NA SPR 16 GM BTL NAE SCH (08:44)
[2023-08-21] MEDS: FUROSEMIDE 20 MG TAB PO SCH (08:44)
[2023-08-21] MEDS: UMECLIDINIUM BROMIDE 62.5MCG/BLISTER 7 PUFFS/INHALER INH SCH (08:45)
[2023-08-21] MEDS ORDERED: UMECLIDINIUM BROMIDE 62.5MCG/BLISTER 7 PUFFS/INHALER INH SCH (09:00)
--- NOTE | 2023-08-21 09:40 | Consultation ---
Date of Consultation August 21, 2023 Assessment & Plan (1) Carotid stenosis, right: Pt with R ICA stenosis of approx 60%. He is asymtpomatic from this, but we do recommend he undergo surveillance with a carotid US in 6 months. Office will call pt to arrange. 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 History of Present Illness Reason for Consultation: RICAS, vertebral art occlusion Attending Physician: Laura Ivy MD History of Present Illness 78 yo m with hx of HTN, A fib on eliquis, COPD, DJD, sick sinus syndrome s/p pacemaker, CAD, hypothyroidism, admitted after L hemispheric CVA, seen in consultation today for RICAS and vertebral art occlusion. Pt states he was u nable to walk without listing to his R side yesterday. Also had difficulty speaking/slurred speech yesterday. These sx lasted about 30 minutes, per pt. Pt states he had stopped his eliquis for 2 days, as he was to have a dental procedure yesterday. Pt denies prior similar sx, associated LINDQUIST, amaurosis, unilateral numbness/tingling, facial droop, fever, chest pain, SOB, abd pain, N/V, rest pain, claudication, other complaints. CTA neck demonstrates vertebral art occlusion and R ICA stenosis of 60-70%. MRI brain demonstrates L hemispheric CVA. Allergies Allergy/AdvReac Type Severity Reaction Status Date / Time Sulfa (Sulfonamide Allergy Intermediate itchy with Verified 08/20/23 10:01 Antibiotics) hives atorvastatin AdvReac Mild Muscle Pain Verified 08/20/23 10:01 ezetimibe [From Zetia] AdvReac Mild Muscle Pain Verified 08/20/23 10:01 lisinopril AdvReac Mild Cough Verified 08/20/23 10:24 Home Medications Medication Instructions Recorded Confirmed Type albuterol sulfate 90 mcg/actuation 2 puff inhalation Q4 PRN Wheezing 08/29/18 08/20/23 History aerosol inhaler budesonide-formoterol HFA 160 2 puff inhalation BID 08/29/18 08/20/23 History mcg-4.5 mcg/actuation aerosol inhaler (Symbicort) levothyroxine 137 mcg tablet 137 mcg PO QAM 08/29/18 08/20/23 History albuterol sulfate 0.63 mg/3 mL 0.63 mg inhalation Q8 PRN Cough 11/20/20 08/20/23 History solution for nebulization apixaban 5 mg tablet (Eliquis) 5 mg BID 11/20/20 08/20/23 History fluticasone propionate 50 2 spray intranasal QAM 11/20/20 08/20/23 History mcg/actuation nasal spray,suspension umeclidinium 62.5 mcg/actuation 1 inh inhalation DAILY 11/20/20 08/20/23 History blister powder for inhalation (Incruse Ellipta) alirocumab 75 mg/mL subcutaneous 75 mg subcut USEASDIRECTD 12/04/20 08/20/23 History pen injector (Praluent Pen) cholecalciferol (vitamin D3) 25 1,000 unit PO HS 12/10/20 08/20/23 History mcg (1,000 unit) tablet (Vitamin D3) amoxicillin 500 mg tablet 2,000 mg (4 x 500 mg) PO ONCE #4 08/11/22 08/20/23 Rx tabs furosemide 20 mg tablet 20 mg PO DAILY 08/20/23 08/20/23 History losartan 25 mg tablet 25 mg PO DAILY 08/20/23 08/20/23 History propranolol 80 mg capsule,24 80 mg PO DAILY 08/20/23 08/20/23 History hr,extended release Patient History Medical History CAD (coronary artery disease) 40% lesion 1st diagonal of LAD, 2016 cath Tricuspid regurgitation moderate-severe Pulmonary hypertension mild History of cardioversion 2020 Aortic stenosis Moderate per 11/11/21 ECHO= HANANE =1.0 to 0.95 cm. 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 Christy Family History Mother No problems noted. Father Family history of diabetes mellitus Other No family history of adverse response to anesthesia Social History Smoking Status: Current some day smoker Tobacco Type: Cigarettes Cigarettes Per Day: 3-4; Second Hand Exposure: No; Do You Dip or Chew Tobacco: No; Tobacco Cessation Education Requested by Patient: No Hx Alcohol Use: Yes Alcohol type: beer Hx Substance Use: No Preferred Language: Urdu Communication Ability: Effective Customer Order Clerk Required: No Beliefs That Will Affect Care: Anabaptism Current Living Situation: Spouse Other Information That Helps Us Care for You: No Feels Safe at Home: Yes Safety Concerns: Feels Safe At This Time Assistive Devices: Glasses and Hearing Aid - Bilateral Review of Systems Review of Systems: All systems reviewed & are unremarkable except as noted in HPI & below Physical Exam Constitutional: WD/WN, vitals as above healthy appearing, cooperative and comfortable; not in distress Neck: trachea midline Respiratory: normal respiratory effort, lungs clear to auscultation Auscultation: + diminished lung sounds Cardiovascular: Rate/Rhythm: + irregularly irregular Vessels: femoral pulses present, posterior tibial pulses present, dorsalis pedis pulses present and radial pulses present; + abnormal peripheral pulses Extremities: normal capillary refill; no edema Gastrointestinal (Abdomen): Inspection/Auscultation: abdomen normal to inspection and normal bowel sounds Percussion/Palpation: abdomen soft; abdomen nontender Musculoskeletal: no cyanosis or clubbing, extremities motor strength 5/5 Skin: no rashes, warm and dry Neurologic: moves all extremities and awake; no focal motor deficits and not confused Psychiatric: A+Ox3, euthymic affect Results & Data Vital Signs (Past 12 Hours) Vital Signs Temp Pulse Pulse Resp BP Pulse Ox O2 Del Method 08/21/23 07:27 37.0 C 74 18 145/91 H 95 Room Air 08/21/23 03:04 36.9 C 71 18 138/86 92 Room Air 08/20/23 22:43 37.0 C 71 18 147/86 H 95 Room Air 08/20/23 22:20 70
--- NOTE | 2023-08-21 10:20 | Hospitalist Progress Note ---
Date of Service August 21, 2023 Assessment & Plan (1) TIA (transient ischemic attack): (2) Atrial fibrillation: (3) S/P cardiac pacemaker procedure: (4) HTN (hypertension): (5) COPD (chronic obstructive pulmonary disease): Plan This is a 78-year-old male who has significant past medical history of permanent atrial fibrillation anticoagulated on Eliquis, TBS status post PPM in 2020, nonobstructive CAD, HTN, HLD statin intolerant, diastolic CHF, moderate aortic valve stenosis, hypothyroidism and tobacco abuse who presents to ER secondary to difficulty speaking and walking x 30 minutes. CVA Pt presented with dysarthria and gait dysfunction Head CT noting subacute to chronic infarct Head and Neck CTA noting 60-70% in the R ICA Pt with pacer placed in 2020, MRI compatible MRI Brain with acute to subacute infarct in L frontal lobe and L parietal lobe Repeat head CT on 08/21- noted progression/evolution of infarct. Neurology consulted - advising on 08/21 to continue Eliquis -Echo: no comment on shunt -PT/OT- noted no further therapy needed -speech therapy- passed dysphagia screen and no further speech therapy/eval indicated Continue hold on propranolol, lasix and losartan, BP currently controlled Continue praluent, pt is not a statin candidate Appreciate further neurology recs with evolution of stroke Carotid artery stenosis Questionable distal right vertebral artery dissection Head and Neck CTA noting 60-70% in the R ICA Vascular consult- recommending outpt followup Per telestroke continue Eliquis Atrial fibrillation TBS status post PPM continue eliquis follows with Dr. Rossi Chronic HFpEF Moderate daily weights, I and O heart healthy diet resume lasix in am. HLD continue praluent statin intolerant Tobacco abuse still smokes a few cigarettes a day encourage cessation DNR/DNI - discussed with patient, and daughter at bedside, living will present Dispo: PCU DVT ppx: Eliquis Admission and Anticipated Discharge Date Admission Date: August 20, 2023 Subjective Pt seen in the AM. He stated that his gait dysfunction and speech deficit had resolved. Denied other symptoms at that time Later notified by nursing that pt was having R sided blurred vision. Neurology notified- recommended repeat head CT. Family updated at the end of the day, spoke to daughter Reyna by phone and granddaughter present in the room. Review of Systems Review of Systems: All systems reviewed & are unremarkable except as noted in Subjective Physical Exam Physical Exam: General: Alert, oriented. No acute distress Skin: No noted rashes or bruises Psych: Appropriate mood and affect Neuro: Pt with hearing loss, otherwise other CN grossly intact, strength equal in both upper and lower extremities bilaterally. HEENT: NC/AT Chest: Nontender to palpation. CV: RRR Resp: Breath sounds clear bilaterally, no increased effort of breathing. Abdomen: Soft, nontender, nondistended. Extremities: No edema in lower extremities bilaterally. Results & Data Results & Data Vital Signs (Past 12 Hours) Vital Signs Temp Pulse Pulse Resp BP Pulse Ox O2 Del Method 08/21/23 07:27 37.0 C 74 18 145/91 H 95 Room Air 08/21/23 03:04 36.9 C 71 18 138/86 92 Room Air 08/20/23 22:43 37.0 C 71 18 147/86 H 95 Room Air 08/20/23 22:20 70 (4) HTN (hypertension) Hypertension type: unspecified Qualified Code(s): I10 - Essential (primary) hypertension
--- NOTE | 2023-08-21 11:56 | CT Scan Report ---
CT SCAN OF THE BRAIN WITHOUT IV CONTRAST CLINICAL HISTORY: Stroke. Blurry vision. COMPARISON STUDY: CT and MRI of the brain dated 08/20/2023. TECHNIQUE: Unenhanced axial CT scan of the brain is performed from the vertex to the skull base. A do se lowering technique was utilized adhering to the principles of ALARA. CT DOSE: 625.8 mGy.cm FINDINGS: Brain parenchyma: There is loss of antony-white matter differentiation in the left frontal lobe cortex consistent with a subacute/evolving infarct. There is no hemorrhage or mass effect. There is encephal omalacia from chronic right frontal and biparietal infarcts. There is age-related involutional change noting moderate to advance subcortical and periventricular microangiopathic disease. No extra-axial fluid collection is seen. Ventricles, sulci, cisterns: Prominent secondary to involutional change. Intracranial vasculature: There is atherosclerotic calcification of the cavernous carotid and vertebr al arteries. Calvarium: Unremarkable. Sinuses and mastoids: The visualized paranasal sinuses are clear. The mastoid air cells are well pneu matized. Orbits: The bony orbits are grossly intact. There are bilateral ocular lens implants. IMPRESSION: 1. There is loss of antony-white matter differentiation in the left posterior frontal cortex consistent with a subacute/evolving infarct when compared to yesterday's MRI. 2. The small lacunar infarct in the left posterior parietal white matter seen by MRI is not appreciat ed by CT. 3. There is no hemorrhage or mass effect. 4. Additional chronic infarct as above. ACT 112: Negative or not required by law. Electronically signed by: Hrash Le M.D. 08/21/2023 11:54 AM
--- NOTE | 2023-08-21 14:30 | Pharmacy Report ---
- Date of Service August 21, 2023 - Pharmacy CVA/TIA Medication Review Medications to Prevent Stroke handout has been added to the patients discharge packet. Antiplatelet(s) * Aspirin therapy to begin per Neuro recs; Hospitalist is aware and has plans to execute this order Cholesterol * High intensity statin deferred due to intolerance per Neuro/Hospitalist documentation DVT Prophylaxis * Patient is receiving therapeutic anticoagulation in the form of Eliquis Therapeutic Anticoagulation * Hx Afib/Aflutter noted, and patient is currently receiving Eliquis 5mg BID Type 2 Diabetes * Patient does not have T2DM
--- NOTE | 2023-08-21 15:42 | Neurology Progress Note ---
Date of Service August 21, 2023 Assessment & Plan (1) Stroke: Plan 78 y/o male with history of atrial fibrillation on eliquis, HTN, COPD, CAD, and sick sinus syndrome that presented after a transient episode of dysarthria and gait impairment secondary to acute left parietal and frontal lobe stroke. As eliquis was re-started on yesterday, discussed with primary that would continue on today. Pt with transient monocular visual disturbance on the right today, which he reports has been episodic over the last few years. Will need further evaluation with opthalmology, particularly given R carotid stenosis. Repeat CTH today with evolving infarct with no hemorrhage or mass effect. 1. Opthalmology consultation 2. On apixiban 5 mg bid 3. Neurochecks q 4 4. On praluent, statin and zetia intolerance 5. ST/PT/OT 6. Vascular sx outpatient followup Subjective Telehealth Information I performed this visit using a real-time telehealth connection between my location and the patients location ([facility]). After connecting through interactive tele-video, patient was identified by name and date of and/or wristband check.Patient (or authorized healthcare promotions representative) was informed that this was a telemedicine visit and it was being conducted confidentially over secure lines. My office door was closed and no one else was present in the room with me.Patient (or authorized healthcare promotions representative) provided consent to proceed with the visit, expressed an understanding of privacy and security of the telemedicine visit, and gave permission to have a hospital promotions representative in the room in order to assist with the visit and to conduct portions of the visit, as needed. I informed the patient (or authorized healthcare promotions representative) that I reviewed their record and presented the opportunity for them to ask any questions regarding the visit today. The patient agreed to participate. He states that early this morning he developed blurred vision in his right eye. He denies any vision loss. He states that when he covered his left eye, half of his vision was blurry. If he covered the right eye, his vision was normal. He states that over two to three years, this has happened occasionally and always involves the right eye. It usually lasts a couple of hours before resolving. He has not seen an eye doctor previously for this. He thinks it lasted for several hours today. He feels that his vision has returned to normal. He denies any additional complaints. Review of Systems Negative except as listed in HPI Physical Exam AAO X 3 No aphasia or dysarthria VFF grossly intact EOMI, nystagmus Facial sensations intact No facial asymmetry Tongue protrudes midline Motor: Moves all four extremities antigravity, no drift. No involuntary movements. Sensation: Intact to light throughout Cerebellar: FTN NIHS 0 Results & Data Vital Signs (Past 12 Hours) Vital Signs Temp Pulse Resp BP Pulse Ox O2 Del Method 08/21/23 15:20 37.1 C 70 19 130/86 93 Room Air 08/21/23 10:50 36.7 C 75 18 133/90 96 Room Air 08/21/23 07:27 37.0 C 74 18 145/91 H 95 Room Air Laboratory Results WBC 6.73, HGB 13.7, HCT 39.3, Plts 265, NA 141, Chloride 107, Creatinine 0.98, A1C 5.7, LDL 23, TSH 2.199 Diagnostic Findings CTH 08/21:1. There is loss of antony-white matter differentiation in the left posterior frontal cortex consistent with a subacute/evolving infarct when compared to yesterday's MRI.The small lacunar infarct in the left posterior parietal white matter seen by MRI is not appreciated by CT. There is no hemorrhage or mass effect.Additional chronic infarct as above. CTA/CTH 08/20: Partially imaged occlusion of the distal right vertebral artery. Please refer to the CTA neck study of same day for additional details. 4.4 cm subacute to chronic appearing right parietal lobe infarct is new from the 2020 exam. Additional ill-defined areas of decreased attenuation within the left parietal and right frontal lobes are new from prior and likely represent chronic infarcts. Otherwise unremarkable CTA of the head. MRI brain: . There is an approximately 2.5 cm acute to subacute infarct in the posterior left frontal lobe cortex. There is an additional subcentimeter focus of restricted diffusion seen within the left posterior parietal white matter. This there is also consistent with acute to subacute ischemia. The distribution favors an embolic phenomenon. Additional chronic infarcts as above. There is no hemorrhage or midline shift. TTE: EF 60-65%, moderately enlarged left atrium, no interatrial shunt
[2023-08-21] MEDS: CHOLECALCIFEROL 1,000 UNITS 25 MCG TAB PO SCH (20:45)
[2023-08-21] MEDS: APIXABAN 5 MG TABLET PO SCH (20:45)
[2023-08-22] MEDS: LEVOTHYROXINE SODIUM 137 MCG TABLET PO SCH (06:09)
[2023-08-22 06:53] LABS: Basophils # (auto) 0.05 K/uL (0.00-0.20); Basophils % (auto) 0.7 %; Eosinophils # (auto) 0.19 K/uL (0.00-0.50); Eosinophils % (auto) 2.7 %; Hematocrit (blood only) 41.9 % (42.0-52.0); Hemoglobin 14.4 g/dl (14.0-18.0); Immature Granulocytes # (auto) 0.04 K/uL (0.01-0.20); Immature Granulocytes % (auto) 0.6 %; Lymphocytes # (auto) 1.22 K/uL (1.20-3.40); Lymphocytes % (auto) 17.6 %; Mean Corpuscular Hemoglobin 31.4 pg (25.0-34.0); Mean Corpuscular Hgb Conc 34.4 g/dL (32.0-36.0); Mean Corpuscular Volume 91.3 fL (80.0-100.0); Monocytes # (auto) 0.65 K/uL (0.11-0.59); Monocytes % (auto) 9.4 %; Neutrophils # (auto) 4.77 K/uL (1.40-6.50); Platelet Count 279 K/uL (130-400); RDW Coefficient of Variation 14.2 % (11.5-14.5); RDW Standard Deviation 47.6 fL (36.4-46.3); Red Blood Count 4.59 M/uL (4.70-6.10); White Blood Count 6.92 K/ul (4.8-10.8)
[2023-08-22 07:12] LABS: Albumin Globulin Ratio 1.2 (0.9-2); Albumin Level 3.3 gm/dl (3.4-5.0); BUN Creatinine Ratio 22.3 (10-20); Bilirubin,Total 0.9 mg/dl (0.2-1.0); Calcium 9.1 mg/dl (8.6-10.3); Creatinine Clr Calc Pharmacy 59.2 ml/min; Est GFR (African American) 90.3 ml/min; Est GFR (Non-African American) 77.9 ml/min; Globulin 2.8 gm/dl (2.5-4.0); Magnesium 1.9 mg/dl (1.7-2.4); Phosphorus 3.3 mg/dl (2.5-4.9); Potassium 3.9 mmol/L (3.5-5.1); Total Protein 6.1 gm/dl (6.0-8.3)
--- NOTE | 2023-08-22 08:15 | Electrocardiogram Report ---
Test Reason : Blood Pressure : / mmHG Vent. Rate : 071 BPM Atrial Rate : 070 BPM P-R Int : 000 ms QRS Dur : 144 ms QT Int : 446 ms P-R-T Axes : 000 243 057 degrees QTc Int : 484 ms Ventricular-paced rhythm Underlying atrial fibrillatnio Abnormal ECG When compared with ECG of 13-JUN-2022 09:15, Vent. rate has increased BY 5 BPM Confirmed by Joel Sher ([id number]) on 08/22/2023 8:15:08 AM Referred By: REFERRED SELF Confirmed By:Joel Sher
[2023-08-22] MEDS: FLUTICASONE PROPIONATE NA SPR 16 GM BTL NAE SCH (08:22)
[2023-08-22] MEDS: UMECLIDINIUM BROMIDE 62.5MCG/BLISTER 7 PUFFS/INHALER INH SCH (08:22)
[2023-08-22] MEDS: FUROSEMIDE 20 MG TAB PO SCH (08:22)
[2023-08-22] MEDS: APIXABAN 5 MG TABLET PO SCH (08:22)
[2023-08-22] MEDS: FLUTICASONE/VILANTEROL 200/25MCG 14 PUFFS/INHALER INH SCH (08:23)
[2023-08-22] MEDS ORDERED: STROKE PATIENT DISCHARGE STA (12:29)
--- NOTE | 2023-08-22 12:40 | Discharge Summary ---
Discharge Summary Date of Service August 22, 2023 Notes For Next Care Provider No medication changes but pt should continue on Eliquis without interruption (Eliquis was held recently for a dental procedure) Please ensure followup with Ophthalmology for R eye transient vision changes per Neurology Please ensure follow up with Vascular Surgery for R ICA stenosis of 60%- recommending surveillance with a carotid ultrasound in 6 months Please ensure close Neurology followup Medication Changes From Visit None but pt should continue on Eliquis without interruption Admission HPI Per Admitting Provider This is a 78-year-old male who has significant past medical history of permanent atrial fibrillation anticoagulated on Eliquis, TBS status post PPM in 2020, nonobstructive CAD, HTN, HLD statin intolerant, diastolic CHF, moderate aortic valve stenosis, hypothyroidism and tobacco abuse who presents to ER secondary to difficulty speaking and walking x 30 minutes. Patient's and daughter at bedside who also helped elicit history. He woke up this morning and was going out to his garage when he just did not, "feel quite right." He then ended up coming in the house and sitting down in approximately 7:30 AM was talking to his . She noted that his speech was very garbled and she was not able to understand him. He also states he is having a much more difficult time walking than normal. Daughter at bedside states at baseline his gait is not good. They have never experienced anything like this before. at bedside states approx imately 2 years ago he was having difficulty walking where he was walking into the wall when he was trying to walk the other direction, but they never had this evaluated. It resolved on its own. Symptoms lasted approximately 30 minutes. EMS was summoned and prior to leaving the house his symptoms was already starting to improve. denied any facial droop. Patient denied any further numbness or tingling or unilateral arm or leg weakness. He has otherwise been in her normal state of health and denies any recent illness. He denies any fever, chills, sweats, lightheadedness, dizziness, headache, change in vision, chest pain, shortness of breath, cough, nausea, vomit, abdominal pain, changes in bowel or urinary habits. He admits to being compliant to Eliquis, but daughter at bedside is uncertain as he manages his own medications although they do help him with them. He did not take any medications this morning and his last dose of Eliquis was last evening. In ED he was made a stroke alert. Initial CTA of head revealed a 4.4 cm subacute to chronic appearing right parietal lobe infarct which is new from 2020 examination as well as areas of ill-defined decreased attenuation in the left parietal and right frontal lobes likely representing chronic infarcts. Also noted is a partially occluded distal right vertebral artery, concern for possible distal right vertebral artery d issection and 60% to 70% stenosis of right internal carotid artery. Telestroke recommended inpatient admission and he did not meet criteria for TN K due to improvement of symptoms as well as he is on Eliquis. He still smokes occasionally and has for 50 years. Admission Exam Per Admitting Provider Constitutional: WD/WN, vitals as above, NAD, sitting up in bed, pleasant, conversing easily Head: Normocephalic, Atraumatic Eyes: conjunctivae normal, anicteric sclerae ENMT: external ear and nose normal, oropharynx normal , hearing assist device in place Neck: trachea midline, normal visual inspection Respiratory: Normal insp/exp effort, no accessory muscle use CV: NSR on monitor Musculoskeletal: no cyanosis or clubbing, extremities motor strength 5/5 Skin: no rashes, warm and dry normal turgor Neurologic: no face palsy, no dysarthria CN's II-XI intact bilaterally and moves all extremities Psychiatric: A+Ox3, euthymic affect : deferred Principal Dx & Hospital Course #1 = Principal Diagnosis (1) Stroke: (2) Cerebrovascular accident: (3) Carotid stenosis, right: (4) Occlusion of right vertebral artery: (5) Atrial fibrillation: (6) S/P cardiac pacemaker procedure: (7) HTN (hypertension): (8) COPD (chronic obstructive pulmonary disease): Plan This is a 78-year-old male who has significant past medical history of permanent atrial fibrillation anticoagulated on Eliquis, TBS status post PPM in 2020, nonobstructive CAD, HTN, HLD statin intolerant, diastolic CHF, moderate aortic valve stenosis, hypothyroidism and tobacco abuse who presents to ER secondary to difficulty speaking and walking x 30 minutes. CVA Pt presented with dysarthria and gait dysfunction Head CT noting subacute to chronic infarct Head and Neck CTA noting 60-70% in the R ICA Pt with pacer placed in 2020, MRI compatible MRI Brain with acute to subacute infarct in L frontal lobe and L parietal lobe Repeat head CT on 08/21- noted progression/evolution of infarct. Neurology consulted - advising on 08/21 to continue Eliquis -Echo: no comment on shunt -PT/OT- noted no further therapy needed -speech therapy- passed dysphagia screen and no further speech therapy/eval indicated Resume home propranolol, lasix and losartan on discharge after permissive HTN Continue praluent, pt is not a statin candidate Pt should continue on Eliquis without interruption (Eliquis was held recently for a dental procedure) PCP and Neurology follow up after discharge Transient Vision Loss In setting of above Neurology recommending followup with Ophthalmology for R eye transient vision changes Carotid artery stenosis Possible distal right vertebral artery dissection Head and Neck CTA noting 60-70% in the R ICA Vascular consult- recommending outpt followup Please ensure follow up with Vascular Surgery for R ICA stenosis of 60%- recommending surveillance with a carotid ultrasound in 6 months Per telestroke continue Eliquis without interruption Atrial fibrillation TBS status post PPM On BB, continue eliquis follows with Dr. Rossi, Cardiology Chronic HFpEF Moderate daily weights, I and O heart healthy diet resumed lasix on discharge HLD continue praluent statin intolerant Tobacco abuse still smokes a few cigarettes a day encourage cessation Discharge Exam General: Alert, oriented. No acute distress Skin: No noted rashes or bruises Psych: Appropriate mood and affect Neuro: Pt with hearing loss, otherwise other CN grossly intact, strength equal in both upper and lower extremities bilaterally. HEENT: NC/AT Chest: Nontender to palpation. CV: RRR Resp: Breath sounds clear bilaterally, no increased effort of breathing. Abdomen: Soft, nontender, nondistended. Extremities: No edema in lower extremities bilaterally. Updated Medication List Medication Instructions Recorded Confirmed Type albuterol sulfate 90 mcg/actuation 2 puff inhalation Q4 PRN Wheezing 08/29/18 08/20/23 History aerosol inhaler budesonide-formoterol HFA 160 2 puff inhalation BID 08/29/18 08/20/23 History mcg-4.5 mcg/actuation aerosol inhaler (Symbicort) levothyroxine 137 mcg tablet 137 mcg PO QAM 08/29/18 08/20/23 History albuterol sulfate 0.63 mg/3 mL 0.63 mg inhalation Q8 PRN Cough 11/20/20 08/20/23 History solution for nebulization apixaban 5 mg tablet (Eliquis) 5 mg BID 11/20/20 08/20/23 History fluticasone propionate 50 2 spray intranasal QAM 11/20/20 08/20/23 History mcg/actuation nasal spray,suspension umeclidinium 62.5 mcg/actuation 1 inh inhalation DAILY 11/20/20 08/20/23 History blister powder for inhalation (Incruse Ellipta) alirocumab 75 mg/mL subcutaneous 75 mg subcut USEASDIRECTD 12/04/20 08/20/23 History pen injector (Praluent Pen) cholecalciferol (vitamin D3) 25 1,000 unit PO HS 12/10/20 08/20/23 History mcg (1,000 unit) tablet (Vitamin D3) furosemide 20 mg tablet 20 mg PO DAILY 08/20/23 08/20/23 History losartan 25 mg tablet 25 mg PO DAILY 08/20/23 08/20/23 History propranolol 80 mg capsule,24 80 mg PO DAILY 08/20/23 08/20/23 History hr,extended release Hospital Stay Data Consultations 08/20/23 10:07 ED Decision to Admit Stat 08/20/23 11:04 Consult Neurology Routine 08/20/23 11:12 Consult Vascular Surgery Routine Diagnostic Imagining Performed 08/20/23 MRI Brain [MR brain wo/w con] Routine 08/20/23 08:33 CT angio head w con Stat CT angio neck with con Stat CT head/brain wo con Stat 08/21/23 11:06 CT head/brain wo con Stat Brain MRI 08/20/23 00:00 MRI OF THE BRAIN COMBO CLINICAL HISTORY: Stroke. COMPARISON STUDY: CT of the brain dated 08/20/2023. TECHNIQUE: MRI of the brain was performed utilizing various T1 and T2-weighted sequences in the axial, sagittal, and coronal planes. Contrast-enhanced sequences were acquired following the administration of 7 cc of Gadavist. FINDINGS: Brain parenchyma: There is an approximately 2.5 cm focus of restricted diffusion identified in the posterior left frontal lobe cortex consistent with acute to subacute infarct. An additional punctate focus of restricted diffusion is seen in the left posterior parietal white matter. This is also consistent with acute to subacute ischemia. No additional foci of restricted diffusion are identified. There is no hemorrhage or midline shift. There are chronic infarcts seen within the right frontal, right parietal, and left parietal lobes. No enhancing mass lesion is identified on the postcontrast images. There is age related involutional change noted moderate to advanced subcortical and periventricular microangiopathic disease. No extra-axial fluid collection is seen. The cerebellar tonsils are normal in configuration. Ventricles, sulci, and cisterns: Prominent significant involutional change. Pituitary and sella: Unremarkable. Intracranial vasculature: The right vertebral artery flow void appears attenuated. The remaining flow voids at the skull base are patent. Orbits: The bony orbits are grossly intact. Orbital contents are normal in appearance noting bilateral ocular lens implants. Sinuses and mastoids: Clear. Calvarium: Unremarkable. Cervical cord: Partially visualized cervical spinal cord is normal in morphology and signal intensity. IMPRESSION: 1. There is an approximately 2.5 cm acute to subacute infarct in the posterior left frontal lobe cortex. 2. There is an additional subcentimeter focus of restricted diffusion seen within the left posterior parietal white matter. This there is also consistent with acute to subacute ischemia. The distribution favors an embolic phenomenon. 3. Additional chronic infarcts as above. 4. There is no hemorrhage or midline shift. ACT 112: Negative or not required by law. Electronically signed by: Harsh Le M.D. 08/20/2023 2:[address] 08/20/23 08:33 CT angio head w con, CT head/brain wo con CLINICAL HISTORY: 78 years-old Male with neuro deficit, acute stroke suspected. Acute stroke like symptoms COMPARISON STUDY: CTA neck of same day, head CT 09/10/2020 TECHNIQUE: Unenhanced axial CT scan of the brain is performed. Subsequently, following the IV administration of 115 cc of Optiray, CT angiogram of the brain was performed from the skull base to the vertex. Images are reviewed in the axial, sagittal, and coronal planes. 3-D MIPS images are created and assessed. IV contrast was administered without complication. All measurements were obtained according to NASCET criteria. A dose lowering technique was utilized adhering to the principles of ALARA. FINDINGS: CT BRAIN: There is no acute intracranial hemorrhage, midline shift, hydrocephalus, intracranial mass, or abnormal extra-axial collections. Involutional changes with chronic microvascular ischemic disease. There is a 4.47 m focus of decreased attenuation within the right parietal lobe on image 18 series 2 which is new from prior suggestive of a subacute to chronic infarct. Additional area of probable encephalomalacia within the right frontal and left parietal lobes. No abnormal intra-axial or extra-axial enhancement. Mastoid air cells and middle ear cavities are clear. Prior bilateral lens repair. No calvarial fracture. Paranasal sinuses are clear. CT ANGIOGRAM OF THE BRAIN: The imaged bilateral internal carotid arteries are patent. The bilateral anterior and middle cerebral arteries are also patent. Occlusion of the distal right vertebral artery. Otherwise, there is no aneurysm, high-grade stenosis, or proximal branch occlusion identified. Dural sinuses appear patent. IMPRESSION: 1. Partially imaged occlusion of the distal right vertebral artery. Please refer to the CTA neck study of same day for additional details. 2. 4.4 cm subacute to chronic appearing right parietal lobe infarct is new from the 2020 exam. 3. Additional ill-defined areas of decreased attenuation within the left parietal and right frontal lobes are new from prior and likely represent chronic infarcts. 4. Otherwise unremarkable CTA of the head. ACT 112: Negative or not required by law. The above report was generated using voice recognition software. It may contain grammatical, syntax or spelling errors. Electronically signed by: Rhys Laguerre M.D. 08/20/2023 9:14 AM Head CTA 08/20/23 08:33 CT angio head w con, CT head/brain wo con CLINICAL HISTORY: 78 years-old Male with neuro deficit, acute stroke suspected. Acute stroke like symptoms COMPARISON STUDY: CTA neck of same day, head CT 09/10/2020 TECHNIQUE: Unenhanced axial CT scan of the brain is performed. Subsequently, following the IV administration of 115 cc of Optiray, CT angiogram of the brain was performed from the skull base to the vertex. Images are reviewed in the axial, sagittal, and coronal planes. 3-D MIPS images are created and assessed. IV contrast was administered without complication. All measurements were obtained according to NASCET criteria. A dose lowering technique was utilized adhering to the principles of ALARA. FINDINGS: CT BRAIN: There is no acute intracranial hemorrhage, midline shift, hydrocephalus, intracranial mass, or abnormal extra-axial collections. Involutional changes with chronic microvascular ischemic disease. There is a 4.47 m focus of decreased attenuation within the right parietal lobe on image 18 series 2 which is new from prior suggestive of a subacute to chronic infarct. Additional area of probable encephalomalacia within the right frontal and left parietal lobes. No abnormal intra-axial or extra-axial enhancement. Mastoid air cells and middle ear cavities are clear. Prior bilateral lens repair. No calvarial fracture. Paranasal sinuses are clear. CT ANGIOGRAM OF THE BRAIN: The imaged bilateral internal carotid arteries are patent. The bilateral anterior and middle cerebral arteries are also patent. Occlusion of the distal right vertebral artery. Otherwise, there is no aneurysm, high-grade stenosis, or proximal branch occlusion identified. Dural sinuses appear patent. IMPRESSION: 1. Partially imaged occlusion of the distal right vertebral artery. Please refer to the CTA neck study of same day for additional details. 2. 4.4 cm subacute to chronic appearing right parietal lobe infarct is new from the 2020 exam. 3. Additional ill-defined areas of decreased attenuation within the left parietal and right frontal lobes are new from prior and likely represent chronic infarcts. 4. Otherwise unremarkable CTA of the head. ACT 112: Negative or not required by law. The above report was generated using voice recognition software. It may contain grammatical, syntax or spelling errors. Electronically signed by: Rhys Laguerre M.D. 08/20/2023 9:14 AM Neck CTA 08/20/23 08:33 NECK CTA HISTORY: neuro deficit, acute stroke suspected TECHNIQUE: Multiaxial CT images of the neck were performed following the intravenous administration of contrast to evaluate the major cervical vessels. 3D/MIP images were also obtained. Sagittal and coronal reformats were reviewed. All measurements were calculated based on NASCET criteria. A dose lowering technique was utilized adhering to the principles of ALARA. COMPARISON STUDY: None. FINDINGS: The aortic arch and proximal great vessels are widely patent. Moderate calcified plaque within the bilateral carotid bifurcations. There is also moderate focal atherosclerotic plaque within the mid left common carotid artery. This results in up to 40% focal narrowing. No significant stenosis or occlusion within the left internal carotid artery. There is between 60 and 70% stenosis within the proximal right internal carotid artery due to the calcified plaque. The mid to distal right internal carotid artery is widely patent. The right common carotid artery is widely patent. The left vertebral artery is widely patent. There is decreased perfusion within the mid to distal right vertebral artery with focal occlusion of the distal right vertebral artery at the C1 level best seen on image 334. The diminished perfusion within the distal right vertebral artery at the C1-C2 level could be due to an underlying dissection. Right-sided pacemaker wires are noted. IMPRESSION: 1. There is decreased perfusion within the mid to distal right vertebral artery with focal occlusion of the distal right vertebral artery at the C1 level as described above. The diminished perfusion within the distal right vertebral artery at the C1-C2 level could be due to an underlying dissection. 2. Approximately 60-70% stenosis within the proximal right internal carotid artery due to the calcified plaque. ACT 112: Negative or not required by law. Electronically signed by: Kei Alonzo M.D. 08/20/2023 9:[address] 08/21/23 11:06 CT SCAN OF THE BRAIN WITHOUT IV CONTRAST CLINICAL HISTORY: Stroke. Blurry vision. COMPARISON STUDY: CT and MRI of the brain dated 08/20/2023. TECHNIQUE: Unenhanced axial CT scan of the brain is performed from the vertex to the skull base. A dose lowering technique was utilized adhering to the principles of ALARA. CT DOSE: 625.8 mGy.cm FINDINGS: Brain parenchyma: There is loss of antony-white matter differentiation in the left frontal lobe cortex consistent with a subacute/evolving infarct. There is no hemorrhage or mass effect. There is encephalomalacia from chronic right frontal and biparietal infarcts. There is age-related involutional change noting moderate to advance subcortical and periventricular microangiopathic disease. No extra-axial fluid collection is seen. Ventricles, sulci, cisterns: Prominent secondary to involutional change. Intracranial vasculature: There is atherosclerotic calcification of the cavernous carotid and vertebral arteries. Calvarium: Unremarkable. Sinuses and mastoids: The visualized paranasal sinuses are clear. The mastoid air cells are well pneumatized. Orbits: The bony orbits are grossly intact. There are bilateral ocular lens implants. IMPRESSION: 1. There is loss of antony-white matter differentiation in the left posterior frontal cortex consistent with a subacute/evolving infarct when compared to yesterday's MRI. 2. The small lacunar infarct in the left posterior parietal white matter seen by MRI is not appreciated by CT. 3. There is no hemorrhage or mass effect. 4. Additional chronic infarct as above. ACT 112: Negative or not required by law. Electronically signed by: Harsh Le M.D. 08/21/2023 11:54 AM Pending Results Patient Have Any Pending Studies at Discharge: No Discharge Instructions Given to Patient (Per Discharging Provider) Mr. Mccarty, You were admitted and imaging showed that you had a stroke. Your symptoms have resolved for the most part. You were seen by Neurology and they recommend that you continue on your Eliquis with no interruption as well as your home medication Praluent since you cannot tolerate a statin or the medication zetia. You were seen by physical, occupational and speech therapy and your functions were within normal limits and at baseline. Neurology is recommending that you follow up with ophthalmology about your right eye symptoms that have since resolved. You were seen by Vascular Surgery as you had right internal carotid stenosis of approx 60%. They recommended that since you were asymptomatic from this, that you undergo surveillance with a carotid ultrasound in 6 months. Their office will call you to arrange. Please keep close follow up with your Neurologist, primary care provider and Vascular Surgery after discharge. Please do not hesitate to return to the emergency room should your symptoms worsen or return. It was a pleasure taking care of you while you were here! Total Time Total Time Spent Total Time Spent (In Minutes): > 30 minutes
== END 2023-08-22 14:27 | disposition home or self-care (01) | DRG 65 ==
LOC: ED 08:41 → 2E 11:18 → SUATTDRO 11:18 → 2E 17:00